=== PATIENT | male | born 1955 | race Caucasian/White ===

== ENCOUNTER 2017-12-07 13:38 | Emergency (ER) | payer BC ==
[~2017-12-07] VITALS: Ht 188 cm; Wt 88.5 kg
[~2017-12-07 13:38] MED LIST: ENAL10TA PO; ENLP10T; EPO; FRSM40T PO; FURO20TA4; HYDR1TAB86 PO; OMEP20CA6; OMEP20CA6 PO; PRAV40TA PO; PRD10T PO; PRD20T; PRD20T PO; SODIUM BICARBONATE PO
--- OUTSIDE RECORDS SUMMARY | 2017-12-07 13:42 | XMS REPORT | Clinical Summary ---
Author Author [facility] Organization [facility] Address Unknown Phone Unavailable Care Team Providers Care Replenishment Merchandising Associate Name Role Phone Devon Cheema MD PCP Suze Buchanan RN Unavailable Unavailable Charissa Lin RN Unavailable Unavailable Valery Newton MA Unavailable Unavailable Chas Peña APRN Unavailable Jeri Brower MA Unavailable Unavailable Dee Lyn RN Unavailable Unavailable Rogerio Lynne MD Unavailable Yesi Martinez MD 21 Dee Ma RN Unavailable Unavailable Toma Ojeda Unavailable Unavailable Radha David RN Unavailable Unavailable Shonda Ovalles MA Unavailable Unavailable Marley Jain Unavailable Unavailable Sonal Herrera MD Unavailable Wolf Aguillon MD Unavailable Source Comments Some departments are not documenting in the electronic medical record. If you do not see the information that you expected, contact Release of Information in the Health Information Management department at [phone] for further assistance in locating additional records.[facility] Allergies No Known Allergies Current Medications Prescription Sig. Disp. Refills Start End Date Status Date enalapril (VASOTEC) 10 mg Take 15 mg by mouth Active tablet daily. furosemide (LASIX) 40 mg Take 40 mg by mouth Active tablet daily. omeprazole DR(+) Take 20 mg by mouth Active (PRILOSEC) 20 mg capsule daily. sodium bicarbonate 325 mg Take 325 mg by mouth Active tablet daily. Will need to clarify actual dose pravastatin (PRAVACHOL) Take 10 mg by mouth Active 10 mg tablet daily. Will need to clarify dose predniSONE (DELTASONE) 5 Take 15 mg by mouth every Active mg tablet 48 hours. 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 Hypertension 07/08/2015 Overview: Stable on current regimen. GERD (gastroesophageal reflux disease) 07/08/2015 Metabolic acidosis 07/08/2015 End stage renal disease (HCC) 07/07/2015 Overview: Stable GFR 18-22% over the past few years, remains off dialysis. Encounters Date Type Specialty Care Team Description 11/28/2017 Documentation Transplant Surgery Dee Ma RN 11/28/2017 Ancillary Radiology Outpatient, Radiologist Orders 11/26/2017 Telephone Transplant Surgery Dee Ma RN Transplant Referral (PACS request for CT's) 11/26/2017 Telephone Transplant Surgery Amelia Santos Financial/ Insurance Questions (benefit collection) 11/22/2017 Telephone Transplant Surgery Dee Ma RN Transplant Referral (kidney) 11/22/2017 Telephone Transplant Surgery Beena Vergara Transplant Referral (intake interview) from Last 3 Months Family History Medical History Relation Name Comments Aneurysm Father Hypertension Father Cancer Mother Relation Name Status Comments Daughter Alive Father Mother Social History Tobacco Use Types Packs/Day Years Used Date Never Smoker Smokeless Tobacco: Never Used Alcohol Use Drinks/Week oz/Week Comments Yes occasional Sex Assigned at Date Recorded Not on file Last Filed Vital Signs Vital Sign Reading Time Taken Blood Pressure 119/81 07/08/2015 8:06 AM CDT Pulse 76 07/08/2015 8:06 AM CDT Temperature 36.6 C (97.9 F) 07/08/2015 7:57 AM CDT Respiratory Rate - - Oxygen Saturation 100% 07/08/2015 7:57 AM CDT Inhaled Oxygen - - Concentration Weight 87.7 kg (193 lb 4.8 oz) 07/08/2015 7:57 AM CDT Height 190.5 cm (6' 3") 07/08/2015 7:57 AM CDT Body Mass Index 24.16 07/08/2015 7:57 AM CDT Plan of Treatment Health Maintenance Due Date Last Done Comments PHYSICAL (COMPREHENSIVE) 1961 EXAM PERTUSSIS VACCINE 1965 TETANUS VACCINE 1971 COLORECTAL CANCER 2004 SCREENING SHINGLES VACCINE 2014 INFLUENZA VACCINE 05/07/2018 HEPATITIS C SCREENING Completed 07/08/2015, 10/11/2009 Results Not on filefrom Last 3 Months
--- OUTSIDE RECORDS SUMMARY | 2017-12-07 13:42 | XMS REPORT | Encounter Summary ---
Author Author [facility] Organization [facility] Address Unknown Phone Unavailable Care Team Providers Care Hydraulic Repairer Name Role Phone Devon Cheema MD PCP [...] Herrera MD Unavailable Wolf Aguillon MD Unavailable Reason for Visit * Reason Comments Financial/Insurance benefit collection Questions Encounter Details Date Type Department Care Team Description 11/26/2017 Telephone Center for Amelia Santos Financial/Insurance Transplantation-Kidney/Pa Questions (benefit ncreas Nep collection) [address] [facility] [address] Social History Tobacco Use Types Packs/Day Years Used Date Never Smoker Smokeless Tobacco: Never Used Alcohol Use Drinks/Week oz/Week Comments Yes occasional Sex Assigned at Date Recorded Not on file as of this encounter Functional Status Functional Status Response Date of Assessment Does the patient have a hearing impairment: Yes 07/08/2015 Does the patient have a visual impairment: No 07/08/2015 Does the patient have impaired ambulation: No 07/08/2015 Does the patient have an activity of daily living No 07/08/2015 (ADL) impairment: Does the patient have an instrumental activity of No 07/08/2015 daily living (IADL) impairment: Cognitive Status Response Date of Assessment Does the patient have a cognitive impairment: No 07/08/2015 as of this encounter Miscellaneous Notes * Telephone Encounter - Amelia Santos - 11/26/2017 10:36 AM ACID TESTER Benefits verified with Medicare A & B only. Patient is appropriate to schedule. * Telephone Encounter - Amelia Santos - 11/26/2017 10:14 AM ACID TESTER BENEFIT COLLECTION: Verified by: Amelia Santos Date: November 26, 2017 ID #: [id number] Subscriber: self Ins Plan:MEDICARE A&B EFF: 11/07/17 Phone#:[phone] Plan Type: A & B 2018 BENEFIT SUMMARY: PART A: DAYS REFRESH AFTER 60 CONSECUTIVE OUTPT DAYS DAYS 1-60 $1340 DEDUCTIBLE DAYS 61-90 $335/DAY COPAY DAYS 91-150 (USING ANY LIFETIME RESERVE DAYS) $670/DAY COPAY DAYS > 150 PT PORTION 100%; after a 3-day minimum medically necessary inpatient hospital stay for a related illness or injury. PART A/ SNF BENEFITS: IN 2016: DAYS 1-20 PT PORTION $0; DAYS 21-100 $167.50/DAY COPAY; DAYS > 100 PT PORTION 100% PART B IN 2018: - 2018 [place] $109 DEDUCTIBLE $183, WITH 80% REIMBURSEMENT OF ALLOWABLE, NO OUT OF POCKET MAXIMUM MEDICARE WILL PAY FOR DRUGS INFUSED THROUGH AN ITEM OF DME, LIKE AN INFUSION PUMP, OR DRUGS GIVEN BY A NEBULIZER WHEN GIVEN BY A LICENSED MEDICAL PROVIDER. PART B WILL COVER IMMUNOSUPPRESSIVE DRUGS IF COVERED THE TRANSPLANT, EVEN SECONDARY PAYER No Case Management, No transplant Network, No prior authorizations, No benefit limits PATIENT MUST HAVE RX COVERAGE AND SECONDARY OR SUPPLEMENT BEFORE LISTING Patient will be responsible for 20% that medicare does not cover for all testing and labs in this encounter Plan of Treatment Not on fileas of this encounter Visit Diagnoses Not on filein this encounter
--- OUTSIDE RECORDS SUMMARY | 2017-12-07 13:42 | XMS REPORT | Encounter Summary ---
Author Author [facility] Organization [facility] Address Unknown Phone Unavailable Care Team Providers Care Crusher Plant Operator Name Role Phone Devon Cheema MD PCP [...] Herrera MD Unavailable Wolf Aguillon MD Unavailable Encounter Details Date Type Department Care Team Description 11/28/2017 Documentation Center for Dee Ma RN Transplantation-Kidney/Pa [facility] [address] [facility] [place], [place] [id number] Social History Tobacco Use Types Packs/Day Years [...] impairment: No 07/08/2015 as of this encounter Progress Notes * Dee Ma RN - 11/28/2017 4:37 PM RESILIENT TILE INSTALLER CT done [address] Pham & ok to proceed with kidney transplant evaluation - would not exclude evaluation from the CT. * Dee Ma RN - 11/28/2017 4:37 PM RESILIENT TILE INSTALLER Received notice CT chest & abd/pelvis from are loaded in PACS; notified surgeon for review. in this encounter Plan of Treatment Not on fileas of this encounter Visit Diagnoses Not on filein this encounter
--- OUTSIDE RECORDS SUMMARY | 2017-12-07 13:42 | XMS REPORT | Encounter Summary ---
Author Author [facility] Organization [facility] Address Unknown Phone Unavailable Care Team Providers Care Airport Traffic Controller Name Role Phone Devon Cheema MD PCP [...] Unavailable Unavailable Marley Jain Unavailable Unavailable Sonal Herrrea MD Unavailable Wolf Aguillon MD Unavailable Encounter Details Date Type Department Care Team Description 11/28/2017 Ancillary Rad Outpatient, Radiologist Orders [address] [place] [address] Social History Tobacco Use Types Packs/Day Years [...] impairment: No 07/08/2015 as of this encounter Plan of Treatment Not on fileas of this encounter Results * CT CHEST EXTERNAL IMAGING (08/04/2017) Narrative This order has been auto finalized and does not contain a result. * CT ABD/PEL EXTERNAL IMAGING (07/30/2017) Narrative This order has been auto finalized and does not contain a result. in this encounter Visit Diagnoses Not on filein this encounter
--- OUTSIDE RECORDS SUMMARY | 2017-12-07 13:42 | XMS REPORT | Encounter Summary ---
Author Author [facility] Organization [facility] Address Unknown Phone Unavailable Care Team Providers Care Office Electrician Name Role Phone Devon Cheema MD PCP [...] Unavailable Reason for Visit * Reason Comments Transplant Referral kidney Encounter Details Date Type Department Care Team Description 11/22/2017 Telephone Center for Dee Ma RN Transplant Referral Transplantation-Kidney/Pa (kidney) ncreas [facility] [address] [facility] [place], [place] [id number] Social History Tobacco Use Types Packs/Day Years [...]
--- OUTSIDE RECORDS SUMMARY | 2017-12-07 13:42 | XMS REPORT | Encounter Summary ---
Author Author [facility] Organization [facility] Address Unknown Phone Unavailable Care Team Providers Care Shoe Parts Caser Name Role Phone Devon Cheema MD PCP [...] for Visit * Reason Comments Transplant Referral PACS request for CT's Encounter Details Date Type Department Care Team Description 11/26/2017 Telephone Center for Dee Ma RN Transplant Referral (PACS Transplantation-Kidney/Pa request for CT's) [facility] [address] [facility] [place] [address] Social History Tobacco Use Types Packs/Day Years [...] encounter Miscellaneous Notes * Telephone Encounter - Dee Ma RN - 11/26/2017 1:33 PM REPLANTING MACHINE OPERATOR Requested CT abd/pelvis and CT chest from @ [facility] to be uploaded to PACS: Phoebe, Can you please request these CTs to be uploaded into PACS for us in kidney transplant. Thank you. Name: Tolu Barrios : 53 Location: [facility] Study: CT Abdomen Pelvis done 07/30/[address] chest done 08/03 Thank you, Dee Ma, MSN, RN, CCTC [facility] Center for Transplantation Renal and Pancreas Bundle Person [email or web address] in this encounter Plan of Treatment Not on fileas of this encounter Visit Diagnoses Not on filein this encounter
--- OUTSIDE RECORDS SUMMARY | 2017-12-07 13:43 | XMS REPORT | Continuity of Care Document ---
Author Author [facility] Organization [facility] Address Unknown Phone Unavailable Allergies Active Description Code Type Severity Reaction Onset Reported/Identified Relationship to Patient Clinical Status Yes No Known Drug Allergies [id number] Drug Allergy Mild N/A 10/08/2009 Medications There is no data. Problems Date Dx Coded Attending Type Code Diagnosis Diagnosed By 07/27/2015 OLI CRAVEN MD Ot E78.5 07/27/2015 OLI CRAVEN MD Ot I10 07/27/2015 OLI CRAVEN MD Ot K21.9 07/27/2015 OLI CRAVEN MD Ot K57.90 07/27/2015 OLI CRAVEN MD Ot K62.1 07/27/2015 OLI CRAVEN MD Ot K63.5 07/27/2015 OLI CRAVEN MD Ot K64.4 07/27/2015 OLI CRAVEN MD Ot K64.8 07/27/2015 OLI CRAVEN MD Ot Z12.11 07/07/2017 Ot 285.21 ANEMIA IN CHRONIC KIDNEY DISEASE 07/07/2017 Ot 585.4 CHRONIC KIDNEY DISEASE, STAGE IV (SEVERE 07/07/2017 Ot V58.69 OTH MED,LT, CURRENT USE Procedures There is no data. Results There is no data. Encounters ACCT No. Visit Date/Time Discharge Status Pt. Type Provider Facility Loc./Unit Complaint [id number] 07/27/2015 07:12:00 07/27/2015 11:15:00 DIS Outpatient OLI CRAVEN MD [facility] [id number] 07/22/2015 05:38:00 07/22/2015 23:59:59 CLS Outpatient OLI CRAVEN MD [facility] PREOP [id number] 02/23/2014 07:44:00 04/27/2014 00:01:00 DIS Outpatient [id number] 01/27/2014 07:48:00 04/27/2014 00:01:00 DIS Outpatient [id number] 03/23/2014 06:54:00 03/23/2014 23:59:59 CLS Outpatient [id number] 12/28/2013 12:43:00 01/10/2014 00:01:00 DIS Outpatient [id number] 12/15/2013 12:31:00 01/10/2014 00:01:00 DIS Outpatient [id number] 08/31/2013 17:18:00 10/11/2013 00:01:00 DIS Outpatient [id number] 08/17/2013 14:10:00 10/11/2013 00:01:00 DIS Outpatient [id number] 06/09/2013 13:15:00 06/21/2013 00:01:00 DIS Outpatient [id number] 05/25/2013 07:45:00 06/21/2013 00:01:00 DIS Outpatient [id number] 06/17/2013 07:12:00 06/17/2013 23:59:59 CLS Outpatient [id number] 03/24/2013 12:57:00 03/24/2013 23:59:59 CLS Outpatient [id number] 12/07/2017 13:39:00 ACT Po SAMUEL MD, LEVON Velasquez [facility] ER WEAKNESS/FEVER [id number] 12/25/2012 14:18:00 Document Registration
--- OUTSIDE RECORDS SUMMARY | 2017-12-07 13:43 | XMS REPORT | Encounter Summary ---
Author Author [facility] Organization [facility] Address Unknown Phone Unavailable Care Team Providers Care Ladle Operator Name Role Phone Devon Cheema MD [...] for Visit * Reason Comments Transplant Referral intake interview Encounter Details Date Type Department Care Team Description 11/22/2017 Telephone Center for JaiBeena Transplant Referral Transplantation-Kidney/Pa (intake interview) [facility] [address] [facility] [place] [address] Social History Tobacco Use Types [...] encounter Miscellaneous Notes * Telephone Encounter - Beena Vergara - 11/22/2017 10:10 AM SUPPORT MANAGER New Referral Intake TO PATIENT: Thank you for contacting us, how did you hear about our transplant program? Pt was previous listed here at Is [place]orese your primary language? Yes Who is your kidney doctor? Hunter Varghese in [place] Who is your primary doctor? Devon Cheema Have you had a hospitalization in the past 6 months? UTI x2 turned in to Kidney infection, catheter for dialysis and blocked bowel turned perforated bowel had colostomy, case of Afib while hospitalized. Reversed colostomy. [facility] July 2017-present Past Medical History: (if answer is yes, please specify) How tall are you? 6'3" How much do you weigh? 185lbs Calculated BMI: 23.1 What is the cause of your kidney disease? Wegeners Are you currently on dialysis? yes Type/Start date/ Schedule: T,T,S, a.m. 7-10:30am, hemo What center: [facility] Are you diabetic? No Have you been denied or listed by another transplant center? Previously listed with Have you had a previous organ transplant? No History of: Heart disease? No, has a leaky heart valve has f/u annual appt in December Do you have a heart doctor? Dr. Aguillon heart and vascular History of heart stents? No Are you on medication to keep stents open (ex. Coumadin, Plavix, Brilinta)? No Are you on medication to help raise your blood pressure (Midodrine)? No Lung disease? No Are you on oxygen? No Do you wear CPAP (breathing machine at night to sleep)? No Are you currently smoking (marijuana or cigerettes)? No TO PATIENT: If you currently smoke, you need to quit to be considered a transplant candidate. Liver disease? No Cancer? 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 This took pt off txp list for 5 yrs 2008. Any active infections? No open wounds or sores? stitches incisions from colostomy reversal healing fine Psychiatric illness? No Do you see a psychiatrist or counselor? No Do you use a cane/walker/ other assistive devices to get around? Cane occasionally, only as needed Past Surgical History: Have you had any abdominal surgeries? Previously mentioned colostomy Have you had any surgeries on blood vessels? No Have you had any amputations? Previously mentioned earlobe removal Would you accept a lifesaving blood transfusion? Yes Demographic and Social History: What gender were you at ? male Primary Insurance Company: Medicare Policy #: [id number] Group ID: *Obtain copy of card and have scanned Secondary Insurance Company: states he will have supplemental January 05 and prescription Policy #: Group ID: *Obtain copy of card and have scanned Do you have a support person who will be with you after a transplant? yes Name and Relationship of Support Person: daughter, Bisi Booker TO PATIENT: You will need to bring your support person with you to the transplant evaluation. This is required to be considered a candidate for transplant. If you have interested living donors, they are welcome to come with you, as well. Note to staff - Obtain the following records: nephrology note hospital discharge summary within 6 month (or most recent) pathology report Notify Dr. Jacob if delay in scheduling due to lack of records in this encounter Plan of Treatment Not on fileas of this encounter Visit Diagnoses Not on filein this encounter
--- NOTE | 2017-12-07 13:55 | ED General ---
General Chief Complaint: General Problems/Pain Stated Complaint: WEAKNESS/FEVER Source of Information: Patient, EMS, Family History of Present Illness Date Seen by Provider: Dec 07, 2017 Time Seen by Provider: 13:49 Initial Comments This 5-year-old white male presents with a history of a fever which developed during his dialysis today. Patient's fever was 101. Patient denies productive cough, nausea, vomiting, dysuria, rash, stiff neck or photophobia. Patient does complain of a mild headache. Patient had a similar presentation in the past due to VRE cystitis treated with ampicillin at [facility] for 5 days. The patient had a colostomy reversal performed 3 weeks ago. He's had no associated abdominal pain, swelling, inflammation of his surgical scars, or symptoms suggestive of obstruction. Allergies and Home Medications Allergies Coded Allergies: No Known Drug Allergies (Unverified , 10/08/09) Patient Home Medication List Home Medication List Reviewed: Yes Constitutional: No chills, fever EENTM: No hearing loss Respiratory: No cough, No short of breath Cardiovascular: No chest pain Gastrointestinal: No diarrhea, No nausea, No vomiting Genitourinary: No dysuria, No frequency, No hematuria Musculoskeletal: No back pain, No neck pain Skin: No rash Psychiatric/Neurological: No Symptoms Reported Hematologic/Lymphatic: Easy Bleeding Immunological/Allergic: no symptoms reported Past Aymsntj-Qbdkym-Kvowos Hx Patient Social History Alcohol Use: Denies Use Recreational Drug Use: No 2nd Hand Smoke Exposure: No Surgeries History of Surgeries: Yes Surgeries: Abdominal Respiratory History of Respiratory Disorde: No Cardiovascular History of Cardiac Disorders: No Reproductive System Hx Reproductive Disorders: No Sexually Transmitted Disease: No Gastrointestinal History of Gastrointestinal Di: No Musculoskeletal History of Musculoskeletal Dis: Yes (gout in the past) Endocrine History of Endocrine Disorders: No Blood Transfusions History of Blood Disorders: No Reviewed Nursing Assessment Reviewed/Agree w Nursing PMH: Yes Physical Exam-Suspected Sepsis Physical Exam Vital Signs Vital Signs - First Documented 12/07/17 13:40 Temp 98.7 Pulse 84 Resp 18 B/P (MAP) 117/74 (88) Pulse Ox 100 Capillary Refill : General Appearance: No Apparent Distress, Cachetic Eyes: Bilateral Eye Normal Inspection HEENT: Normal ENT Inspection Neck: Normal Inspection Respiratory: Lungs Clear, Normal Breath Sounds Cardiovascular: Regular Rate, Rhythm, No Edema, No Gallop Gastrointestinal: Normal Bowel Sounds, Non Tender Back: Normal Inspection, No CVA Tenderness Extremity: Normal Capillary Refill, Normal Inspection, Normal Range of Motion Neurologic/Psychiatric: Oriented x3, No Motor/Sensory Deficits, Normal Mood/ Affect Skin: normal color, warm/dry, No rash Focused Exam Evaluation Lactate Level Laboratory Tests 12/07/17 14:22: Lactic Acid Level 1.75 Lactic Acid Level Laboratory Tests Test 12/07/17 14:22 Lactic Acid Level 1.75 MMOL/L (0.50-2.00) Progress/Results/Core Measures Suspected Sepsis SIRS Temperature: Pulse: Respiratory Rate: Laboratory Tests 12/07/17 13:40: White Blood Count 1.3*L Blood Pressure / Mean: Laboratory Tests 12/07/17 14:22: Lactic Acid Level 1.75 Laboratory Tests 12/07/17 13:40: Creatinine 2.99H, Platelet Count 111L, Total Bilirubin 0.5 Results/Orders Lab Results Laboratory Tests Test 12/07/17 13:40 12/07/17 13:55 12/07/17 14:22 Range/Units White Blood Count 1.3 *L 4.3-11.0 10^3/uL Red Blood Count 2.85 L 4.35-5.85 10^6/uL Hemoglobin 9.4 L 13.3-17.7 G/DL Hematocrit 29 L 40-54 % Mean Corpuscular Volume 100 H 80-99 FL Mean Corpuscular Hemoglobin 33 25-34 PG Mean Corpuscular Hemoglobin Concent 33 32-36 G/DL Red Cell Distribution Width 15.8 H 10.0-14.5 % Platelet Count 111 L 130-400 10^3/uL Mean Platelet Volume 10.0 7.4-10.4 FL Neutrophils (%) (Auto) 42-75 % Lymphocytes (%) (Auto) 12-44 % Monocytes (%) (Auto) 0-12 % Eosinophils (%) (Auto) 0-10 % Basophils (%) (Auto) 0-10 % Neutrophils # (Auto) 1.8-7.8 X 10^3 Lymphocytes # (Auto) 1.0-4.0 X 10^3 Monocytes # (Auto) 0.0-1.0 X 10^3 Eosinophils # (Auto) 0.0-0.3 10^3/uL Basophils # (Auto) 0.0-0.1 10^3/uL Neutrophils % (Manual) 2 % Lymphocytes % (Manual) 72 % Monocytes % (Manual) 24 % Eosinophils % (Manual) 2 % Basophils % (Manual) 0 % Band Neutrophils 0 % Blood Morphology Comment NORMAL Erythrocyte Sedimentation Rate 69 H 0-30 MM/HR Sodium Level 136 135-145 MMOL/L Potassium Level 3.5 L 3.6-5.0 MMOL/L Chloride Level 100 98-107 MMOL/L Carbon Dioxide Level 24 21-32 MMOL/L Anion Gap 12 5-14 MMOL/L Blood Urea Nitrogen 17 7-18 MG/DL Creatinine 2.99 H 0.60-1.30 MG/DL Estimat Glomerular Filtration Rate 21 BUN/Creatinine Ratio 6 Glucose Level 92 70-105 MG/DL Calcium Level 8.9 8.5-10.1 MG/DL Total Bilirubin 0.5 0.1-1.0 MG/DL Aspartate Amino Transf (AST/SGOT) 23 5-34 U/L Alanine Aminotransferase (ALT/SGPT) 27 0-55 U/L Alkaline Phosphatase 74 40-136 U/L C-Reactive Protein High Sensitivity 8.31 H 0.00-0.50 MG/DL Total Protein 5.3 L 6.4-8.2 GM/DL Albumin 3.1 L 3.2-4.5 GM/DL Urine Color YELLOW Urine Clarity VERY CLOUDY H Urine pH 8 5-9 Urine Specific [place] 1.010 L 1.016-1.022 Urine Protein 4+ NEGATIVE Urine Glucose (UA) NEGATIVE NEGATIVE Urine Ketones NEGATIVE NEGATIVE Urine Nitrite NEGATIVE NEGATIVE Urine Bilirubin NEGATIVE NEGATIVE Urine Urobilinogen NORMAL NORMAL MG/DL Urine Leukocyte Esterase 3+ H NEGATIVE Urine RBC (Auto) 4+ H NEGATIVE Urine RBC 10-25 H /HPF Urine WBC TNTC H /HPF Urine Squamous Epithelial Cells NONE /HPF Urine Crystals NONE /LPF Urine Bacteria FEW H /HPF Urine Casts NONE /LPF Urine Mucus NEGATIVE /LPF Urine Culture Indicated YES Lactic Acid Level 1.75 0.50-2.00 MMOL/L My Orders Orders - LEVON SAMUEL MD Blood Culture (12/07/17 13:47) Cbc With Automated Diff (12/07/17 13:47) Comprehensive Metabolic Panel (12/07/17 13:47) Ua Culture If Indicated (12/07/17 13:47) Chest Pa/Lat (2 View) (12/07/17 13:47) Lactic Acid Analyzer (12/07/17 13:47) Hs C Reactive Protein (12/07/17 14:02) Erythrocyte Sedimentation Rate (12/07/17 14:02) C Difficile Ag + Toxin A/B. (12/07/17 14:04) Stool Culture (12/07/17 14:04) Manual Differential (12/07/17 13:40) Urine Culture (12/07/17 13:55) Ceftriaxone Injection (Rocephin Injectio (12/07/17 14:45) Vital Signs/I&O Vital Sign - Last 12Hours 12/07/17 13:40 Temp 98.7 Pulse 84 Resp 18 B/P (MAP) 117/74 (88) Pulse Ox 100 Capillary Refill : Progress Note : Time: 14:09 Progress Note Cultures were obtained. Labs were drawn. Chest x-ray was performed. The patient's laboratory evaluation demonstrated a leukopenia with white count 1.3. In addition patient urinalysis was suggestive of urinary tract infection. The patient received 2 g Rocephin IV. Departure Impression Impression: Primary Impression: UTI (urinary tract infection) Qualified Codes: N30.00 - Acute cystitis without hematuria Additional Impression: Fever Qualified Codes: R50.9 - Fever, unspecified Disposition: [facility]F [facility] Condition: Improved Transfer Time Spoke to Accepting Phy: 14:[address] Ponce accepted to [facility]. Report #[id number] Transfer Time: 15:05 Transfer Facility: [facility] to [facility] Method of Transfer: Private Vehicle Departure-Patient Inst. Referrals: ALYCE JAIN MD (PCP) Primary Care Physician LEVON SAMUEL MD Dec 07, 2017 13:55
[2017-12-07 13:56] LABS: HEMATOCRIT 29 % (40-54); HEMOGLOBIN 9.4 G/DL (13.3-17.7); MEAN CORPUSCULAR HEMOGLOBIN 33 PG (25-34); MEAN CORPUSCULAR HGB CONC 33 G/DL (32-36); MEAN CORPUSCULAR VOLUME 100 FL (80-99); PLATELET COUNT 111 10^3/uL (130-400); RED BLOOD COUNT 2.85 10^6/uL (4.35-5.85); RED CELL DISTRIBUTION WIDTH 15.8 % (10.0-14.5)
[2017-12-07 14:04] LABS: BILIRUBIN,URINE NEGATIVE (NEGATIVE); CLARITY,URINE VERY CLOUDY; COLOR,URINE YELLOW; GLUCOSE, URINE (UA) NEGATIVE (NEGATIVE); KETONES,URINE NEGATIVE (NEGATIVE); LEUKOCYTE ESTERASE ,URINE 3+ (NEGATIVE); NITRITE,URINE NEGATIVE (NEGATIVE); PH,URINE 8 (5-9); PROTEIN,URINE 4+ (NEGATIVE); UROBILINOGEN,URINE NORMAL (NORMAL)
[2017-12-07 14:09] LABS: WHITE BLOOD COUNT 1.3 10^3/uL (4.3-11.0)
--- NOTE | 2017-12-07 14:13 | Diagnostic Imaging Report ---
PA and lateral chest. INDICATION: Weakness. No comparison available. FINDINGS: Right internal jugular dual-lumen central line is present. Surgical clips in the right neck. Lungs appear clear without focal infiltrate or evidence of effusion. There is no pneumothorax. The heart size and mediastinal contours appear appropriate without evidence of failure. IMPRESSION: No radiographic evidence of an acute cardiopulmonary process. Dictated by: Dictated on workstation # [id number]
[2017-12-07 14:18] LABS: ALBUMIN 3.1 GM/DL (3.2-4.5); BILIRUBIN,TOTAL 0.5 MG/DL (0.1-1.0); CALCIUM 8.9 MG/DL (8.5-10.1); CREATININE SERUM 2.99 MG/DL (0.60-1.30); POTASSIUM 3.5 MMOL/L (3.6-5.0); TOTAL PROTEIN 5.3 GM/DL (6.4-8.2)
[2017-12-07 14:26] LABS: BAND NEUTROPHILS 0 %; BASOPHILS % (MANUAL) 0 %; EOSINOPHILS % (MANUAL) 2 %; LYMPHOCYTES % (MANUAL) 72 %; MONOCYTES % (MANUAL) 24 %; NEUTROPHILS % (MANUAL) 2 %; RBC MORPH NORMAL
[2017-12-07 14:30] LABS: BACTERIA,URINE FEW /HPF; WBC,URINE TNTC /HPF
[2017-12-07] MEDS ORDERED: cefTRIAXone INJECTION 2,000 MG in NS (IVPB) 100 ML IV ONE (14:45)
[2017-12-07] MEDS ORDERED: PRAV40TA2 (14:51)
[2017-12-07] MEDS ORDERED: AMIO200T2 (14:51)
[2017-12-07] MEDS ORDERED: CALC0.5C11 (14:51)
[2017-12-07] MEDS ORDERED: AMLO10TA2 (14:51)
[2017-12-07] MEDS ORDERED: PANT40TA3 (14:51)
[2017-12-07 15:42] VITALS: BP 115/72
== END 2017-12-07 15:42 | disposition short-term general hospital (02) ==
LOC: EDUNIT# 13:38 → ER 13:39
DX: N39.0 Urinary tract infection, site not specified (principal); M10.9 Gout, unspecified; Z98.890 Other specified postprocedural states; Z99.2 Dependence on renal dialysis
CPT/HCPCS: 36415; 71046; 80053; 81000; 83605; 85007; 85027; 85652; 86141; 87040; 87077; 87088; 87186

== ENCOUNTER 2017-12-27 13:25 | Outpatient (RCR) | payer BC ==
[2017-12-11 15:25] VITALS: BP 115/79
[2017-12-11] MEDS: AMPICILLIN IV SCH ×2 (16:36)
[2017-12-11] MEDS: NS IV SCH ×2 (16:36)
[2017-12-11 17:05] VITALS: BP 115/79
[2017-12-11] MEDS: CATHETER FLUSH 10 ML SYR IV PRN (17:05)
[2017-12-12 15:35] VITALS: BP 98/65
[2017-12-12] MEDS: NS IV SCH ×2 (15:49)
[2017-12-12] MEDS: AMPICILLIN IV SCH ×2 (15:49)
[2017-12-13 15:02] VITALS: BP 120/76
[2017-12-13] MEDS: NS IV SCH ×2 (15:12)
[2017-12-13] MEDS: AMPICILLIN IV SCH ×2 (15:12)
[2017-12-13 15:49] VITALS: BP 120/76
[2017-12-14 11:05] VITALS: BP 107/77
[2017-12-14] MEDS: CATHETER FLUSH 10 ML SYR IV PRN (11:10)
[2017-12-14] MEDS: AMPICILLIN IV SCH ×2 (11:15)
[2017-12-14] MEDS: NS IV SCH ×2 (11:15)
[2017-12-15 09:10] VITALS: BP 129/84
[2017-12-15] MEDS: CATHETER FLUSH 10 ML SYR IV PRN (09:15)
[2017-12-15] MEDS: NS IV SCH ×2 (09:16)
[2017-12-15] MEDS: AMPICILLIN IV SCH ×2 (09:16)
[2017-12-16] MEDS: CATHETER FLUSH 10 ML SYR IV PRN ×2 (15:09→15:40)
[2017-12-16] MEDS: AMPICILLIN IV SCH ×2 (15:10)
[2017-12-16] MEDS: NS IV SCH ×2 (15:10)
[2017-12-16 15:46] VITALS: BP 120/79
[2017-12-17] MEDS: AMPICILLIN IV SCH ×2 (15:18)
[2017-12-17] MEDS: NS IV SCH ×2 (15:18)
[2017-12-17 15:21] VITALS: BP 120/74
[2017-12-17 15:47] VITALS: BP 120/74
[2017-12-18] MEDS: NS IV SCH ×2 (15:48)
[2017-12-18] MEDS: AMPICILLIN IV SCH ×2 (15:48)
[2017-12-18 15:58] VITALS: BP 145/88
[2017-12-18 16:19] VITALS: BP 145/88
[2017-12-19] MEDS: AMPICILLIN IV SCH ×2 (15:20)
[2017-12-19] MEDS: NS IV SCH ×2 (15:20)
[2017-12-19 15:27] VITALS: BP 136/88
[2017-12-19 15:50] VITALS: BP 136/88
[2017-12-20] MEDS: NS IV SCH ×2 (15:15)
[2017-12-20] MEDS: AMPICILLIN IV SCH ×2 (15:15)
[2017-12-20 15:50] VITALS: BP 130/80
[2017-12-21] MEDS: CATHETER FLUSH 10 ML SYR IV PRN (11:08)
[2017-12-21] MEDS: NS IV SCH ×2 (11:08)
[2017-12-21] MEDS: AMPICILLIN IV SCH ×2 (11:08)
[2017-12-21 11:42] VITALS: BP 40/82
[~2017-12-27] VITALS: Ht 188 cm; Wt 88.5 kg
[~2017-12-27 13:25] MED LIST changes: +AMIO200T2; +AMLO10TA2; +CALC0.5C11; +PANT40TA3; +PRAV40TA2
[2017-12-27 13:46] VITALS: BP 123/82
[2018-01-28] MEDS ORDERED: PRED5TAB (22:00)
[2018-01-28] MEDS ORDERED: FINA5TAB6 (22:00)
== END 2018-03-11 | disposition home or self-care (01) ==
LOC: SDC 13:25
PROVIDERS: ATTEND Internal Medicine
DX: N30.00 Acute cystitis without hematuria (principal); D70.9 Neutropenia, unspecified; N18.6 End stage renal disease; M31.30 Wegener's granulomatosis without renal involvement; Z99.2 Dependence on renal dialysis
CPT/HCPCS: 96365; 99211

== ENCOUNTER 2018-02-04 05:45 | Emergency (ER) | payer MEDICARE ==
[~2018-02-04] VITALS: Ht 185.4 cm; Wt 86.2 kg
[~2018-02-04 05:45] MED LIST changes: +FINA5TAB6; +PRED5TAB
--- OUTSIDE RECORDS SUMMARY | 2018-02-04 05:52 | XMS REPORT | Clinical Summary ---
Author Author [facility] Organization [facility] Address Unknown Phone Unavailable Care Team Providers Care Starting Gate Driver Name Role Phone Devon Cheema MD PCP [...] in the Health Information Management department at [phone] for further assistance in locating additional records.[facility] Allergies No Known Allergies Current Medications Prescription [...] Encounters Date Type Specialty Care Team Description 12/13/2017 Telephone Transplant Surgery Dee Ma RN Kidney Recipient Referral 12/13/2017 Telephone Transplant Surgery Beena Vergara Transplant Evaluation (scheduled pt for 02/17/18) 12/13/2017 Telephone Transplant Surgery Beena Vergara Transplant Evaluation (pt scheduled 02/17) 11/28/2017 Documentation Transplant Surgery Dee Ma RN [...] 07/08/2015 7:57 AM CDT Plan of Treatment Date Type Specialty Care Team Description 12/13/2017 Procedure Pass Transplant Surgery Health Maintenance Due Date Last Done Comments PHYSICAL (COMPREHENSIVE) 1961 EXAM PERTUSSIS VACCINE 1965 TETANUS VACCINE 1971 COLORECTAL CANCER 2004 SCREENING SHINGLES VACCINE 2014 INFLUENZA VACCINE 07/07/2018 HEPATITIS C SCREENING Completed 07/08/2015, 10/11/2009 HIV SCREENING Completed 07/08/2015, 10/11/2009 Results Not on filefrom Last 3 Months
--- OUTSIDE RECORDS SUMMARY | 2018-02-04 05:52 | XMS REPORT | Encounter Summary ---
Author Author [facility] Organization [facility] Address Unknown Phone Unavailable Care Team Providers Care Inspector Cold Working Name Role Phone Devon Cheema MD PCP Suze Buchanan RN Unavailable Unavailable Charissa Lin RN Unavailable Unavailable Valery Newton MA Unavailable Unavailable Chas Peña APRN Unavailable Jrei Brower MA Unavailable Unavailable Dee Lyn RN Unavailable Unavailable Rogerio Lynne MD Unavailable Yesi Martinez MD 21 Dee Ma RN Unavailable Unavailable Toma Ojeda Unavailable Unavailable Radha David RN Unavailable Unavailable Shonda Ovalles MA Unavailable Unavailable Marley Jain Unavailable Unavailable Sonal Herrera MD Unavailable Wolf Aguillon MD Unavailable Encounter Details Date Type Department Care Team Description 12/13/2017 Procedure Pass [facility] Transplantation-Kidney/Pa ncreas Nep [address] [facility] [place] [address] Social History Tobacco Use Types Packs/Day Years [...] as of this encounter Plan of Treatment Date Type Specialty Care Team Description 12/13/2017 Procedure Pass Transplant Surgery as of this encounter Visit Diagnoses Not on filein this encounter
--- OUTSIDE RECORDS SUMMARY | 2018-02-04 05:52 | XMS REPORT | Encounter Summary ---
Author Author [facility] Organization [facility] Address Unknown Phone Unavailable Care Team Providers Care Policy And Planning Manager Name Role Phone Devon Cheema MD PCP [...] for JaiBeena Transplant Referral Transplantation-Kidney/Pa (intake interview) [facility] [address] [facility] [place] [address] Social History Tobacco Use Types [...] - Beena Vergara - 11/22/2017 10:10 AM SENIOR HRIS ANALYST New Referral Intake TO PATIENT: Thank you for contacting us, how did you hear about our transplant program? Pt was previous listed here at Is Palauan your primary language? Yes Who is your kidney doctor? Hunter Varghese in [place] Who is your primary doctor? Devon Cheema Have you had a hospitalization in the past 6 months? UTI x2 turned in to Kidney infection, catheter for dialysis and blocked bowel turned perforated bowel had colostomy, case of Afib while hospitalized. [place] [facility] [place] Past Medical History: (if answer is yes, please specify) How tall are you? 6'3" How much do you weigh? 185lbs Calculated BMI: 23.1 What is the cause of your kidney disease? Wegeners Are you currently on dialysis? yes Type/Start date/ Schedule: T,T,S, a.m. 7-10:30am, hemo What center: [facility] Are you diabetic? No Have you been [...] male Primary Insurance Company: Medicare Policy #: [id number] Group ID: *Obtain copy of card and [...] records in this encounter Plan of Treatment Date Type Specialty Care Team Description 12/13/2017 Procedure Pass Transplant Surgery as of this encounter Visit Diagnoses Not on filein this encounter
--- OUTSIDE RECORDS SUMMARY | 2018-02-04 05:52 | XMS REPORT | Encounter Summary ---
Author Author [facility] Organization [facility] Address Unknown Phone Unavailable Care Team Providers Care District Superintendent Name Role Phone Devon Cheema MD PCP [...] Transplant Referral (PACS Transplantation-Kidney/Pa request for CT's) [facility] [address] [facility] [place] [address] Social History Tobacco Use Types Packs/Day Years [...] Dee Ma RN - 11/26/2017 1:33 PM MANAGER COMMERCIAL REAL ESTATE Requested CT abd/pelvis and CT chest from @ [place] to be uploaded to PACS: Phoebe, Can you please request these CTs to be uploaded into PACS for us in kidney transplant. Thank you. Name: Tolu Barrios : 53 Location: [facility] Study: CT Abdomen Pelvis done 07/30/[address] chest done 08/03 Thank you, Dee Ma, MSN, RN, CCTC [facility] for Transplantation Renal and Pancreas Transfer Car Operator [email or web address] in this encounter Plan of Treatment Date Type Specialty Care Team Description 12/13/2017 Procedure Pass Transplant Surgery as of this encounter Visit Diagnoses Not on filein this encounter
--- OUTSIDE RECORDS SUMMARY | 2018-02-04 05:52 | XMS REPORT | Encounter Summary ---
Author Author [facility] Organization [facility] Address Unknown Phone Unavailable Care Team Providers Care Truss Builder Name Role Phone Devon Cheema MD PCP [...] Financial/Insurance Transplantation-Kidney/Pa Questions (benefit ncreas Nep collection) [address] [facility] [place] [address] Social History Tobacco Use Types [...] - Amelia Santos - 11/26/2017 10:36 AM REWORKER Benefits verified with Medicare A & B only. Patient is appropriate to schedule. * Telephone Encounter - Amelia Santos - 11/26/2017 10:14 AM REWORKER BENEFIT COLLECTION: Verified by: Amelia Santos Date: November 26, 2017 ID #: [id number] Subscriber: self Ins Plan:MEDICARE A&B EFF: 11/07/17 Phone#:[phone] Plan Type: A & B 2018 BENEFIT [...] labs in this encounter Plan of Treatment Date Type Specialty Care Team Description 12/13/2017 Procedure Pass Transplant Surgery as of this encounter Visit Diagnoses Not on filein this encounter
--- OUTSIDE RECORDS SUMMARY | 2018-02-04 05:52 | XMS REPORT | Encounter Summary ---
Author Author [facility] Organization [facility] Address Unknown Phone Unavailable Care Team Providers Care Caustic Loader Name Role Phone Devon Cheema MD PCP [...] 11/28/2017 Ancillary Rad Outpatient, Radiologist Orders [address] [place] [address] Social History Tobacco Use Types Packs/Day Years [...] Pass Transplant Surgery as of this encounter Results * CT CHEST EXTERNAL IMAGING (08/04/2017) Narrative This order has been auto finalized and does not contain a result. * CT ABD/PEL EXTERNAL IMAGING (07/30/2017) Narrative This order has been auto finalized and does not contain a result. in this encounter Visit Diagnoses Not on filein this encounter
--- OUTSIDE RECORDS SUMMARY | 2018-02-04 05:52 | XMS REPORT | Encounter Summary ---
Author Author [facility] Organization [facility] Address Unknown Phone Unavailable Care Team Providers Care Asset Manager Name Role Phone Devon Cheema MD [...] Reason for Visit * Reason Comments Transplant Evaluation pt scheduled 02/17 Encounter Details Date Type Department Care Team Description 12/13/2017 Telephone Center for Beena Vergara Transplant Evaluation (pt [facility]idney[facility] [address] [facility] [place] [address] Social History Tobacco Use Types [...]
--- OUTSIDE RECORDS SUMMARY | 2018-02-04 05:52 | XMS REPORT | Encounter Summary ---
Author Author [facility] Organization [facility] Address Unknown Phone Unavailable Care Team Providers Care Cranberry Sorter Name Role Phone Devon Cheema MD PCP [...] Ma RN Transplant Referral Transplantation-Kidney/Pa (kidney) ncreas [facility] [address] [facility] [place], [place] [id number] Social History Tobacco Use Types Packs/Day Years [...]
--- OUTSIDE RECORDS SUMMARY | 2018-02-04 05:52 | XMS REPORT | Encounter Summary ---
Author Author [facility] Organization [facility] Address Unknown Phone Unavailable Care Team Providers Care Network Architect Manager Name Role Phone Devon Cheema MD [...] Unavailable Wolf Aguillon MD Unavailable Reason for Referral * Radiology Services Status Reason Specialty Diagnoses / Referred By Referred To Procedures Contact Contact New Request Radiology Diagnoses Lily ESRD (end stage MD Oanh renal disease) [address] ([facility]) [facility] Pre-transplant [place] [address] evaluation for [place], [place] end stage renal [address] disease Phone: P [phone] rocedures Fax: CT ABD/PELV WO [phone] CONTRAST Reason for Visit * Reason Comments Kidney Recipient Referral Encounter Details Date Type Department Care Team Description 12/13/2017 Telephone Center for Dee Ma, YVES Kidney Recipient Referral Transplantation-Kidney/Pa ncreas Nep [address] [facility] [place] [address] Social History Tobacco Use Types Packs/Day Years [...] Team Description 12/13/2017 Procedure Pass Transplant Surgery Name Priority Associated Diagnoses Order Schedule CT ABD/PELV WO CONTRAST Routine ESRD (end stage renal Expected: 2017 disease) ([facility]) (Approximate), Expires: Pre-transplant evaluation 12/13/2018 for end stage renal disease CHEST 2 VIEWS Routine ESRD (end stage renal Expected: 12/13/2017 disease) ([facility]) (Approximate), Expires: Pre-transplant evaluation 12/13/2018 for end stage renal disease as of this encounter Visit Diagnoses Diagnosis Pre-transplant evaluation for end stage renal disease - Primary Other specified pre-operative examination ESRD (end stage renal disease) ([facility]) End stage renal disease
--- OUTSIDE RECORDS SUMMARY | 2018-02-04 05:52 | XMS REPORT | Encounter Summary ---
Author Author [facility] Organization [facility] Address Unknown Phone Unavailable Care Team Providers Care Sheet Rocker Name Role Phone Devon Cheema MD PCP [...] for Visit * Reason Comments Transplant Evaluation scheduled pt for 02/17/18 Encounter Details Date Type Department Care Team Description 12/13/2017 Telephone Center for Beena Vergara Transplant Evaluation Transplantation-Kidney/Pa (scheduled pt for ncreas Nep 02/17/18) [address] [facility] [place] [address] Social History Tobacco Use Types Packs/Day Years [...]
--- OUTSIDE RECORDS SUMMARY | 2018-02-04 05:52 | XMS REPORT | Encounter Summary ---
Author Author [facility] Organization [facility] Address Unknown Phone Unavailable Care Team Providers Care Sanitary Landfill Operator Name Role Phone Devon Cheema MD PCP Suze Buchanan RN Unavailable Unavailable Charissa Lin RN Unavailable Unavailable Valery Newton MA Unavailable Unavailable Chas Peña APRN Unavailable Jeri Brower MA Unavailable Unavailable Dee Lyn RN Unavailable Unavailable Rogerio Lynne MD Unavailable Yesi Martinez MD 21 Dee Ma RN Unavailable Unavailable Toma Ojead Unavailable Unavailable Radha David RN Unavailable Unavailable Shonda Ovalles MA Unavailable Unavailable Marley Jain Unavailable Unavailable Sonal Herrera MD Unavailable Wolf Aguillon MD Unavailable Encounter Details Date Type Department Care Team Description 11/28/2017 Documentation Center for Dee Ma RN Transplantation-Kidney/Pa [facility] [address] [facility] [place], [place] [id number] Social History Tobacco Use Types Packs/Day Years [...] Dee Ma RN - 11/28/2017 4:37 PM TELECOMMUNICATOR SUPERVISOR CT done [address] Pham & ok to proceed with kidney transplant evaluation - would not exclude evaluation from the CT. * Dee Ma RN - 11/28/2017 4:37 PM TELECOMMUNICATOR SUPERVISOR Received notice CT chest & abd/pelvis from are loaded in PACS; notified surgeon for review. in this encounter Plan of Treatment Date Type Specialty Care Team Description 12/13/2017 Procedure Pass Transplant Surgery as of this encounter Visit Diagnoses Not on filein this encounter
--- OUTSIDE RECORDS SUMMARY | 2018-02-04 05:53 | XMS REPORT | Continuity of Care Document ---
Author Author [facility] Organization [facility] Address Unknown Phone Unavailable Allergies Active Description Code Type Severity Reaction Onset Reported/Identified Relationship to Patient Clinical Status Yes No Known Drug Allergies [id number] Drug Allergy Mild N/A 10/08/2009 Medications There is no data. 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 10/19/2012 Ot 447.8 ARTERIAL DISEASE NEC 10/19/2012 Ot 585.4 CHRONIC KIDNEY DISEASE, STAGE IV (SEVERE 10/19/2012 Ot 791.0 PROTEINURIA 10/19/2012 Ot 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 10/19/2012 Ot V12.51 HX-VENOUS THROMBOSIS EMBOLISM 10/19/2012 Ot V58.65 LONG-TERM( CURRENT)USE OF STEROIDS 10/19/2012 Ot V58.69 OTH MED,LT, CURRENT USE 10/19/2012 Ot V67.09 SURGERY FOLLOW-UP, OTHER SURGERY 10/19/2012 Ot 285.21 ANEMIA IN CHRONIC KIDNEY DISEASE 10/19/2012 Ot 585.4 CHRONIC KIDNEY DISEASE, STAGE IV (SEVERE 10/19/2012 Ot V58.69 OTH MED,LT, CURRENT USE 01/19/2013 Ot 272.4 HYPERLIPIDEMIA NEC/NOS 01/19/2013 Ot 276.8 HYPOPOTASSEMIA 01/19/2013 Ot 280.9 IRON DEFIC ANEMIA NOS 01/19/2013 Ot 285.21 ANEMIA IN CHRONIC KIDNEY DISEASE 01/19/2013 Ot 403.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 KID DIS, UNSPEC, W CHR KD ST 01/19/2013 Ot 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 01/19/2013 Ot 447.8 ARTERIAL DISEASE NEC 01/19/2013 Ot 585.4 CHRONIC KIDNEY DISEASE, STAGE IV (SEVERE 01/19/2013 Ot 791.0 PROTEINURIA 01/19/2013 Ot 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 01/19/2013 Ot V12.51 HX-VENOUS THROMBOSIS EMBOLISM 01/19/2013 Ot V58.65 LONG-TERM( CURRENT)USE OF STEROIDS 01/19/2013 Ot V58.69 OTH MED,LT, CURRENT USE 01/19/2013 Ot V67.09 SURGERY FOLLOW-UP, OTHER SURGERY 01/19/2013 Ot 285.21 ANEMIA IN CHRONIC KIDNEY DISEASE 01/19/2013 Ot 585.4 CHRONIC KIDNEY DISEASE, STAGE IV (SEVERE 01/19/2013 Ot V58.69 OTH MED,LT, CURRENT USE 06/21/2013 SEEMA SLOAN, CHANTAL Velasquez Ot 272.4 HYPERLIPIDEMIA NEC/NOS 06/21/2013 SEEMA SLOAN, CHANTAL S Ot 276.8 HYPOPOTASSEMIA 06/21/2013 SEEMA SLOAN, CHANTAL S Ot 280.9 IRON DEFIC ANEMIA NOS 06/21/2013 SEEMA SLOAN, CHANTAL S Ot 285.21 ANEMIA IN CHRONIC KIDNEY DISEASE 06/21/2013 SEEMA SLOAN, CHANTAL S Ot 403.90 HYPTNSV [facility] KID DIS, UNSPEC, W CHR KD ST 06/21/2013 CHANTAL STEPHENSON MD Ot 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 06/21/2013 SEEMA SLOAN, CHANTAL S Ot 447.8 ARTERIAL DISEASE NEC 06/21/2013 SEEMA SLOAN, CHANTAL S Ot 585.4 CHRONIC KIDNEY DISEASE, STAGE IV (SEVERE 06/21/2013 CHANTAL STEPHENSON MD S Ot 791.0 PROTEINURIA 06/21/2013 SEEMA SLOAN, CHANTAL S Ot 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 06/21/2013 SEEMA SLOAN, CHANTAL S Ot V12.51 HX-VENOUS THROMBOSIS EMBOLISM 06/21/2013 SEEMA SLOAN, CHANTAL S Ot V58.65 LONG-TERM(CURRENT)USE OF STEROIDS 06/21/2013 CHANTAL STEPHENSON MD Ot V58.69 OTH MED,LT,CURRENT USE 06/21/2013 CHANTAL STEPHENSON MD Ot V67.09 SURGERY FOLLOW-UP, OTHER SURGERY 06/21/2013 CHANTAL STEPHENSON MD Ot 285.21 ANEMIA IN CHRONIC KIDNEY DISEASE 06/21/2013 CHANTAL STEPHENSON MD Ot 585.4 CHRONIC KIDNEY DISEASE, STAGE IV (SEVERE 06/21/2013 CHANTAL STEPHENSON MD, Ot V58.69 OTH MED,LT,CURRENT USE 10/11/2013 CHANTAL STEPHENSON MD Ot 272.4 HYPERLIPIDEMIA NEC/NOS 10/11/2013 CHANTAL STEPHENSON MD Ot 276.8 HYPOPOTASSEMIA 10/11/2013 CHANTAL STEPHENSON MD Ot 280.9 IRON DEFIC ANEMIA NOS 10/11/2013 CHANTAL STEPHENSON MD Ot 285.21 ANEMIA IN CHRONIC KIDNEY DISEASE 10/11/2013 CHANTAL STEPHENSON MD Ot 403.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 KID DIS, UNSPEC, W CHR KD ST 10/11/2013 CHANTAL STEPHENSON MD Ot 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 10/11/2013 CHANTAL STEPHENSON MD Ot 447.8 ARTERIAL DISEASE NEC 10/11/2013 CHANTAL STEPHENSON MD Ot 585.4 CHRONIC KIDNEY DISEASE, STAGE IV (SEVERE 10/11/2013 CHANTAL STEPHENSON MD Ot 791.0 PROTEINURIA 10/11/2013 CHANTAL STEPHENSON MD Ot 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 10/11/2013 CHANTAL STEPHENSON MD Ot V12.51 HX-VENOUS THROMBOSIS EMBOLISM 10/11/2013 CHANTAL STEPHENSON MD Ot V58.65 LONG-TERM(CURRENT)USE OF STEROIDS 10/11/2013 CHANTAL STEPHENSON MD Ot V58.69 OTH MED,LT,CURRENT USE 10/11/2013 CHANTAL STEPHENSON MD Ot V67.09 SURGERY FOLLOW-UP, OTHER SURGERY 10/11/2013 CHANTAL STEPHENSON MD Ot 285.21 ANEMIA IN CHRONIC KIDNEY DISEASE 10/11/2013 CHANTAL STEPHENSON MD Ot 585.4 CHRONIC KIDNEY DISEASE, STAGE IV (SEVERE 10/11/2013 CHANTAL STEPHENSON MD, Ot V58.69 OTH MED,LT,CURRENT USE 01/10/2014 CHANTAL STEPHENSON MD Ot 272.4 HYPERLIPIDEMIA NEC/NOS 01/10/2014 CHANTAL STEPHENSON MD Ot 276.8 HYPOPOTASSEMIA 01/10/2014 CHANTAL STEPHENSON MD Ot 280.9 IRON DEFIC ANEMIA NOS 01/10/2014 CHANTAL STEPHENSON MD, Ot 285.21 ANEMIA IN CHRONIC KIDNEY DISEASE 01/10/2014 CHANTAL STEPHENSON MD Ot 403.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, UNSPEC, W CHR KD ST 01/10/2014 CHANTAL STEPHENSON MD Ot 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 01/10/2014 CHANTAL STEPHENSON MD Ot 447.8 ARTERIAL DISEASE NEC 01/10/2014 CHANTAL STEPHENSON MD Ot 585.4 CHRONIC KIDNEY DISEASE, STAGE IV (SEVERE 01/10/2014 CHANTAL STEPHENSON MD Ot 791.0 PROTEINURIA 01/10/2014 CHANTAL STEPHENSON MD Ot 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 01/10/2014 CHANTAL STEPHENSON MD Ot V12.51 HX-VENOUS THROMBOSIS EMBOLISM 01/10/2014 CHANTAL STEPHENSON MD Ot V58.65 LONG-TERM(CURRENT)USE OF STEROIDS 01/10/2014 CHANTAL STEPHENSON MD Ot V58.69 OTH MED,LT,CURRENT USE 01/10/2014 CHANTAL STEPHENSON MD Ot V67.09 SURGERY FOLLOW-UP, OTHER SURGERY 01/10/2014 CHANTAL STEPHENSON MD Ot 285.21 ANEMIA IN CHRONIC KIDNEY DISEASE 01/10/2014 CHANTAL STEPHENSON MD Ot 585.4 CHRONIC KIDNEY DISEASE, STAGE IV (SEVERE 01/10/2014 CHANTAL STEPHENSON MD, Ot V58.69 OTH MED,LT,CURRENT USE 04/27/2014 CHANTAL STEPHENSON MD Ot 272.4 HYPERLIPIDEMIA NEC/NOS 04/27/2014 CHANTAL STEPHENSON MD Ot 276.8 HYPOPOTASSEMIA 04/27/2014 CHANTAL STEPHENSON MD Ot 280.9 IRON DEFIC ANEMIA NOS 04/27/2014 CHANTAL STEPHENSON MD Ot 285.21 ANEMIA IN CHRONIC KIDNEY DISEASE 04/27/2014 CHANTAL STEPHENSON MD Ot 403.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, UNSPEC, W CHR KD ST 04/27/2014 CHANTAL STEPHENSON MD, Ot 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 04/27/2014 CHANTAL STEPHENSON MD Ot 447.8 ARTERIAL DISEASE NEC 04/27/2014 CHANTAL STEPHENSON MD Ot 585.4 CHRONIC KIDNEY DISEASE, STAGE IV (SEVERE 04/27/2014 CHANTAL STEPHENSON MD Ot 791.0 PROTEINURIA 04/27/2014 CHANTAL STEPHENSON MD Ot 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 04/27/2014 CHANTAL STEPHENSON MD Ot V12.51 HX-VENOUS THROMBOSIS EMBOLISM 04/27/2014 CHANTAL STEPHENSON MD Ot V58.65 LONG-TERM(CURRENT)USE OF STEROIDS 04/27/2014 CHANTAL STEPHENSON MD Ot V58.69 OTH MED,LT,CURRENT USE 04/27/2014 CHANTAL STEPHENSON MD Ot V67.09 SURGERY FOLLOW-UP, OTHER SURGERY 04/27/2014 CHANTAL STEPHENSON MD Ot 285.21 ANEMIA IN CHRONIC KIDNEY DISEASE 04/27/2014 CHANTAL STEPHENSON MD Ot 585.4 CHRONIC KIDNEY DISEASE, STAGE IV (SEVERE 04/27/2014 CHANTAL STEPHENSON MD Ot V58.69 OTH MED,LT,CURRENT USE 07/27/2015 OLI CRAVEN MD Ot E78.5 HYPERLIPIDEMIA, UNSPECIFIED 07/27/2015 OLI CRAVEN MD Ot I10 ESSENTIAL (PRIMARY) HYPERTENSION 07/27/2015 OLI CRAVEN MD Ot K21.9 GASTRO-ESOPHAGEAL REFLUX DISEASE WITHOUT 07/27/2015 OLI CRAVEN MD Ot K57.90 DVRTCLOS OF INTEST, PART UNSP, W/O PERF 07/27/2015 OLI CRAVEN MD Ot K62.1 RECTAL POLYP 07/27/2015 OLI CRAVEN MD, Ot K63.5 POLYP OF COLON 07/27/2015 OLI CRAVEN MD Ot K64.4 RESIDUAL HEMORRHOIDAL SKIN TAGS 07/27/2015 OLI CRAVEN MD, Ot K64.8 OTHER HEMORRHOIDS 07/27/2015 OLI CRAVEN MD, Ot Z12.11 ENCOUNTER FOR SCREENING FOR MALIGNANT NE 07/07/2017 Ot 285.21 ANEMIA IN CHRONIC KIDNEY DISEASE 07/07/2017 Ot 585.4 CHRONIC KIDNEY DISEASE, STAGE IV (SEVERE 07/07/2017 Ot V58.69 OTH MED,LT, CURRENT USE 12/07/2017 LEVON SAMUEL MD Ot M10.9 GOUT, UNSPECIFIED 12/07/2017 LEVON SAMUEL MD Ot N39.0 URINARY TRACT INFECTION, SITE NOT SPECIF 12/07/2017 LEVON SAMUEL MD Ot R50.9 FEVER, UNSPECIFIED 12/07/2017 LEVON SAMUEL MD Ot Z98.890 OTHER SPECIFIED POSTPROCEDURAL STATES 12/07/2017 LEVON SAMUEL MD Ot Z99.2 DEPENDENCE ON RENAL DIALYSIS 12/09/2017 LEVON SAMUEL MD Ot M10.9 GOUT, UNSPECIFIED 12/09/2017 LEVON SAMUEL MD Ot N39.0 URINARY TRACT INFECTION, SITE NOT SPECIF 12/09/2017 LEVON SAMUEL MD Ot R50.9 FEVER, UNSPECIFIED 12/09/2017 LEVON SAMUEL MD Ot Z98.890 OTHER SPECIFIED POSTPROCEDURAL STATES 12/09/2017 LEVON SAMUEL MD Ot Z99.2 DEPENDENCE ON RENAL DIALYSIS 12/18/2017 JORDAN SON MD Ot D70.9 NEUTROPENIA, UNSPECIFIED 12/18/2017 JORDAN SON MD Ot 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 12/18/2017 ADELAIDA MD, JORDAN Ot N18.6 END STAGE RENAL DISEASE 12/18/2017 ADELAIDA SLOAN JORDAN Ot N30.00 ACUTE CYSTITIS WITHOUT HEMATURIA 12/18/2017 CONY SON MDA Ot Z99.2 DEPENDENCE ON RENAL DIALYSIS 12/18/2017 BORIS SON MDASHA Ot D70.9 NEUTROPENIA, UNSPECIFIED 12/18/2017 ADELAIDA SLOAN JORDAN Ot 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 12/18/2017 JORDAN SON MD Ot N18.6 END STAGE RENAL DISEASE 12/18/2017 BORIS SON MDASHA Ot N30.00 ACUTE CYSTITIS WITHOUT HEMATURIA 12/18/2017 CONY SON MDA Ot Z99.2 DEPENDENCE ON RENAL DIALYSIS 12/19/2017 CONY SON MDA Ot D70.9 NEUTROPENIA, UNSPECIFIED 12/19/2017 BORIS SON MDASHA Ot 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 12/19/2017 JORDAN SON MD Ot N18.6 END STAGE RENAL DISEASE 12/19/2017 BORIS SON MDASHA Ot N30.00 ACUTE CYSTITIS WITHOUT HEMATURIA 12/19/2017 CONY SON MDA Ot Z99.2 DEPENDENCE ON RENAL DIALYSIS 12/19/2017 CONY SON MDA Ot D70.9 NEUTROPENIA, UNSPECIFIED 12/19/2017 BORIS SON MDASHA Ot 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 12/19/2017 CONY SON MDA Ot N18.6 END STAGE RENAL DISEASE 12/19/2017 BORIS SON MDASHA Ot N30.00 ACUTE CYSTITIS WITHOUT HEMATURIA 12/19/2017 BORIS SON MDASHA Ot Z99.2 DEPENDENCE ON RENAL DIALYSIS 12/20/2017 BORIS SON MDASHA Ot D70.9 NEUTROPENIA, UNSPECIFIED 12/20/2017 BORIS SON MDASHA Ot 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 12/20/2017 BORIS SON MDASHA Ot N18.6 END STAGE RENAL DISEASE 12/20/2017 BORIS SON MDASHA Ot N30.00 ACUTE CYSTITIS WITHOUT HEMATURIA 12/20/2017 BORIS SON MDASHA Ot Z99.2 DEPENDENCE ON RENAL DIALYSIS 12/21/2017 JORDAN SON MD Ot D70.9 NEUTROPENIA, UNSPECIFIED 12/21/2017 JORDAN SON MD Ot 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 12/21/2017 JORDAN SON MD Ot N18.6 END STAGE RENAL DISEASE 12/21/2017 CONY SON MDA Ot N30.00 ACUTE CYSTITIS WITHOUT HEMATURIA 12/21/2017 JORDAN SON MD Ot Z99.2 DEPENDENCE ON RENAL DIALYSIS 12/27/2017 JORDAN SON MD Ot D70.9 NEUTROPENIA, UNSPECIFIED 12/27/2017 CONY SON MDA Ot 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 12/27/2017 JORDAN SON MD Ot N18.6 END STAGE RENAL DISEASE 12/27/2017 JORDAN SON MD Ot N30.00 ACUTE CYSTITIS WITHOUT HEMATURIA 12/27/2017 JORDAN SON MD Ot Z99.2 DEPENDENCE ON RENAL DIALYSIS 01/13/2018 JORDAN SON MD Ot D70.9 NEUTROPENIA, UNSPECIFIED 01/13/2018 JORDAN SON MD Ot 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 01/13/2018 JORDAN SON MD Ot N18.6 END STAGE RENAL DISEASE 01/13/2018 CONY SON MDA Ot N30.00 ACUTE CYSTITIS WITHOUT HEMATURIA 01/13/2018 JORDAN SON MD Ot Z99.2 DEPENDENCE ON RENAL DIALYSIS 01/23/2018 JORDAN SON MD Ot D70.9 NEUTROPENIA, UNSPECIFIED 01/23/2018 CONY SON MDA Ot 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 01/23/2018 JORDAN SON MD Ot N18.6 END STAGE RENAL DISEASE 01/23/2018 JORDAN SON MD Ot N30.00 ACUTE CYSTITIS WITHOUT HEMATURIA 01/23/2018 JORDAN SON MD Ot Z99.2 DEPENDENCE ON RENAL DIALYSIS 01/28/2018 Ot 276.7 HYPERPOTASSEMIA 01/28/2018 Ot 285.21 ANEMIA IN CHRONIC KIDNEY DISEASE 01/28/2018 Ot 403.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, UNSPEC, W CHR KD ST 01/28/2018 Ot 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 01/28/2018 Ot 585.9 CHRONIC KIDNEY DISEASE, UNSPECIFIED 01/28/2018 Ot 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 01/28/2018 Ot V12.51 HX-VENOUS THROMBOSIS EMBOLISM 01/28/2018 Ot V58.65 LONG-TERM( CURRENT)USE OF STEROIDS 01/28/2018 Ot V58.69 OTH MED,LT, CURRENT USE 01/28/2018 Ot V67.09 SURGERY FOLLOW-UP, OTHER SURGERY 01/28/2018 Ot 585.4 CHRONIC KIDNEY DISEASE, STAGE IV (SEVERE 01/28/2018 Ot 791.0 PROTEINURIA 01/28/2018 WELLINGTON NEWBERRY MD Ot 285.21 ANEMIA IN CHRONIC KIDNEY DISEASE 01/28/2018 CONI SLOAN, WELLINGTON Rapp Ot 403.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, UNSPEC, W CHR KD ST 01/28/2018 WELLINGTON NEWBERRY MD Ot 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 01/28/2018 WELLINGTON NEWBERRY MD Ot 585.9 CHRONIC KIDNEY DISEASE, UNSPECIFIED 01/28/2018 WELLINGTON NEWBERRY MD Ot 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 01/28/2018 WELLINGTON NEWBERRY MD Ot V12.51 HX-VENOUS THROMBOSIS EMBOLISM 01/28/2018 WELLINGTON NEWBERRY MD Ot V58.65 LONG-TERM(CURRENT)USE OF STEROIDS 01/28/2018 WELLINGTON NEWBERRY MD Ot V58.69 OTH MED,LT,CURRENT USE 01/28/2018 WELLINGTON NEWBERRY MD Ot V67.09 SURGERY FOLLOW-UP, OTHER SURGERY 01/28/2018 SEEMA SLOAN, CHANTAL S Ot 280.9 IRON DEFIC ANEMIA NOS 01/28/2018 SEEMA SLOAN, CHANTAL Velasquez Ot 585.4 CHRONIC KIDNEY DISEASE, STAGE IV (SEVERE 01/28/2018 SEEMA SLOAN, CHANTAL S Ot 272.4 HYPERLIPIDEMIA NEC/NOS 01/28/2018 SEEMA SLOAN, CHANTAL S Ot 276.2 ACIDOSIS 01/28/2018 SEEMA SLOAN, CHANTAL S Ot 280.9 IRON DEFIC ANEMIA NOS 01/28/2018 SEEMA SLOAN, CHANTAL S Ot 285.21 ANEMIA IN CHRONIC KIDNEY DISEASE 01/28/2018 SEEMA SLOAN, CHANTAL Velasquez Ot 447.8 ARTERIAL DISEASE NEC 01/28/2018 SEEMA SLOAN, CHANTAL Velasquez Ot 585.4 CHRONIC KIDNEY DISEASE, STAGE IV (SEVERE 01/28/2018 SEEMA SLOAN, CHANTAL Velasquez Ot 791.0 PROTEINURIA 01/28/2018 Ot 272.4 HYPERLIPIDEMIA NEC/NOS 01/28/2018 Ot 276.8 HYPOPOTASSEMIA 01/28/2018 Ot 280.9 IRON DEFIC ANEMIA NOS 01/28/2018 Ot 285.21 ANEMIA IN CHRONIC KIDNEY DISEASE 01/28/2018 Ot 403.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, UNSPEC, W CHR KD ST 01/28/2018 Ot 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 01/28/2018 Ot 447.8 ARTERIAL DISEASE NEC 01/28/2018 Ot 585.4 CHRONIC KIDNEY DISEASE, STAGE IV (SEVERE 01/28/2018 Ot 791.0 PROTEINURIA 01/28/2018 Ot 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 01/28/2018 Ot V12.51 HX-VENOUS THROMBOSIS EMBOLISM 01/28/2018 Ot V58.65 LONG-TERM( CURRENT)USE OF STEROIDS 01/28/2018 Ot V58.69 OTH MED,LT, CURRENT USE 01/28/2018 Ot V67.09 SURGERY FOLLOW-UP, OTHER SURGERY 01/28/2018 Ot 285.21 ANEMIA IN CHRONIC KIDNEY DISEASE 01/28/2018 Ot 585.4 CHRONIC KIDNEY DISEASE, STAGE IV (SEVERE 01/28/2018 Ot V58.69 OTH MED,LT, CURRENT USE 01/28/2018 HERBER SLOAN, OLI Ot Z01.818 ENCOUNTER FOR OTHER PREPROCEDURAL EXAMIN 01/28/2018 JORDAN SON MD Ot D70.9 NEUTROPENIA, UNSPECIFIED 01/28/2018 JORDAN SON MD Ot 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 01/28/2018 JORDAN SON MD Ot N18.6 END STAGE RENAL DISEASE 01/28/2018 JORDAN SON MD Ot N30.00 ACUTE CYSTITIS WITHOUT HEMATURIA 01/28/2018 JORDAN SON MD Ot Z99.2 DEPENDENCE ON RENAL DIALYSIS 01/28/2018 Ot 276.7 HYPERPOTASSEMIA 01/28/2018 Ot 285.21 ANEMIA IN CHRONIC KIDNEY DISEASE 01/28/2018 Ot 403.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 KID DIS, UNSPEC, W CHR KD ST 01/28/2018 Ot 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 01/28/2018 Ot 585.9 CHRONIC KIDNEY DISEASE, UNSPECIFIED 01/28/2018 Ot 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 01/28/2018 Ot V12.51 HX-VENOUS THROMBOSIS EMBOLISM 01/28/2018 Ot V58.65 LONG-TERM( CURRENT)USE OF STEROIDS 01/28/2018 Ot V58.69 OTH MED,LT, CURRENT USE 01/28/2018 Ot V67.09 SURGERY FOLLOW-UP, OTHER SURGERY 01/28/2018 Ot 585.4 CHRONIC KIDNEY DISEASE, STAGE IV (SEVERE 01/28/2018 Ot 791.0 PROTEINURIA 01/28/2018 CONI SLOAN, WELLINGTON Rapp Ot 285.21 ANEMIA IN CHRONIC KIDNEY DISEASE 01/28/2018 CONI SLOAN, WELLINGTON Rapp Ot 403.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, UNSPEC, W CHR KD ST 01/28/2018 WELLINGTON NEWBERRY MD Ot 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 01/28/2018 WELLINGTON NEWBERRY MD Ot 585.9 CHRONIC KIDNEY DISEASE, UNSPECIFIED 01/28/2018 WELLINGTON NEWBERRY MD Ot 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 01/28/2018 WELLINGTON NEWBERRY MD Ot V12.51 HX-VENOUS THROMBOSIS EMBOLISM 01/28/2018 WELLINGTON NEWBERRY MD Ot V58.65 LONG-TERM(CURRENT)USE OF STEROIDS 01/28/2018 WELLINGTON NEWBERRY MD Ot V58.69 OTH MED,LT,CURRENT USE 01/28/2018 WELLINGTON NEWBERRY MD Ot V67.09 SURGERY FOLLOW-UP, OTHER SURGERY 01/28/2018 SEEMA SLOAN, CHANTAL S Ot 280.9 IRON DEFIC ANEMIA NOS 01/28/2018 SEEMA SLOAN, CHANTAL S Ot 585.4 CHRONIC KIDNEY DISEASE, STAGE IV (SEVERE 01/28/2018 SEEMA SLOAN, CHANTAL S Ot 272.4 HYPERLIPIDEMIA NEC/NOS 01/28/2018 SEEMA SLOAN, CHANTAL S Ot 276.2 ACIDOSIS 01/28/2018 SEEMA SLOAN, CHANTAL S Ot 280.9 IRON DEFIC ANEMIA NOS 01/28/2018 SEEMA SLOAN, CHANTAL Velasquez Ot 285.21 ANEMIA IN CHRONIC KIDNEY DISEASE 01/28/2018 SEEMA SLOAN, CHANTAL Velasquez Ot 447.8 ARTERIAL DISEASE NEC 01/28/2018 SEEMA SLOAN, CHANTAL Velasquez Ot 585.4 CHRONIC KIDNEY DISEASE, STAGE IV (SEVERE 01/28/2018 SEEMA SLOAN, CHANTAL Velasquez Ot 791.0 PROTEINURIA 01/28/2018 Ot 272.4 HYPERLIPIDEMIA NEC/NOS 01/28/2018 Ot 276.8 HYPOPOTASSEMIA 01/28/2018 Ot 280.9 IRON DEFIC ANEMIA NOS 01/28/2018 Ot 285.21 ANEMIA IN CHRONIC KIDNEY DISEASE 01/28/2018 Ot 403.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 KID DIS, UNSPEC, W CHR KD ST 01/28/2018 Ot 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 01/28/2018 Ot 447.8 ARTERIAL DISEASE NEC 01/28/2018 Ot 585.4 CHRONIC KIDNEY DISEASE, STAGE IV (SEVERE 01/28/2018 Ot 791.0 PROTEINURIA 01/28/2018 Ot 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 01/28/2018 Ot V12.51 HX-VENOUS THROMBOSIS EMBOLISM 01/28/2018 Ot V58.65 LONG-TERM( CURRENT)USE OF STEROIDS 01/28/2018 Ot V58.69 OTH MED,LT, CURRENT USE 01/28/2018 Ot V67.09 SURGERY FOLLOW-UP, OTHER SURGERY 01/28/2018 Ot 285.21 ANEMIA IN CHRONIC KIDNEY DISEASE 01/28/2018 Ot 585.4 CHRONIC KIDNEY DISEASE, STAGE IV (SEVERE 01/28/2018 Ot V58.69 OTH MED,LT, CURRENT USE 01/28/2018 OLI CRAVEN MD Ot Z01.818 ENCOUNTER FOR OTHER PREPROCEDURAL EXAMIN 01/28/2018 JORDAN SON MD Ot D70.9 NEUTROPENIA, UNSPECIFIED 01/28/2018 JORDAN SON MD Ot 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 01/28/2018 JORDAN SON MD Ot N18.6 END STAGE RENAL DISEASE 01/28/2018 JORDAN SON MD Ot N30.00 ACUTE CYSTITIS WITHOUT HEMATURIA 01/28/2018 JORDAN SON MD Ot Z99.2 DEPENDENCE ON RENAL DIALYSIS 01/29/2018 Ot 276.7 HYPERPOTASSEMIA 01/29/2018 Ot 285.21 ANEMIA IN CHRONIC KIDNEY DISEASE 01/29/2018 Ot 403.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 KID DIS, UNSPEC, W CHR KD ST 01/29/2018 Ot 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 01/29/2018 Ot 585.9 CHRONIC KIDNEY DISEASE, UNSPECIFIED 01/29/2018 Ot 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 01/29/2018 Ot V12.51 HX-VENOUS THROMBOSIS EMBOLISM 01/29/2018 Ot V58.65 LONG-TERM( CURRENT)USE OF STEROIDS 01/29/2018 Ot V58.69 OTH MED,LT, CURRENT USE 01/29/2018 Ot V67.09 SURGERY FOLLOW-UP, OTHER SURGERY 01/29/2018 Ot 585.4 CHRONIC KIDNEY DISEASE, STAGE IV (SEVERE 01/29/2018 Ot 791.0 PROTEINURIA 01/29/2018 CONI SLOAN, WELLINGTON Rapp Ot 285.21 ANEMIA IN CHRONIC KIDNEY DISEASE 01/29/2018 CONI SLOAN, WELLINGTON Rapp Ot 403.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 KID DIS, UNSPEC, W CHR KD ST 01/29/2018 WELLINGTON NEWBERRY MD Ot 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 01/29/2018 WELLINGTON NEWBERRY MD Ot 585.9 CHRONIC KIDNEY DISEASE, UNSPECIFIED 01/29/2018 WELLINGTON NEWBERRY MD Ot 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 01/29/2018 WELLINGTON NEWBERRY MD Ot V12.51 HX-VENOUS THROMBOSIS EMBOLISM 01/29/2018 WELLINGTON NEWBERRY MD Ot V58.65 LONG-TERM(CURRENT)USE OF STEROIDS 01/29/2018 WELLINGTON NEWBERRY MD Ot V58.69 OTH MED,LT,CURRENT USE 01/29/2018 WELLINGTON NEWBERRY MD Ot V67.09 SURGERY FOLLOW-UP, OTHER SURGERY 01/29/2018 SEEMA SLOAN, CHANTAL S Ot 280.9 IRON DEFIC ANEMIA NOS 01/29/2018 SEEMA SLOAN, CHANTAL Velasquez Ot 585.4 CHRONIC KIDNEY DISEASE, STAGE IV (SEVERE 01/29/2018 CHANTAL STEPHENSON MD Ot 272.4 HYPERLIPIDEMIA NEC/NOS 01/29/2018 CHANTAL STEPHENSON MD Ot 276.2 ACIDOSIS 01/29/2018 CHANTAL STEPHENSON MD Ot 280.9 IRON DEFIC ANEMIA NOS 01/29/2018 SEEMA SLOAN, CHANTAL S Ot 285.21 ANEMIA IN CHRONIC KIDNEY DISEASE 01/29/2018 SEEMA SLOAN, CHANTAL Velasquez Ot 447.8 ARTERIAL DISEASE NEC 01/29/2018 SEEMA SLOAN, CHANTAL S Ot 585.4 CHRONIC KIDNEY DISEASE, STAGE IV (SEVERE 01/29/2018 SEEMA SLOAN, CHANTAL Velasquez Ot 791.0 PROTEINURIA 01/29/2018 Ot 272.4 HYPERLIPIDEMIA NEC/NOS 01/29/2018 Ot 276.8 HYPOPOTASSEMIA 01/29/2018 Ot 280.9 IRON DEFIC ANEMIA NOS 01/29/2018 Ot 285.21 ANEMIA IN CHRONIC KIDNEY DISEASE 01/29/2018 Ot 403.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 KID DIS, UNSPEC, W CHR KD ST 01/29/2018 Ot 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 01/29/2018 Ot 447.8 ARTERIAL DISEASE NEC 01/29/2018 Ot 585.4 CHRONIC KIDNEY DISEASE, STAGE IV (SEVERE 01/29/2018 Ot 791.0 PROTEINURIA 01/29/2018 Ot 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 01/29/2018 Ot V12.51 HX-VENOUS THROMBOSIS EMBOLISM 01/29/2018 Ot V58.65 LONG-TERM( CURRENT)USE OF STEROIDS 01/29/2018 Ot V58.69 OTH MED,LT, CURRENT USE 01/29/2018 Ot V67.09 SURGERY FOLLOW-UP, OTHER SURGERY 01/29/2018 Ot 285.21 ANEMIA IN CHRONIC KIDNEY DISEASE 01/29/2018 Ot 585.4 CHRONIC KIDNEY DISEASE, STAGE IV (SEVERE 01/29/2018 Ot V58.69 OTH MED,LT, CURRENT USE 01/29/2018 OLI CRAVEN MD Ot Z01.818 ENCOUNTER FOR OTHER PREPROCEDURAL EXAMIN 01/29/2018 JORDAN SON MD Ot D70.9 NEUTROPENIA, UNSPECIFIED 01/29/2018 JORDAN SON MD Ot 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 Results Test Result Range Comprehensive metabolic panel - 12/07/17 13:40 Serum or plasma sodium measurement (moles/volume) 136 mmol/L 135-145 Serum or plasma potassium measurement (moles/volume) 3.5 mmol/L 3.6-5.0 Serum or plasma chloride measurement (moles/volume) 100 mmol/L 98-107 Carbon dioxide 24 mmol/L 21-32 Serum or plasma anion gap determination (moles/volume) 12 mmol/L 5-14 Serum or plasma urea nitrogen measurement (mass/volume) 17 mg/dL 7-18 Serum or plasma creatinine measurement (mass/volume) 2.99 mg/dL 0.60-1.30 Serum or plasma urea nitrogen/creatinine mass ratio 6 NRG Serum or plasma creatinine measurement with calculation of estimated glomerular filtration rate 21 NRG Serum or plasma glucose measurement (mass/volume) 92 mg/dL 70-105 Serum or plasma calcium measurement (mass/volume) 8.9 mg/dL 8.5-10.1 Serum or plasma total bilirubin measurement (mass/volume) 0.5 mg/dL 0.1-1.0 Serum or plasma alkaline phosphatase measurement (enzymatic activity/volume) 74 U/L 40-136 Serum or plasma aspartate aminotransferase measurement (enzymatic activity/ volume) 23 U/L 5-34 Serum or plasma alanine aminotransferase measurement (enzymatic activity/volume ) 27 U/L 0-55 Serum or plasma protein measurement (mass/volume) 5.3 g/dL 6.4-8.2 Serum or plasma albumin measurement (mass/volume) 3.1 g/dL 3.2-4.5 Serum or plasma C reactive protein measurement (mass/volume) - 12/07/17 13:40 Serum or plasma C reactive protein measurement (mass/volume) 8.31 mg /dL 0.00-0.50 Complete blood count (CBC) with automated white blood cell (WBC) differential - 12/07/17 13:40 Blood leukocytes automated count (number/volume) 1.3 10*3/uL 4.3-11.0 Blood erythrocytes automated count (number/volume) 2.85 10*6/uL 4.35-5.85 Venous blood hemoglobin measurement (mass/volume) 9.4 g/dL 13.3-17.7 Blood hematocrit (volume fraction) 29 % 40-54 Automated erythrocyte mean corpuscular volume 100 [foz_us] 80-99 Automated erythrocyte mean corpuscular hemoglobin (mass per erythrocyte) 33 pg 25-34 Automated erythrocyte mean corpuscular hemoglobin concentration measurement ( mass/volume) 33 g/dL 32-36 Automated erythrocyte distribution width ratio 15.8 % 10.0-14.5 Automated blood platelet count (count/volume) 111 10*3/uL 130-400 Automated blood platelet mean volume measurement 10.0 [foz_us] 7.4-10.4 Automated blood neutrophils/100 leukocytes TNP 42-75 Automated blood lymphocytes/100 leukocytes TNP 12-44 Blood monocytes/100 leukocytes TNP 0-12 Automated blood eosinophils/100 leukocytes TNP 0-10 Automated blood basophils/100 leukocytes TNP 0-10 Blood neutrophils automated count (number/volume) TNP 1.8-7.8 Blood lymphocytes automated count (number/volume) TNP 1.0-4.0 Blood monocytes automated count (number/volume) TNP 0.0- 1.0 Automated eosinophil count TNP 0.0-0.3 Automated blood basophil count (count/volume) TNP 0.0- 0.1 Blood manual differential performed detection - 12/07/17 13:40 Blood monocytes/100 leukocytes 24 % NRG Manual blood segmented neutrophils/100 leukocytes 2 % NRG Blood band neutrophils/100 leukocytes 0 % NRG Manual blood lymphocytes/100 leukocytes 72 % NRG Manual eosinophils/100 leukocytes in nose 2 % NRG Manual blood basophils/100 leukocytes 0 % NRG Blood erythrocyte morphology finding identification NORMAL NRG Erythrocyte sedimentation rate by westergren method - 12/07/17 13:40 Erythrocyte sedimentation rate by westergren method 69 mm 0-30 Bacterial blood culture - 12/07/17 13:50 Bacterial blood culture NG NRG Complete urinalysis with reflex to culture - 12/07/17 13:55 Urine color determination YELLOW NRG Urine clarity determination VERY CLOUDY NRG Urine pH measurement by test strip 8 5-9 Specific gravity of urine by test strip 1.010 1.016- 1.022 Urine protein assay by test strip, semi-quantitative 4+ NEGATIVE Urine glucose detection by automated test strip NEGATIVE NEGATIVE Erythrocytes detection in urine sediment by light microscopy 4+ NEGATIVE Urine ketones detection by automated test strip NEGATIVE NEGATIVE Urine nitrite detection by test strip NEGATIVE NEGATIVE Urine total bilirubin detection by test strip NEGATIVE NEGATIVE Urine urobilinogen measurement by automated test strip (mass/volume) NORMAL NORMAL Urine leukocyte esterase detection by dipstick 3+ NEGATIVE Automated urine sediment erythrocyte count by microscopy (number/high power field) [HPF] NRG Automated urine sediment leukocyte count by microscopy (number/high power field ) TNTC NRG Bacteria detection in urine sediment by light microscopy FEW NRG Squamous epithelial cells detection in urine sediment by light microscopy NONE NRG Crystals detection in urine sediment by light microscopy NONE NRG Casts detection in urine sediment by light microscopy NONE NRG Mucus detection in urine sediment by light microscopy NEGATIVE NRG Complete urinalysis with reflex to culture YES NRG Bacterial urine culture - 12/07/17 13:55 Bacterial urine culture [id number] NRG COLONY COUNT >100,000/ML NRG FTX;REPORTABLE SENSITIVITY REPORTED 12/08/17 17:00 NR Bacterial susceptibility panel - 12/07/17 13:55 Gentamicin susceptibility test by minimum inhibitory concentration SYN-R NRG Vancomycin susceptibility test by minimum inhibitory concentration > = NRG Levofloxacin susceptibility test by minimum inhibitory concentration >= NRG Tetracycline susceptibility test by minimum inhibitory concentration >= NRG Ampicillin susceptibility test by minimum inhibitory concentration < = NRG Ciprofloxacin susceptibility test by minimum inhibitory concentration R NRG Nitrofurantoin susceptibility test by minimum inhibitory concentration <= NRG Linezolid susceptibility test by minimum inhibitory concentration 1 NRG Blood lactic acid measurement (moles/volume) - 12/07/17 14:22 Blood lactic acid measurement (moles/volume) 1.75 mmol/L 0.50-2.00 Bacterial blood culture - 12/07/17 14:22 Bacterial blood culture NG NRG Complete blood count (CBC) with automated white blood cell (WBC) differential - 01/28/18 22:00 Blood leukocytes automated count (number/volume) 1.3 10*3/uL 4.3-11.0 Blood erythrocytes automated count (number/volume) 3.45 10*6/uL 4.35-5.85 Venous blood hemoglobin measurement (mass/volume) 10.5 g/dL 13.3-17.7 Blood hematocrit (volume fraction) 33 % 40-54 Automated erythrocyte mean corpuscular volume 94 [foz_us] 80-99 Automated erythrocyte mean corpuscular hemoglobin (mass per erythrocyte) 30 pg 25-34 Automated erythrocyte mean corpuscular hemoglobin concentration measurement ( mass/volume) 32 g/dL 32-36 Automated erythrocyte distribution width ratio 21.4 % 10.0-14.5 Automated blood platelet count (count/volume) 99 10*3/uL 130-400 Automated blood platelet mean volume measurement 9.7 [foz_us] 7.4-10.4 Automated blood neutrophils/100 leukocytes 39 % 42-75 Automated blood lymphocytes/100 leukocytes 24 % 12-44 Blood monocytes/100 leukocytes 36 % 0-12 Automated blood eosinophils/100 leukocytes 1 % 0-10 Automated blood basophils/100 leukocytes 0 % 0-10 Blood neutrophils automated count (number/volume) 0.5 10*3 1.8-7.8 Blood lymphocytes automated count (number/volume) 0.3 10*3 1.0-4.0 Blood monocytes automated count (number/volume) 0.5 10*3 0.0-1.0 Automated eosinophil count 0.0 10*3/uL 0.0-0.3 Automated blood basophil count (count/volume) 0.0 10*3/uL 0.0-0.1 Blood lactic acid measurement (moles/volume) - 01/28/18 22:00 Blood lactic acid measurement (moles/volume) 1.43 mmol/L 0.50-2.00 PT panel in platelet poor plasma by coagulation assay - 01/28/18 22:00 Prothrombin time (PT) in platelet poor plasma by coagulation assay 14.0 s 12.2-14.7 INR in platelet poor plasma or blood by coagulation assay 1.1 0.8-1.4 Activated partial thromboplastin time (aPTT) in platelet poor plasma bycoagulation assay - 01/28/18 22:00 Activated partial thromboplastin time (aPTT) in platelet poor plasma bycoagulation assay 40 s 24-35 Comprehensive metabolic panel - 01/28/18 22:00 Serum or plasma sodium measurement (moles/volume) 138 mmol/L 135-145 Serum or plasma potassium measurement (moles/volume) 3.8 mmol/L 3.6-5.0 Serum or plasma chloride measurement (moles/volume) 100 mmol/L 98-107 Carbon dioxide 26 mmol/L 21-32 Serum or plasma anion gap determination (moles/volume) 12 mmol/L 5-14 Serum or plasma urea nitrogen measurement (mass/volume) 29 mg/dL 7-18 Serum or plasma creatinine measurement (mass/volume) 4.06 mg/dL 0.60-1.30 Serum or plasma urea nitrogen/creatinine mass ratio 7 NRG Serum or plasma creatinine measurement with calculation of estimated glomerular filtration rate 15 NRG Serum or plasma glucose measurement (mass/volume) 93 mg/dL 70-105 Serum or plasma calcium measurement (mass/volume) 9.5 mg/dL 8.5-10.1 Serum or plasma total bilirubin measurement (mass/volume) 0.6 mg/dL 0.1-1.0 Serum or plasma alkaline phosphatase measurement (enzymatic activity/volume) 76 U/L 40-136 Serum or plasma aspartate aminotransferase measurement (enzymatic activity/ volume) 17 U/L 5-34 Serum or plasma alanine aminotransferase measurement (enzymatic activity/volume ) 22 U/L 0-55 Serum or plasma protein measurement (mass/volume) 6.3 g/dL 6.4-8.2 Serum or plasma albumin measurement (mass/volume) 3.5 g/dL 3.2-4.5 Lipase - 01/28/18 22:00 Lipase 24 U/L 8-78 Bacterial blood culture - 01/28/18 22:00 Bacterial blood culture NG NRG Bacterial blood culture - 01/28/18 22:25 Bacterial blood culture NG NRG Complete urinalysis with reflex to culture - 01/28/18 22:32 Urine color determination LORI NRG Urine clarity determination CLEAR NRG Urine pH measurement by test strip 8 5-9 Specific gravity of urine by test strip 1.010 1.016- 1.022 Urine protein assay by test strip, semi-quantitative 3+ NEGATIVE Urine glucose detection by automated test strip NEGATIVE NEGATIVE Erythrocytes detection in urine sediment by light microscopy 5+ NEGATIVE Urine ketones detection by automated test strip NEGATIVE NEGATIVE Urine nitrite detection by test strip NEGATIVE NEGATIVE Urine total bilirubin detection by test strip NEGATIVE NEGATIVE Urine urobilinogen measurement by automated test strip (mass/volume) NORMAL NORMAL Urine leukocyte esterase detection by dipstick 1+ NEGATIVE Automated urine sediment erythrocyte count by microscopy (number/high power field) [HPF] NRG Automated urine sediment leukocyte count by microscopy (number/high power field ) [HPF] NRG Bacteria detection in urine sediment by light microscopy TRACE NRG Crystals detection in urine sediment by light microscopy NONE NRG Casts detection in urine sediment by light microscopy NONE NRG Mucus detection in urine sediment by light microscopy NEGATIVE NRG Complete urinalysis with reflex to culture YES NRG Bacterial urine culture - 01/28/18 22:32 Bacterial urine culture [id number] NRG COLONY COUNT <10,000 NRG FTX;REPORTABLE SENSITIVITY REPORTED 02/01/18 8:50 NRG Bacterial susceptibility panel - 01/28/18 22:32 Gentamicin susceptibility test by minimum inhibitory concentration R NRG Vancomycin susceptibility test by minimum inhibitory concentration > = NRG Levofloxacin susceptibility test by minimum inhibitory concentration >= NRG Tetracycline susceptibility test by minimum inhibitory concentration >= NRG Ampicillin susceptibility test by minimum inhibitory concentration < = NRG Ciprofloxacin susceptibility test by minimum inhibitory concentration R NRG Nitrofurantoin susceptibility test by minimum inhibitory concentration <= NRG Linezolid susceptibility test by minimum inhibitory concentration 1 NRG Encounters ACCT No. Visit Date/Time Discharge Status Pt. Type Provider Facility Loc./Unit Complaint [id number] 01/28/2018 21:31:00 01/29/2018 00:39:00 DIS Emergency JESUS BEDOLLA MD [facility] ER FEVER AFTER DIALYSIS [id number] 12/27/2017 13:25:00 12/27/2017 23:59:59 CLS Outpatient JORDAN SON MD [facility] UTI [id number] 12/07/2017 13:39:00 12/07/2017 15:42:00 DIS Emergency LEVON SAMUEL MD [facility] ER WEAKNESS/FEVER [id number] 07/27/2015 07:12:00 07/27/2015 11:15:00 DIS Outpatient OLI CRAVEN MD [facility] SCREENING,HX POLYPS [id number] 07/22/2015 05:38:00 07/22/2015 23:59:59 CLS Outpatient OLI CRAVEN MD [facility] PREOP HX POLYPS [id number] 02/23/2014 07:44:00 04/27/2014 00:01:00 DIS Outpatient CHANTAL STEPHENSON MD [facility] LAB CHRONIC ANEMIA, KIDNEY DISEASE [id number] 01/27/2014 07:48:00 04/27/2014 00:01:00 DIS Outpatient CHANTAL STEPHENSON MD [facility] SURG RCR CKD,ANEMIA [id number] 03/23/2014 06:54:00 03/23/2014 23:59:59 CLS Outpatient CHANTAL STEPHENSON MD [facility] LAB HYPERLIPIDEMIA, ACIDOSIS,ANEMIA ,CRONIC KIDNEY DI [id number] 12/28/2013 12:43:00 01/10/2014 00:01:00 DIS Outpatient CHANTAL STEPHENSON MD [facility] SURG RCR CKD,ANEMIA [id number] 12/15/2013 12:31:00 01/10/2014 00:01:00 DIS Outpatient CHANTAL STEPHENSON MD [facility] LAB CHRONIC ANEMIA, KIDNEY DISEASE [id number] 08/31/2013 17:18:00 10/11/2013 00:01:00 DIS Outpatient CHANTAL STEPHENSON MD [facility] SURG RCR CKD,ANEMIA [id number] 08/17/2013 14:10:00 10/11/2013 00:01:00 DIS Outpatient CHANTAL STEPHENSON MD [facility] LAB CHRONIC ANEMIA, KIDNEY DISEASE [id number] 06/09/2013 13:15:00 06/21/2013 00:01:00 DIS Outpatient CHANTAL STEPHENSON MD [facility] SURG RCR CKD,ANEMIA [id number] 05/25/2013 07:45:00 06/21/2013 00:01:00 DIS Outpatient CHANTAL STEPHENSON MD [facility] LAB CHRONIC ANEMIA, KIDNEY DISEASE [id number] 06/17/2013 07:12:00 06/17/2013 23:59:59 CLS Outpatient CHANTAL STEPHENSON MD [facility] LAB CHRONIC KIDNEY DISEASE,IRON DEFFIENCY [id number] 03/24/2013 12:57:00 03/24/2013 23:59:59 CLS Outpatient WELLINGTON NEWBERRY MD [facility] ONC [id number] 01/28/2018 21:33:00 Document Registration [id number] 04/28/2014 00:00:00 Document Registration [id number] 04/28/2014 00:00:00 Document Registration [id number] 12/30/2012 07:39:00 Document Registration [id number] 12/25/2012 14:18:00 Document Registration [id number] 12/09/2012 07:51:00 Document Registration [id number] 09/23/2012 13:00:00 Document Registration [id number] 09/02/2012 14:36:00 Document Registration [id number] 08/18/2012 07:38:00 Document Registration [id number] 01/27/2010 05:46:00 Document Registration
--- NOTE | 2018-02-04 06:04 | ED General ---
General Stated Complaint: SOB,UTI,NOT SLEEPING Source of Information: Patient Exam Limitations: No Limitations (ELSA MENDEZ MD) History of Present Illness Date Seen by Provider: February 04, 2018 Time Seen by Provider: 05:48 Initial Comments Here with report of shortness of breath and cough. Noted the cough started a few days ago and has worsened until today. He is in the hospital recently at [facility] for treatment of urinary tract infection and he is on dialysis. Patient reports that he is coughing up brown sputum and some may be bloody. Denies fevers or chills. Does report that he still urinates and that has been better recently. He was due to have dialysis today but because of the symptoms he came here instead after talking to his dialysis nurse. Timing/Duration: 3-4 Days, Getting Worse Severity: Moderate Associated Systoms: No Chest Pain; Cough; No Fever/Chills; Loss of Appetite, Nausea/Vomiting, Shortness of Air; No Weakness (ELSA MENDEZ MD) Allergies and Home Medications Allergies Coded Allergies: No Known Drug Allergies (Unverified , 10/08/09) Patient Home Medication List Home Medication List Reviewed: Yes (ELSA MENDEZ MD) Review of Systems Constitutional: see HPI; No chills, No fever; malaise EENTM: see HPI Respiratory: cough, hemoptysis, short of breath Cardiovascular: no symptoms reported Gastrointestinal: no symptoms reported Genitourinary: see HPI Musculoskeletal: no symptoms reported Skin: no symptoms reported (ELSA MENDEZ MD) All Other Systems Reviewed Negative Unless Noted: Yes (ELSA MENDEZ MD) Past Lbnqjdj-Dsnrqf-Enjcsv Hx Past Med/Social Hx: Reviewed Nursing Past Med/Soc Hx (ELSA MENDEZ MD) Patient Social History Alcohol Use: Rarely Uses Recreational Drug Use: No Smoking Status: Never a Smoker 2nd Hand Smoke Exposure: No Recent Foreign Travel: No Contact w/Someone Who Travel: No Recent Hopitalizations: No (ELSA MENDEZ MD) Immunizations Up To Date PED Vaccines UTD: Yes (ELSA MENDEZ MD) Seasonal Allergies Seasonal Allergies: No (ELSA MENDEZ MD) Past Medical History Surgeries: Yes Abdominal, Orthopedic Respiratory: No Cardiac: No Neurological: Yes (NERVE DAMAGE LEGS) Reproductive Disorders: No Sexually Transmitted Disease: No 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) Renal Failure, UTI-Chronic Gastrointestinal: No Musculoskeletal: Yes (gout in the past) Gout Endocrine: No Psychosocial: No Integumentary: No Blood Disorders: No (ELSA MENDEZ MD) Cardiac: Yes Deep Vein Thrombosis (Leg) (MALIHA STONER MD) Family Medical History Reviewed Nursing Family Hx (ELSA MENDEZ MD) No Pertinent Family Hx (ELSA MENDEZ MD) Physical Exam-Suspected Sepsis Physical Exam Vital Signs Vital Signs - First Documented 02/04/18 02/04/18 05:48 07:20 Temp 98.0 Pulse 110 Resp 24 B/P (MAP) 170/96 (120) Pulse Ox 96 O2 Delivery Room Air O2 Flow Rate 2.00 (MALIHA STONER MD) Vital Signs Capillary Refill : (ELSA MENDEZ MD) General Appearance: WD/WN, Anxious, Mild Distress HEENT: PERRL/EOMI, Pharynx Normal Neck: Non Tender, Supple Respiratory: Lungs Clear, No Accessory Muscle Use Cardiovascular: No Murmur, Tachycardia (() Gastrointestinal: Non Tender, Soft Back: Normal Inspection, No CVA Tenderness, No Vertebral Tenderness Extremity: Normal Range of Motion, Non Tender Neurologic/Psychiatric: Oriented x3, No Motor/Sensory Deficits Skin: normal color, warm/dry (ELSA MENDEZ MD) Focused Exam Lactate Level 02/04/18 05:50: Lactic Acid Level 1.64 (MALIHA STONER MD) Lactic Acid Level Laboratory Tests Test 02/04/18 05:50 Lactic Acid Level 1.64 MMOL/L (0.50-2.00) (MALIHA STONER MD) Progress/Results/Core Measures Suspected Sepsis SIRS Temperature: Pulse: Respiratory Rate: Blood Pressure / Mean: (ELSA MENDEZ MD) Results/Orders Lab Results Laboratory Tests Test 02/04/18 05:50 02/04/18 07:04 02/04/18 07:12 Range/Units White Blood Count 4.4 4.3-11.0 10^3/uL Red Blood Count 3.51 L 4.35-5.85 10^6/uL Hemoglobin 10.5 L 13.3-17.7 G/DL Hematocrit 33 L 40-54 % Mean Corpuscular Volume 95 80-99 FL Mean Corpuscular Hemoglobin 30 25-34 PG Mean Corpuscular Hemoglobin Concent 31 L 32-36 G/DL Red Cell Distribution Width 20.8 H 10.0-14.5 % Platelet Count 173 130-400 10^3/uL Mean Platelet Volume 10.5 H 7.4-10.4 FL Neutrophils (%) (Auto) 45 42-75 % Lymphocytes (%) (Auto) 30 12-44 % Monocytes (%) (Auto) 22 H 0-12 % Eosinophils (%) (Auto) 2 0-10 % Basophils (%) (Auto) 1 0-10 % Neutrophils # (Auto) 2.0 1.8-7.8 X 10^3 Lymphocytes # (Auto) 1.3 1.0-4.0 X 10^3 Monocytes # (Auto) 0.9 0.0-1.0 X 10^3 Eosinophils # (Auto) 0.1 0.0-0.3 10^3/uL Basophils # (Auto) 0.1 0.0-0.1 10^3/uL Prothrombin Time 13.5 12.2-14.7 SEC INR Comment 1.0 0.8-1.4 Activated Partial Thromboplast Time 36 H 24-35 SEC Sodium Level 138 135-145 MMOL/L Potassium Level 4.1 3.6-5.0 MMOL/L Chloride Level 104 98-107 MMOL/L Carbon Dioxide Level 18 L 21-32 MMOL/L Anion Gap 16 H 5-14 MMOL/L Blood Urea Nitrogen 42 H 7-18 MG/DL Creatinine 5.87 #H 0.60-1.30 MG/DL Estimat Glomerular Filtration Rate 10 BUN/Creatinine Ratio 7 Glucose Level 100 70-105 MG/DL Lactic Acid Level 1.64 0.50-2.00 MMOL/L Calcium Level 10.1 8.5-10.1 MG/DL Total Bilirubin 0.5 0.1-1.0 MG/DL Aspartate Amino Transf (AST/SGOT) 19 5-34 U/L Alanine Aminotransferase (ALT/SGPT) 26 0-55 U/L Alkaline Phosphatase 82 40-136 U/L C-Reactive Protein High Sensitivity 3.64 H 0.00-0.50 MG/DL B-Type Natriuretic Peptide 3720.1 H <100.0 PG/ML Total Protein 6.2 L 6.4-8.2 GM/DL Albumin 3.6 3.2-4.5 GM/DL Erythrocyte Sedimentation Rate 41 H 0-30 MM/HR Urine Color YELLOW Urine Clarity CLEAR Urine pH 8 5-9 Urine Specific [place] 1.015 L 1.016-1.022 Urine Protein 3+ H NEGATIVE Urine Glucose (UA) NEGATIVE NEGATIVE Urine Ketones NEGATIVE NEGATIVE Urine Nitrite NEGATIVE NEGATIVE Urine Bilirubin NEGATIVE NEGATIVE Urine Urobilinogen NORMAL NORMAL MG/DL Urine Leukocyte Esterase 1+ H NEGATIVE Urine RBC (Auto) 3+ H NEGATIVE Urine RBC 2-5 H /HPF Urine WBC RARE /HPF Urine Crystals NONE /LPF Urine Bacteria NEGATIVE /HPF Urine Casts NONE /LPF Urine Mucus NEGATIVE /LPF Urine Culture Indicated NO (MALIHA STONER MD) Micro Results Microbiology 02/04/18 Influenza Types A,B Antigen (CLAIRE) - Final, Complete (MALIHA STONER MD) My Orders Orders - MALIHA STONER MD Hs C Reactive Protein (02/04/18 06:07) Influenza A And B Antigens (02/04/18 06:07) Albuterol/Ipra Inhalation Soln (Duoneb I (02/04/18 06:30) Svn Small Volume Nebulizer (02/04/18 06:20) Erythrocyte Sedimentation Rate (02/04/18 06:26) Albuterol/Ipra Inhalation Soln (Duoneb I (02/04/18 07:15) Svn Small Volume Nebulizer (02/04/18 07:03) Piperacillin Sodium/Tazobactam (Zosyn Vi (02/04/18 08:00) Acetaminophen Tablet (Tylenol Tablet) (02/04/18 08:30) (MALIHA STONER MD) Medications Given in ED Current Medications Medications Dose Ordered Sig/Cody Route Start Time Stop Time Status Last Admin Dose Admin Acetaminophen 1,000 mg ONCE ONCE PO 02/04/18 08:30 02/04/18 08:31 DC 02/04/18 08:31 1,000 MG Albuterol/ Ipratropium 3 ml ONCE ONCE INH 02/04/18 06:30 02/04/18 06:31 DC 02/04/18 06:44 3 ML Albuterol/ Ipratropium 3 ml ONCE ONCE INH 02/04/18 07:15 02/04/18 07:16 DC 02/04/18 07:19 3 ML Piperacillin Sod/ Tazobactam Sod 4.5 gm/Sodium Chloride 100 ml @ 200 mls/hr ONCE ONCE IV 02/04/18 08:00 02/04/18 08:29 DC 02/04/18 07:58 200 MLS/HR (MALIHA STONER MD) Vital Signs/I&O 02/04/18 02/04/18 02/04/18 05:48 06:43 07:20 Temp 98.0 Pulse 110 Resp 24 B/P (MAP) 170/96 (120) Pulse Ox 96 94 96 O2 Delivery Room Air Room Air Nasal Cannula O2 Flow Rate 2.00 (MALIHA STONER MD) Vital Signs/I&O Capillary Refill : (ELSA MENDEZ MD) Progress Note : Progress Note Seen and evaluated. IV, labs, UA, blood cultures, lactic acid, sputum cultures and two-view chest x-ray ordered. Monitor patient. 0600: Care transferred to Dr. Long pending all labs and x-ray. (ELSA MENDEZ MD) Progress Note #1: Time: 06:30 Progress Note Care of this patient was assumed from Dr. Mendez. Patient coughed some grossly bloody sputum. On february examination he is wheezing and deep inspiration induced cough. Flu screen was added to workup and DuoNeb was ordered. Patient denies any anticoagulation therapy. He has prior history of lower extremity DVT but has no lower extremity symptoms now. He has no calf tenderness and a negative Homans. Interpretation of chest x-rays pending. Patient has never experienced respiratory symptoms of Allyssa's in the past. Patient states symptoms started Saturday with a runny nose and he has developed progressive dyspnea and cough since then. Influenza screen is pending. Oxygen saturation was noted to be 91 percent on room air and heart rate was in the 90s. Progress Note #2: Time: 07:49 Progress Note Influenza screen was negative. Chest x-ray was discussed with radiologist. There are new perihilar infiltrates, right greater than left, suggestive of hemorrhage versus pneumonia. Patient's oxygen saturation was ranging from 87- 91 percent on room air. A second DuoNeb treatment was ordered and nasal cannula at 2 L/m was applied. Patient's vital signs are stable. Case has been reviewed with Dr. Fisher, hospitalist at [facility], who accepted transfer of the patient. Transfer is felt necessary for patient to receive rheumatology and nephrology services. Patient will be transferred by EMS. Administration of antibiotics was discussed with Dr. Fisher and we are in agreement that he should receive a dose of Zosyn prior to transfer. (MALIHA STONER MD) Diagnostic Imaging Diagonstic Imaging: Xray Plain Films/CT/US/NM/MRI: chest Comments Chest x-ray viewed by me. Report not yet available. Discussed with the radiologist. There appears to be new perihilar infiltrates, right greater than left, when compared with prior. These are suggestive of pneumonia versus hemorrhage. (MALIHA STONER MD) Departure Impression Primary Impression: Hemoptysis Additional Impressions: Hypoxia Wegeners granulomatosis End stage renal disease Disposition: 02 XFER SHT-TRM HOSP Condition: Stable Transfer Time Spoke to Accepting Phy: 07:45 Transfer Progress Notes Transfer accepted by Dr. Fisher, hospitalist at [facility]. Transfer Time: 08:45 Transfer Facility: [facility] Method of Transfer: EMS (MALIHA STONER MD) Departure-Patient Inst. Referrals: ALYCE JAIN MD (PCP/Family) Primary Care Physician ELSA MENDEZ MD February 04, 2018 06:04 MALIHA STONER MD February 04, 2018 06:33
[2018-02-04 06:14] LABS: BASOPHILS # (AUTO) 0.1 10^3/uL (0.0-0.1); BASOPHILS % (AUTO) 1 % (0-10); EOSINOPHILS # (AUTO) 0.1 10^3/uL (0.0-0.3); EOSINOPHILS % (AUTO) 2 % (0-10); HEMATOCRIT 33 % (40-54); HEMOGLOBIN 10.5 G/DL (13.3-17.7); LYMPHOCYTES # (AUTO) 1.3 X 10^3 (1.0-4.0); LYMPHOCYTES % (AUTO) 30 % (12-44); MEAN CORPUSCULAR HEMOGLOBIN 30 PG (25-34); MEAN CORPUSCULAR HGB CONC 31 G/DL (32-36); MEAN CORPUSCULAR VOLUME 95 FL (80-99); MEAN PLATELET VOLUME 10.5 FL (7.4-10.4); MONOCYTES # (AUTO) 0.9 X 10^3 (0.0-1.0); MONOCYTES % (AUTO) 22 % (0-12); NEUTROPHILS % (AUTO) 45 % (42-75); PLATELET COUNT 173 10^3/uL (130-400); RED BLOOD COUNT 3.51 10^6/uL (4.35-5.85); RED CELL DISTRIBUTION WIDTH 20.8 % (10.0-14.5); WHITE BLOOD COUNT 4.4 10^3/uL (4.3-11.0)
[2018-02-04 06:20] LABS: PROTHROMBIN TIME PATIENT 13.5 SEC (12.2-14.7)
[2018-02-04 06:29] LABS: ALBUMIN 3.6 GM/DL (3.2-4.5); BILIRUBIN,TOTAL 0.5 MG/DL (0.1-1.0); CALCIUM 10.1 MG/DL (8.5-10.1); CREATININE SERUM 5.87 MG/DL (0.60-1.30); POTASSIUM 4.1 MMOL/L (3.6-5.0); TOTAL PROTEIN 6.2 GM/DL (6.4-8.2)
[2018-02-04] MEDS ORDERED: RT-ALBUTEROL/IPRATROPIUM 3 ML (DUONEB) VIAL INH ONE ×2 (06:30→07:15)
[2018-02-04 07:35] LABS: BILIRUBIN,URINE NEGATIVE (NEGATIVE); CLARITY,URINE CLEAR; COLOR,URINE YELLOW; GLUCOSE, URINE (UA) NEGATIVE (NEGATIVE); KETONES,URINE NEGATIVE (NEGATIVE); LEUKOCYTE ESTERASE ,URINE 1+ (NEGATIVE); NITRITE,URINE NEGATIVE (NEGATIVE); PH,URINE 8 (5-9); PROTEIN,URINE 3+ (NEGATIVE); UROBILINOGEN,URINE NORMAL (NORMAL)
[2018-02-04 07:42] LABS: BACTERIA,URINE NEGATIVE /HPF; WBC,URINE RARE /HPF
[2018-02-04] MEDS ORDERED: PIPERACILLIN SODIUM/TAZOBACTAM 4.5 GM in NS (IVPB) 100 ML IV ONE (08:00)
[2018-02-04] MEDS ORDERED: ACETAMINOPHEN 500 MG TAB (TYLENOL) PO ONE (08:30)
[2018-02-04 08:49] VITALS: BP 150/96
--- NOTE | 2018-02-04 08:51 | Diagnostic Imaging Report ---
INDICATION: Cough and congestion. Comparison made with prior examination 01/28/2018. FINDINGS: The heart size is normal. There is some venous congestion. There are increasing bilateral perihilar and trace. This may reflect worsening failure or possibly superimposed pneumonia. No pleural effusion or pneumothorax. Mediastinum is unremarkable. Right internal jugular central venous catheter is in satisfactory position. IMPRESSION: Increasing bilateral perihilar interstitial infiltrates. Again this may reflect worsening failure or possibly superimposed pneumonia. Recommend clinical correlation. Dictated by: Dictated on workstation # [id number]
== END 2018-02-04 08:47 | disposition short-term general hospital (02) ==
LOC: EDUNIT# 05:45 → ER 05:47
DX: R09.02 Hypoxemia (principal); R04.2 Hemoptysis; M31.30 Wegener's granulomatosis without renal involvement; N18.6 End stage renal disease; Z99.2 Dependence on renal dialysis; Z86.718 Personal history of other venous thrombosis and embolism
CPT/HCPCS: 36415; 71046; 80053; 81000; 83605; 83880; 85025; 85610; 85652; 85730; 86141; 87040; 87070; 87077; 87186; 87205; 87804; 94640; 96365

== ENCOUNTER 2018-06-13 07:59 | Outpatient (RCR) | payer MEDICARE ==
[~2018-06-13 07:59] MED LIST changes: -AMIO200T2; +AMIO200T4; -AMLO10TA2; +AMLO10TA6
== END 2018-08-03 | disposition home or self-care (01) ==
LOC: CR 07:59
PROVIDERS: ATTEND Thoracic Surgery (Cardiothoracic Vascular Surgery)
DX: Z48.812 Encounter for surgical aftercare following surgery on the circulatory system (principal); Z95.2 Presence of prosthetic heart valve
CPT/HCPCS: 93798

== ENCOUNTER 2018-07-03 11:23 | Emergency (ER) | payer MEDICARE ==
[~2018-07-03] VITALS: Ht 182.9 cm; Wt 90.7 kg
[2018-07-03 11:49] LABS: BASOPHILS % (AUTO) 0 % (0-10); EOSINOPHILS % (AUTO) 0 % (0-10); HEMATOCRIT 38 % (40-54); HEMOGLOBIN 12.3 G/DL (13.3-17.7); LYMPHOCYTES # (AUTO) 2.5 X 10^3 (1.0-4.0); LYMPHOCYTES % (AUTO) 16 % (12-44); MEAN CORPUSCULAR HEMOGLOBIN 35 PG (25-34); MEAN CORPUSCULAR HGB CONC 32 G/DL (32-36); MEAN CORPUSCULAR VOLUME 108 FL (80-99); MEAN PLATELET VOLUME 9.2 FL (7.4-10.4); MONOCYTES # (AUTO) 1.2 X 10^3 (0.0-1.0); MONOCYTES % (AUTO) 8 % (0-12); NEUTROPHILS # (AUTO) 11.5 X 10^3 (1.8-7.8); NEUTROPHILS % (AUTO) 75 % (42-75); PLATELET COUNT 187 10^3/uL (130-400); RED BLOOD COUNT 3.56 10^6/uL (4.35-5.85); WHITE BLOOD COUNT 15.2 10^3/uL (4.3-11.0)
--- NOTE | 2018-07-03 11:50 | ED Lower Extremity ---
General Chief Complaint: Lower Extremity Stated Complaint: SOA History of Present Illness Date Seen by Provider: Jul 03, 2018 Time Seen by Provider: 11:15 Initial Comments 62-year-old male presents for right leg pain, swelling, and discoloration. He denies injury to his right lower extremity. He has a history of Roth's disease and cytomegalovirus. He has dialysis 3 times a week, yesterday was his last treatment. History of DVT in the right lower extremity approximately 22 years ago. He is on aspirin no other blood thinners. Patient had TAVR procedure April 15, 2018. He is scheduled to have studies done early next week at [facility] to be placed on the kidney transplant list. Onset: yesterday Pain/Injury Location: right leg, right knee, right thigh, right foot, right ankle, right heel Method of Injury: unknown Modifying Factors: Improves With Rest Allergies and Home Medications Allergies Coded Allergies: No Known Drug Allergies (Unverified , 10/08/09) Patient Home Medication List Home Medication List Reviewed: Yes Review of Systems Constitutional: no symptoms reported, see HPI Musculoskeletal: see HPI, muscle pain (Right lower extremity) Skin: no symptoms reported, see HPI, change in color (Purple discoloration with swelling to the right lower extremity) All Other Systems Reviewed Negative Unless Noted: Yes Past Pgsbxll-Nkbsyh-Uacthy Hx Past Med/Social Hx: Reviewed Nursing Past Med/Soc Hx Patient Social History Alcohol Use: Occasionally Uses Recreational Drug Use: No Smoking Status: Never a Smoker 2nd Hand Smoke Exposure: No Recent Hopitalizations: No Immunizations Up To Date PED Vaccines UTD: Yes Seasonal Allergies Seasonal Allergies: No Past Medical History Surgeries: Yes Abdominal, Orthopedic Respiratory: No Cardiac: Yes Deep Vein Thrombosis Neurological: Yes (NERVE DAMAGE LEGS) Reproductive Disorders: No Sexually Transmitted Disease: No 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) Renal Failure, UTI-Chronic Gastrointestinal: No Musculoskeletal: Yes (gout in the past) Gout Endocrine: No Psychosocial: No Integumentary: No Blood Disorders: No Family Medical History No Pertinent Family Hx Physical Exam Vital Signs Vital Signs - First Documented 07/03/18 07/03/18 07/03/18 11:23 12:58 14:01 Temp 99.0 Pulse 100 Resp 18 B/P (MAP) 142/77 (98) Pulse Ox 98 O2 Delivery Room Air Capillary Refill : Height, Weight, BMI Height: 6'1.00" Weight: 190lbs. 0.0oz. 86.254927nw; 25.0 BMI Method:Estimated General Appearance: WD/WN, no apparent distress Neck: non-tender, full range of motion, supple, normal inspection Cardiovascular: normal peripheral pulses, regular rate, rhythm; No no edema Respiratory: chest non-tender, lungs clear, normal breath sounds Gastrointestinal: normal bowel sounds, non tender, soft Back: normal inspection, no CVA tenderness, no vertebral tenderness Hips: bilateral hip non-tender, bilateral hip normal inspection Legs: left leg non-tender, left leg normal inspection, left leg normal range of motion, left leg no evidence of injury; right leg pain, right leg swelling, right leg other (Purplish discoloration to right lower extremity, worse below the knee. 1+ pedal pulses, thready. Skin dry, cool to touch. Neg Betzy's. Normal sensation Right lower Ext. Abrasion ant lower tibia, good granulation noted.) Neurologic/Tendon: normal sensation, normal motor functions, normal tendon functions Neurologic/Psychiatric: no motor/sensory deficits, alert, normal mood/affect, oriented x 3 Skin: normal color (Upper Ext and Left LE) Lymphatic: no adenopathy Progress/Results/Core Measures Results/Orders Lab Results Laboratory Tests Test 07/03/18 11:41 Range/Units White Blood Count 15.2 H 4.3-11.0 10^3/uL Red Blood Count 3.56 L 4.35-5.85 10^6/uL Hemoglobin 12.3 L 13.3-17.7 G/DL Hematocrit 38 L 40-54 % Mean Corpuscular Volume 108 H 80-99 FL Mean Corpuscular Hemoglobin 35 H 25-34 PG Mean Corpuscular Hemoglobin Concent 32 32-36 G/DL Red Cell Distribution Width 24.0 H 10.0-14.5 % Platelet Count 187 130-400 10^3/uL Mean Platelet Volume 9.2 7.4-10.4 FL Neutrophils (%) (Auto) 75 42-75 % Lymphocytes (%) (Auto) 16 12-44 % Monocytes (%) (Auto) 8 0-12 % Eosinophils (%) (Auto) 0 0-10 % Basophils (%) (Auto) 0 0-10 % Neutrophils # (Auto) 11.5 H 1.8-7.8 X 10^3 Lymphocytes # (Auto) 2.5 1.0-4.0 X 10^3 Monocytes # (Auto) 1.2 H 0.0-1.0 X 10^3 Eosinophils # (Auto) 0.0 0.0-0.3 10^3/uL Basophils # (Auto) 0.0 0.0-0.1 10^3/uL Neutrophils % (Manual) 46 % Lymphocytes % (Manual) 12 % Monocytes % (Manual) 8 % Eosinophils % (Manual) 0 % Basophils % (Manual) 0 % Metamyelocytes % 4 % Band Neutrophils 27 % Nucleated Red Blood Cells 1 Reactive Lymphocytes 3 % Toxic Granulation 1+ Polychromasia SLIGHT Poikilocytosis MODERATE Basophilic Stippling SLIGHT Anisocytosis MARKED Stomatocytes MODERATE Elliptocytes MODERATE Erythrocyte Sedimentation Rate 18 0-30 MM/HR Prothrombin Time 12.9 12.2-14.7 SEC INR Comment 1.0 0.8-1.4 Activated Partial Thromboplast Time 26 24-35 SEC D-Dimer 6.32 H 0.00-0.49 UG/ML Sodium Level 139 135-145 MMOL/L Potassium Level 3.9 3.6-5.0 MMOL/L Chloride Level 93 L 98-107 MMOL/L Carbon Dioxide Level 25 21-32 MMOL/L Anion Gap 21 H 5-14 MMOL/L Blood Urea Nitrogen 38 H 7-18 MG/DL Creatinine 6.16 H 0.60-1.30 MG/DL Estimat Glomerular Filtration Rate 9 BUN/Creatinine Ratio 6 Glucose Level 140 H 70-105 MG/DL Calcium Level 10.9 H 8.5-10.1 MG/DL Corrected Calcium 10.5 H 8.5-10.1 MG/DL Total Bilirubin 0.7 0.1-1.0 MG/DL Aspartate Amino Transf (AST/SGOT) 20 5-34 U/L Alanine Aminotransferase (ALT/SGPT) 25 0-55 U/L Alkaline Phosphatase 89 40-136 U/L C-Reactive Protein High Sensitivity 1.52 H 0.00-0.50 MG/DL Total Protein 6.7 6.4-8.2 GM/DL Albumin 4.5 3.2-4.5 GM/DL My Orders Orders - ANYI COELHO Cbc With Automated Diff (07/03/18 11:33) Comprehensive Metabolic Panel (07/03/18 11:33) Hs C Reactive Protein (07/03/18 11:33) Erythrocyte Sedimentation Rate (07/03/18 11:33) Fibrin Degradation Products (07/03/18 11:33) Protime With Inr (07/03/18 11:33) Partial Thromboplastin Time (07/03/18 11:33) Us Right Low Ext [id number] (07/03/18 11:33) Us Venous Lower Ext Rt (07/03/18 11:33) Ua Culture If Indicated (07/03/18 11:48) Manual Differential (07/03/18 11:41) Vital Signs/I&O 07/03/18 07/03/18 07/03/18 11:23 12:58 14:01 Temp 99.0 Pulse 100 88 85 Resp 18 18 18 B/P (MAP) 142/77 (98) 118/80 (93) 138/65 Pulse Ox 98 100 O2 Delivery Room Air Progress Progress Note : Time: 11:15 Progress Note Patient seen and evaluated, labs and venous/arterial ultrasound to be completed of the right lower extremity. [address] Aguillon, recommended transfer by private care to [place], [place]. Pt to present to admission desk for bed placement, he will have orders in place. Plan Direct Thrombolysis procedure tomorrow. No medications or additional treatment/studies recommended at this time. This plan of care was discussed with the patient, he prefers transfer to [facility] per his 's recommendation. He will obtain the name of his director of solutions architecture at [facility] and I will attempt contact. 1320 patient reports upon further speaking to his and the director of solutions architecture at [facility], that he will continue with the plans to transfer to [place]. 1345 discharge instructions and return precautions reviewed with the patient he understands he is to report directly to [place] admission desk for bed placement. Diagnostic Imaging Diagonstic Imaging: Ultrasound Plain Films/CT/US/NM/MRI: leg Comments NAME: HARPREET BARRIOS [facility] REC#: [id number] PT STATUS: REG ER : 1955 PHYSICIAN: ANYI COELHO ADMIT DATE: 07/03/18/ER Draft Date of Exam:07/03/18 US RIGHT LOW EXT [id number] REASON FOR EXAM: Right lower extremity pain and swelling. COMPARISON: None TECHNIQUE: Doppler, martinez-scale and color-flow imaging of the right lower extremity arterial system was performed. Findings: RIGHT: REAL ESTATE LEGAL SECRETARY : 102 cm/sec Profunda : 64 cm/sec SFA prox: 91 cm/sec SFA mid: 56 cm/sec SFA distal: 48 cm/sec Popliteal mid: 35 cm/sec SILK SCREEN CUTTER : 35 cm/sec Dorsalis Pedis : 50 cm/sec Normal triphasic or biphasic waveforms are seen throughout the right lower extremity. There is mild atherosclerosis present. No tardus parvus is seen. IMPRESSION: 1. Mild atherosclerosis in the right lower extremity with no sonographic evidence of significant stenosis. Dictated on workstation # [id number] Dict: 07/03/18 1302 Trans: 07/03/18 1305 CVB [id number] Interpreted by: KEMAL CHAVARRIA MD Electronically signed by: Reviewed: Reviewed by Me, Discussed w/Radiologist Diagonstic Imaging: Ultrasound Plain Films/CT/US/NM/MRI: leg Comments NAME: HARPREET BARRIOS [employer] REC#: [id number] PT STATUS: REG ER : 1955 PHYSICIAN: ANYI COELHO ADMIT DATE: 07/03/18/ER Draft Date of Exam:07/03/18 US VENOUS LOWER EXT RT PROCEDURE: US right lower extremity venous. TECHNIQUE: Multiple real-time grayscale images were obtained over the right lower extremity in various projections. Additional duplex Doppler and color Doppler images were also obtained. INDICATION: Right leg edema and pain. COMPARISON: None. FINDINGS: There is occlusive thrombus of the right common femoral vein, deep femoral vein, superficial femoral vein, and popliteal vein. There is also occlusive thrombus extending into the peroneal trunk, and the greater saphenous vein above the knee. The distal peroneal, posterior tibial, and greater saphenous veins appear patent. IMPRESSION: 1. Occlusive deep venous thrombosis from at least the right common femoral vein through the popliteal vein to the proximal calf. Findings discussed with ANYI COELHO by Dr. Chavarria, on 07/03/2018 12:56 PM. Dictated on workstation # [id number] Dict: 07/03/18 1252 Trans: 07/03/18 1259 [facility] [id number] Interpreted by: KEMAL CHAVARRIA MD Electronically signed by: Reviewed: Reviewed by Me, Discussed w/Radiologist Departure Impression Primary Impression: DVT (deep venous thrombosis) Qualified Codes: I82.411 - Acute embolism and thrombosis of right femoral vein Additional Impressions: Roth's disease Chronic kidney disease Qualified Codes: N18.6 - End stage renal disease; Z99.2 - Dependence on renal dialysis Disposition: XF SHT-TRM HOSP Condition: Stable Departure-Patient Inst. Decision time for Depature: 13:30 Referrals: ALYCE JAIN MD (PCP/Family) Primary Care Physician Patient Instructions: Deep Vein Thrombosis (Blood Clots in the Legs) (DC) Add. Discharge Instructions: Take all papers and disc with ultrasound to [facility]. Present to the admission desk for bed placement. Dr. Aguillon has called orders ahead for you to be admitted. All discharge instructions reviewed with patient and/or family. Voiced understanding. Copy Copies To 1: ALYCE JAIN MD, AMY ARNP Jul 03, 2018 11:50
[2018-07-03 12:09] LABS: ALBUMIN 4.5 GM/DL (3.2-4.5); BILIRUBIN,TOTAL 0.7 MG/DL (0.1-1.0); CALCIUM 10.9 MG/DL (8.5-10.1); CREATININE SERUM 6.16 MG/DL (0.60-1.30); POTASSIUM 3.9 MMOL/L (3.6-5.0); TOTAL PROTEIN 6.7 GM/DL (6.4-8.2)
[2018-07-03 12:14] LABS: BAND NEUTROPHILS 27 %; LYMPHOCYTES % (MANUAL) 12 %; MONOCYTES % (MANUAL) 8 %; NEUTROPHILS % (MANUAL) 46 %
[2018-07-03 12:15] LABS: BASOPHILS % (MANUAL) 0 %; EOSINOPHILS % (MANUAL) 0 %; METAMYELOCYTES % 4 %; REACTIVE LYMPHOCYTES 3 %
[2018-07-03 12:16] LABS: ANISOCYTOSIS MARKED; FIBRIN DEGRADATION PRODUCTS 6.32 UG/ML (0.00-0.49); NUCLEATED RED BLOOD CELLS 1; POIKILOCYTOSIS MODERATE; POLYCHROMASIA SLIGHT; PROTHROMBIN TIME PATIENT 12.9 SEC (12.2-14.7)
[2018-07-03 12:17] LABS: ELLIPT/OVALOCYTES MODERATE; ERYTHROCYTE SEDIMENTATION RATE 18 MM/HR (0-30); STOMATOCYTES MODERATE; TOXIC GRANULATION/VACUOLAZATIO 1+
[2018-07-03 12:58] VITALS: BP 118/80
--- NOTE | 2018-07-03 13:00 | Diagnostic Imaging Report ---
PROCEDURE: US right lower extremity venous. TECHNIQUE: Multiple real-time grayscale images were obtained over the right lower extremity in various projections. Additional duplex Doppler and color Doppler images were also obtained. INDICATION: Right leg edema and pain. COMPARISON: None. FINDINGS: There is occlusive thrombus of the right common femoral vein, deep femoral vein, superficial femoral vein, and popliteal vein. There is also occlusive thrombus extending into the peroneal trunk, and the greater saphenous vein above the knee. The distal peroneal, posterior tibial, and greater saphenous veins appear patent. IMPRESSION: 1. Occlusive deep venous thrombosis from at least the right common femoral vein through the popliteal vein to the proximal calf. Findings discussed with ANYI COELHO by Dr. Austin, on 07/03/2018 12:56 PM. Dictated by: Dictated on workstation # [id number]
--- NOTE | 2018-07-03 13:06 | Diagnostic Imaging Report ---
REASON FOR EXAM: Right lower extremity pain and swelling. COMPARISON: None TECHNIQUE: Doppler, martinez-scale and color-flow imaging of the right lower extremity arterial system was performed. Findings: RIGHT: HOSPITAL LIAISON : 102 cm/sec Profunda : 64 cm/sec SFA prox: 91 cm/sec SFA mid: 56 cm/sec SFA distal: 48 cm/sec Popliteal mid: 35 cm/sec METAL CASTER : 35 cm/sec Dorsalis Pedis : 50 cm/sec Normal triphasic or biphasic waveforms are seen throughout the right lower extremity. There is mild atherosclerosis present. No tardus parvus is seen. IMPRESSION: 1. Mild atherosclerosis in the right lower extremity with no sonographic evidence of significant stenosis. Dictated by: Dictated on workstation # [id number]
[2018-07-03 14:01] VITALS: BP 138/65
--- OUTSIDE RECORDS SUMMARY | 2018-07-03 14:55 | XMS REPORT | Encounter Summary ---
Author Author [facility] Organization [facility] Address Unknown Phone Unavailable Care Team Providers Care Credit Review Analyst Name Role Phone Devon Cheema MD PCP Suze Buchanan RN Unavailable Unavailable Charissa Lin RN Unavailable Unavailable Valery Newton MA Unavailable Unavailable Chas Peña APRN Unavailable Jeri Brower MA Unavailable Unavailable Dee Lyn RN Unavailable Unavailable Rogerio Lynne MD Unavailable Yesi Martinez MD Unavailable Dee Ma RN Unavailable Unavailable Toma Ojeda Unavailable Unavailable Radha David RN Unavailable Unavailable Shonda Ovalles MA Unavailable Unavailable Marley Jain Unavailable Unavailable Sonal Herrera MD Unavailable Wolf Aguillon MD Unavailable Raudel Vazquez MD Unavailable Olvin Reyes DO Unavailable Reason for Visit * Reason Comments Transplant Referral Appointment Reminder Call Encounter Details Date Type Department Care Team Description 07/01/2018 Telephone [facility] for [facility] Transplant Referral Transplantation-Kidney/Pa (Appointment Reminder ncreas Nep Call) [address] [place] [address] Social History Tobacco Use Types Packs/Day Years Used Date Never Smoker Smokeless Tobacco: Never Used Alcohol Use Drinks/Week oz/Week Comments Yes occasional Sex Assigned at Date Recorded Not on file as of this encounter Functional Status Functional Status Response Date of Assessment Does the patient have a hearing impairment: Yes 04/18/2018 Does the patient have a visual impairment: [...] Treatment Date Type Specialty Care Team Description 05/06/2018 Procedure Pass Transplant Surgery as of this encounter Visit Diagnoses Not on filein this encounter
--- OUTSIDE RECORDS SUMMARY | 2018-07-03 14:55 | XMS REPORT | Clinical Summary ---
Author Author [facility] Organization [facility] Address Unknown Phone Unavailable Care Team Providers Care Chenille Machine Operator Name Role Phone Devon Cheema MD PCP Suze Buchanan RN Unavailable Unavailable Charissa Lin RN Unavailable Unavailable Valery Newton MA Unavailable Unavailable Chas Peña APRN Unavailable Jeri Brower MA Unavailable Unavailable Dee Lyn RN Unavailable Unavailable Rogeroi Lynne MD Unavailable Yesi Martinez MD Unavailable Dee Ma RN Unavailable Unavailable Toma Ojeda Unavailable Unavailable Radha David RN Unavailable Unavailable Shonda Ovalles MA Unavailable Unavailable Marley Jain Unavailable Unavailable Sonal Herrera MD Unavailable Wolf Aguillon MD Unavailable Raudel Vazquez MD Unavailable Olvin Reyes DO Unavailable Source Comments Some departments are not documenting in the electronic medical record. If you do not see the information that you expected, contact Release of Information in the Health Information Management department at [phone] for further assistance in locating additional records.[facility] Allergies No Known Allergies Current Medications Prescription Sig. Disp. Refills Start End Date Status Date pravastatin (PRAVACHOL) Take 10 mg by mouth Active 10 mg tablet daily. calcitriol (ROCALTROL) Take 1 capsule at Active 0.5 mcg capsule dialysis appt (Saturday, Saturday, Saturday) pantoprazole DR Take 40 mg by mouth Active (PROTONIX) 40 mg tablet daily. calcium carbonate/vitamin Take 1 tablet by mouth Active D-3 (OSCAL-500+D) 1250 daily. Calcium Carb mg/200 unit tablet 1250mg delivers 500mg elemental Ca trimethoprim/sulfamethoxa Take 1 tablet by mouth 12 tablet 1 03/11/20 Active zole (BACTRIM SS) 80/400 three times weekly. 18 mg tablet Continue until dose of prednisone is less than 20mg per day codeine/guaiFENesin Take 10 mL by mouth every 120 mL 1 03/11/20 Active (ROBITUSSIN-AC) 10/100 6 hours as needed for 18 mg/5 mL oral solution Cough. valGANciclovir 50 mg/mL Take 2 mL by mouth three 30 mL 03/11/20 Active oral solution times weekly. After 18 dialysis on dialysis days. Length of therapy to be determined by ID folic acid (FOLVITE) 1 mg Take 1 tablet by mouth 30 tablet 1 03/11/20 Active tablet daily. 18 vitamins, multi B, C, Zn Take 1 tablet by mouth 30 tablet 1 03/11/20 Active & folate (Renal) daily. 18 (NEPHPLEX RX) 1-60-300-12.5 ne-lr-fap-mg tab ipratropium bromide Inhale 2.5 mL by mouth 120 vial 1 03/11/20 Active (ATROVENT) 0.02 % into the lungs three 18 nebulizer solution times daily and at bedtime. albuterol 0.5% Inhale 0.5 mL solution by 120 vial 1 03/11/20 Active (PROVENTIL; VENTOLIN) 2.5 nebulizer as directed 18 mg/0.5 mL nebulizer three times daily and at solution bedtime. nebulizer compressor Use as directed. 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 Take with food. 18 aortic stenosis oxyCODONE/acetaminophen Take 1-2 tablets by mouth 20 tablet 0 Active (ENDOCET) 5/325 mg tablet every 6 hours as needed 18 for Pain senna/docusate Take 1 tablet by mouth Active (SENOKOT-S) 8.6/50 mg daily. tablet acetaminophen (TYLENOL) Take 500 mg by mouth as Active 500 mg tablet Needed for Pain. Max of 4,000 mg of acetaminophen in 24 hours. prednisone (DELTASONE) 20 Take 20 mg by mouth daily Active mg tablet with breakfast. Active Problems Problem Noted Date Hypogammaglobulinemia (HCC) 05/13/2018 Overview: He had IgG 138, IgM <20, and IgA at 54 done during plasmapharesis. He had his levels repeated a few days later which showed IgG at 583, IgM at 37, and IgA at 136. He had T&B cell panel which showed undetectable B cells (expected with Rituxin therapy), low NK cell count and low CD4 and CD8 count. He received Rituximab 09/2017-10/2017 (09/20/17, 09/27/17, 10/04/17, 10/11/17) and he has been on prednisone for many years for his GPA. His learning strategist plans to potentially give him additional Rituximab (follow up appointment is 05/21/2018). He is currently on prednisone 20mg daily. His learning strategist may start imuran as well for treatment of GPA. He has had 1 CMV pneumonia and one pneumonia treated with antibiotics (with negative sputum culture). He has not had any illnesses in the last 2 months. - We recommend repeating immunoglobulin levels (6 months out from Rituximab). - We recommend obtaining repeat T&B cell panel. - Follow up will be determined after obtaining test results. S/P TAVR (transcatheter aortic valve replacement) 05/13/2018 Pancytopenia ([facility]) 04/17/2018 Acute on chronic combined systolic and diastolic CHF, NYHA class 2 ([facility]) 08/2018 Aortic valve stenosis 04/10/2018 Overview: Added automatically from request for surgery [id number] (HFpEF) heart failure with preserved ejection fraction ([facility]) 03/11/2018 Overview: Chronic, NYHA class 3 Ascending aortic aneurysm ([facility]) 03/11/2018 Moderate malnutrition ([facility]) 03/07/2018 Debility 02/23/2018 Hemoptysis 02/21/2018 CMV pneumonia ([facility]) 02/21/2018 Pleural effusion associated with pulmonary infection 02/21/2018 Immunosuppressed status ([facility]) 02/21/2018 Acute blood loss anemia 02/21/2018 Thrombocytopenia ([facility]) 02/21/2018 Paroxysmal atrial fibrillation ([facility]) 02/21/2018 Severe aortic stenosis 02/21/2018 Diffuse pulmonary alveolar hemorrhage 02/21/2018 Acute respiratory failure with hypoxia (HCC) 02/11/2018 Allyssa's granulomatosis (HCC) 02/10/2018 Allyssa-like granulomatosis (HCC) 07/08/2015 Hyperlipidemia 07/08/2015 Overview: Stable on current regimen. Hypertension 07/08/2015 Overview: Stable on current regimen. GERD (gastroesophageal reflux disease) 07/08/2015 Metabolic acidosis 07/08/2015 End stage renal disease (HCC) 07/07/2015 Overview: Stable GFR 18-22% over the past few years, remains off dialysis. Encounters Date Type Specialty Care Team Description 07/01/2018 Telephone Transplant Surgery Teresa Adair Transplant Referral (Appointment Reminder Call) 05/16/2018 Telephone Allergy,Immunology and Annita Rosales MD Results Rheumatology 05/13/2018 [facility] Cardiology Monique Laird MD Encounter 05/13/2018 Office Visit Cardiothoracic Surgery Wolf Liu MD S/ P TAVR (transcatheter Monique Laird MD aortic valve replacement) 05/13/2018 [facility] Cardiology Wolf Liu MD Encounter 05/13/2018 Orders Only Cardiothoracic Surgery Daniel Coon RN Severe aortic stenosis (Primary Dx) 05/12/2018 Hospital Lab Wolf Liu MD Nonfamilial Encounter hypogammaglobulinemia (HCC) 05/12/2018 Office Visit Allergy,Immunology and Wolf Liu MD Hypogammaglobulinemia Rheumatology ([facility]) (Primary Dx); Lymphopenia 05/06/2018 Orders Only Transplant Surgery Genesis Irizarry RN Pre- transplant evaluation for end stage renal disease (Primary Dx) 04/30/2018 Telephone Transplant Surgery Winter Rubio Transplant Referral (Schedule New K Eval) 04/30/2018 Telephone Transplant Surgery Amelia Santos Financial/ Insurance Questions (updated benefit collection for new eval) 04/29/2018 Telephone Transplant Surgery Genesis Irizarry RN Transplant Referral (Approved for Eval) 04/22/2018 Telephone Transplant Surgery Genesis Irizarry RN Transplant Referral (Deferred) 04/21/2018 Telephone Cardiothoracic Surgery Chelise Rogers RN Post- hospital Follow Up 04/17/2018 Pharmacy Visit 04/17/2018 Orders Only Cardiothoracic Surgery Neeru Anderson PA-C Thoracic aortic aneurysm without rupture (HCC) (Primary Dx) 04/16/2018 Hospital Monique Laird MD Aortic valve stenosis - Encounter Michael Palomo MD, [facility] 04/18/2018 04/16/2018 Orders Only Cardiology Valery uZrita RN Severe aortic stenosis (Primary Dx); S/p TAVR (transcatheter aortic valve replacement), bioprosthetic; Essential hypertension 04/16/2018 Procedure Pass Cardiology 04/16/2018 Surgery Cardiology Monique Laird MD REPLACEMENT TRANSCATHETER AORTIC VALVE- Carmen 29s3, left common femoral artery approach 04/15/2018 PAC Office Anesthesiology Monique Laird MD Aortic valve stenosis, Visit etiology of cardiac valve disease unspecified (Primary Dx) 04/15/2018 Hospital Radiology Monique Laird MD Encounter 04/15/2018 [facility] Cardiology Monique Laird MD Encounter 04/15/2018 Anesthesia Cardiology Wolf Ansari, Event 04/11/2018 Telephone Rehabilitation Medicine Toma Ely MD Medication Question 04/10/2018 Prep for Case Cardiology Henrietta Young APRN-C Aortic valve stenosis, etiology of cardiac valve disease unspecified (Primary Dx) 04/08/2018 Telephone Transplant Surgery Genesis Irizarry RN Other ( surgical determination) 04/04/2018 Pre-Admit Anesthesiology Monique Laird MD Aortic valve stenosis, Orders Only etiology of cardiac valve disease unspecified (Primary Dx) from Last 3 Months Family History Medical [...] Vital Sign Reading Time Taken Blood Pressure 110/63 05/13/2018 2:42 PM CDT Pulse 70 05/13/2018 2:28 PM CDT Temperature 36.2 C (97.2 F) 05/12/2018 3:07 PM CDT Respiratory Rate 16 05/12/2018 3:07 PM CDT Oxygen Saturation 96% 05/13/2018 2:28 PM CDT Inhaled Oxygen - - Concentration Weight 82.6 kg (182 lb) 05/13/2018 2:42 PM CDT Height 190.5 cm (6' 3") 05/13/2018 2:42 PM CDT Body Mass Index 22.75 05/13/2018 2:42 PM CDT Plan of Treatment Date Type Specialty Care Team Description 05/06/2018 Procedure Pass Transplant Surgery Health Maintenance Due Date Last Done Comments PHYSICAL (COMPREHENSIVE) 1961 EXAM PERTUSSIS VACCINE 1965 TETANUS VACCINE 1971 COLORECTAL CANCER 2004 SCREENING SHINGLES RECOMBINANT 2004 VACCINE (1 of 2) INFLUENZA VACCINE 07/07/2018 HEPATITIS C SCREENING Completed 02/12/2018, 07/08/2015, 10/11/2009 HIV SCREENING Completed 02/12/2018, 07/08/2015, 10/11/2009 Implants Implanted Type Area Caustic Mixer Device Expiration Model / Identifier Date Serial / Lot Kit 70cm 4fr 18ga 1 Lumen Nitinol Left: CR BARD:ACCESS [id number] / Guidewire Radstic - Sn/A Chest Wall SYS [id number] N/A / Implanted: Qty: 1 on 02/20/2018 by [id number] Chris Dalton MD [id number] - [id number] Aorta MONTEIRO LIFESCI 02/05/2020 [id number] Implanted: Qty: 1 on 04/16/2018 by SAMANTHA / Monique Laird MD [id number] / NA Procedures Procedure Name Priority Date/Time Associated Diagnosis Comments ECG-SCAN 06/18/2018 Results for this 6:25 PM CDT procedure are in the results section. ECG-SCAN 06/16/2018 Results for this 1:15 PM CDT procedure are in the results section. COMPREHENSIVE METABOLIC Routine 05/13/2018 Severe aortic stenosis Results for this PANEL 3:00 PM CDT procedure are in the results section. CBC AND DIFF Routine 05/13/2018 Severe aortic stenosis Results for this 3:00 PM CDT procedure are in the results section. 2-D + DOPPLER Routine 05/13/2018 Severe aortic stenosis Results for this ECHOCARDIOGRAM 2:42 PM CDT procedure are in the results section. BNP (B-TYPE NATRIURETIC Routine 05/12/2018 Severe aortic stenosis Results for this PEPTI) 4:32 PM CDT S/p TAVR (transcatheter procedure are in the aortic valve results section. replacement), bioprosthetic Essential hypertension BASIC METABOLIC PANEL Routine 05/12/2018 Severe aortic stenosis Results for this 4:32 PM CDT S/p TAVR (transcatheter procedure are in the aortic valve results section. replacement), bioprosthetic Essential hypertension CBC Routine 05/12/2018 Severe aortic stenosis Results for this 4:32 PM CDT S/p TAVR (transcatheter procedure are in the aortic valve results section. replacement), bioprosthetic Essential hypertension T&B CELL PANEL,BLOOD Routine 05/12/2018 Hypogammaglobulinemia Results for this 4:32 PM CDT (HCC) procedure are in the Lymphopenia results section. IMMUNOGLOBULINS-IGA,IGG,I Routine 05/12/2018 Hypogammaglobulinemia Results for this GM 4:32 PM CDT (HCC) procedure are in the Lymphopenia results section. TELEMETRY STRIPS-SCAN 04/28/2018 Results for this 12:30 PM CDT procedure are in the results section. ECG-SCAN 04/27/2018 Results for this 8:40 AM CDT procedure are in the results section. PROCEDURE RECORD-SCAN 04/22/2018 Results for this 2:31 PM CDT procedure are in the results section. HEMODIALYSIS INPATIENT Routine 04/18/2018 Results for this 6:27 AM CDT procedure are in the results section. HEMODIALYSIS DATE Routine 04/18/2018 Results for this 6:27 AM CDT procedure are in the results section. 2-D + DOPPLER Routine 04/17/2018 Results for this ECHOCARDIOGRAM 11:08 AM CDT procedure are in the results section. CHEST SINGLE VIEW Routine 04/17/2018 Results for this 5:01 AM CDT procedure are in the results section. BASIC METABOLIC PANEL STAT 04/17/2018 Results for this 2:00 AM CDT procedure are in the results section. CBC STAT 04/17/2018 Results for this 2:00 AM CDT procedure are in the results section. HEMODIALYSIS INPATIENT Routine 04/16/2018 Results for this 8:29 PM CDT procedure are in the results section. HEMODIALYSIS DATE Routine 04/16/2018 Results for this 8:29 PM CDT procedure are in the results section. ECG 12-LEAD Routine 04/16/2018 8:00 PM CDT ANESTHESIA CENTRAL LINE Routine 04/16/2018 Results for this INSERTION 3:07 PM CDT procedure are in the results section. ANESTHESIA ARTERIAL LINE Routine 04/16/2018 Results for this INSERTION 2:05 PM CDT procedure are in the results section. PTT (APTT) STAT 04/16/2018 Results for this 12:39 PM CDT procedure are in the results section. PROTIME INR (PT) STAT 04/16/2018 Results for this 12:39 PM CDT procedure are in the results section. BASIC METABOLIC PANEL STAT 04/16/2018 Results for this 12:39 PM CDT procedure are in the results section. CBC STAT 04/16/2018 Results for this 12:39 PM CDT procedure are in the results section. LINE PLCMT 1V CXR STAT 04/16/2018 Results for this 12:20 PM CDT procedure are in the results section. ANESTHESIA Routine 04/16/2018 TRANSEESOPHAGEAL 12:16 PM CDT ECHOCARDIOGRAM Procedure Note - Michael Farr MD - 04/16/2018 12:16 PM CDT Anesthesi a Procedure: Transesoph ageal Echocardio gram NORA Date/Time: 04/16/2018 9:37 AM Associate d procedure: Other (TAVR) Preprocedu re checklist performed: 2 patient identifier s, risks & benefits discussed, patient evaluated, timeout performed, consent obtained and patient being monitored Staff Anesthesio logist: MICHAEL FARR Surgeon: MONIQUE LAIRD Performed personally Indicatio n for NORA: assessment of ascending aorta, assessment of surgical repair, ventricula r function, volume assessment , confirmati on of pre-proced ure diagnosis and valvular assessment Physician requesting echo: MONIQUE LAIRD CPT codes: 55502 - NORA 2D imaging (w or w/o M-mode) including probe placement, image acquisitio n, interpreta tion & report, 09270 - PWD and/or CWD f/u or limited study and 02817 - Color flow velocity mapping Patient location: OR Intubated: yes Bite block: yes Heart visualized : yes Insertion: easy Probe type: multiplane Modalities : 2D, color flow mapping, continuous wave Doppler, pulse wave Doppler and 3D Echocardio graphic and Doppler Measuremen ts Ventricul ar Findings Right Ventricle RV cavity size: normal RV hypertroph y: no RV thrombus: no RV global function: normal Left Ventricle LV cavity size: normal LV hypertroph y: yes LV wall thickness: 1.5 cm LV thrombus: no LV global function: normal LV ejection fraction: 55% Ventricula r Wall Motion Four Chamber View Basal anterolate ral: normal Basal inferosept al: normal Mid anterolate ral: normal Mid inferosept al: normal Apical lateral: normal Apical septal: normal Two Chamber View Basal anterior: normal Basal inferior: normal Mid anterior: normal Mid inferior: normal Apical anterior: normal Apical inferior: normal Long [place] View Basal anterosept al: normal Basal inferolate ral: normal Mid anterosept al: normal Mid inferolate ral: normal Apical lateral: normal Apical septal: normal [place]: normal Mid Short [place] View Mid anterosept al: normal Mid anterior: normal Mid anterolate ral: normal Mid inferolate ral: normal Mid inferior: normal Mid inferosept al: normal Valves Aortic Valve Annulus: calcified Stenosis: moderate Area: 1.06 cm2 Annulus measuremen t: 2.2 cm Peak gradient: 67 mmHg Mean gradient: 41 mmHg Regurgitat ion severity: mild Leaflet morphology : calcified and thickened Leaflet motion: restricted Mitral Valve Annulus: normal Stenosis: none Regurgitat ion severity: mild Leaflet morphology : normal Leaflet motion: normal Tricuspid Valve Annulus: normal Stenosis: none Regurgitat ion severity: trace Leaflet morphology : normal Leaflet motion: normal Pulmonic Valve Annulus: normal Stenosis: none Regurgitat ion severity: none Leaflet morphology : normal Aorta Ascending Aorta Size: dilated Diameter: 5.3 cm Dissection : no Plaque thickness: 0-3 mm Plaque mobile: no Sinotubul ar Junction Size: normal Diameter: 3.6 cm Sinus of Valsalva Size: normal Diameter: 3.9 cm Atria Right Atrium Size: normal Left Atrium Size: normal Left atrial appendage size: thrombus Septa Intra-atri al septal morphology : normal Intra-brady tricular septal morphology : normal Diastolic Function Diastolic dysfunctio n grade: not formally evaluated. Other Findings Pericardiu m: normal Pleural effusion: none Pulmonary arteries: normal Pulmonary venous flow: blunted (decreased ) systolic flow Post Procedure Aortic valve replacemen t Perivalvul ar leak: yes Mean gradient (mmHg): 4 Systolic anterior motion of the mitral valve: no Return to CBT for echo-relat ed diagnosis: no Aorta intact after decannulat ion: yes Post-proce dure LVEF measured: yes; 60% Post-proce dure RV dysfunctio n: none Performed by: MICHAEL FARR Authorized by: MICHAEL FARR ECG 12-LEAD STAT 04/16/2018 12:00 PM CDT POC ACTIVATED CLOTTING 04/16/2018 Results for this TIME 10:48 AM CDT procedure are in the results section. POC IONIZED CALCIUM 04/16/2018 Results for this 10:44 AM CDT procedure are in the results section. POC SODIUM 04/16/2018 Results for this 10:44 AM CDT procedure are in the results section. POC POTASSIUM 04/16/2018 Results for this 10:44 AM CDT procedure are in the results section. POC HEMATOCRIT 04/16/2018 Results for this 10:44 AM CDT procedure are in the results section. POC BLOOD GAS ARTERIAL 04/16/2018 Results for this 10:44 AM CDT procedure are in the results section. POC ACTIVATED CLOTTING 04/16/2018 Results for this TIME 10:41 AM CDT procedure are in the results section. POC GLUCOSE 04/16/2018 Results for this 10:41 AM CDT procedure are in the results section. BASIC METABOLIC PANEL STAT 04/16/2018 Results for this 8:06 AM CDT procedure are in the results section. URINALYSIS MICROSCOPIC STAT 04/15/2018 Aortic valve stenosis, Results for this REFLEX TO CULTURE 1:43 PM CDT etiology of cardiac valve procedure are in the disease unspecified results section. URINALYSIS DIPSTICK STAT 04/15/2018 Aortic valve stenosis, Results for this REFLEX TO CULTURE 1:43 PM CDT etiology of cardiac valve procedure are in the disease unspecified results section. UA REFLEX CULTURE LABEL STAT 04/15/2018 Aortic valve stenosis, Results for this 1:43 PM CDT etiology of cardiac valve procedure are in the disease unspecified results section. CHEST 2 VIEWS STAT 04/15/2018 Aortic valve stenosis, Results for this 11:51 AM CDT etiology of cardiac valve procedure are in the disease unspecified results section. TYPE & CROSSMATCH STAT 04/15/2018 Aortic valve stenosis, Results for this 11:10 AM CDT etiology of cardiac valve procedure are in the disease unspecified results section. PTT (APTT) STAT 04/15/2018 Aortic valve stenosis, Results for this 11:10 AM CDT etiology of cardiac valve procedure are in the disease unspecified results section. PROTIME INR (PT) STAT 04/15/2018 Aortic valve stenosis, Results for this 11:10 AM CDT etiology of cardiac valve procedure are in the disease unspecified results section. HEMOGLOBIN A1C STAT 04/15/2018 Aortic valve stenosis, Results for this 11:10 AM CDT etiology of cardiac valve procedure are in the disease unspecified results section. COMPREHENSIVE METABOLIC STAT 04/15/2018 Aortic valve stenosis, Results for this PANEL 11:10 AM CDT etiology of cardiac valve procedure are in the disease unspecified results section. CBC STAT 04/15/2018 Aortic valve stenosis, Results for this 11:10 AM CDT etiology of cardiac valve procedure are in the disease unspecified results section. BNP (B-TYPE NATRIURETIC STAT 04/15/2018 Aortic valve stenosis, Results for this PEPTI) 11:10 AM CDT etiology of cardiac valve procedure are in the disease unspecified results section. from Last 3 Months Results * ECG-SCAN (06/18/2018 6:25 PM) Narrative Performed At Ordered by an unspecified provider. * ECG-SCAN (06/16/2018 1:15 PM) Narrative Performed At Ordered by an unspecified provider. * CBC AND DIFF (05/13/2018 3:00 PM) White Blood Cells 3.5 (L) 4.5 - 11.0 K/UL [facility] RBC 4.14 (L) 4.4 - 5.5 M/UL [facility] Hemoglobin 13.5 13.5 - 16.5 GM/DL [facility] Hematocrit 41.4 40 - 50 % [facility] MCV 100.2 (H) 80 - 100 FL [facility] MCH 32.6 26 - 34 PG [facility] MCHC 32.5 32.0 - 36.0 G/DL [facility] RDW 19.2 (H) 11 - 15 % [facility] Platelet Count 132 (L) 150 - 400 K/UL [facility] MPV 7.9 7 - 11 FL [facility] Segmented Neutrophils 28 (L) 41 - 77 % [facility] Bands 14 (H) 0 - 10 % [facility] Lymphocytes 32 24 - 44 % [facility] Monocytes 19 (H) 4 - 12 % [facility] Eosinophil 2 0 - 5 % [facility] Metamyelocyte 4 % [facility] Myelocyte 1 % [facility] POIK PRESENT [facility] Ovalocyte PRESENT [facility] Platelet Estimate SLT DEC [facility] Absolute Neutrophil Count 1.47 (L) 1.8 - 7.0 K/UL [facility] Manual Specimen Blood Performing Organization Address City/[facility]/Zipcode Phone Number [facility] [address] [place] [address] * COMPREHENSIVE METABOLIC PANEL (05/13/2018 3:00 PM) Only the most recent of 2 results within the time period is included. Sodium 141 137 - 147 MMOL/L [facility] Potassium 4.4 3.5 - 5.1 MMOL/L [facility] Chloride 92 (L) 98 - 110 MMOL/L [facility] Glucose 117 (H) 70 - 100 MG/DL [facility] Blood Urea Nitrogen 29 (H) 7 - 25 MG/DL [facility] Creatinine 4.04 (H) 0.4 - 1.24 MG/DL [facility] Calcium 10.0 8.5 - 10.6 MG/DL [facility] Total Protein 7.1 6.0 - 8.0 G/DL [facility] Total Bilirubin 0.6 0.3 - 1.2 MG/DL [facility] Albumin 4.5 3.5 - 5.0 G/DL [facility] Alk Phosphatase 84 25 - 110 U/L [facility] AST (SGOT) 18 7 - 40 U/L [facility] CO2 38 (H) 21 - 30 MMOL/L [facility] ALT (SGPT) 11 7 - 56 U/L [facility] Anion Gap 11 3 - 12 [facility] eGFR Non 15 (L) >60 mL/min [facility] Comment: The eGFR is not validated for use in drug dosing adjustments.Continue to use estimated creatinine clearance per dosing reference text.Please contact the Clinical Pharmacist for questions. eGFR 18 (L) >60 mL/min [facility] Comment: The eGFR is not validated for use in drug dosing adjustments.Continue to use estimated creatinine clearance per dosing reference text.Please contact the Clinical Pharmacist for questions. Specimen Blood Performing Organization Address City/[facility]/Zipcode Phone Number [facility] [address] [place] [address] * 2-D + DOPPLER ECHOCARDIOGRAM (05/13/2018 2:42 PM) Only the most recent of 2 results within the time period is included. BSA 2.09 m2 [facility] IVS 1.54 0.6 - 1.0 cm [facility] LVIDD 4.17 4.2 - 5.8 cm [facility] LVIDS 2.96 2.5 - 4.0 cm OTHER [facility] LVOT diameter 2.40 cm OTHER [facility] LVOT peak VTI 16.30 cm OTHER [facility] PW 1.28 0.6 - 1.0 cm OTHER [facility] TDI e' 0.11 m/s [facility] LA volume 42.8 18 - 58 cm3 OTHER [facility] LA size 4.60 3.0 - 4.0 cm OTHER [facility] AV regurgitation pressure 611.00 ms [facility] 1/2 time , with a mean gradient of 11 mmHg OTHER [facility] Ao VTI 35.7 cm OTHER [facility] Sinus 4.2 3.1 - 3.7 cm OTHER [facility] E wave decelartion time 191.00 ms OTHER [facility] MV Peak A Kimo 0.50 m/s OTHER [facility] MV Peak E Kimo PW 0.58 m/s OTHER [facility] Right Heart Systolic 1.59 >1.7 cm OTHER [facility] LAB Mmode TAPSE Right Ventricular Mid 2.50 1.9 - 3.5 cm OTHER OUTSIDE LAB Diameter Right Ventricular Basal 3.80 2.5 - 4.1 cm OTHER OUTSIDE LAB Diameter Right Atrial Major 5.19 2.1 - 2.7 cm OTHER OUTSIDE LAB Dimension Right Atrial Area 20.60 <18 cm2 OTHER OUTSIDE LAB Ao root annulus 2.5 1.4 - 2.6 cm OTHER OUTSIDE LAB STJ 3.7 1.7 - 3.4 cm OTHER OUTSIDE LAB Proximal aorta 3.8 2.1 - 3.4 cm OTHER OUTSIDE LAB Ascending aorta 3.9 2.0 - 3.6 cm OTHER OUTSIDE LAB Aortic arch 3.9 2.0 - 3.6 cm OTHER OUTSIDE LAB LV mass 224.42 96 - 200 g OTHER OUTSIDE LAB RWT 0.61 <=0.42 OTHER OUTSIDE LAB AV peak velocity 2.2 m/s OTHER OUTSIDE LAB LVOT peak kimo 0.9 m/s OTHER OUTSIDE LAB and a peak gradient of 20 mmHg OTHER OUTSIDE LAB Cardiology Ultrasound Jaya Epiq OTHER OUTSIDE LAB Machine Left Ventricle Mass Index 107.38 50 - 102 g/m2 OTHER OUTSIDE LAB FS 29.02 28 - 44 % OTHER OUTSIDE LAB EF 49.33 % OTHER OUTSIDE LAB Left Atrium Index 20.48 16 - 34 OTHER OUTSIDE LAB AV index (nanwalek) 0.41 OTHER OUTSIDE LAB LVOT area 4.52 cm2 OTHER OUTSIDE LAB LVOT stroke volume 73.68 cm3 OTHER OUTSIDE LAB E/A ratio 1.16 OTHER OUTSIDE LAB E/E' ratio 5.27 OTHER OUTSIDE LAB Aortic valve area= 2.06 cm2 OTHER OUTSIDE LAB TV rest pulmonary artery n/a mmHg OTHER OUTSIDE LAB pressure ECHO EF 60 % OTHER OUTSIDE LAB Narrative Performed At OTHER OUTSIDE LAB Normal left ventricular systolic function with an EF of 60%. Normal right ventricular size and function Inadequate tricuspid regurgitation signal, unable to accurately estimate PA systolic pressure with this study Mild mitral annular calcification without stenosis or regurgitation 29 mm Carmen S3 bioprosthetic aortic valve is functioning normally. Trace paravalvular regurgitation.No central transvalvular regurgitation. Transaortic mean gradient of 11 mmHg. Mild dilation of the aortic root No pericardial effusion In comparison to prior study dated 04-17-2018: No significant interval change Performing Organization Address City/[facility] Phone Number OTHER OUT[facility]IDE LAB * T&B CELL PANEL,BLOOD (05/12/2018 4:32 PM) CD3% 77.4 49 - 84 % [facility] CD8% 57.1 (H) 10 - 40 % [facility] CD4-Blood 19.9 (L) 28 - 63 % [facility] CD16/56% 22.0 4 - 25 % [facility] TM09-Quwdc 0.0 (L) 6 - 27 % [facility] CD3 Count 493 (L) 600 - 2,990 UL [facility] CD8 Count 364 120 - 1,320 UL [facility] CD4 Count 127 (L) 440 - 2,160 UL [facility] CD16/56 Count 140 90 - 640 UL [facility] CD19 Count 0 (L) 100 - 700 UL [facility] Specimen Blood Performing Organization Address City/[facility]/Zipcode Phone Number [facility] [address] [place] [address] * CBC (05/12/2018 4:32 PM) Only the most recent of 4 results within the time period is included. White Blood Cells 3.4 (L) 4.5 - 11.0 K/UL [facility] RBC 3.51 (L) 4.4 - 5.5 M/UL [facility] Hemoglobin 11.6 (L) 13.5 - 16.5 GM/DL [facility] Hematocrit 35.8 (L) 40 - 50 % [facility] MCV 101.8 (H) 80 - 100 FL [facility] MCH 33.0 26 - 34 PG [facility] MCHC 32.4 32.0 - 36.0 G/DL [facility] RDW 18.6 (H) 11 - 15 % [facility] Platelet Count 139 (L) 150 - 400 K/UL [facility] MPV 8.7 7 - 11 FL [facility] Specimen Blood Performing Organization Address City/[facility]/Zipcode Phone Number [facility] [address] [place] [address] * IMMUNOGLOBULINS-IGA,IGG,IGM (05/12/2018 4:32 PM) IgG 379 (L) 762 - 1,488 MG/DL [facility] IgA 96 70 - 390 MG/DL [facility] IgM 22 (L) 38 - 328 MG/DL [facility] Specimen Blood Performing Organization Address City/[facility] Phone Number [facility] [address] [place] [address] * BNP (B-TYPE NATRIURETIC PEPTI) (05/12/2018 4:32 PM) Only the most recent of 2 results within the time period is included. B Type Natriuretic 707.0 (H) 0 - 100 PG/ML [facility] Peptide Specimen Blood Performing Organization Address [facility]ode Phone Number [facility] [address] [place] [address] * BASIC METABOLIC PANEL (05/12/2018 4:32 PM) Only the most recent of 4 results within the time period is included. Sodium 134 (L) 137 - 147 MMOL/L [facility] Potassium 5.3 (H) 3.5 - 5.1 MMOL/L [facility] Chloride 96 (L) 98 - 110 MMOL/L [facility] CO2 26 21 - 30 MMOL/L [facility] Anion Gap 12 3 - 12 [facility] Glucose 99 70 - 100 MG/DL [facility] Blood Urea Nitrogen 72 (H) 7 - 25 MG/DL [facility] Creatinine 6.81 (H) 0.4 - 1.24 MG/DL [facility] Calcium 9.9 8.5 - 10.6 MG/DL [facility] eGFR Non 8 (L) >60 mL/min [facility] Comment: The eGFR is not validated for use in drug dosing adjustments.Continue to use estimated creatinine clearance per dosing reference text.Please contact the Clinical Pharmacist for questions. eGFR 10 (L) >60 mL/min [facility] Comment: The eGFR is not validated for use in drug dosing adjustments.Continue to use estimated creatinine clearance per dosing reference text.Please contact the Clinical Pharmacist for questions. Specimen Blood Performing Organization Address City/State/Zipcode Phone Number MAIN LAB [address] [place] [address] * TELEMETRY STRIPS-SCAN (04/28/2018 12:30 PM) Narrative Performed At Ordered by an unspecified provider. * ECG-SCAN (04/27/2018 8:40 AM) Narrative Performed At Ordered by an unspecified provider. * PROCEDURE RECORD-SCAN (04/22/2018 2:31 PM) Narrative Performed At Ordered by an unspecified provider. * HEMODIALYSIS DATE (04/18/2018 6:27 AM) Narrative Performed At Shaneka Campa RN :57 AM 0545 Pt from [facility] to HD suite via w/c. Transferred from w/c to standing scale and then to HD bed independently. Placed on telemetry with bedside monitor. VSS at this time. Bedside safety check complete. 0600 Time out completed. Right UA AV fistula accessed per approved procedure and then HD tx initiated. Tx today x 3.5 hours, 3K+ dialysate, 2-[address] Van updated on patient status. 0730 Blood pressures decreasing. Lowered UFR 0800 Blood pressure decreased again. Systolic still >100mmHg. Lowered UFR to target 2 kgs at this time. 0835 Dr. Van here with patient. Agrees with change in UFR. No additional changes noted. Pt voices no complaints. No issues noted. 0955 Pt HD tx completed. Post assessment and VS done. No acute changes noted from pre-assessment. VSS at this time. Total UF 2 kgs. 0956 report to Stella MARINELLI, and YVES Sanchez unit [facility]. * HEMODIALYSIS INPATIENT (04/18/2018 6:27 AM) Narrative Performed At Shaneka Campa RN 04/18/20189:57 AM 0545 Pt from [facility] to HD suite via w/c. Transferred from w/c to standing scale and then to HD bed independently. Placed on telemetry with bedside monitor. VSS at this time. Bedside safety check complete. 0600 Time out completed. Right UA AV fistula accessed per approved procedure and then HD tx initiated. Tx today x 3.5 hours, 3K+ dialysate, 2-[address] Van updated on patient status. 0730 Blood pressures decreasing. Lowered UFR 0800 Blood pressure decreased again. Systolic still >100mmHg. Lowered UFR to target 2 kgs at this time. 0835 Dr. Van here with patient. Agrees with change in UFR. No additional changes noted. Pt voices no complaints. No issues noted. 0955 Pt HD tx completed. Post assessment and VS done. No acute changes noted from pre-assessment. VSS at this time. Total UF 2 kgs. 0956 report to Stella MARINELLI, and YVES Sanchez unit [facility]. * CHEST SINGLE VIEW (04/17/2018 5:01 AM) Impressions Performed At Right IJ vascular sheath remains in place with slightly irregular course of [facility] transcatheter pacer lead with the tip terminating at the mid aspect of the heart. Approved by Chris Dalton MD on 04/17/2018 8:34 AM By my electronic signature, I attest that I have personally reviewed the images for this examination and formulated the interpretations and opinions expressed in this report Finalized by SYEDA ACKREMAN M.D. on 04/17/2018 12:54 PM. Dictated by Chris Dalton MD on 04/17/2018 7:20 AM. Narrative Performed At CHEST SINGLE VIEW [facility] CLINICAL HISTORY: Male, 62 years old. Prior TAVR. COMPARISON: Chest radiograph from one day prior. FINDINGS: Prior TAVR. Right IJ vascular sheath and transcatheter pacer lead remains in place with the lead taking a somewhat irregular course with the tip terminating at the mid aspect of the heart. The heart is upper limits of normal in size. The pulmonary vasculature is unremarkable.No consolidation, pleural effusion, or pneumothorax. Procedure Note Interface, Radiant Results - 04/17/2018 12:57 PM CDT CHEST SINGLE VIEW CLINICAL HISTORY: Male, 62 years old. Prior TAVR. COMPARISON: Chest radiograph from one day prior. FINDINGS: Prior TAVR. Right IJ vascular sheath and transcatheter pacer lead remains in place with the lead taking a somewhat irregular course with the tip terminating at the mid aspect of the heart. The heart is upper limits of normal in size. The pulmonary vasculature is unremarkable. No consolidation, pleural effusion, or pneumothorax. IMPRESSION Right IJ vascular sheath remains in place with slightly irregular course of transcatheter pacer lead with the tip terminating at the mid aspect of the heart. Approved by Chris Dalton MD on 04/17/2018 8:34 AM By my electronic signature, I attest that I have personally reviewed the images for this examination and formulated the interpretations and opinions expressed in this report Finalized by SYEDA ACKERMAN M.D. on 04/17/2018 12:54 PM. Dictated by Chris Dalton MD on 04/17/2018 7:20 AM. Performing Organization Address City/State/Zipcode Phone Number [facility] * HEMODIALYSIS DATE (04/16/2018 8:29 PM) Narrative Performed At Leidy Borrero RN 04/17/20181:07 AM HEMODIALYSIS-04/16/18 PT ID CHECKED- YES,And consent obtained prior to start of treatment. 1829- Arrived to patient's bedside to start hemodialysis treatment. Family at bedside preparing to leave for the evening. 1929- Pre- treatment VS stable. 1954- +Thrill/+bruit to right upper arm AV fistula. 1957- Accessed right upper arm AV fistula without complications. Started hemodialysis treatment per MD orders. 1999- Venous pressure running high without achieving 400 ml/min blood flow rate, noted some vibration above venous needle, pt report no pain. Also noted smaill area of infiltration or blood leakage outside of vessel. Venous needle flipped and venous pressure improved. Blood flow rate slowly increased and venous pressure normal. 2014- Infiltration area above venous needle less firm after icing area about 10 minutes. Will continue to monitor patient throughout remainder of HD treatment. 2329- Hemodialysis completed, blood returned. Used sterile saline soaked gauze to remove take to prevent skin from tearing. 0005- Hemostasis achieved, no dressing applied due to tape ripping patient skin when removed. No bleeding from sites. +Thrill/+bruit to right AV fistula. 0030- Report given to Eboni Schilling RN prior to leaving area. During report showed RN cannulation sites and also left supplies to apply dressing if pt should start to bleed. * HEMODIALYSIS INPATIENT (04/16/2018 8:29 PM) Narrative Performed At Leidy Borrero RN 04/17/20181:07 AM HEMODIALYSIS-04/16/18 PT ID CHECKED- YES,And consent obtained prior to start of treatment. 0- Arrived to patient's bedside to start hemodialysis treatment. Family at bedside preparing to leave for the evening. 0- Pre- treatment VS stable. 1954- +Thrill/+bruit to right upper arm AV fistula. 1957- Accessed right upper arm AV fistula without complications. Started hemodialysis treatment per MD orders. 1999- Venous pressure running high without achieving 400 ml/min blood flow rate, noted some vibration above venous needle, pt report no pain. Also noted smaill area of infiltration or blood leakage outside of vessel. Venous needle flipped and venous pressure improved. Blood flow rate slowly increased and venous pressure normal. 2014- Infiltration area above venous needle less firm after icing area about 10 minutes. Will continue to monitor patient throughout remainder of HD treatment. 2329- Hemodialysis completed, blood returned. Used sterile saline soaked gauze to remove take to prevent skin from tearing. 0005- Hemostasis achieved, no dressing applied due to tape ripping patient skin when removed. No bleeding from sites. +Thrill/+bruit to right AV fistula. 0030- Report given to Eboni Schilling RN prior to leaving area. During report showed RN cannulation sites and also left supplies to apply dressing if pt should start to bleed. * ANESTHESIA CENTRAL LINE INSERTION (04/16/2018 3:07 PM) Narrative Performed At Michael Giang DO 04/16/2018 10:08 AM Anesthesia Procedure: Central Venous Catheter Line CENTRAL LINE INSERTION Date/Time: 04/16/2018 10:05 AM Patient location: OR Indications: vascular access and medications requiring CV access Preprocedure checklist performed: 2 patient identifiers, risks & benefits discussed, patient evaluated, timeout performed, consent obtained, patient being monitored and CVC bundle followed (proper hand washing, maximal sterile barrier technique with cap, sterile gown, sterile glove, sterile drape, and skin prep for antisepsis) CVC Line Insertion Procedure Skin prepped with chlorhexidine; skin prep agent completely dried prior to procedure. Patient Position: Trendelenburg Location: internal jugular vein Laterality: right Vein identification: ultrasound guided Confirmation of venous placement prior to dilation of vein by: ultrasound Ultrasound image captured Number of attempts: 1 Successful placement: yes Patient sedated: yes Sedation given: general Catheter: Catheter type: introducer placed using standard wire through needle technique Catheter size: 6 Fr. Procedure Outcome Post procedure: line sutured, dressing applied and all ports aspirated; Dressing: sterile occlusive dressing Placement verification: x-ray verification pending Events: none Observations: patient tolerated well Performed by: MICHAEL GIANG Authorized by: MICHAEL FARR * ANESTHESIA ARTERIAL LINE INSERTION (04/16/2018 2:05 PM) Narrative Performed At Brianda Omalley MD 04/16/20189:06 AM Anesthesia Procedure: Arterial Line Placement A-LINE INSERTION Date/Time: 04/16/2018 8:59 AM Patient location: Pre/Post Indications: hemodynamic monitoring Preprocedure checklist performed: 2 patient identifiers, risks & benefits discussed, patient evaluated, timeout performed, consent obtained, patient being monitored and sterile drape Sterile technique: - Proper hand washing - Cap, mask - Sterile gloves - Skin prep for antisepsis Arterial Line Procedure Patient sedated: no (0.5cc 1% Lidocaine infiltration) Artery prepped with chlorhexidine; skin prep agent completely dried prior to procedure. Location: radial artery Laterality: left Technique: ultrasound and palpation Needle gauge: 20 G Number of attempts: 2 Procedure Outcome Catheter secured with adhesive dressing applied Events: no complications noted during insertion and skin intact, warm, and dry Observation: pt tolerated well Refer to nursing documentation for vitals and monitoring data during procedure. Performed by: BRIANDA OMALLEY Authorized by: MICHAEL FARR * PTT (APTT) (04/16/2018 12:39 PM) Only the most recent of 2 results within the time period is included. APTT 26.6 21.0 - 39.0 SEC MAIN LAB Specimen Blood Performing Organization Address City/[facility] Phone Number MAIN LAB [address] [place] [address] * PROTIME INR (PT) (04/16/2018 12:39 PM) Only the most recent of 2 results within the time period is included. INR 1.0 0.8 - 1.2 MAIN LAB Specimen Blood Performing Organization Address City/[facility] Cent[facility]ode Phone Number [facility] [address] [place] [address] * [address] [facility] 1V CXR (04/16/2018 12:20 PM) Impressions Performed At 1.Placement of a right IJ line or catheter, the tip of which appears to be [facility] projected just to the left of midline overlying the heart.A couple additional wires overlying the patient overlaps this area, somewhat limited evaluation of the IJ line or catheter. 2.Prosthetic aortic valve Finalized by Garfield Blackwell M.D. on 04/16/2018 12:44 PM. Dictated by Garfield Blackwell M.D. on 04/16/2018 12:39 PM. Narrative Performed At [facility] 1 CXR [facility] Clinical Indication: Male, 62 years old. Atelectasis Comparison: X-ray April 15, 2018 Findings: Single portable supine x-ray of the chest was obtained.Heart size is normal.A prosthetic aortic valve is in place.Placement of a right IJ line or catheter, the tip of which appears to be projected over the heart just to the left of midline.A couple additional wires overlying the patient are also in this region which limits evaluation.Minimal atelectasis is present medially within the right lung base.No pneumothorax or pleural effusion is visualized. Procedure Note Interface, Radiant Results - 04/16/2018 12:[address] [facility] 1V CXR Clinical Indication: Male, 62 years old. Atelectasis Comparison: X-ray April 15, 2018 Findings: Single portable supine x-ray of the chest was obtained. Heart size is normal. A prosthetic aortic valve is in place. Placement of a right IJ line or catheter , the tip of which appears to be projected over the heart just to the left of midline. A couple additional wires overlying the patient are also in this region which limits evaluation. Minimal atelectasis is present medially within the right lung base. No pneumothorax or pleural effusion is visualized. IMPRESSION 1. Placement of a right IJ line or catheter, the tip of which appears to be projected just to the left of midline overlying the heart. A couple additional wires overlying the patient overlaps this area, somewhat limited evaluation of the IJ line or catheter. 2. Prosthetic aortic valve Finalized by Garfield Blackwell M.D. on 04/16/2018 12:44 PM. Dictated by Garfield Blackwell M.D. on 04/16/2018 12:39 PM. Performing Organization Address City/[facility]/Zipcode Phone Number RAD RESULTS * POC ACTIVATED CLOTTING TIME (04/16/2018 10:48 AM) Only the most recent of 2 results within the time period is included. Activated Clotting Time 265 s [facility] Performing Organization Address City/[facility] Phone Number MAIN LAB [address] [place] [phone] * POC BLOOD GAS ARTERIAL (04/16/2018 10:44 AM) PH-ART-POC 7.38 7.35 - 7.45 [facility] TNB5-SXY-ACV 45 35 - 45 MMHG [facility] PO2-ART-POC 257 (H) 80 - 100 MMHG [facility] Base Ex-ART-POC 1.0 MMOL/L MAIN LAB O2 Sat-ART-POC 100.0 (H) 95 - 99 % MAIN LAB Hxavgqptwck-CBT-SFE 26.5 21 - 28 MMOL/L [facility] Performing Organization Address [facility] Phone Number MAIN LAB [address] [place] [phone] * POC SODIUM (04/16/2018 10:44 AM) Sodium-POC 131 (L) 137 - 147 MMOL/L [facility] Performing Organization Address [facility] Phone Number MAIN LAB [address] [place] [address] * POC POTASSIUM (04/16/2018 10:44 AM) Potassium-POC 5.0 3.5 - 5.1 MMOL/L [facility] Performing Organization Address [facility] Phone Number MAIN LAB [address] [place] [address] * POC IONIZED CALCIUM (04/16/2018 10:44 AM) Ionized Calcium-POC 1.18 1.0 - 1.3 MMOL/L [facility] Performing Organization Address [facility] Phone Number MAIN LAB [address] [place] [address] * POC HEMATOCRIT (04/16/2018 10:44 AM) Hemoglobin POC 11.6 (L) 13.5 - 16.5 GM/DL [facility] Hematocrit POC 34.0 (L) 40 - 50 % [facility] Performing Organization Address [facility] Phone Number [facility] [address] [place] [address] * POC GLUCOSE (04/16/2018 10:41 AM) Glucose, POC 112 (H) 70 - 100 MG/DL [facility] Performing Organization Address [facility] Phone Number [facility] [address] [place] [address] * UA REFLEX CULTURE LABEL (04/15/2018 1:43 PM) UA Reflex Culture LAB LABEL [facility] Specimen Urine Performing Organization Address [facility] Phone Number [facility] [address] [place] [address] * URINALYSIS MICROSCOPIC REFLEX TO CULTURE (04/15/2018 1:43 PM) WBCs,UA 0-2 0 - 2 /HPF [facility] RBCs,UA 0-2 0 - 3 /HPF [facility] Comment,UA Urine submitted for reflex [facility] culture if criteria are met:WBC>10, positive nitrite and/or >=1+ leukocyte esterase. If quantity is not sufficient, an addendum will follow. MucousUA TRACE [facility] Specimen Urine Performing Organization Address [facility] Phone Number [facility] [address] [place] [address] * URINALYSIS DIPSTICK REFLEX TO CULTURE (04/15/2018 1:43 PM) Color,UA YELLOW [facility] Turbidity,UA CLEAR CLEAR-CLEAR [facility] Specific [place]-Urine 1.009 1.003 - 1.035 [facility] pH,UA 8.0 5.0 - 8.0 [facility] Protein,UA 2+ (A) NEG-NEG [facility] Glucose,UA NEG NEG-NEG [facility] Ketones,UA NEG NEG-NEG [facility] Bilirubin,UA NEG NEG-NEG [facility] Blood,UA NEG NEG-NEG [facility] Urobilinogen,UA NORMAL NORM-NORMAL [facility] Nitrite,UA NEG NEG-NEG [facility] Leukocytes,UA NEG NEG-NEG [facility] Urine Ascorbic Acid, UA NEG NEG-NEG [facility] Specimen Urine Performing Organization Address City/[facility] Phone Number [facility] [address] [place] [address] * CHEST 2 VIEWS (04/15/2018 11:51 AM) Impressions Performed At Resolution of previously noted mixed consolidation about the bilateral upper [facility] lobes in mixed opacities about the bilateral perihilar region and lower lobes. No acute cardiopulmonary process. No acute cardiopulmonary process. Finalized by Timoteo Anderson M.D. on 04/15/2018 12:02 PM. Dictated by Timoteo Anderson M.D. on 04/15/2018 11:58 AM. Narrative Performed At 2 view chest [facility] Clinical history: , TAVR 04/16 Comparison: 03/04/2018. Findings: Upright PA and lateral views of the chest demonstrate that the heart is normal in size. No evidence of pulmonary venous congestion is seen. The tortuous ascending thoracic aorta is identified. There is resolution of previously noted mixed consolidation about the bilateral upper lobes and mixed opacities about the bilateral perihilar region and lower lobes. No new acute pulmonary infiltrates are identified. No pneumothorax, pleural effusion or lobar consolidation. Minor degenerative changes are seen involving the thoracic spine. Surgical clips are noted about the right lower neck with removal of previously noted tunneled right IJ multiport catheter. Procedure Note Interface, Radiant Results - 04/15/2018 12:05 PM CDT 2 view chest Clinical history: , TAVR 04/16 Comparison: 03/04/2018. Findings: Upright PA and lateral views of the chest demonstrate that the heart is normal in size. No evidence of pulmonary venous congestion is seen. The tortuous ascending thoracic aorta is identified. There is resolution of previously noted mixed consolidation about the bilateral upper lobes and mixed opacities about the bilateral perihilar region and lower lobes. No new acute pulmonary infiltrates are identified. No pneumothorax, pleural effusion or lobar consolidation. Minor degenerative changes are seen involving the thoracic spine. Surgical clips are noted about the right lower neck with removal of previously noted tunneled right IJ multiport catheter. IMPRESSION Resolution of previously noted mixed consolidation about the bilateral upper lobes in mixed opacities about the bilateral perihilar region and lower lobes. No acute cardiopulmonary process. No acute cardiopulmonary process. Finalized by Timoteo Anderson M.D. on 04/15/2018 12:02 PM. Dictated by Timoteo Anderson M.D. on 04/15/2018 11:58 AM. Performing Organization Address City/State/Zipcode Phone Number RAD RESULTS * TYPE & CROSSMATCH (04/15/2018 11:10 AM) Units Ordered 2 MAIN LAB Crossmatch Expires 04/18/2018 MAIN LAB Record Check FOUND [facility] ABO/RH(D) O POS MAIN LAB Antibody Screen NEG MAIN LAB Electronic Crossmatch YES [facility] MAIN LAB Unit Number [id number] MAIN LAB Blood Component Type RBC,ADSOL,LEUKO REDUCED MAIN LAB Unit Division 0 MAIN LAB Status OF Unit REL FROM ALLOC MAIN LAB Transfusion Status OK TO TRANSFUSE MAIN LAB Crossmatch Result COMPATIBLE,ELECTRONIC MAIN LAB Unit Number [id number] MAIN LAB Blood Component Type RBC,ADSOL,LEUKO REDUCED MAIN LAB Unit Division 0 MAIN LAB Status OF Unit REL FROM ALLOC MAIN LAB Transfusion Status OK TO TRANSFUSE MAIN LAB Crossmatch Result COMPATIBLE,ELECTRONIC MAIN LAB Specimen Blood Performing Organization Address City/[facility] Phone Number MAIN LAB [address] [place] [address] * HEMOGLOBIN A1C (04/15/2018 11:10 AM) Hemoglobin A1C 4.4 4.0 - 6.0 % MAIN LAB Comment: The ADA recommends that most patients with type 1 and type 2 diabetes maintain an A1c level <7%. Specimen Blood Performing Organization Address City/State/Zipcode Phone Number MAIN LAB [address] [place] [address] from Last 3 Months
--- OUTSIDE RECORDS SUMMARY | 2018-07-03 14:55 | XMS REPORT | Encounter Summary ---
Author Author [facility] Organization [facility] Address Unknown Phone Unavailable Care Team Providers Care Seam Sewer Name Role Phone Devon Cheema MD PCP [...] Unavailable Reason for Visit * Reason Comments Results Encounter Details Date Type Department Care Team Description 05/16/2018 Telephone [facility] Annita Rosales MD Results Physicians - Internal [address] [facility] [address] [place] [address] Pavilion Level 4A [phone] [address] [facility] [place] [address] Social History Tobacco Use Types Packs/Day Years [...] encounter Miscellaneous Notes * Telephone Encounter - Rossy Montero RN - 05/19/2018 7:44 AM CDT OVN, telephone note and lab results faxed to Dr. Vazquez at [phone]. * Telephone Encounter - Annita Rosales MD - 05/16/2018 4:07 PM CDT I called Mr. Barrios 05/16 to discuss his lab results. I explained to him that his B cell counts are undetectable (as expected with the rituximab he received 09/2017 and 10/2017. His NK cell count has normalized. His CD8 count has normalized. His CD4 count is 127 which is improved from his hospitalization but under 200. This could be related to the steroids that the patient is on ( prednisone 20mg). He has had negative HIV testing 02/2018. His IgG is lower at 379 (from 583 during his hospitalization), IgM at 22 (previously at 37) and IgA remains normal. I discussed the case with Dr. Liu as well. Given that the patient is not having infections, we will continue to monitor his immunoglobulin levels. Additionally since Dr. Vazquez was planning on discontinuing bactrim after decreasing prednisone under 20mg, we will fax him these lab results for consideration of remaining on prophylactic bactrim. Rossy, can we please fax the patient's T&B cell panel and immunoglobulin levels along with this telephone note and my last office visit note to Dr. Vazquez? His fax number is . Krystle/Gricel can we set the patient up for a follow up appointment in 3 months in my continuity clinic? Annita Rosales, PGY5 Allergy and Immunology Fellow in this encounter Plan of Treatment Date Type Specialty Care Team Description 05/06/2018 Procedure Pass Transplant Surgery as of this encounter Visit Diagnoses Not on filein this encounter
--- OUTSIDE RECORDS SUMMARY | 2018-07-03 14:56 | XMS REPORT | Encounter Summary ---
Author Author [facility] Organization [facility] Address Unknown Phone Unavailable Care Team Providers Care Commodity Specialist Name Role Phone Devon Cheema MD PCP Suze Buchanan RN Unavailable Unavailable Chraissa Lin RN Unavailable Unavailable Valery Newton MA [...] Vazquez MD Unavailable Olvin Reyes DO Unavailable Encounter Details Date Type Department Care Team Description 05/13/2018 [facility] Cardiology Mahendra Slater MD Encounter [facility] [place] [address] [place] [address] [phone] Social History Tobacco Use Types Packs/Day Years [...] impairment: No 07/08/2015 as of this encounter Medications at Time of Discharge Medication Sig. Disp. Refills Start Date End Date acetaminophen (TYLENOL) Take 500 mg by mouth as 500 mg tablet Needed for Pain. Max of 4,000 mg of acetaminophen in 24 hours. albuterol 0.5% Inhale 0.5 mL solution by 120 vial 1 03/11/2018 (PROVENTIL; VENTOLIN) 2.5 nebulizer as directed mg/0.5 mL nebulizer three times daily and at solution bedtime. aspirin 81 mg chewable Chew 1 tablet by mouth 90 tablet 3 04/18/2018 tabletIndications: Severe daily. Take with food. aortic stenosis calcitriol (ROCALTROL) Take 1 capsule at 0.5 mcg capsule dialysis appt (Saturday, Saturday, Saturday) calcium carbonate/vitamin Take 1 tablet by mouth D-3 (OSCAL-500+D) 1250 daily. Calcium Carb mg/200 unit tablet 1250mg delivers 500mg elemental Ca codeine/guaiFENesin Take 10 mL by mouth every 120 mL 1 03/11/2018 (ROBITUSSIN-AC) 10/100 6 hours as needed for mg/5 mL oral solution Cough. folic acid (FOLVITE) 1 mg Take 1 tablet by mouth 30 tablet 1 2017 tablet daily. ipratropium bromide Inhale 2.5 mL by mouth 120 vial 1 03/11/2018 (ATROVENT) 0.02 % into the lungs three nebulizer solution times daily and at bedtime. nebulizer compressor Use as directed. 1 Device 0 03/11/2018 medical sales representative oxyCODONE/acetaminophen Take 1-2 tablets by mouth 20 tablet 0 2017 (ENDOCET) 5/325 mg tablet every 6 hours as needed for Pain pantoprazole DR Take 40 mg by mouth (PROTONIX) 40 mg tablet daily. pravastatin (PRAVACHOL) Take 10 mg by mouth 10 mg tablet daily. prednisone (DELTASONE) 20 Take 20 mg by mouth daily mg tablet with breakfast. senna/docusate Take 1 tablet by mouth (SENOKOT-S) 8.6/50 mg daily. tablet trimethoprim/sulfamethoxa Take 1 tablet by mouth 12 tablet 1 2017 zole (BACTRIM SS) 80/400 three times weekly. mg tablet Continue until dose of prednisone is less than 20mg per day valGANciclovir 50 mg/mL Take 2 mL by mouth three 30 mL 1 03/11/2018 oral solution times weekly. After dialysis on dialysis days. Length of therapy to be determined by ID vitamins, multi B, C, Zn Take 1 tablet by mouth 30 tablet 1 2017 & folate (Renal) daily. (NEPHPLEX RX) 1-60-300-12.5 hb-as-abt-mg tab as of this encounter Plan of Treatment Date Type Specialty Care Team Description 05/06/2018 Procedure Pass Transplant Surgery as of this encounter Procedures Procedure Name Priority Date/Time Associated Diagnosis Comments CBC AND DIFF Routine 05/13/2018 Severe aortic stenosis Results for this 3:00 PM CDT procedure are in the results section. COMPREHENSIVE METABOLIC Routine 05/13/2018 Severe aortic stenosis Results for this PANEL 3:00 PM CDT procedure are in the results section. in this encounter Results * COMPREHENSIVE METABOLIC PANEL (05/13/2018 3:00 PM) Sodium 141 137 - 147 MMOL/L [facility] [...] for questions. Specimen Blood Performing Organization Address City/[facility]/Zipcode Phone Number MAIN LAB [address] [place] [address] * CBC AND DIFF (05/13/2018 3:00 PM) White Blood Cells 3.5 (L) 4.5 - 11.0 K/UL [facility] [employer] MAIN LAB RBC 4.14 (L) 4.4 - 5.5 M/UL [facility] MAIN LAB Hemoglobin 13.5 13.5 - 16.5 GM/DL [facility] MAIN LAB Hematocrit 41.4 40 - 50 % [facility] MAIN LAB MCV 100.2 (H) 80 - 100 FL [facility] MAIN LAB MCH 32.6 26 - 34 PG MAIN LAB MCHC 32.5 32.0 - 36.0 G/DL [facility] MAIN LAB RDW 19.2 (H) 11 - 15 % [facility] MAIN LAB Platelet Count 132 (L) 150 - 400 K/UL [facility] MAIN LAB MPV 7.9 7 - 11 FL MAIN LAB Segmented Neutrophils 28 (L) 41 - 77 % [facility] MAIN LAB Bands 14 (H) 0 - 10 % [facility] MAIN LAB Lymphocytes 32 24 - 44 % [facility] MAIN LAB Monocytes 19 (H) 4 - 12 % [facility] MAIN LAB Eosinophil 2 0 - 5 % [facility] MAIN LAB Metamyelocyte 4 % [facility] MAIN LAB Myelocyte 1 % [facility] MAIN LAB POIK PRESENT MAIN LAB Ovalocyte PRESENT [facility] MAIN LAB Platelet Estimate SLT DEC [facility] MAIN LAB Absolute Neutrophil Count 1.47 (L) 1.8 - 7.0 K/[facility] [employer] MAIN LAB Manual Specimen Blood Performing Organization Address City/[facility]/Zipcode Phone Number MAIN LAB [address] [place] [address] in this encounter Visit Diagnoses Diagnosis Severe aortic stenosis Aortic valve disorders
--- OUTSIDE RECORDS SUMMARY | 2018-07-03 14:56 | XMS REPORT | Encounter Summary ---
Author Author [facility] Organization [facility] Address Unknown Phone Unavailable Care Team Providers Care Loom Operator Apprentice Name Role Phone Devon Cheema MD PCP [...] Date Type Department Care Team Description 05/13/2018 Orders Only [facility] Daniel Coon RN Severe aortic stenosis Cardiovascular Surgeons (Primary Dx) [place] [address] [address] [place] [address] Social History Tobacco Use Types [...] Team Description 05/06/2018 Procedure Pass Transplant Surgery Name Priority Associated Diagnoses Order Schedule ECG 12-LEAD Routine Severe aortic stenosis Expected: 05/13/2018 (Approximate), Expires: 05/13/2019 as of this encounter Results * COMPREHENSIVE METABOLIC PANEL [...] for questions. Specimen Blood Performing Organization Address City/State/[facility] Phone Number [facility] MAIN LAB [address] [place] [address] * CBC AND DIFF (05/13/2018 3:00 PM) [...] LAB Manual Specimen Blood Performing Organization Address City/[facility]/Zipcode Phone Number [facility] MAIN LAB [address] [place] [address] in this encounter Visit Diagnoses Diagnosis Severe aortic stenosis - Primary Aortic valve disorders
--- OUTSIDE RECORDS SUMMARY | 2018-07-03 14:56 | XMS REPORT | Encounter Summary ---
Author Author [facility] Organization [facility] Address Unknown Phone Unavailable Care Team Providers Care Fire Management Specialist Name Role Phone Devon Cheema MD [...] Unavailable Olvin Reyes DO Unavailable Reason for Referral * Radiology Services Status Reason Specialty Diagnoses / Referred By Referred To Procedures Contact Contact No Auth Needed Radiology Diagnoses [address] Pre-transplant [address] evaluation for [address] [facility] OFF[facility] [address]LDG end stage renal [address] FLOOR disease [place] [address] [facility] [place] [address] rocedures [address] Phone: CT ABD/PELV WO CONTRAST [phone] Encounter Details Date Type Department Care Team Description 05/06/2018 Orders Only [facility] RN Pre-transplant evaluation Transplantation-Kidney/Pa for end stage renal ncreas Nep disease (Primary Dx) [facility] [address] [place] [address] Social History Tobacco Use Types Packs/Day Years [...] Order Schedule CT ABD/PELV WO CONTRAST Routine Pre-transplant evaluation Expected: 05/2018 for end stage renal (Approximate), Expires: disease 05/06/2019 as of this encounter Visit Diagnoses Diagnosis Pre-transplant evaluation for end stage renal disease - Primary Other specified pre-operative examination
--- OUTSIDE RECORDS SUMMARY | 2018-07-03 14:56 | XMS REPORT | Encounter Summary ---
Author Author [facility] Organization [facility] Address Unknown Phone Unavailable Care Team Providers Care Packer Operator Automatic Name Role Phone Devon Cheema MD PCP [...] Details Date Type Department Care Team Description 05/12/2018 [facility] Wolf Liu MD Nonfamilial Encounter [facility] [address] hypogammaglobulinemia [address] ([facility] [place] [address] [place] [address] [phone] Social History Tobacco Use Types Packs/Day Years [...] Sig. Disp. Refills Start Date End Date albuterol 0.5% Inhale 0.5 mL solution by [...] Use as directed. 1 Device 0 03/11/2018 center medical specialist oxyCODONE/acetaminophen Take 1-2 tablets by mouth 20 tablet 0 2017 (ENDOCET) 5/325 mg tablet every 6 hours as needed for Pain pantoprazole DR Take 40 mg by mouth (PROTONIX) 40 mg tablet daily. pravastatin (PRAVACHOL) Take 10 mg by mouth 10 mg tablet daily. trimethoprim/sulfamethoxa Take 1 tablet by mouth 12 [...] & folate (Renal) daily. (NEPHPLEX RX) 1-60-300-12.5 or-ed-qde-mg tab acetaminophen (TYLENOL) Take 2 tablets by mouth 0 03/11/20182017 325 mg tablet every 4 hours as needed. guaiFENesin LA (MUCINEX) Take 1 tablet by mouth 60 tablet 1 201705/13/2018 600 mg tablet twice daily. prednisone (DELTASONE) 5 Take 25 mg daily until 135 tablet 1 201705/13/2018 mg tablet 6/15, then decrease to 20 mg daily and continue until f/u with Nuclear Instructor melo/suresh Take 1 tablet by mouth 30 tablet 0 02/22/20182017 (SENOKOT-S) 8.6/50 mg twice daily. tablet as of this encounter Plan of Treatment Date Type Specialty Care Team Description 05/06/2018 Procedure Pass Transplant Surgery as of this encounter Procedures Procedure Name Priority Date/Time Associated Diagnosis Comments T&B CELL PANEL,BLOOD Routine 05/12/2018 Hypogammaglobulinemia Results for this 4:32 PM CDT ([facility]) procedure are in the Lymphopenia results section. CBC Routine 05/12/2018 Severe aortic stenosis Results for this 4:32 PM CDT S/p TAVR (transcatheter procedure are in the aortic valve results section. replacement), bioprosthetic Essential hypertension IMMUNOGLOBULINS-IGA,IGG,I Routine 05/12/2018 Hypogammaglobulinemia Results for this GM 4:32 PM CDT ([facility]) procedure are in the Lymphopenia results section. BNP (B-TYPE NATRIURETIC Routine 05/12/2018 Severe aortic stenosis Results for this PEPTI) 4:32 PM CDT S/p TAVR (transcatheter procedure are in the aortic valve results section. replacement), bioprosthetic Essential hypertension BASIC METABOLIC PANEL Routine 05/12/2018 Severe aortic stenosis Results for this 4:32 PM CDT S/p TAVR (transcatheter procedure are in the aortic valve results section. replacement), bioprosthetic Essential hypertension in this encounter Results * BNP (B-TYPE NATRIURETIC PEPTI) (05/12/2018 4:32 PM) B Type Natriuretic 707.0 (H) 0 - 100 PG/ML [facility] MAIN LAB Peptide Specimen Blood Performing Organization Address [facility] Phone Number MAIN LAB [address] [place] [address] * BASIC METABOLIC PANEL (05/12/2018 4:32 PM) Sodium 134 (L) 137 - 147 MMOL/L [...] for questions. Specimen Blood Performing Organization Address City/[facility]/Zipcode Phone Number [facility] MAIN LAB [address] [place] [address] * CBC (05/12/2018 4:32 PM) White Blood Cells 3.4 (L) 4.5 - [...] MAIN LAB Specimen Blood Performing Organization Address [facility] Phone Number [facility] MAIN LAB [address] [place] [address] * T&B CELL PANEL,BLOOD (05/12/2018 4:32 PM) CD3% 77.4 49 - 84 % [facility] MAIN LAB CD8% 57.1 (H) 10 - 40 % [facility] MAIN LAB CD4-Blood 19.9 (L) 28 - 63 % [facility] MAIN LAB CD16/56% 22.0 4 - 25 % [facility] MAIN LAB [id number] 0.0 (L) 6 - 27 % KU [...] MAIN LAB Specimen Blood Performing Organization Address [facility] Phone Number [facility] MAIN LAB [address] [place] [address] * IMMUNOGLOBULINS-IGA,IGG,IGM (05/12/2018 4:32 PM) IgG 379 (L) 762 - 1,488 MG/DL [facility] MAIN LAB IgA 96 70 - 390 MG/DL [facility] MAIN LAB IgM 22 (L) 38 - 328 MG/DL [facility] MAIN LAB Specimen Blood Performing Organization Address [facility] Phone Number [facility] MAIN LAB [address] [place] [address] in this encounter Visit Diagnoses Diagnosis Hypogammaglobulinemia (HCC) Hypogammaglobulinaemia, unspecified Lymphopenia Lymphocytopenia Severe aortic stenosis Aortic valve disorders S/p TAVR (transcatheter aortic valve replacement), bioprosthetic Essential hypertension Unspecified essential hypertension Admitting Diagnoses Diagnosis Nonfamilial hypogammaglobulinemia (HCC) Nonfamilial hypogammaglobulinemia
--- OUTSIDE RECORDS SUMMARY | 2018-07-03 14:56 | XMS REPORT | Encounter Summary ---
Author Author [facility] Address Unknown Phone Unavailable Care Team Providers Care Credit Review Manager Name Role Phone Devon Cheema MD PCP Suez Buchanan RN Unavailable Unavailable Charissa Lin RN [...] Unavailable Reason for Visit * Reason Comments Immunodeficiency Encounter Details Date Type Department Care Team Description 05/12/2018 Office Visit [facility] Wolf Liu MD Hypogammaglobulinemia Physicians - Internal [address] (HCC) (Primary Dx); Medicine [address] Lymph[place] [address] Pavilion Level 4A [phone] [place] [address] Social History Tobacco Use Types Packs/Day Years Used Date Never Smoker Smokeless Tobacco: Never Used Alcohol Use Drinks/Week oz/Week Comments Yes occasional Sex Assigned at Date Recorded Not on file as of this encounter Last Filed Vital Signs Vital Sign Reading Time Taken Blood Pressure 118/71 05/12/2018 3:07 PM CDT Pulse 70 05/12/2018 3:07 PM CDT Temperature 36.2 C (97.2 F) 05/12/2018 3:07 PM CDT Respiratory Rate 16 05/12/2018 3:07 PM CDT Oxygen Saturation 96% 05/12/2018 3:07 PM CDT Inhaled Oxygen - - Concentration Weight 85.8 kg (189 lb 3.2 oz) 05/12/2018 3:07 PM CDT Height 190.5 cm (6' 3") 05/12/2018 3:07 PM CDT Body Mass Index 23.65 05/12/2018 3:07 PM CDT in this encounter Functional Status Functional Status Response [...] impairment: No 07/08/2015 as of this encounter Instructions * Patient Instructions - Annita Rosales MD - 05/12/2018 3:00 PM CDT - We recommend getting lab work to re-assess your immune system. The lab work is looking at immunoglobulin levels and lymphocyte counts. - We will call you with the results of the labwork. If your labs are normal, we may not need to see you in the clinic. If your labs are abnormal, we may have you scheduled in Dr. Rosales's Allergy/Immunology Clinic - Please contact our clinic if you start developing infections. Our nurse's number is [phone] in this encounter Progress Notes * Annita Rosales MD - 05/12/2018 3:00 PM CDT Formatting of this note may be different from the original. Date of Service: 05/12/2018 Subjective: Tolu Barrios is a 62 y.o. 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 02/03 with dyspnea and hemoptysis. He was treated with high dose steroids, plasmapharesis x 4 and broad spectrum antibiotics. His GPA has been treated with intermittent pulse steroids, Cytoxan, and rituximab (last received 10/11/17) . He underwent intubation and bronchoscopy on 02/12. The patient's hospital admission has been complicated by pancytopenia with significant lymphopenia ( ALC 100 02/10). Hematology was consulted for pancytopneia; they recommended IVIG 400 mg IV once for severe hypogammaglobulinemia. His BAL was positive for CMV PCR and RVP was positive for rhinovirus. He was diagnosed with GPA in and ws initially treated with Cytoxan. The patient says he began having epistaxis that was clots from the nose in early 2016. His GPA had been managed by his PCP with prednisone 10 mg every other day. When he started having epistaxis, his prednisone was increased to 20 mg and subsequently up to 60 mg daily by 12/2016. He was also seeing a steel post installer supervisor in [place] named Dr. Raudel Vazquez. The epistaxis improved and his prednisone dose was decreased in 04/2017. However in 07/2017 he was started on Imuran 50 mg daily. In 08/2017 he had relapse of disease with progressive renal failure requiring HD as well as epistaxis and hemotptysis. He was treated with rituxmiab from September through 10/2017 (09/20/17, 09/27/17, 10/04/17, 10/11/17). He was on prednisone 15 mg daily prior to admission in 01/2018. He had hospitalization for VRE UTI 12/2017 treated with IV antibiotics. He did not have any episodes of otitis, sinusitis, meningitis, cellulitis, abscesses, osteomyelitis, fungal infections between 10/2017-02/03/2018. He says he was treated for 1 pneumonia sometime in the last year but unsure when; upon reviewing Care Everywhere it seems he was treated for acute bronchitis with azithromycin in 02/2017. His IgG was 138, IgM was <20, and IgA was 54 at a time when he had received plasmapheresis. His levels were repeated when plasmapheresis had been completed and IgG was 583, IgM was 37, and IgA was 136. He was treated for the positive CMV. CT chest was repeated 03/05/2018 when the patient was in acute rehab and showed patch and confluent mixed GGO and consolidation in both lungs which have improved. ID felt there as new infiltrates in the lower lobes and ordered sputum cultures and treated with Zosyn. His culture showed heavy growth of harrison. After he was discharged he was seen in CTS clinic for his severe aortic stenosis. It was recommended he follow up further out from hosptialization for consideration of TAVR. He underwent TAVR 04/16/2018. History of Present Illness He says after he was treated for the pneumonia in 02/2018 he has not had further infections. He has not been treated with antibiotics. He is still following with Dr. Vazquez in [place], [place] (steel post installer supervisor) who did recent labwork. He is on prednisone 20mg daily. He has been on prednisone 20mg ever since his discharge from hospitalization. He says that Dr. Vazquez is planning on possibly starting Imuran. He is not seeing a parts room clerk. He says that he might get one more dose of the Rituximab. He has not received pneumovax or prevnar. Review of Systems Constitutional: Negative for chills and fever. HENT: Positive for rhinorrhea and tinnitus. Negative for congestion, facial swelling and sneezing. Eyes: Positive for photophobia. Negative for itching. Respiratory: Negative for cough, chest tightness, shortness of breath and wheezing. Cardiovascular: Negative for chest pain. Gastrointestinal: Negative for abdominal pain, diarrhea and vomiting. Skin: Negative for rash. Allergic/Immunologic: Negative for food allergies. Neurological: Negative for dizziness. Hematological: Bruises/bleeds easily. Psychiatric/Behavioral: Negative for agitation and behavioral problems. All other systems reviewed and are negative. Objective: acetaminophen (TYLENOL) 325 mg tablet Take 2 tablets by mouth every 4 hours as needed. (Patient taking differently: Take 650 mg by mouth as Needed.) albuterol 0.5% (PROVENTIL; VENTOLIN) 2.5 mg/0.5 mL nebulizer solution Inhale 0.5 mL solution by nebulizer as directed three times daily and at bedtime. aspirin 81 mg chewable tablet Chew 1 tablet by mouth daily. Take with food. calcitriol (ROCALTROL) 0.5 mcg capsule Take 1 capsule at dialysis appt ( Saturday, Saturday, Saturday) calcium carbonate/vitamin D-3 (OSCAL-500+D) 1250 mg/200 unit tablet Take 1 tablet by mouth daily. Calcium Carb 1250mg delivers 500mg elemental Ca codeine/guaiFENesin (ROBITUSSIN-AC) 10/100 mg/5 mL oral solution Take 10 mL by mouth every 6 hours as needed for Cough. folic acid (FOLVITE) 1 mg tablet Take 1 tablet by mouth daily. guaiFENesin LA (MUCINEX) 600 mg tablet Take 1 tablet by mouth twice daily. ipratropium bromide (ATROVENT) 0.02 % nebulizer solution Inhale 2.5 mL by mouth into the lungs three times daily and at bedtime. nebulizer compressor medical office receptionist Use as directed. oxyCODONE/acetaminophen (ENDOCET) 5/325 mg tablet Take 1-2 tablets by mouth every 6 hours as needed for Pain pantoprazole DR (PROTONIX) 40 mg tablet Take 40 mg by mouth daily. pravastatin (PRAVACHOL) 10 mg tablet Take 10 mg by mouth daily. prednisone (DELTASONE) 5 mg tablet Take 25 mg daily until 03/21, then decrease to 20 mg daily and continue until f/u with Field Servicer (Patient taking differently: Take 20 mg by mouth daily with breakfast. Take 25 mg daily until 03/21, then decrease to 20 mg daily and continue until f/u with Field Servicer) senna/docusate (SENOKOT-S) 8.6/50 mg tablet Take 1 tablet by mouth twice daily. (Patient taking differently: Take 1 tablet by mouth daily.) trimethoprim/sulfamethoxazole (BACTRIM SS) 80/400 mg tablet Take 1 tablet by mouth three times weekly. Continue until dose of prednisone is less than 20mg per day valGANciclovir 50 mg/mL oral solution Take 2 mL by mouth three times weekly. After dialysis on dialysis days. Length of therapy to be determined by ID vitamins, multi B, C, Zn & folate (Renal) (NEPHPLEX RX) 1-60-300-12.5 mg-mg- mcg-mg tab Take 1 tablet by mouth daily. Vitals: 05/12/18 1507 BP: 118/71 Pulse: 70 Resp: 16 Temp: 36.2 C (97.2 F) TempSrc: Oral SpO2: 96% Weight: 85.8 kg (189 lb 3.2 oz) Height: 190.5 cm (75") Body mass index is 23.65 kg/m. Physical Exam Constitutional: He is oriented to person, place, and time. No distress. HENT: Right Ear: External ear normal. Left Ear: External ear normal. Mouth/Throat: Oropharynx is clear and moist. No oropharyngeal exudate. No nasal polyposis Eyes: Conjunctivae are normal. No conjunctival erythema Neck: Neck supple. Cardiovascular: Normal rate and regular rhythm. Pulmonary/Chest: Effort normal. No respiratory distress. He has no wheezes. Abdominal: Soft. Neurological: He is alert and oriented to person, place, and time. Skin: Skin is warm and dry. No rash noted. +bruising on upper extremities Psychiatric: He has a normal mood and affect. His behavior is normal. Vitals reviewed. Results for TOLU BARRIOS ( ) as of 05/12/2018 15:34 Ref. Range 02/15/2018 08:24 CD3% Latest Ref Range: 49 - 84 % 86.7 (H) CD8% Latest Ref Range: 10 - 40 % 42.8 (H) CD3 Count Latest Ref Range: 600 - 2,990 UL 50 (L) CD4 Count Latest Ref Range: 440 - 2,160 UL 28 (L) CD8 Count Latest Ref Range: 120 - 1,320 UL 25 (L) CD19 Count Latest Ref Range: 100 - 700 UL 0 (L) CD16/56% Latest Ref Range: 4 - 25 % 10.0 CD16/56 Count Latest Ref Range: 90 - 640 UL 6 (L) CD4-Blood Latest Ref Range: 28 - 63 % 48.1 TC98-Ppmhc Latest Ref Range: 6 - 27 % 0.1 (L) Results for TOLU BARRIOS ( ) as of 05/12/2018 15:34 Ref. Range 02/12/2018 10:45 02/15/2018 08:24 IgG Latest Ref Range: 762 - 1,488 MG/DL 138 (L) 583 (L) IgM Latest Ref Range: 38 - 328 MG/DL <20 (L) 37 (L) IgA Latest Ref Range: 70 - 390 MG/DL 54 (L) 136 Assessment and Plan: Problem Hypogammaglobulinemia (Hcc) He had IgG 138, IgM <20, and [...] for many years for his GPA. His steel post installer supervisor plans to potentially give him additional Rituximab (follow up appointment is 05/21/2018). He is currently on prednisone 20mg daily. His steel post installer supervisor may start imuran as well for treatment [...] will be determined after obtaining test results. Follow up will be determined after lab results are obtained. The patient was seen and discussed with Dr. Noe Rosales, PGY5 Allergy and Immunology Fellow ATTESTATION I personally performed the kerr portions of the E/M visit, discussed case with resident and concur with resident documentation of history, physical exam, assessment, and treatment plan unless otherwise noted. Staff name: Wolf Liu MD Date: 06/04/2018 in this encounter Plan of Treatment Date Type Specialty Care Team Description 05/06/2018 Procedure Pass Transplant Surgery as of this encounter Results * T&B CELL PANEL,BLOOD (05/12/2018 4:32 PM) CD3% 77.4 49 - 84 % [facility] CD8% 57.1 (H) 10 - 40 % [facility] CD4-Blood 19.9 (L) 28 - 63 % [facility] CD16/56% 22.0 4 - 25 % [facility] [id number] 0.0 (L) 6 - 27 % [facility] [...] MAIN LAB Specimen Blood Performing Organization Address City/[facility]/Zipcode Phone Number [facility] [address] [place] [address] * IMMUNOGLOBULINS-IGA,IGG,IGM (05/12/2018 4:32 PM) IgG 379 (L) 762 - 1,488 MG/DL [facility] IgA 96 70 - 390 MG/DL [facility] IgM 22 (L) 38 - 328 MG/DL [facility] Specimen Blood Performing Organization Address [facility] Phone Number MA[facility] LAB [address] [place] [address] in this encounter Visit Diagnoses Diagnosis Hypogammaglobulinemia (HCC) - Primary Hypogammaglobulinaemia, unspecified Lymphopenia Lymphocytopenia
--- OUTSIDE RECORDS SUMMARY | 2018-07-03 14:56 | XMS REPORT | Encounter Summary ---
Author Author [facility] Organization [facility] Address Unknown Phone Unavailable Care Team Providers Care Counter Clerk [employer]ractor [employer] Name Role Phone Devon Cheema MD PCP Suze Buchanan RN Unavailable Unavailable Charissa Lin RN Unavailable Unavailable Valery Newton MA Unavailable Unavailable Chas Peña SODA FOUNTAIN MANAGER Unavailable Jeri Brower MA Unavailable Unavailable Dee Lyn RN Unavailable Unavailable Rogerio Lynne MD Unavailable Yesi Martinez MD Unavailable Dee Ma RN Unavailable Unavailable Toma Ojeda Unavailable Unavailable Radha David RN Unavailable Unavailable Shonda Ovalles MA Unavailable Unavailable Marley Jain Unavailable Unavailable Sonal Herrera MD Unavailable Wolf Aguillon MD Unavailable Raudel Vazquez MD Unavailable Olvin Reyes DO Unavailable Reason for Referral * Test Status Reason Specialty Diagnoses / Referred By Referred To Procedures Contact Contact No Auth Needed Cardiology Diagnoses Henrietta Young Bhg Card Echopv Severe aortic SODA FOUNTAIN MANAGER-C [facility] stenosis [id number] [facility] [place] [address] [place], [place] [address] [place] [address] ECHOCARDIOGRAM [id number] Phone: [place] ECHO TTHRC R-T 2D [phone] W/WOM-MODE COMPL Fax: SPEC&COLR D [phone] * Test Status Reason Specialty Diagnoses / Referred By Referred To Procedures Contact Contact No Auth Needed Cardiology Diagnoses Hector Renea Shresthag Card Echopv Severe aortic SODA FOUNTAIN MANAGER-C [facility] stenosis [id number] [facility] [address] [place], [place] 2-D + [place] [address] ECHOCARDIOGRAM [id number] Phone: [place] ECHO TTHRC R-T 2D [phone] W/WOM-MODE COMPL Fax: SPEC&COLR D [phone] Reason for Visit * Test Status Reason Specialty Diagnoses / Referred By Referred To Procedures Contact Contact No Auth Needed Cardiology Diagnoses Colin YoungRenea ashleyg Card Echopv Severe aortic SODA FOUNTAIN MANAGER-C [facility] stenosis [id number] [facility] [address] [place], [place] 2-D + [place] [address] ECHOCARDIOGRAM [id number] Phone: [place] ECHO TTHRC R-T 2D [phone] W/WOM-MODE COMPL Fax: SPEC&COLR D [phone] Encounter Details Date Type Department Care Team Description 05/13/2018 [facility] Cardiology Wolf Liu MD Encounter [facility] [facility] [address] [place] [address] [place] [address] [phone] Social History Tobacco Use Types Packs/Day Years Used Date Never Smoker Smokeless Tobacco: Never Used Alcohol Use Drinks/Week oz/Week Comments Yes occasional Sex Assigned at Date Recorded Not on file as of this encounter Last Filed Vital Signs Vital Sign Reading Time Taken Blood Pressure 110/63 05/13/2018 2:42 PM CDT Pulse - - Temperature - - Respiratory Rate - - Oxygen Saturation - - Inhaled Oxygen - - Concentration Weight 82.6 kg (182 lb) 05/13/2018 2:42 PM CDT Height 190.5 cm (6' 3") 05/13/2018 2:42 PM CDT Body Mass Index 22.75 05/13/2018 2:42 PM CDT in this encounter Functional Status [...] Use as directed. 1 Device 0 03/11/2018 neuropsychology medical consultant oxyCODONE/acetaminophen Take 1-2 tablets by mouth 20 [...] & folate (Renal) daily. (NEPHPLEX RX) 1-60-300-12.5 wd-tf-[id number]-mg tab as of this encounter Plan of Treatment Date Type Specialty Care Team Description 05/06/2018 Procedure Pass Transplant Surgery as of this encounter Procedures Procedure Name Priority Date/Time Associated Diagnosis Comments 2-D + DOPPLER Routine 05/13/2018 Severe aortic stenosis Results for this ECHOCARDIOGRAM 2:42 PM CDT procedure are in the results section. in this encounter Results * 2-D + DOPPLER ECHOCARDIOGRAM (05/13/2018 2:42 PM) BSA 2.09 m2 OTHER OUTSIDE LAB IVS [...] - 34 OTHER OUTSIDE LAB AV index (afognak) 0.41 OTHER OUTSIDE LAB LVOT area 4.52 [...] No significant interval change Performing Organization Address City/State/Zipcode Phone Number OTHER OUTSIDE LAB in this encounter Visit Diagnoses Diagnosis Severe aortic stenosis Aortic valve disorders
--- OUTSIDE RECORDS SUMMARY | 2018-07-03 14:56 | XMS REPORT | Encounter Summary ---
Author Author [facility] Organization [facility] Address Unknown Phone Unavailable Care Team Providers Care Nuclear Medicine Officer Name Role Phone Devon Cheema MD PCP [...] Unavailable Reason for Visit * Reason Comments Post Operative Visit 30 Day Post-Op Carmen TAVR (04/16) Encounter Details Date Type Department Care Team Description 05/13/2018 Office Visit [facility] Wolf Liu MD S/ P TAVR (transcatheter [facility] [address] aortic [facility]) [facility] [place] [address] [place] [address] [place] [address] [phone] Mahendra Maldonado MD [address] [facility] [address] [place] [address] [phone] Social History Tobacco Use Types Packs/Day Years Used Date Never Smoker Smokeless Tobacco: Never Used Alcohol Use Drinks/Week oz/Week Comments Yes occasional Sex Assigned at Date Recorded Not on file as of this encounter Last Filed Vital Signs Vital Sign Reading Time Taken Blood Pressure 110/63 05/13/2018 2:28 PM CDT Pulse 70 05/13/2018 2:28 PM CDT Temperature - - Respiratory Rate - - Oxygen Saturation 96% 05/13/2018 2:28 PM CDT Inhaled Oxygen - - Concentration Weight 82.6 kg (182 lb) 05/13/2018 2:28 PM CDT Height 190.5 cm (6' 3") 05/13/2018 2:28 PM CDT Body Mass Index 22.75 05/13/2018 2:28 PM CDT in this encounter Functional Status [...] as of this encounter Progress Notes * Mahendra Slater MD - 05/13/2018 3:00 PM CDT Formatting of this note may be different from the original. Date of Service: 05/13/2018 Subjective: Tolu Barrios is a 62 y.o. male. History of Present Illness Tolu Barrios is here for his regularly scheduled postoperative visit. As you may know, he presented to our service with severe aortic valve stenosis and underwent an TAVR with a 29 Carmen S3 valve on 04/16 under the direction of Dr. Ishmael Slater III. He tolerated this procedure well. Postoperatively he had an uneventful course. Today he states he feels well overall and denies chest pain, dyspnea, palpitations, near-syncope, syncope, fatigue, orthopnea, paroxysmal nocturnal dyspnea, chills, fever, myalgias, nonproductive cough, productive cough and sweats. His activity level has been improving and he has been walking independently 1-2 times a day for approximately 15 minutes at a time without complication. He is participating in cardiac rehab and is doing very well with this. Tolu Barrios has followed up with Dr. Aguillon, his Medical Lab Tech Instructor, at [facility]. He had an echo today that was reviewed by Dr. Slater and showed a normal EF of 60% , trace paravalvular leak, and a mean gradient of 9mmHg. Review of Systems Constitution: Negative. HENT: Positive for hearing loss and tinnitus. Eyes: Negative. Cardiovascular: Negative. Respiratory: Positive for cough and sputum production. Endocrine: Negative. Hematologic/Lymphatic: Negative. Skin: Negative. Musculoskeletal: Negative. Gastrointestinal: Negative. Genitourinary: Positive for decreased libido and nocturia. Neurological: Positive for light-headedness. Psychiatric/Behavioral: Negative. Allergic/Immunologic: Negative. Objective: acetaminophen (TYLENOL) 500 mg tablet Take 500 mg by mouth as Needed for Pain. Max of 4,000 mg of acetaminophen in 24 hours. albuterol 0.5% (PROVENTIL; VENTOLIN) 2.5 mg/0.5 mL [...] daily and at bedtime. nebulizer compressor medical practice administrator Use as directed. oxyCODONE/acetaminophen (ENDOCET) 5/325 mg tablet Take 1-2 tablets by mouth every 6 hours as needed for Pain pantoprazole DR (PROTONIX) 40 mg tablet Take 40 mg by mouth daily. pravastatin (PRAVACHOL) 10 mg tablet Take 10 mg by mouth daily. prednisone (DELTASONE) 20 mg tablet Take 20 mg by mouth daily with breakfast. senna/docusate (SENOKOT-S) 8.6/50 mg tablet Take 1 tablet by mouth daily. trimethoprim/sulfamethoxazole (BACTRIM SS) 80/400 mg tablet Take [...] Take 1 tablet by mouth daily. Vitals: 05/13/18 1428 BP: 110/63 Pulse: 70 SpO2: 96% Weight: 82.6 kg (182 lb) Height: 1.905 m (6' 3") Body mass index is 22.75 kg/m. Physical Exam Constitutional: He is oriented to person, place, and time. He appears well- developed and well-nourished. No distress. Cardiovascular: Normal rate, regular rhythm and normal heart sounds. No murmur heard. Bilateral groin incisions are well healed and well approximated without exudate , erythema, or swelling. Pulmonary/Chest: Effort normal and breath sounds normal. Abdominal: Soft. Bowel sounds are normal. He exhibits no distension. Musculoskeletal: Normal range of motion. He exhibits no edema. Neurological: He is alert and oriented to person, place, and time. Skin: Skin is warm and dry. He is not diaphoretic. Psychiatric: He has a normal mood and affect. His behavior is normal. Judgment and thought content normal. Education was given to Tolu Barrios on the importance of always taking prophylactic antibiotics prior to any dental work, certain medical procedures, and any surgeries. This is to help prevent any damage to the valve from potential infection. He is to inform his ordering physician about their history of a valve repair or replacement and to follow medication instructions accordingly. This is our recommendation for the life of the valve. We also recommend yearly echos for continued valve surveillance. Pamela Waggoner APRN [facility] Thoracic & Cardiovascular Surgery 05/13/2018 4:35 PM Assessment and Plan: I had the pleasure of seeing Mr. Barrios in the valve clinic in follow-up after his TAVR with a 29 mm AP and valve implanted on April 16. His postoperative course was uneventful and he went home on postoperative day 2. Since that time he is done extremely well at home and is walking several times a day without limitation. On exam his lung haas are clear and he does not have a murmur. His femoral access sites are well-healed without hematoma. He has no peripheral edema. His echo today shows a normal EF of 60% with trace perivalvular leak and a mean gradient of 9. Overall we are extremely pleased with his progress. We would like to see him back in the valve clinic 1 year after his implant with a repeat echo at that time. I appreciate the opportunity to participate in the care of this nice gentleman. Ishmael Slater M.D. in this encounter Plan of Treatment Date Type Specialty Care Team Description 05/06/2018 Procedure Pass Transplant Surgery as of this encounter Procedures Procedure Name Priority Date/Time Associated Diagnosis Comments ECG-SCAN 06/16/2018 Results for this 1:15 PM CDT procedure are in the results section. in this encounter Results * ECG-SCAN (06/16/2018 1:15 PM) Narrative Performed At Ordered by an unspecified provider. in this encounter Visit Diagnoses Diagnosis S/P TAVR (transcatheter aortic valve replacement) Heart valve replaced by other means
--- OUTSIDE RECORDS SUMMARY | 2018-07-03 14:57 | XMS REPORT | Encounter Summary ---
Author Author [facility] Organization [facility] Address Unknown Phone Unavailable Care Team Providers Care Raw Cheese Worker Name Role Phone Devon Cheema MD PCP [...] Reason for Visit * Reason Comments Financial/Insurance updated benefit collection for new eval Questions Encounter Details Date Type Department Care Team Description 04/30/2018 Telephone Center for Amelia Santos Financial/Insurance [facility]ney[facility] for [address] new eval) [address] [place] [address] Social History Tobacco Use Types [...] * Telephone Encounter - Amelia Santos - 04/30/2018 12:57 PM CDT BENEFIT COLLECTION: Verified by:Amelia Santos Date: April 30, 2018 ID #: [id number] Subscriber: self Ins Plan:MEDICARE A&BEFF: 11/07/17 Phone#:[phone] Plan Type: A & B 2018 BENEFIT SUMMARY: PART A: DAYS REFRESH AFTER 60 CONSECUTIVE OUTPT DAYS DAYS 1-60 $1340 DEDUCTIBLE DAYS 61-90 $335/DAY COPAY DAYS 91-150 (USING ANY LIFETIME RESERVE DAYS) $670/DAY COPAY DAYS > 150 PT PORTION 100%; after a 3-day minimum medically necessary inpatient hospital stay for a related illness or injury. PART A/ SNF BENEFITS: IN 2018: DAYS 1-20 PT PORTION $0; DAYS 21-100 [...] Network, No prior authorizations, No benefit limits Med D RX Plan: Tristen Wang RXBIN: [id number] Phone #: [phone] 30 day retail/ day mo cost: $3 - $42, 33% - 42% Valcyte: not covered Generic: $631.30(init cov)/ $841.73(cov gap)/ $95.65(catas cov) RX Ded: $0.0 RX Monthly [place]: $24.50 SECONDARY ID #: [id number] #: [id number] Subscriber: self Ins Plan: DAVID TAVARES EFF:01/05/2018 Phone#: [phone] Plan Type: Medicare Supplement F MEDICARE SUPPLEMENT PLAN F COVERS PT [facility] CO[facility] UP TO AN ADDITIONAL 365 DAYS AFTER MEDICARE BENEFITS ARE USED UP, MEDICARE PART B COINSURANCE OR COPAYMENT, FIRST 3 PINTS OF BLOOD PART A HOSPICE CARE COINSURANCE OR COPAYMENT CARE HOME FACILITY COINSURANCE PART A DEDUCTIBLE PART B DEDUCTIBLE MEDICARE PREVENTIVE CARE PART B COINSURANCE PART B EXCESS [facility], FOREIGN TRAVEL EMERGENCY UP TO PLAN LIMITS MEDICARE PREVENTIVE CARE PART B COINSURANCE Auth requirements: No eval or listing auth required in this encounter Plan of Treatment Date Type Specialty Care Team Description 05/06/2018 Procedure Pass Transplant Surgery as of this encounter Visit Diagnoses Not on filein this encounter
--- OUTSIDE RECORDS SUMMARY | 2018-07-03 14:57 | XMS REPORT | Encounter Summary ---
Author Author [facility] Organization [facility] Address Unknown Phone Unavailable Care Team Providers Care Mixer Driver Name Role Phone Devon Cheema MD PCP Suze Buchanan RN Unavailable Unavailable Charissa Lin RN Unavailable Unavailable Valery Newton MA Unavailable Unavailable Chas Peañ APRN Unavailable Jeri Brower MA Unavailable Unavailable [...] for Visit * Reason Comments Transplant Referral Schedule New K Eval Encounter Details Date Type Department Care Team Description 04/30/2018 Telephone Center for Winter Rubio Transplant Referral Transplantation-Kidney/Pa (Schedule New K Ev) [facility] [address] [place] [address] Social History Tobacco Use Types [...]
--- OUTSIDE RECORDS SUMMARY | 2018-07-03 14:57 | XMS REPORT | Encounter Summary ---
Author Author [facility] Organization [facility] Address Unknown Phone Unavailable Care Team Providers Care Petroleum Transport Driver Name Role Phone Devon Cheema MD [...] Unavailable Reason for Visit * Reason Comments Post-hospital Follow Up Encounter Details Date Type Department Care Team Description 04/21/2018 Telephone [facility] Chelsie Rogers RN Post- hospital Follow Up Cardi[facility] [place] [address] [address] [place] [address] Social History Tobacco Use Types [...] encounter Miscellaneous Notes * Telephone Encounter - Chelsie Rogers RN - 04/21/2018 1:26 PM CDT Pt doing great post TAVR. Walking without difficulty and getting ample walking in; having no SOB and feels great. Incisions C/D/I. Has dialysis this AM. No H/ A or nausea since DC, only problem is ruptured blood vessel in his eye. Denies any vision changes and states it happened after another surgery and eventually resolve. Advised pt to watch it closely for any changes and notify his an Opthomologist if condition worsens. Reviewed follow up appt time and date and verified pt has our # to contact for any future concerns. in this encounter Plan of Treatment Date Type Specialty Care Team Description 05/06/2018 Procedure Pass Transplant Surgery as of this encounter Visit Diagnoses Not on filein this encounter
--- OUTSIDE RECORDS SUMMARY | 2018-07-03 14:57 | XMS REPORT | Encounter Summary ---
Author Author [facility] Organization [facility] Address Unknown Phone Unavailable Care Team Providers Care Accounting Clerks Supervisor Name Role Phone Devon Cheema MD PCP [...] for Visit * Reason Comments Transplant Referral Deferred Encounter Details Date Type Department Care Team Description 04/22/2018 Telephone Center for Genesis Irizarry RN Transplant Referral Transplantation-Kidney/Pa (Deferred) [facility] [address] [place] [address] Social History Tobacco Use Types [...] encounter Miscellaneous Notes * Telephone Encounter - Genesis Irizarry RN - 04/22/2018 10:29 AM CDT 04/21/18 Referral Review with: Dr Jacob Coordinator reviewed: patient had valve replacement surgery on 04/16/18, is now in Cardiac Rehab. Has AAA, last note said 5.2cm Determination: NEED MORE INFORMATION- finish Cardiac Rehab; PCP to order CT abd/ pelvis to visualize AAA TC to patient- left VM. 04/22/18 TC from patient. Discussed above determination. Will call PCP for CT abd/pelvis order and have images sent to [facility]. Will call Coordinator when complete. Chart review- per Dr Slater's letter the patient has a "Stable aneurysmal dilatation of the ascending thoracic aorta measuring 5.3 cm" Notified Dr Lynne that it can be visualized on the Chest CT, requested his input. in this encounter Plan of Treatment Date Type Specialty Care Team Description 05/06/2018 Procedure Pass Transplant Surgery as of this encounter Visit Diagnoses Not on filein this encounter
--- OUTSIDE RECORDS SUMMARY | 2018-07-03 14:57 | XMS REPORT | Encounter Summary ---
Author Author [facility] Organization [facility] Address Unknown Phone Unavailable Care Team Providers Care Machine Design Engineer Name Role Phone Devon Cheema MD PCP [...] for Visit * Reason Comments Transplant Referral Approved for Eval Encounter Details Date Type Department Care Team Description 04/29/2018 Telephone Center for Genesis Irizarry RN Transplant Referral Transplantation-Kidney/Pa (Approved for Eval) [facility] [address] [place] [address] Social History Tobacco Use Types [...] Telephone Encounter - Genesis Irizarry RN - 04/29/2018 3:16 PM CDT Referral Review with: Dr Jacob Coordinator reviewed all testing with PROVIDER, including: Dr Slater's letter dated 03/11/18 re: 03/05/[address], stating the "Stable aneurysmal dilatation of the ascending thoracic aorta measuring 5.3 cm" would need to "consider proceeding with TAVR". This was done . Will discuss with Dr Pham... Determination: READY FOR EVAL as long as Dr Slater feels the AAA is stable TC to patient with determination. V/u. in this encounter Plan of Treatment Date Type Specialty Care Team Description 05/06/2018 Procedure Pass Transplant Surgery as of this encounter Visit Diagnoses Not on filein this encounter
--- OUTSIDE RECORDS SUMMARY | 2018-07-03 14:58 | XMS REPORT | Encounter Summary ---
Author Author [facility] Organization [facility] Address Unknown Phone Unavailable Care Team Providers Care Compressor Station Engineer Chief Name Role Phone Devon Cheema MD PCP [...] Details Date Type Department Care Team Description 04/17/2018 Orders Only [facility] Neeru Anderson PA-C Thoracic aortic aneurysm [facility] [address] [facility] [address] [facility] [address] [place] [address] [place] [address] [phone] Social History Tobacco Use Types Packs/Day Years Used Date Never Smoker Smokeless Tobacco: Never Used Alcohol Use Drinks/Week oz/Week Comments Yes occasional Sex Assigned at Date Recorded Not on file as of this encounter Functional Status Functional Status Response Date of Assessment Does the patient have a hearing impairment: Yes 02/23/2018 Does the patient have a visual impairment: [...] Surgery as of this encounter Visit Diagnoses Diagnosis Thoracic aortic aneurysm without rupture (HCC) - Primary Thoracic aneurysm without mention of rupture
--- OUTSIDE RECORDS SUMMARY | 2018-07-03 14:58 | XMS REPORT | Encounter Summary ---
Author Author [facility] Organization [facility] Address Unknown Phone Unavailable Care Team Providers Care Preschool Teacher Aide Name Role Phone Devon Cheema MD PCP [...] Jain Unavailable Unavailable Sonal Herrera MD Unavailable Mary Jane Aguillon MD Unavailable Raudel Vazquez MD Unavailable Olvin Reyes DO Unavailable Reason for Visit * Auth/Cert Status Reason Specialty Diagnoses / Referred By Referred To Procedures Contact Contact Diagnoses Aortic valve stenosis, etiology of cardiac valve disease unspecified Aortic valve stenosis, etiology of cardiac valve disease unspecified [I35.0] P rocedures [place] REPLACE AORTIC VALVE PERQ FEMORAL ARTRY APPROACH REPLACEMENT TRANSCATHETER AORTIC VALVE-shania, left common femoral, 29s3 Encounter Details Date Type Department Care Team Description 04/16/2018 Hospital Cardiothor Prgrsv Monique Mims MD Aortic valve stenosis - Encounter [address] 04/18/2018 [place] [address] [address] [place] [address] [phone] David Isabel MD, [facility] [address] [place] [address] [phone] Social History Tobacco Use Types Packs/Day Years Used Date Never Smoker Smokeless Tobacco: Never Used Alcohol Use Drinks/Week oz/Week Comments Yes occasional Sex Assigned at Date Recorded Not on file as of this encounter Last Filed Vital Signs Vital Sign Reading Time Taken Blood Pressure 133/79 04/18/2018 10:20 AM CDT Pulse 82 04/18/2018 10:20 AM CDT Temperature 37 C (98.6 F) 04/18/2018 10:20 AM CDT Respiratory Rate - - Oxygen Saturation 100% 04/18/2018 10:20 AM CDT Inhaled Oxygen - - Concentration Weight 80 kg (176 lb 5.9 oz) 04/18/2018 5:45 AM CDT Height 190.5 cm (6' 3") 04/17/2018 11:08 AM CDT Body Mass Index 22.04 04/18/2018 5:45 AM CDT in this encounter Functional Status Functional [...] impairment: No 07/08/2015 as of this encounter Discharge Summaries * Noemi Bach PA-C - 04/18/2018 8:10 AM CDT Formatting of this note may be different from the original. Physician Discharge Summary Name: Tolu Barrios Date Of : 1955 Age: 62 years Admit date: 04/16/2018 Discharge date: 04/18/2018 Attending Physician: Bryon Service: Cardiothor Surg Physician Summary completed by: Noemi Bach PA-C Reason for hospitalization: aortic valve stenosis Significant PMH: 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 Brief Hospital Course: The patient was admitted to [facility] on 04/16/18 for elective transcatheter aortic valve replacement. The patient underwent the procedure and tolerated it well. He was monitored in the intensive care unit following surgery. His rhythm remained stable without any pacing requirements. The transvenous pacemaker was removed on POD#1 and he was transferred to the telemetry unit. He had a mild headache and nausea that improved with medication. He increased his activity and oral intake. His pre operative amiodarone was not restarted as it was initiated for two episodes of paroxysmal atrial fibrillation last year. He underwent an echo on POD#1 which showed a normal functioning 29 mm SHANIA S3 aortic valve bioprosthesis He underwent hemodialysis on 04/16 and 04/18. He was stable to be discharged home on POD#2. Condition at Discharge: Stable Discharge Diagnoses: Hospital Problems Active Problems * (Principal)Aortic valve stenosis End stage renal disease (HCC) Hyperlipidemia Hypertension Allyssa's granulomatosis (HCC) Immunosuppressed status (HCC) Thrombocytopenia (HCC) Paroxysmal atrial fibrillation (HCC) Severe aortic stenosis Ascending aortic aneurysm (HCC) Acute on chronic combined systolic and diastolic CHF, NYHA class 2 (HCC) Pancytopenia (HCC) Surgical Procedures: 1. Ultrasound-guided access to bilateral common femoral arteries. 2. Ascending aortogram. 3. Placement of temporary pacemaker. 4. Transcatheter aortic valve replacement using 29 mm Shania valve. 5. Iliofemoral arteriogram with runoff. Significant Diagnostic Studies and Procedures: Hemodialysis Echo 04/17/18: LVEF=55-60%. Normal left ventricular size and systolic function. No regional wall motion abnormalities. Right ventricular size and function are normal. Moderate left atrial enlargement. Normal functioning 29 mm SHANIA S3 aortic valve bioprosthesis. Mild paravalvular regurgitation. No central regurgitation. The mean gradient is 12 mmHg. Mitral annular calcification without regurgitation or stenosis. No pericardial effusion. Unable to estimate PA systolic pressure with this study. Consults: Nephrology Patient Disposition: Home Patient instructions/medications: Other Activity Restrictions -You should and need to walk daily. Your goal is to walk 30 minutes at at time without stopping for breaks. This is a daily exercise routine that you should start as soon as you arrive home. Your basic daily activities do not count toward your 30 minute minimum, e.g. housework, toileting, fixing meals. Do not exercise outside in extremely hot or cold temperatures. -Bathing: NO tub baths, hot tubs, or swimming for 6 weeks. You may shower at any time. -Driving: NO driving for 2 weeks or while taking narcotics -Lifting: NO lifting more than 10 pounds (gallon of milk) for 6 weeks. -Monitoring: If you have access to a home blood pressure cuff, record your blood pressure and heart rate daily. Please call if your systolic blood pressure is <90 or >160, OR if your heart rate is <50 or >120 at rest Other Activity Restrictions -You should and need to walk daily. Your goal is to walk 30 minutes at at time without stopping for breaks. This is a daily exercise routine that you should start as soon as you arrive home. Your basic daily activities do not count toward your 30 minute minimum, e.g. housework, toileting, fixing meals. Do not exercise outside in extremely hot or cold temperatures. -Bathing: NO tub baths, hot tubs, or swimming for 2 weeks. You may shower at any time. -Driving: NO driving for 1 week or while taking narcotics -Lifting: NO lifting more than 10 pounds (gallon of milk) for 2 weeks. -Monitoring: If you have access to a home blood pressure cuff, record your blood pressure and heart rate daily. Please call if your systolic blood pressure is <90 or >160, OR if your heart rate is <50 or >120 at rest Report These Signs and Symptoms Please contact your doctor for the following symptoms: *Temperature over 100 degrees F *Uncontrolled pain *Drainage with a foul odor *Shortness of breath *Racing or skipping heart beats *Swelling or tenderness in your groin *Painful/Cold/Discolored legs or toes *Suture material sticking up through your incisions *Change in coordination of ability to talk *If you gain more than 2 pounds in 24 hours, or 5 pounds in one week. Questions About Your Stay For questions or concerns regarding your hospital stay. Call [phone] Discharging attending physician: MONIQUE LAIRD [[id number]] Renal Diet Your diet will need to be low in potassium and phosphorous. Monitor your sodium intake and limit is to 2g (grams) per day. If you have any questions regarding your diet at home, you may contact a dietitian at [phone]. Cardiac Diet Limiting unhealthy fats and cholesterol is the most important step you can take in reducing your risk for cardiovascular disease. Unhealthy fats include saturated and trans fats. Monitor your sodium and cholesterol intake. Restrict your sodium to 2g (grams) or 2000mg (milligrams) daily, and your cholesterol to 200mg daily. If you have questions regarding your diet at home, you may contact a dietitian at . Return Appointment Call to schedule an appointment with your primary care doctor in 1-2 weeks for a check up and medication review. Outside Provider Dr. Cheema Return Appointment Echocardiogram at 2p, appointment at 3p Provider MONIQUE LAIRD [[id number]] Location [facility] Clinic Appointment date: 05/13/2018 Cardiac Rehab Your physician has referred you to outpatient cardiac rehab. Contact [facility] Cardiac Rehab Department at [phone] to schedule an appointment. Additional Discharge Instructions You MUST take antibiotics prior to any dental procedures (including cleaning), invasive respiratory tract procedures and invasive skin procedures. This will help to prevent infection to the heart valve. Contact your primary care provider or production superintendent for an antibiotic prescription when needed. Return Appointment Chest CT in the Medical Office Building at 11a. Nothing to eat or drink for 6 hours prior to your scan. Appointment with Dr. Laird following your scan at 1: 30p. Provider MONIQUE LAIRD [[id number]] Appointment date: 08/12/2018 Appointment time: 11:00 AM Report These Signs and Symptoms Please contact your doctor for the following symptoms: *Temperature over 100 degrees F *Uncontrolled pain *Drainage with a foul odor *Shortness of breath *Racing or skipping heart beats *Swelling or tenderness in your groin *Painful/Cold/Discolored legs or toes *Suture material sticking up through your incisions *Change in coordination of ability to talk *If you gain more than 2 pounds in 24 hours, or 5 pounds in one week. Questions About Your Stay For questions or concerns regarding your hospital stay. Call [phone] Discharging attending physician: MONIQUE LAIRD [[id number]] Cardiac Diet Limiting unhealthy fats and cholesterol is the most important step you can take in reducing your risk for cardiovascular disease. Unhealthy fats include saturated and trans fats. Monitor your sodium and cholesterol intake. Restrict your sodium to 2g (grams) or 2000mg (milligrams) daily, and your cholesterol to 200mg daily. If you have questions regarding your diet at home, you may contact a dietitian at . Return Appointment [facility] Internal medicine Provider MARY JANE LIRIANO [[id number]] Location Other (see Comments) Appointment date: 05/12/2018 Appointment time: 3:00 PM Return Appointment Please arrive at 2pm for your ECHO. Office appointment to follow with Dr Bryon EWING Provider MONIQUE LAIRD [[id number]] Location [facility] Clinic Appointment date: 05/13/2018 Appointment time: 2:00 PM Cardiac Rehab Your physician has referred you to outpatient cardiac rehab. Contact [facility] Cardiac Rehab Department at [phone] to schedule an appointment. Current Discharge Medication List START taking these medications Details aspirin 81 mg chewable tablet Chew 1 tablet by mouth daily. Take with food. Qty: 90 tablet, Refills: 3 PRESCRIPTION TYPE: OTC Associated Diagnoses: Severe aortic stenosis oxyCODONE/acetaminophen (ENDOCET) 5/325 mg tablet Take 1-2 tablets by mouth every 6 hours as needed for Pain Qty: 20 tablet, Refills: 0 PRESCRIPTION TYPE: Print CONTINUE these medications which have NOT CHANGED Details acetaminophen (TYLENOL) 325 mg tablet Take 2 tablets by mouth every 4 hours as needed. Refills: 0 PRESCRIPTION TYPE: OTC albuterol 0.5% (PROVENTIL; VENTOLIN) 2.5 mg/0.5 mL nebulizer solution Inhale 0.5 mL solution by nebulizer as directed three times daily and at bedtime. Qty: 120 vial, Refills: 1 PRESCRIPTION TYPE: Normal calcitriol (ROCALTROL) 0.5 mcg capsule Take 1 capsule at dialysis appt (Saturday, Saturday, Saturday) PRESCRIPTION TYPE: Historical Med calcium carbonate/vitamin D-3 (OSCAL-500+D) 1250 mg/200 unit tablet Take 1 tablet by mouth daily. Calcium Carb 1250mg delivers 500mg elemental Ca PRESCRIPTION TYPE: Historical Med codeine/guaiFENesin (ROBITUSSIN-AC) 10/100 mg/5 mL oral solution Take 10 mL by mouth every 6 hours as needed for Cough. Qty: 120 mL, Refills: 1 PRESCRIPTION TYPE: Print folic acid (FOLVITE) 1 mg tablet Take 1 tablet by mouth daily. Qty: 30 tablet, Refills: 1 PRESCRIPTION TYPE: Normal guaiFENesin LA (MUCINEX) 600 mg tablet Take 1 tablet by mouth twice daily. Qty: 60 tablet, Refills: 1 PRESCRIPTION TYPE: Normal ipratropium bromide (ATROVENT) 0.02 % nebulizer solution Inhale 2.5 mL by mouth into the lungs three times daily and at bedtime. Qty: 120 vial, Refills: 1 PRESCRIPTION TYPE: Normal nebulizer compressor medical transcription Use as directed. Qty: 1 Device, Refills: 0 PRESCRIPTION TYPE: Normal pantoprazole DR (PROTONIX) 40 mg tablet Take 40 mg by mouth daily. PRESCRIPTION TYPE: Historical Med pravastatin (PRAVACHOL) 10 mg tablet Take 10 mg by mouth daily. PRESCRIPTION TYPE: Historical Med prednisone (DELTASONE) 5 mg tablet Take 25 mg daily until 03/21, then decrease to 20 mg daily and continue until f/u with Director Project Management Qty: 135 tablet, Refills: 1 PRESCRIPTION TYPE: Normal senna/docusate (SENOKOT-S) 8.6/50 mg tablet Take 1 tablet by mouth twice daily. Qty: 30 tablet, Refills: 0 PRESCRIPTION TYPE: No Print trimethoprim/sulfamethoxazole (BACTRIM SS) 80/400 mg tablet Take 1 tablet by mouth three times weekly. Continue until dose of prednisone is less than 20mg per day Qty: 12 tablet, Refills: 1 PRESCRIPTION TYPE: Normal valGANciclovir 50 mg/mL oral solution Take 2 mL by mouth three times weekly. After dialysis on dialysis days. Length of therapy to be determined by ID Qty: 30 mL, Refills: 1 PRESCRIPTION TYPE: Normal vitamins, multi B, C, Zn & folate (Renal) (NEPHPLEX RX) 1-60-300-12.5 mg-mg-mcg- mg tab Take 1 tablet by mouth daily. Qty: 30 tablet, Refills: 1 PRESCRIPTION TYPE: Normal The following medications were removed from your list. This list includes medications discontinued this stay and those removed from your prior med list in our system amiodarone (CORDARONE) 200 mg tablet Scheduled appointments: May 12, 2018 3:00 PM CDT Return Patient with Mary Jane Liriano MD [facility] ([facility]) 4th Floor Pod [address] [place] [address] Med Office [place] [phone] May 13, 2018 2:00 PM CDT Echo Doppler with [facility] ECHO 3 [facility] ([facility]) [address] [place], [place] [id number] May 13, 2018 3:00 PM CDT Post - Op with Monique Laird MD [facility] ([facility]) [address] [place] [address] Aug 12, 2018 11:00 AM QUARTZ CUTTER CTA ABDOMEN WO/W C+POST PROC with CT-[facility] ([facility]) [address] [place] [address] Med Office [facility] 2nd Floor [place] [id number] Aug 12, 2018 1:30 PM QUARTZ CUTTER Re-evaluation with Monique Laird MD [facility] ([facility]) [address] [place] [address] Pending items needing follow up: none Signed: Noemi Bach PA-C 04/18/2018 cc: Primary Care Physician: Devon Cheema Verified Referring physicians: Devon Cheema MD Additional provider(s): * Yamile Love APRN - 04/16/2018 8:54 AM CDT Formatting of this note may be different from the original. Physician Discharge Summary Name: Tolu Barrios Date Of : 1955 Age: 62 years Admit date: 04/16/2018 Discharge date: 04/17/2018 Attending Physician: Dr. 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 Admission Physical Exam notable for: Aortic Stenosis Brief Hospital Course: The patient was admitted to [facility] for elective transcatheter aortic valve replacement. The patient underwent the procedure and tolerated it well. He was monitored in the intensive care unit following surgery. The patient was transferred to the cardiothoracic progressive care unit on POD#1. The patient's overall hospital course was uneventful. He increased his activity and oral intake. Discontinued amiodarone at discharge, as it was started for single episode of atrial fibrillation in the past. He will go home on aspirin 81 mg daily. He was stable to be discharged home on POD# 1. Condition at Discharge: Stable Discharge Diagnoses: Hospital Problems Active Problems * (Principal)Aortic valve stenosis End stage renal disease (HCC) Hyperlipidemia Hypertension Allyssa's granulomatosis (HCC) Thrombocytopenia (HCC) Severe aortic stenosis Ascending aortic aneurysm (HCC) Acute on chronic combined systolic and diastolic CHF, NYHA class 2 ([facility]) Surgical Procedures: 04/16/18 Dr. Laird/De[place] - Consults: Nephrology Patient Disposition: Home Patient instructions/medications: Other Activity Restrictions -You should and need to walk daily. Your goal is to walk 30 minutes at at time without stopping for breaks. This is a daily exercise routine that you should start as soon as you arrive home. Your basic daily activities do not count toward your 30 minute minimum, e.g. housework, toileting, fixing meals. Do not exercise outside in extremely hot or cold temperatures. -Bathing: NO tub baths, hot tubs, or swimming for 6 weeks. You may shower at any time. -Driving: NO driving for 2 weeks or while taking narcotics -Lifting: NO lifting more than 10 pounds (gallon of milk) for 6 weeks. -Monitoring: If you have access to a home blood pressure cuff, record your blood pressure and heart rate daily. Please call if your systolic blood pressure is <90 or >160, OR if your heart rate is <50 or >120 at rest Report These Signs and Symptoms Please contact your doctor for the following symptoms: *Temperature over 100 degrees F *Uncontrolled pain *Drainage with a foul odor *Shortness of breath *Racing or skipping heart beats *Swelling or tenderness in your groin *Painful/Cold/Discolored legs or toes *Suture material sticking up through your incisions *Change in coordination of ability to talk *If you gain more than 2 pounds in 24 hours, or 5 pounds in one week. Questions About Your Stay For questions or concerns regarding your hospital stay. Call [phone] Discharging attending physician: MONIQUE LAIRD [[id number]] Renal Diet Your diet will need to be low in potassium and phosphorous. Monitor your sodium intake and limit is to 2g (grams) per day. If you have any questions regarding your diet at home, you may contact a dietitian at [phone]. Cardiac Diet Limiting unhealthy fats and cholesterol is the most important step you can take in reducing your risk for cardiovascular disease. Unhealthy fats include saturated and trans fats. Monitor your sodium and cholesterol intake. Restrict your sodium to 2g (grams) or 2000mg (milligrams) daily, and your cholesterol to 200mg daily. If you have questions regarding your diet at home, you may contact a dietitian at . Return Appointment Call to schedule an appointment with your primary care doctor in 1-2 weeks for a check up and medication review. Outside Provider Dr. Cheema Return Appointment Echocardiogram at 2p, appointment at 3p Provider MONIQUE LAIRD [[id number]] Location [facility] Appointment date: 05/13/2018 Cardiac Rehab Your physician has referred you to outpatient cardiac rehab. Contact [facility] Cardiac Rehab Department at [phone] to schedule an appointment. Additional Discharge Instructions You MUST take antibiotics prior to any dental procedures (including cleaning), invasive respiratory tract procedures and invasive skin procedures. This will help to prevent infection to the heart valve. Contact your primary care provider or production superintendent for an antibiotic prescription when needed. Return Appointment Chest CT in the Medical Office Building at 11a. Nothing to eat or drink for 6 hours prior to your scan. Appointment with Dr. aLird following your scan at 1: 30p. Provider MONIQUE LAIRD [[id number]] Appointment date: 08/12/2018 Appointment time: 11:00 AM Current Discharge Medication List START taking these medications Details aspirin 81 mg chewable tablet Chew 1 tablet by mouth daily. Take with food. Qty: 90 tablet, Refills: 3 PRESCRIPTION TYPE: OTC Associated Diagnoses: Severe aortic stenosis CONTINUE these medications which have NOT CHANGED Details acetaminophen (TYLENOL) 325 mg tablet Take 2 tablets by mouth every 4 hours as needed. Refills: 0 PRESCRIPTION TYPE: OTC albuterol 0.5% (PROVENTIL; VENTOLIN) 2.5 mg/0.5 mL nebulizer solution Inhale 0.5 mL solution by nebulizer as directed three times daily and at bedtime. Qty: 120 vial, Refills: 1 PRESCRIPTION TYPE: Normal calcitriol (ROCALTROL) 0.5 mcg capsule Take 1 capsule at dialysis appt (Saturday, Saturday, Saturday) PRESCRIPTION TYPE: Historical Med calcium carbonate/vitamin D-3 (OSCAL-500+D) 1250 mg/200 unit tablet Take 1 tablet by mouth daily. Calcium Carb 1250mg delivers 500mg elemental Ca PRESCRIPTION TYPE: Historical Med codeine/guaiFENesin (ROBITUSSIN-AC) 10/100 mg/5 mL oral solution Take 10 mL by mouth every 6 hours as needed for Cough. Qty: 120 mL, Refills: 1 PRESCRIPTION TYPE: Print folic acid (FOLVITE) 1 mg tablet Take 1 tablet by mouth daily. Qty: 30 tablet, Refills: 1 PRESCRIPTION TYPE: Normal guaiFENesin LA (MUCINEX) 600 mg tablet Take 1 tablet by mouth twice daily. Qty: 60 tablet, Refills: 1 PRESCRIPTION TYPE: Normal ipratropium bromide (ATROVENT) 0.02 % nebulizer solution Inhale 2.5 mL by mouth into the lungs three times daily and at bedtime. Qty: 120 vial, Refills: 1 PRESCRIPTION TYPE: Normal nebulizer compressor medical transcription Use as directed. Qty: 1 Device, Refills: 0 PRESCRIPTION TYPE: Normal pantoprazole DR (PROTONIX) 40 mg tablet Take 40 mg by mouth daily. PRESCRIPTION TYPE: Historical Med pravastatin (PRAVACHOL) 10 mg tablet Take 10 mg by mouth daily. PRESCRIPTION TYPE: Historical Med prednisone (DELTASONE) 5 mg tablet Take 25 mg daily until 03/21, then decrease to 20 mg daily and continue until f/u with Director Project Management Qty: 135 tablet, Refills: 1 PRESCRIPTION TYPE: Normal senna/docusate (SENOKOT-S) 8.6/50 mg tablet Take 1 tablet by mouth twice daily. Qty: 30 tablet, Refills: 0 PRESCRIPTION TYPE: No Print trimethoprim/sulfamethoxazole (BACTRIM SS) 80/400 mg tablet Take 1 tablet by mouth three times weekly. Continue until dose of prednisone is less than 20mg per day Qty: 12 tablet, Refills: 1 PRESCRIPTION TYPE: Normal valGANciclovir 50 mg/mL oral solution Take 2 mL by mouth three times weekly. After dialysis on dialysis days. Length of therapy to be determined by ID Qty: 30 mL, Refills: 1 PRESCRIPTION TYPE: Normal vitamins, multi B, C, Zn & folate (Renal) (NEPHPLEX RX) 1-60-300-12.5 mg-mg-mcg- mg tab Take 1 tablet by mouth daily. Qty: 30 tablet, Refills: 1 PRESCRIPTION TYPE: Normal The following medications were removed from your list. This list includes medications discontinued this stay and those removed from your prior med list in our system amiodarone (CORDARONE) 200 mg tablet Scheduled appointments: May 12, 2018 3:00 PM CDT Return Patient with Mary Jane Liriano MD [facility] ([facility]) 4th Floor Pod [address] [facility] Med Office [facility] [id number] Signed: Neeru Anderson PA-C 04/16/2018 cc: Primary Care Physician: Devon Cheema Verified Referring physicians: Additional provider(s): in this encounter Medications at Time of Discharge [...] as directed. 1 Device 0 03/11/2018 medical transcription oxyCODONE/acetaminophen Take 1-2 tablets by mouth 20 [...] & folate (Renal) daily. (NEPHPLEX RX) 1-60-300-12.5 ew-bz-[id number]-mg tab acetaminophen (TYLENOL) Take 2 tablets by mouth 0 03/11/20182017 325 mg tablet every 4 hours as needed. guaiFENesin LA (MUCINEX) Take 1 tablet by mouth 60 tablet 1 201705/13/2018 600 mg tablet twice daily. prednisone (DELTASONE) 5 Take 25 mg daily until 135 tablet 1 201705/13/2018 mg tablet 6/15, then decrease to 20 mg daily and continue until f/u with Director Project Management melo/docusate Take 1 tablet by mouth 30 tablet 0 02/22/20182017 (SENOKOT-S) 8.6/50 mg twice daily. tablet as of this encounter Progress Notes * Thelma Mayer RN - 04/18/2018 12:10 PM CDT Cardiac Rehab Call Back Note: Are you tolerating activity?Yes Is pain controlled?Yes Is appetite normal?Yes Are you having symptoms of heart discomfort?No Are you having signs of infection at your incision sites or groin site?No Do you want outpt cardiac rehab?Yes * Leonor Pedersen RN - 04/18/2018 11:23 AM CDT 1115 - Reviewed discharge instructions, prescriptions/medications, follow-up appt with pt. Pt states verbal understanding - no questions. IV and Tele dc'd. Pt will take prescription to his home pharmacy for filling. When ready, pt taken to the front door by hospital staff. * Juan Daniel Van MD - 04/18/2018 9:10 AM CDT Pt seen an examined while on HD in HD unit. Tolerated HD well. Access Rt UE AVF working well UF started at 3 but decresaed to 2 Lr for low BP (> 100 at all times) Chest: CTA B/l No ll edema * Zena Barron RN - 04/18/2018 6:58 AM CDT Assumed patient care at 1900 VS stable, SR on tele. Pt denies any headaches/nausea Tolerating RA Bilateral groins C/D/I HD M,W,F No other concerns at this time, will continue to monitor * Sandra Jones PA-C - 04/18/2018 6:56 AM CDT Formatting of this note may be different from the original. CARDIOTHORACIC SURGERY DAILY PROGRESS NOTE PROCEDURE: Transcatheter aortic valve replacement using 29 mm Shania valve. POD #: 2 SUBJECTIVE: Overnight events: No issues over night. No headache. Ready to go home. Up ad michael ASSESSMENT: Principal Problem: Aortic valve stenosis Active Problems: End stage renal disease (HCC) Hyperlipidemia Hypertension Allyssa's granulomatosis (HCC) Immunosuppressed status (HCC) Thrombocytopenia (HCC) Paroxysmal atrial fibrillation (HCC) Severe aortic stenosis Ascending aortic aneurysm (HCC) Acute on chronic combined systolic and diastolic CHF, NYHA class 2 (HCC) Pancytopenia (HCC) PLAN: 1. CV - Rhythm sinus HR 65-80. BP stable 105-115's. Cont ASA and Statin ECHO 04/17- EF 55-60% AV gradient 12mmHg 2. Resp - On RA Cont IS, wean O2, aggressive pulm toilet. 3. Renal - HD. -650UO 4. GI - no BM since surgery, cont bowel regimen 5. ID - WBC stable. Afebrile. 6. Endo - FSBS stable on current regimen. On HD. Down -1.4L since admit. Dialysis this morning. MWF schedule 7. Activity - Cardiac rehab TID. Walking ad michael 8. Disposition - d/c home. OBJECTIVE: Vitals: 04/18/18 0511 04/18/18 0545 04/18/18 0600 04/18/18 0630 BP: 134/79 144/78 121/70 113/72 Pulse: 78 77 75 75 Temp: 36.6 C (97.9 F) 36.7 C (98.1 F) SpO2: 100% 96% 95% 96% Weight: 80 kg (176 lb 5.9 oz) Height: Physical Exam: General: A&O x 3 Cardiovascular: RRR no rub or murmur Respiratory: LS CTA fidel GI: soft, NT, +BS Extremities: No Edema Incisions: Minimal pain over bilateral groin sites. No hematoma present LABS: Lab Results Component Value Date/Time WBC 3.2 (L) 04/17/2018 02:00 AM HGB 10.3 (L) 04/17/2018 02:00 AM HCT 31.6 (L) 04/17/2018 02:00 AM PLTCT 75 (L) 04/17/2018 02:00 AM Lab Results Component Value Date/Time NA 137 04/17/2018 02:00 AM K 3.7 04/17/2018 02:00 AM CL 101 04/17/2018 02:00 AM CO2 27 04/17/2018 02:00 AM BUN 22 04/17/2018 02:00 AM CR 3.47 (H) 04/17/2018 02:00 AM GLU 91 04/17/2018 02:00 AM Lab Results Component Value Date MG 2.0 02/20/2018 Lab Results Component Value Date PO4 3.2 02/20/2018 Lab Results Component Value Date GLUPOC 112 (H) 04/16/2018 GLUPOC 112 (H) 02/24/2018 GLUPOC 114 (H) 02/24/2018 GLUPOC 123 (H) 02/18/2018 GLUPOC 95 02/18/2018 GLUPOC 110 (H) 02/17/2018 GLUPOC 138 (H) 02/17/2018 GLUPOC 137 (H) 02/17/2018 Sandra Jones PA-C [id number] * Dee Steiner, RT - 04/17/2018 9:16 PM CDT Formatting of this note may be different from the original. RESPIRATORY THERAPY ADULT PROTOCOL EVALUATION RESPIRATORY PROTOCOL PLAN Medications Albuterol/Ipratropium: Neb PRN (per home regimen) Note: If indicated by protocol, medication orders will be placed by therapist. Procedures PEP Therapy: Place a nursing order for "IS Q1h While Awake" for any of Lung Expansion indicators Oxygen/Humidity: Discontinued Monitoring: Discontinued PATIENT EVALUATION RESULTS Chart Review * Pulmonary Hx: Smoking cessation < 8 weeks OR still smoking OR > 20 pack/yr hx (PEFR) OR occasional use of bronchodilator (AM) (Neb PRN) * Surgical Hx: General surgery (cough & sigh not affected) * Chest X-Ray: Chronic, stable radiographic changes OR abnormal * PFT/Oxygenation: FEV1, PEFR > 80% predicted OR physically unable to perform OR Pa02 >80 RA OR Sp02 >95% RA (98% on RA) Patient Assessment * Respiratory Pattern: Regular pattern and rate OR good chest excursion with deep breathing * Breath Sounds: Clear and able to auscultate bases posteriorly * Cough / Sputum: Strong, effective cough OR nonproductive * Mental Status: Alert, oriented, cooperative * Activity Level: Ambulatory Priority Index Total Points: 4 Points * Priority Index: 1+ PRIORITY INDEX GUIDELINES* Priority Points 1 0-9 points 2 9-18 points 3 > 18 points + Pulm Dx or Home Rx *Higher points indicate higher acuity. Therapist: Dee Steiner, RT Date: 04/17/2018 Werner AC=Airway clearance AM=Aerosolized medication BA=[place] aerosol DB&C=Deep breathe & cough FEV1=Forced expiratory volume in first second) IC=Inspiratory capacity LE=Lung expansion MDI=Metered dose inhaler Neb=Nebulizer O2=Oxygen Oxim=Oximetry PEFR=Peak expiratory flow rate EXPERIMENTAL FLIGHT TEST MECHANIC=Rapid Response Team * Stella Wilcox RN - 04/17/2018 4:07 PM CDT I agree with the charting of Daniel Bridges RN unless otherwise noted. * Daniel Bridges RN - 04/17/2018 2:01 PM CDT Patient arrived to room # (414) via wheelchair accompanied by RN. Patient transferred to the bed with assistance. Bedside safety checks completed. Initial patient assessment completed, refer to flowsheet for details. Admission skin assessment completed by: Pressure Injury Present on Hospital Admission (within 24 hours): No 1. Occiput: No 2. Ear: No 3. Scapula: No 4. Spinous Process: No 5. Shoulder: No 6. Elbow: No 7. Iliac Crest: No 8. Sacrum/Coccyx: No 9. Ischial Tuberosity: No 10. Trochanter: No 11. Knee: No 12. Malleolus: No 13. Heel: No 14. Toes: No 15. Assessed for device associated injury No 16. Nursing Nutrition Assessment Completed No See Doc Flowsheet for additional wound details. INTERVENTIONS: * Daniel Bridges, YVES - 04/17/2018 1:52 PM CDT Assumed care 1315 Stand by assistance from wheelchair to bed. High fall risk. SR per tele. VSS. O2 above 92% on RA. AO4 Complains of dull headache present bilaterally in both temples. Relief from AVITIA with rest in quiet dimly lit room. Left groin puncture site dressing changed 1330. Blood saturated gauze present, no current bleeding or oozing from saturated site. New gauze and transparent dressing applied. Skin: Generalized bruising and discoloration present. * Noemi Tavera RN - 04/17/2018 12:35 PM CDT Pt continues to complain of headache, neck pain and acute nausea despite interventions. Dr. Roldan and Marcia Love updated. Orders to give 1 time dose 10mg reglan. Hemodynamics stable per trends. No other acute abnormalities. * Noemi Tavera RN - 04/17/2018 11:31 AM CDT Pt c/o persistent headache and neck pain post-operatively temporarily relieved w / tylenol and oxycodone. Neurological assessment intact and unchanged. No nausea at this time. Marcia Love at bedside. Heat applied to neck as well as additional 5mg oxycodone. * Juan Daniel Van MD - 04/17/2018 10:39 AM CDT Formatting of this note may be different from the original. Renal Progress Note Name: Tolu Barrios Today's Date: 04/17/2018 Admission Date: 04/16/2018 LOS: 1 day Assessment and Plan Principal Problem: Aortic valve stenosis Active Problems: End stage renal disease (HCC) Hyperlipidemia Hypertension Allyssa's granulomatosis (HCC) Immunosuppressed status (HCC) Thrombocytopenia (HCC) Paroxysmal atrial fibrillation (HCC) Severe aortic stenosis Ascending aortic aneurysm (HCC) Acute on chronic combined systolic and diastolic CHF, NYHA class 2 (HCC) Pancytopenia (HCC) Tolu Barrios is a 62 y.o. male status post TAVR for severe aortic stenosis. End-stage renal disease Started on dialysis August 2017 Dialyzes in [facility] right AV fistula [employer] Nay Cardona Allyssa's granulomatosis Received immunosuppression secondary tox but kidney function did take deteriorated to ESRD Severe aortic stenosis status post TAVR Metabolic acidosis Anemia of chronic disease Recommendations Tolerated HD well yesterday. No indication for Hd today. Continue Bactrim and valacyclovir and prednisone 20 mg for an GPA. No indication for ROVERTO. check phosphate with am labs Will continue to follow JUAN DANIEL VAN MD Pager [phone] Subjective Tolu Barrios is a 62 y.o. male Tolerated Hd well yesterday No complaints today Medications Medications MEDS aspirin 81 mg Oral QDAY [START ON 04/18/2018] calcitriol 0.5 mcg Oral Once per day on Sat fluticasone 2 spray Each Nostril QDAY folic acid 1 mg Oral QDAY pantoprazole DR 40 mg Oral QDAY(21) pravastatin 10 mg Oral QDAY prednisone 20 mg Oral QDAY w/breakfast senna/docusate 2 tablet Oral BID [START ON 04/18/2018] trimethoprim/sulfamethoxazole 1 tablet Oral Once per day on Sat valGANciclovir 100 mg Oral Once per day on Sat IV MEDS sodium chloride 0.9 % infusion Stopped (04/17/18 0830) Prn acetaminophen Q6H PRN 650 mg at 04/17/18 0808, [START ON 04/18/2018] bisacodyl QDAY PRN, fentaNYL citrate PF Q1H PRN 50 mcg at 04/16/18 1621, hydrALAZINE Q6H PRN, milk of magnesia (CONC) QDAY PRN, ondansetron (ZOFRAN) IV Q6H PRN 4 mg at 04/17/18 0808, oxyCODONE Q4H PRN 5 mg at 04/17/18 1121, oxymetazoline BID PRN, prochlorperazine Q6H PRN Physical Exam Vital Signs: Last Filed In 24 Hours Vital Signs: 24 Hour Range BP: 122/68 (04/17 1200) Temp: 36.7 C (98.1 F) (04/17 0800) Pulse: 75 (04/17 1200) Respirations: 11 PER MINUTE (04/17 1200) SpO2: 98 % (04/17 1100) O2 Delivery: None (Room Air) (04/17 1100) SpO2 Pulse: 72 (04/17 1000) Height: 190.5 cm (75") (04/17 1108) BP: (119-131)/(68-80) ABP: (91-167)/(44-107) Temp: [36.5 C (97.7 F)-36.9 C (98.4 F)] Pulse: [62-88] Respirations: [6 PER MINUTE-28 PER MINUTE] SpO2: [94 %-100 %] O2 Delivery: None (Room Air) Intensity Pain Scale 0-10 (Pain 1): 6 (04/17/18 1115) Intake/Output Summary (Last 24 hours) at 04/17/18 1239 Last data filed at 04/17/18 1100 Gross per 24 hour Intake 1844.5 ml Output 3750 ml Net -1905.5 ml Vitals: 04/16/18 0744 04/17/18 0700 04/17/18 1108 Weight: 81.8 kg (180 lb 5.4 oz) 81.8 kg (180 lb 5.4 oz) 81.6 kg (180 lb) Gen: Alert and Oriented X3, s/p TAVR HEENT: Sclera normal, MMM, EOMI Neck: supple, No LN CV: no JVD, S1 and S2 normal, no rubs, murmurs or gallops Pulm: Nl respiratory effort, CTA B/L GI: BS+ x4, non-tender to palpation Neuro: Grossly normal, moving all extremities, speech intact Ext: no edema Skin: no visible or palbable rash Rt AVF + thrill and bruit Labs: Recent Labs 04/15/18 1110 04/16/18 0806 04/16/18 1239 04/17/18 0200 NA 135* 133* 133* 137 K 5.5* 4.5 5.1 3.7 CL 96* 97* 100 101 CO2 26 25 19* 27 GAP 13* 11 14* 9 BUN 46* 54* 52* 22 CR 5.12* 6.03* 5.77* 3.47* GLU 101* 90 112* 91 CA 10.0 10.0 8.8 8.9 ALBUMIN 3.9 -- -- -- HGBA1C 4.4 -- -- -- Recent Labs 04/15/18 1110 04/16/18 1239 04/17/18 0200 WBC 3.5* 3.8* 3.2* HGB 11.5* 10.1* 10.3* HCT 35.6* 30.6* 31.6* PLTCT 96* 77* 75* INR 1.0 1.0 -- PTT 27.1 26.6 -- AST 17 -- -- ALT 21 -- -- ALKPHOS 137* -- -- Estimated Creatinine Clearance: 25.1 mL/min (A) (based on SCr of 3.47 mg/dL (H)) . Vitals: 04/16/18 0744 04/17/18 0700 04/17/18 1108 Weight: 81.8 kg (180 lb 5.4 oz) 81.8 kg (180 lb 5.4 oz) 81.6 kg (180 lb) No results for input(s): PHART, PO2ART in the last 72 hours. Invalid input(s): PC02A * Noemi Tavera, RN - 04/17/2018 8:00 AM CDT Assumed care. Assessment performed. Pt neurologically intact. Sitting up in chair at this time. PT c/o headache w/ nausea. Tylenol, oxycodone and zofran given. Improved significantly. Afebrile. PERRL. Denies sensation abnormalities. HR SR ~60-70s, SBP ~110-130s, BP cuff and arterial line correlating. pulses palpable, no edema observed. TV PM in place, no pacing indications at this time. Lungs clear/diminished, RA. Abdomen soft, non-tender. Present BS. Pt states able to void w/ ESRD, not observed at this time. Thrill and bruit present per RUE. Bilateral groin incisions c/d/i, soft, tender on palpation. Confirmed plan of care w/ Dr. Laird and CTS team. TV PM d/c'd. Will plan for potential d/c post echocardiogram this AM. * Yamile Love, ROOSEVELT - 04/17/2018 7:27 AM CDT Formatting of this note may be different from the original. Cardiothoracic Surgery Critical Care Progress Note Tolu Barrios Today's Date: 04/17/2018 Admission Date: 04/16/2018 LOS: 1 day POD: 1 Procedure: REPLACEMENT TRANSCATHETER AORTIC VALVE- Shania 29s3, left common femoral artery approach: 95320 (CPT) Principal Problem: Aortic valve stenosis Active Problems: End stage renal disease (HCC) Hyperlipidemia Hypertension Allyssa's granulomatosis (HCC) Immunosuppressed status (HCC) Thrombocytopenia (HCC) Paroxysmal atrial fibrillation (HCC) Severe aortic stenosis Ascending aortic aneurysm (HCC) Acute on chronic combined systolic and diastolic CHF, NYHA class 2 (HCC) Pancytopenia (HCC) Assessment/Plan: Neuro No pain, neuro intact. CV SR 70, EKG unchanged, no pacing requirements, d/c TVP. BP 106/55. Cont ASA 81 mg - history of thrombocytopenia, no change in baseline plt count. Continue pravastatin, Amio 200 mg PLASTICS PLATER resumed. Intra op NORA LVEF 60%. Resp Daily CXR bedside interpretation: lungs expanded without effusion. Currently on RA. Initiate IS, aggressive pulm toilet. Renal ESRD, HD //Sat. HD yesterday. 3L UF yesterday. Monitor BMP. Nephrology consulted - appreciate recs. GI - ADAT, Protonix resumed, start post op bowel regimen. ID Continue standard post op antibiotic for prophylaxis, per CTS protocol. Bactrim, Valacyclovir resumed. Prednisone 20 mg daily resumed. (Allyssa's Granulomatosis). Heme bASA, stable plt count. FEN If creatinine < 2.0, replace Mg and K per CTS post op protocol. Hgb A1c 4.4 %. Activity Ambulating without difficulty. Early cardiac PT/OT. Prophylaxis Review: Lines: No Antibiotic Usage: No VTE: Mechanical prophylaxis; Sequential compression device Urinary Catheter: No Disposition: The patient is post-cardiac surgery at at risk for life threatening deterioration. Patient is s/p TAVR (Shania) with Dr. Laird. He has progressed well, tolerated HD yesterday, hemodynamically stable, will transition to CTP or possibly home today will discuss with staff. I have seen, personally fully evaluated, and discussed patient with the critical care attending and cardiothoracic surgeon. The patient is s/p TAVR. I spent 30 minutes (excluding time spent performing procedures) providing and personally directing critical care services including direct OR recovery, hemodynamic monitoring and management, lab and radiology review, medication review and management, fluid and electrolyte management and coordination of care. Yamile Love APRN CTS Intensive Care Pager [phone] 04/17/2018 Subjective: HPI: Tolu Barrios is a 62 y.o. male with Allyssa's granulomatosis with renal involvement, end-stage renal disease on hemodialysis, hypertension, proximal atrial fibrillation while hospitalized in Jul 2017, hemoptysis, chronic immunosuppression, deconditioning, frailty, thrombocytopenia, hypertension, colostomy with subsequent reversal, recurrent UTI, CMV pneumonia with respiratory failure and dialysis fistula creation. Underwent successful TAVR with Dr. Laird, progressing well, will transition care to step down. REVIEW OF SYSTEMS: Constitutional: negative for fevers and chills Respiratory: negative for increased work of breathing Cardiovascular: negative for chest pain, chest pressure/discomfort Gastrointestinal: negative for nausea and vomiting Objective: Medications Scheduled Meds: aspirin chewable tablet 81 mg 81 mg Oral QDAY [START ON 04/18/2018] calcitriol (ROCALTROL) capsule 0.5 mcg 0.5 mcg Oral Once per day on Sat ceFAZolin (ANCEF) IVP 1 g 1 g Intravenous ONCE fluticasone (FLONASE) nasal spray 2 spray 2 spray Each Nostril QDAY folic acid (FOLVITE) tablet 1 mg 1 mg Oral QDAY pantoprazole DR (PROTONIX) tablet 40 mg 40 mg Oral QDAY(21) pravastatin (PRAVACHOL) tablet 10 mg 10 mg Oral QDAY prednisone (DELTASONE) tablet 20 mg 20 mg Oral QDAY w/breakfast senna/docusate (SENOKOT-S) tablet 2 tablet 2 tablet Oral BID [START ON 04/18/2018] trimethoprim/sulfamethoxazole (BACTRIM SS) 80/400 mg tablet 1 tablet 1 tablet Oral Once per day on Sat [START ON 04/18/2018] valGANciclovir solution 100 mg 100 mg Oral Once per day on Sat Continuous Infusions: sodium chloride 0.9 % infusion 30 mL/hr at 04/16/18 1201 PRN and Respiratory Meds:acetaminophen Q6H PRN, [START ON 04/18/2018] bisacodyl QDAY PRN, fentaNYL citrate PF Q1H PRN, hydrALAZINE Q6H PRN, milk of magnesia ( CONC) QDAY PRN, ondansetron (ZOFRAN) IV Q6H PRN, oxyCODONE Q4H PRN, oxymetazoline BID PRN, prochlorperazine Q6H PRN Vital Signs: Last Filed Vital Signs: 24 Hour Range BP: 115/79 (04/16 830) Temp: 36.6 C (97.8 F) (04/17 0400) Pulse: 69 (04/17 700) Respirations: 12 PER MINUTE (04/17 700) SpO2: 99 % (04/17 700) O2 Delivery: None (Room Air) (04/17 700) SpO2 Pulse: 69 (04/17 700) Height: 190.5 cm (75") (04/17 700) BP: (115)/(79) ABP: (91-167)/(46-107) Temp: [36.4 C (97.5 F)-36.9 C (98.4 F)] Pulse: [62-76] Respirations: [6 PER MINUTE-35 PER MINUTE] SpO2: [94 %-100 %] O2 Delivery: None (Room Air) Intensity Pain Scale 0-10 (Pain 1): 7 (04/17/18 0030) Vitals: 04/16/18 0744 04/17/18 07 Weight: 81.8 kg (180 lb 5.4 oz) 81.8 kg (180 lb 5.4 oz) Intake/Output Summary: (Last 24 hours) Intake/Output Summary (Last 24 hours) at 04/17/18726 Last data filed at 04/17/18 07 Gross per 24 hour Intake 1550.56 ml Output 3500 ml Net -1949.44 ml Physical Exam: Neuro: Awake and alert, EATON Cardiovascular: RRR no rub or murmur Respiratory: LS CTA fidel - diminished in the bases GI: soft, NT, hypoactive BS Extremities: No Edema, scattered ecchymosis Incisions: Groins soft, without bleeding Laboratory: LABS: Recent Labs 04/15/18 1110 04/16/18 0806 04/16/18 1239 04/17/18 0200 NA 135* 133* 133* 137 K 5.5* 4.5 5.1 3.7 CL 96* 97* 100 101 CO2 26 25 19* 27 GAP 13* 11 14* 9 BUN 46* 54* 52* 22 CR 5.12* 6.03* 5.77* 3.47* GLU 101* 90 112* 91 CA 10.0 10.0 8.8 8.9 ALBUMIN 3.9 -- -- -- HGBA1C 4.4 -- -- -- Recent Labs 04/15/18 1110 04/16/18 1239 04/17/18 0200 WBC 3.5* 3.8* 3.2* HGB 11.5* 10.1* 10.3* HCT 35.6* 30.6* 31.6* PLTCT 96* 77* 75* INR 1.0 1.0 -- PTT 27.1 26.6 -- AST 17 -- -- ALT 21 -- -- ALKPHOS 137* -- -- Estimated Creatinine Clearance: 25.2 mL/min (A) (based on SCr of 3.47 mg/dL (H)) . Vitals: 04/16/18 0744 04/17/18 0700 Weight: 81.8 kg (180 lb 5.4 oz) 81.8 kg (180 lb 5.4 oz) No results for input(s): PHART, PO2ART in the last 72 hours. Invalid input(s): PC02A Radiology and Other Diagnostic Procedures Review: Reviewed * Thelma Mayer, RN - 04/17/2018 7:03 AM CDT Formatting of this note may be different from the original. CARDIOPULMONARY REHABILITATION INPATIENT ASSESSMENT Cardiac Rehabilitation Staff: Thelma Mayer Discharge Date: Demographics Pre-admit Dx: Aortic Stenosis Date of Admission: 04/16/2018 Room: [place] [id number] : 1955 Insurance: Primary: medicare Secondary: [facility] Address: [address] [place] [id number] Patient (home) [phone] (work ) Marital Status: Occupation: Unknown ED Contact: Zakiya Barrios ED Phone #: [phone] CTS: [facility] [employer]iling Professional: Dewey Cardiac Procedures and Events Valve: 04/16/18 (TAVR) Risk Factors Risk Factors: Hyperlipidemia, Hypertension BP: 115/79 (left arm) Height: 190.5 cm (75") Weight: 81.8 kg (180 lb 5.4 oz) BMI (Calculated): 22.54 Medical History has a past medical history of Anemia; Aortic stenosis; Arthralgia (started in 1996); DVT (deep venous thrombosis) ([facility]) (nov 1996); Enlarged prostate; GERD ( gastroesophageal reflux disease); Gout of big toe; Herpes zoster; History of blood transfusion (2008 x1); Hyperlipidemia; Leukopenia; Melanoma (HCC) (1995 ); Necrosis of head of left femur (HCC) (left and right); Neuropathy; Renal failure; Thrombocytopenia (HCC); Allyssa's granulomatosis (HCC); and Allyssa's granulomatosis with renal involvement (HCC). Labs Cholesterol Date Value Ref Range Status 02/11/2018 61 <200 MG/DL Final Triglycerides Date Value Ref Range Status 02/11/2018 169 (H) <150 MG/DL Final HDL Date Value Ref Range Status 02/11/2018 17 (L) >40 MG/DL Final LDL Date Value Ref Range Status 02/11/2018 20 <100 MG/DL Final Hemoglobin A1C Date Value Ref Range Status 04/15/2018 4.4 4.0 - 6.0 % Final Comment: The ADA recommends that most patients with type 1 and type 2 diabetes maintain an A1c level <7%. Troponin-I Date Value Ref Range Status 02/15/2018 0.36 (H) 0.0 - 0.05 NG/ML Final Heart Resource Manual Given: Teaching Completed: Outpatient Cardiopulmonary Rehabilitation OPCR: Referral Faxed to: Date Faxed: Location: [facility], Sent to Staff: Thelma Mayer RN 04/17/2018 * Stephanie Williamson MD - 04/17/2018 6:38 AM CDT KIMBERLY ON. Remains off pressors. CXR clear. HD yesterday with removal of 3L. Daily ASA--mild thrombocytopenia at baseline. Progressing well; anticipate d/ c home today. Stephanie Williamson MD * Donavan Schilling, RN - 04/17/2018 6:15 AM CDT Pt ambulated x1 laps with minimal assistance. VS WNL. * Donavan Schilling RN - 04/17/2018 4:00 AM CDT No acute changes. MAP >65, room air. Will continue to monitor. * Donavan Schilling RN - 04/17/2018 12:34 AM CDT Pt reassessment complete. Neurologically intact, pain managed by PRN medications. Afebrile, SR 60-70s, ABP 110-120s/50s, MAP 70s. NC 1 lpm, clear/ diminished lung sounds. Wounds C/D/I. Will continue to monitor. * Donavan Schilling, RN - 04/16/2018 9:02 PM CDT Pt assessment complete. Neurologically intact, afebrile, pain managed by PRN medications. Afebrile, SR 60s, ABP 110s-140s/50s, MAP 80s. NC 2 lpm, clear/ diminished lung sounds. Wounds C/D/I. Will continue to monitor and follow plan of care. * Virginia Mejia, RT - 04/16/2018 6:48 PM CDT Formatting of this note may be different from the original. RESPIRATORY THERAPY ADULT PROTOCOL EVALUATION RESPIRATORY PROTOCOL PLAN Medications Albuterol/Ipratropium: Neb PRN Note: If indicated by protocol, medication orders will be placed by therapist. Procedures PEP Therapy: Q4h PEP While Awake Vibrating PEP Therapy: Discontinued IPPB: Place a nursing order for "IS Q1h While Awake" for any of Lung Expansion indicators Oxygen/Humidity: O2 to keep SpO2 > 92% Monitoring: Pulse oximetry BID & PRN PATIENT EVALUATION RESULTS Chart Review * Pulmonary Hx: Smoking cessation < 8 weeks OR still smoking OR > 20 pack/yr hx (PEFR) OR occasional use of bronchodilator (AM) (Neb PRN) * Surgical Hx: General surgery (cough & sigh not affected) * Chest X-Ray: Clear OR not available * PFT/Oxygenation: FEV1, PEFR < 70% OR Pa02 < 70 RA OR Sp02 <92% RA OR Fi02 > 0.21 to keep Sp02 > 92% OR < 24 hours post-op (02 & oxim) OR chronic C02 retention (C02) Patient Assessment * Respiratory Pattern: Regular pattern and rate OR good chest excursion with deep breathing * Breath Sounds: Clear apically, but diminished in bases (LE) OR CHF related crackles (02) (oximetry) * Cough / Sputum: Good effective cough OR occasional or minimal sputum OR thin sputum * Mental Status: Alert, oriented, cooperative * Activity Level: Ambulatory with assistance Priority Index Total Points: 8 Points * Priority Index: 1+ PRIORITY INDEX GUIDELINES* Priority Points 1 0-9 points 2 9-18 points 3 > 18 points + Pulm Dx or Home Rx *Higher points indicate higher acuity. Therapist: Virginia Mejia, RT Date: 04/16/2018 [place] AC=Airway clearance AM=Aerosolized medication BA=[place] aerosol DB&C=Deep breathe & cough FEV1=Forced expiratory volume in first second) IC=Inspiratory capacity LE=Lung expansion MDI=Metered dose inhaler Neb=Nebulizer O2=Oxygen Oxim=Oximetry PEFR=Peak expiratory flow rate EXPERIMENTAL FLIGHT TEST MECHANIC=Rapid Response Team * Kenn Escobar, RN - 04/16/2018 4:00 PM CDT Patient reassessment. VSS. NAD. Remains oriented to RN and surroundings. Strength intact and equal fidel 5+/5+. Continuing 0.9% Sodium Chloride gtt per orders. Fidel groin drsgs remain intact. Old drainage noted on left DSTAT and scant serosanguineous drng noted under right transparent drsg. No hematomas noted. Will continue to monitor. * Yamile Love, [employer] - 04/16/2018 1:18 PM CDT Formatting of this note may be different from the original. Cardiothoracic Surgery Critical Care Progress Note Tolu Barrios Today's Date: 04/16/2018 Admission Date: 04/16/2018 LOS: 0 days POD: 0 Procedure: REPLACEMENT TRANSCATHETER AORTIC VALVE- Shania 29s3, left common femoral artery approach: 05433 (CPT) Principal Problem: Aortic valve stenosis Active Problems: End stage renal disease (HCC) Hyperlipidemia Hypertension Allyssa's granulomatosis (HCC) Immunosuppressed status (HCC) Thrombocytopenia (HCC) Paroxysmal atrial fibrillation (HCC) Severe aortic stenosis Ascending aortic aneurysm (HCC) Acute on chronic combined systolic and diastolic CHF, NYHA class 2 (HCC) Assessment/Plan: Neuro Acetaminophen IV given for neck and shoulder pain. Will continue PRN Fentanyl and oxycodone. CV SR 70, BP 108/59. Cont ASA 81 mg (hold for plts <80k) and pravastatin. Amio 200 mg PLASTICS PLATER resumed. Intra op NORA LVEF 60%. Resp Daily CXR bedside interpretation: lungs expanded without effusion. Will await radiology report. Currently on RA. Initiate IS, aggressive pulm toilet. Renal ESRD, HD //Sat. Monitor BMP. Nephrology consulted - appreciate recs. GI - ADAT, Protonix resumed, start post op bowel regimen. ID Continue standard post op antibiotic for prophylaxis, per CTS protocol. Bactrim, Valacyclovir resumed. Prednisone 20 mg daily resumed. (Allyssa's Granulomatosis). Heme Hold DVT prophylaxis until cleared by CTS, continue mechanical prophylaxis. FEN If creatinine < 2.0, replace Mg and K per CTS post op protocol. Hgb A1c 4.4 %. Activity TAVR protocol. Early cardiac PT/OT. Prophylaxis Review: Lines: Yes; Arterial Line; Indication: Frequent blood draws and Continuous BP monitoring; Location: Radial Antibiotic Usage: No VTE: Mechanical prophylaxis; Sequential compression device Urinary Catheter: No Disposition: The patient is post-cardiac surgery at at risk for life threatening deterioration. Patient is critically ill s/p TAVR (Shania) with Dr. Laird. Will monitor. I have seen, personally fully evaluated, and discussed patient with the critical care attending and cardiothoracic surgeon. The patient is critically ill s/p TAVR. I spent 60 minutes (excluding time spent performing procedures) providing and personally directing critical care services including direct OR recovery, hemodynamic monitoring and management, lab and radiology review, medication review and management, fluid and electrolyte management and coordination of care. Yamile Love APRN CTS Intensive Care Pager [phone] 04/16/2018 Subjective: HPI: Tolu Barrios is a 62 y.o. male with Allyssa's granulomatosis with renal involvement, end-stage renal disease on hemodialysis, hypertension, proximal atrial fibrillation while hospitalized in Jul 2017, hemoptysis, chronic immunosuppression, deconditioning, frailty, thrombocytopenia, hypertension, colostomy with subsequent reversal, recurrent UTI, CMV pneumonia with respiratory failure and dialysis fistula creation. Underwent successful TAVR with Dr. Laird, will continue to monitor in the ICU. REVIEW OF SYSTEMS: Constitutional: negative for fevers and chills Respiratory: negative for increased work of breathing Cardiovascular: negative for chest pain, chest pressure/discomfort Gastrointestinal: negative for nausea and vomiting Objective: Medications: Scheduled Meds: [START ON 04/17/2018] aspirin chewable tablet 81 mg 81 mg Oral QDAY [START ON 04/17/2018] ceFAZolin (ANCEF) IVP 1 g 1 g Intravenous ONCE [START ON 04/17/2018] folic acid (FOLVITE) tablet 1 mg 1 mg Oral QDAY [START ON 04/17/2018] pravastatin (PRAVACHOL) tablet 10 mg 10 mg Oral QDAY [START ON 04/17/2018] prednisone (DELTASONE) tablet 20 mg 20 mg Oral QDAY w/ breakfast senna/docusate (SENOKOT-S) tablet 2 tablet 2 tablet Oral BID [START ON 04/18/2018] trimethoprim/sulfamethoxazole (BACTRIM SS) 80/400 mg tablet 1 tablet 1 tablet Oral Once per day on Sat [START ON 04/18/2018] valGANciclovir solution 100 mg 100 mg Oral Once per day on Sat Continuous Infusions: nitroGLYCERIN 50 mg/D5W 250 mL infusion Stopped (04/16/18 1200) norepinephrine (LEVOPHED) 4 mg in dextrose 5% (D5W) 250 mL IV drip (std conc ) Stopped (04/16/18 1200) sodium chloride 0.9 % infusion 30 mL/hr at 04/16/18 1201 PRN and Respiratory Meds:acetaminophen Q6H PRN, [START ON 04/18/2018] bisacodyl QDAY PRN, fentaNYL citrate PF Q1H PRN, hydrALAZINE Q6H PRN, milk of magnesia ( CONC) QDAY PRN, ondansetron (ZOFRAN) IV Q6H PRN, oxyCODONE Q4H PRN, prochlorperazine Q6H PRN, sodium chloride 0.9% (NS) IP Dialysis PRN, sodium chloride 0.9% (NS) IP Dialysis PRN, sodium chloride 0.9% (NS) IP Dialysis PRN Vital Signs: Last Filed Vital Signs: 24 Hour Range BP: 115/79 (04/16 0830) Temp: 36.8 C (98.2 F) (04/16 1200) Pulse: 70 (04/16 1300) Respirations: 18 PER MINUTE (04/16 1300) SpO2: 100 % (04/16 1300) O2 Delivery: None (Room Air) (04/16 744) SpO2 Pulse: 70 (04/16 1300) Height: 190.5 cm (75") (04/16 744) BP: (115)/(79) ABP: (108-128)/(47-69) Temp: [36.4 C (97.5 F)-36.8 C (98.2 F)] Pulse: [68-75] Respirations: [14 PER MINUTE-35 PER MINUTE] SpO2: [99 %-100 %] O2 Delivery: None (Room Air) Vitals: 04/16/18 0744 Weight: 81.8 kg (180 lb 5.4 oz) Intake/Output Summary: (Last 24 hours) Intake/Output Summary (Last 24 hours) at 04/16/18 1320 Last data filed at 04/16/18 1151 Gross per 24 hour Intake 650 ml Output 0 ml Net 650 ml Physical Exam: Neuro: Awake and alert, EATON Cardiovascular: RRR no rub or murmur Respiratory: LS CTA fidel - diminished in the bases GI: soft, NT, hypoactive BS Extremities: No Edema Incisions: Groins soft, small amount of bloody drainage, no hematoma. Laboratory: LABS: Recent Labs 04/15/18 1110 04/16/18 0806 NA 135* 133* K 5.5* 4.5 CL 96* 97* CO2 26 25 GAP 13* 11 BUN 46* 54* CR 5.12* 6.03* GLU 101* 90 CA 10.0 10.0 ALBUMIN 3.9 -- HGBA1C 4.4 -- Recent Labs 04/15/18 1110 04/16/18 1239 WBC 3.5* 3.8* HGB 11.5* 10.1* HCT 35.6* 30.6* PLTCT 96* 77* INR 1.0 1.0 PTT 27.1 26.6 AST 17 -- ALT 21 -- ALKPHOS 137* -- Estimated Creatinine Clearance: 14.5 mL/min (A) (based on SCr of 6.03 mg/dL (H)) . Vitals: 04/16/18 07 Weight: 81.8 kg (180 lb 5.4 oz) No results for input(s): PHART, PO2ART in the last 72 hours. Invalid input(s): PC02A Radiology and Other Diagnostic Procedures Review: Reviewed * Kenn Escobar RN - 04/16/2018 12:00 PM CDT Patient received from [facility]. VSS on arrival. Patient is lethargic but answers questions appropriately and follows commands. Strength intact and equal fidel 4+/ 4+. Continuing 0.9% Sodium Chloride gtt per orders. Fidel groin sites with drsgs intact, no hematomas present. Drainage noted on left groin DSTAT. Will continue to monitor. in this encounter H&P Notes * Neeru Anderson PA-C - 04/16/2018 8:28 AM CDT Formatting of this note may be different from the original. Admission History and Physical Examination Name: Tolu Barrios Admission Date: 04/16/2018 Assessment/Plan: Principal Problem: Aortic valve stenosis Active Problems: End stage renal disease (HCC) Hyperlipidemia Hypertension Allyssa's granulomatosis (HCC) Thrombocytopenia (HCC) Severe aortic stenosis Ascending aortic aneurysm (HCC) Acute on chronic combined systolic and diastolic CHF, NYHA class 2 (HCC) Admit for TAVR today. Will give ASA 81mg. __ Primary Care Physician: Devon Cheema Verified Chief Complaint: Aortic Stenosis History of Present Illness: Tolu Barrios (CE) is a 62 y.o. male who is known to [facility]. He has an extensive past medical history including: ascending aortic aneurysm, aortic stenosis, Allyssa's granulomatosis with renal involvement, end-stage renal disease on hemodialysis, hypertension, proximal atrial fibrillation while hospitalized in Jul 2017, hemoptysis, chronic immunosuppression, deconditioning, frailty, thrombocytopenia, hypertension, colostomy with subsequent reversal, recurrent UTI, CMV pneumonia with respiratory failure and dialysis fistula creation. He has undergone evaluation for TAVR by two surgeons who agree that this is the best course of action for Mr. Barrios. He reports that his strength is much improved since his release from rehab. He says over the last few days he has been walking quite a bit. He reports occasional lightheadedness. He denies chest pain, PND, shortness of breath, palpitations or syncope. 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 head of left femur (HCC) left and right aseptic necrosis along with osteopenia 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 Renal failure ESRD Dialysis MWF Thrombocytopenia (HCC) Allyssa's granulomatosis (HCC) Allyssa's granulomatosis with renal involvement (HCC) Past Surgical History: Procedure Laterality Date HX LYMPH NODE BIOPSY 01/27/2010 sentinel node bx HX HEART CATHETERIZATION 11/2017 BRONCHOSCOPY CATARACT REMOVAL COLOSTOMY KNEE SURGERY Family history reviewed; non-contributory Social History Social History Marital status: Spouse name: N/A Number of children: N/A Years of education: N/A Social History Main Topics Smoking status: Never Smoker Smokeless tobacco: Never Used Alcohol use Yes Comment: occasional Drug use: Yes Types: Marijuana Comment: "6-7 hits" per week Sexual activity: Not on file Other Topics Concern Not on file Social History Narrative No narrative on file Immunizations (includes history and patient reported): There is no immunization history on file for this patient. Allergies: Patient has no known allergies. Medications: Prescriptions Prior to Admission Medication Sig acetaminophen (TYLENOL) 325 mg tablet Take 2 tablets by mouth every 4 hours as needed. albuterol 0.5% (PROVENTIL; VENTOLIN) 2.5 mg/0.5 mL nebulizer solution Inhale 0.5 mL solution by nebulizer as directed three times daily and at bedtime. amiodarone (CORDARONE) 200 mg tablet Take 1 tablet by mouth daily. Take with [...] daily and at bedtime. nebulizer compressor medical transcription Use as directed. pantoprazole DR (PROTONIX) 40 mg tablet Take 40 mg by mouth daily. pravastatin (PRAVACHOL) 10 mg tablet Take 10 mg by mouth daily. prednisone (DELTASONE) 5 mg tablet Take 25 mg daily until 03/21, then decrease to 20 mg daily and continue until f/u with Director Project Management (Patient taking differently: Take 20 mg by mouth daily with breakfast. Take 25 mg daily until 03/21, then decrease to 20 mg daily and continue until f/u with Director Project Management) senna/docusate (SENOKOT-S) 8.6/50 mg tablet Take 1 [...] tab Take 1 tablet by mouth daily. Review of Systems: Constitutional: positive for fatigue and debility Respiratory: negative Cardiovascular: negative Gastrointestinal: negative Integument/breast: positive for frail skin Musculoskeletal:negative Neurological: positive for occasional lightheadedness Physical Exam: Vital Signs: Last Filed In 24 Hours Vital Signs: 24 Hour Range BP: 115/79 (04/16 830) Temp: 36.4 C (97.5 F) (04/16 744) Pulse: 74 (04/16 830) Respirations: 22 PER MINUTE (04/16 830) SpO2: 99 % (04/16 830) O2 Delivery: None (Room Air) (04/16 744) SpO2 Pulse: 73 (04/16 830) Height: 190.5 cm (75") (04/16 744) BP: (106-115)/(70-79) Temp: [36.4 C (97.5 F)-36.5 C (97.7 F)] Pulse: [74-82] Respirations: [16 PER MINUTE-22 PER MINUTE] SpO2: [99 %-100 %] O2 Delivery: None (Room Air) General: Alert, cooperative, no distress, appears stated age Head: Normocephalic, without obvious abnormality, atraumatic Lungs: Clear to auscultation bilaterally Chest wall: No tenderness or deformity. Heart: RRR with 3/6 systolic murmur Abdomen: Soft, NT, +BS, healed laparotomy scar Extremities: no edema Skin: frail skin with multiple skin tears, bruising and discoloration Neurologic: no gross deficits Lab/Radiology/Other Diagnostic Tests: 24-hour labs: No results found for this visit on 04/16/18 (from the past 24 hour(s)). No pertinent radiology. Neeru Anderson PA-C Pager [phone] in this encounter Procedure Notes * Shaneka Campa, YVES - 04/18/2018 6:27 AM CDT Associated Order(s): HEMODIALYSIS INPATIENT; HEMODIALYSIS DATE 544 Pt from HC414 to HD suite via [...] UF 2 kgs. 0956 report to Stella RN, and YVES Sanchez unit HC4. * Leidy Borrero RN - 04/16/2018 8:29 PM CDT Associated Order(s): HEMODIALYSIS INPATIENT; HEMODIALYSIS DATE HEMODIALYSIS-04/16/18 PT ID CHECKED- YES, And consent obtained prior to start of treatment. [...] high without achieving 400 ml/min blood flow rate , noted some vibration above venous needle, pt [...] dressing if pt should start to bleed. in this encounter Consult Notes * Lupillo Roldan MD - 04/16/2018 11:53 PM CDT Associated Order(s): CONSULT ANESTHESIOLOGY CRITICAL CARE PHYSICIAN Formatting of this note may be different from the original. Critical Care Progress Note Today's Date: 04/16/2018 Name: Tolu Barrios Admission Date: 04/16/2018 LOS: 0 days Assessment/Plan: Principal Problem: Aortic valve stenosis Active Problems: End stage renal disease (HCC) Hyperlipidemia Hypertension Allyssa's granulomatosis (HCC) Immunosuppressed status (HCC) Thrombocytopenia (HCC) Paroxysmal atrial fibrillation (HCC) Severe aortic stenosis Ascending aortic aneurysm (HCC) Acute on chronic combined systolic and diastolic CHF, NYHA class 2 (HCC) ATTESTATION This note is associated with the CTS ICU team note dated today. Date of Service: 04/16/2018 I have seen, personally fully evaluated, and discussed patient with the [facility] ICU team. The patient is critically ill s/p TAVR. I spent 35 minutes (excluding time spent performing or supervising any procedures) providing and personally directing critical care services including respiratory care, pain mgt, hemodynamic monitoring and management, lab and radiology review, medication review and management, fluid and electrolyte management and coordination of care. Neurologically intact. Denies pain. Monitor. TAVR today. No complications. HR and BP good. No pacing requirements. Oxygenation good. Breathing comfortably. CXR as expected. Cont pulm hygiene. ESRD. HD yesterday. No indication today. Watch lytes closely. Volume status good. Monitor. H/H stable. No signs of bleeding. ASA only for valve. Monitor. Insulin per SSI. Cont home steroids. H/o of Cheikh's granulomatosis. No current issues. Monitor. Nauseous. Not much appetite. Will treat as able and encourage intake. Deloris-op abx. No other current infectious issues. Monitor. This patient is critically ill with dysfunction of multiple organ systems and is at risk for additional life threatening deterioration. Cont ICU care. Staff name: Lupillo Roldan MD Date: 04/16/2018 __ Subjective: Tolu Barrios is a 62 y.o. male. Admitted to CTICU immediately following TAVR. Stable. Objective: Medications: Scheduled Meds: [START ON 04/17/2018] aspirin chewable tablet 81 mg 81 mg Oral QDAY [START ON 04/18/2018] calcitriol (ROCALTROL) capsule 0.5 mcg 0.5 mcg Oral Once per day on Sat [START ON 04/17/2018] ceFAZolin (ANCEF) IVP 1 g 1 g Intravenous ONCE fluticasone (FLONASE) nasal spray 2 spray 2 spray Each Nostril QDAY [START ON 04/17/2018] folic acid (FOLVITE) tablet 1 mg 1 mg Oral QDAY pantoprazole DR (PROTONIX) tablet 40 mg 40 mg Oral QDAY(21) [START ON 04/17/2018] pravastatin (PRAVACHOL) tablet 10 mg 10 mg Oral QDAY [START ON 04/17/2018] prednisone (DELTASONE) tablet 20 mg 20 mg Oral QDAY w/ breakfast senna/docusate (SENOKOT-S) tablet 2 tablet 2 tablet Oral BID [START ON 04/18/2018] trimethoprim/sulfamethoxazole (BACTRIM SS) 80/400 mg tablet 1 tablet 1 tablet Oral Once per day on Sat [START ON 04/18/2018] valGANciclovir solution 100 mg 100 mg Oral Once per day on Sat Continuous Infusions: nitroGLYCERIN 50 mg/D5W 250 mL infusion Stopped (04/16/18 1200) norepinephrine (LEVOPHED) 4 mg in dextrose 5% (D5W) 250 mL IV drip (std conc ) Stopped (04/16/18 1200) sodium chloride 0.9 % infusion 30 mL/hr at 04/16/18 1201 PRN and Respiratory Meds:acetaminophen Q6H PRN, [START ON 04/18/2018] bisacodyl QDAY PRN, fentaNYL citrate PF Q1H PRN, hydrALAZINE Q6H PRN, milk of magnesia ( CONC) QDAY PRN, ondansetron (ZOFRAN) IV Q6H PRN, oxyCODONE Q4H PRN, oxymetazoline BID PRN, prochlorperazine Q6H PRN, sodium chloride 0.9% (NS) IP Dialysis PRN, sodium chloride 0.9% (NS) IP Dialysis PRN Vital Signs: Last Filed Vital Signs: 24 Hour Range BP: 115/79 (04/16 830) ABP: 110/58 (04/16 2315) Temp: 36.7 C (98.1 F) (04/16 2045) Pulse: 76 (04/16 2315) Respirations: 18 PER MINUTE (04/16 2315) SpO2: 98 % (04/16 2315) O2 Delivery: Nasal Cannula (04/16 2315) Height: 190.5 cm (75") (04/16 744) Weight: 81.8 kg (180 lb 5.4 oz) (04/16 744) BP: (115)/(79) ABP: (91-167)/(47-107) Temp: [36.4 C (97.5 F)-36.8 C (98.2 F)] Pulse: [62-76] Respirations: [6 PER MINUTE-35 PER MINUTE] SpO2: [98 %-100 %] O2 Delivery: Nasal Cannula Intensity Pain Scale 0-10 (Pain 1): (not recorded) Vitals: 04/16/18743 Weight: 81.8 kg (180 lb 5.4 oz) Critical Care Vitals: ICP Monitoring: PA Catheter: Hemodynamics/Oxycalcs: Intake/Output Summary: (Last 24 hours) Intake/Output Summary (Last 24 hours) at 04/16/18 2353 Last data filed at 04/16/18 2300 Gross per 24 hour Intake 1210.56 ml Output 0 ml Net 1210.56 ml Physical Exam: General: Alert, cooperative, no distress, appears stated age Lungs: Clear to auscultation bilaterally Heart: Regular rate and rhythm, S1, S2 normal, no murmur, click rub or gallop Extremities: Extremities normal, atraumatic, no cyanosis or edema Peripheral pulses: 2+ and symmetric, all extremities Artificial airway: None Ventilator/ Respiratory Therapy: No Vent weaning trial: Not applicable Drains: None Prophylaxis Review: Lines: Yes; Arterial Line; Indication: Frequent blood draws and Continuous BP monitoring; Location: Radial Central Line; Indication: Hemodynamic monitoring; Type: Internal jugular Urinary Catheter: Yes; Retain allan due to: Need for accurate Intake and Output Antibiotic Usage: Yes; Infection present or suspected: Deloris-op prophylaxis VTE: Mechanical prophylaxis; Sequential compression device Lab Review: Pertinent labs reviewed Point of Care Testing: (Last 24 hours): Glucose: (!) 112 (04/16/18 1239) POC Glucose (Download): (!) 112 (04/16/18 1041) Radiology and Other Diagnostic Procedures Review: Pertinent radiology reviewed. Lupillo Roldan MD Pager [phone] * Juan Daniel Van MD - 04/16/2018 2:43 PM CDT Associated Order(s): CONSULT NEPHROLOGY PHYSICIAN Formatting of this note may be different from the original. Renal Consult Tolu Barrios Admission Date: 04/16/2018 Assessment and Plan Principal Problem: Aortic valve stenosis Active Problems: End stage renal disease (HCC) Hyperlipidemia Hypertension Allyssa's granulomatosis (HCC) Immunosuppressed status (HCC) Thrombocytopenia (HCC) Paroxysmal atrial fibrillation (HCC) Severe aortic stenosis Ascending aortic aneurysm (HCC) Acute on chronic combined systolic and diastolic CHF, NYHA class 2 (HCC) Tolu Barrios is a 62 y.o. male status post TAPVR for severe aortic stenosis. End-stage renal disease Started on dialysis August 2017 Dialyzes in [facility] right AV fistula [employer] Nay Cardona Allyssa's granulomatosis Received immunosuppression secondary tox but kidney function did take deteriorated to ESRD Severe aortic stenosis status post TAVR Metabolic acidosis Anemia of chronic disease Recommendations We contacted outpatient hemodialysis unit and confirmed his schedule and orders. He has recently been switched to Saturday. His potassium is borderline so we plan to do hemodialysis today. We will run him for 3-1/2 hours with a 2K bath. His estimated dry weight is unknown as he has had significant weight change recently. We will aim for 2-3 L ultrafiltration as blood pressure tolerates. Continue her Bactrim and valacyclovir and prednisone 20 mg for an GPA. Thank you for consulting nephrology and for allowing us to participate in his care, we will continue to follow. Please do not hesitate to call us with any questions Case discussed with the CTS team JUAN DANIEL VAN MD Pager [phone] History Reason for Consult: ESRD HPI: Tolu Barrios is a 62 y.o. male with past medical history of ascending aortic aneurysm, aortic stenosis, Allyssa's granulomatosis with renal involvement, end-stage renal disease and has been on hemodialysis, hypertension , paroxysmal A. fib, who is status post TAVR on April 16. Nephrology were consulted to follow needs for dialysis. At the time when I saw the patient he was just getting out of the TAPVR. He felt okay overall. However he was a little forgetful and unable to answer all my questions. He denied chest pain at that moment. He denied shortness of breath. He stated that he recently switched his schedule from Saturday to Saturday. His last treatment was on Saturday and he had no complications with that. 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 head of left femur (HCC) left and right aseptic necrosis along with osteopenia 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 Renal failure ESRD Dialysis MWF Thrombocytopenia (HCC) Allyssa's granulomatosis (HCC) Allyssa's granulomatosis with renal involvement (HCC) Past Surgical History: Procedure Laterality Date HX LYMPH NODE BIOPSY 01/27/2010 sentinel node bx HX HEART CATHETERIZATION 11/2017 BRONCHOSCOPY CATARACT REMOVAL COLOSTOMY KNEE SURGERY Family History Family History Problem Relation Age of Onset Cancer Mother Hypertension Father Aneurysm Father Social History Social History Social History Marital status: Spouse name: N/A Number of children: N/A Years of education: N/A Social History Main Topics Smoking status: Never Smoker Smokeless tobacco: Never Used Alcohol use Yes Comment: occasional Drug use: Yes Types: Marijuana Comment: "6-7 hits" per week Sexual activity: Not on file Other Topics Concern Not on file Social History Narrative No narrative on file Medications MEDS [START ON 04/17/2018] aspirin 81 mg Oral QDAY [START ON 04/17/2018] ceFAZolin (ANCEF) IV 1 g Intravenous ONCE fluticasone 2 spray Each Nostril QDAY [START ON 04/17/2018] folic acid 1 mg Oral QDAY pantoprazole DR 40 mg Oral QDAY(21) [START ON 04/17/2018] pravastatin 10 mg Oral QDAY [START ON 04/17/2018] prednisone 20 mg Oral QDAY w/breakfast senna/docusate 2 tablet Oral BID [START ON 04/18/2018] trimethoprim/sulfamethoxazole 1 tablet Oral Once per day on Sat [START ON 04/18/2018] valGANciclovir 100 mg Oral Once per day on Sat IV MEDS nitroGLYCERIN 50 mg/D5W 250 mL infusion Stopped (04/16/18 1200) norepinephrine (LEVOPHED) 4 mg in dextrose 5% (D5W) 250 mL IV drip (std conc ) Stopped (04/16/18 1200) sodium chloride 0.9 % infusion 30 mL/hr at 04/16/18 1201 Prn acetaminophen Q6H PRN, [START ON 04/18/2018] bisacodyl QDAY PRN, fentaNYL citrate PF Q1H PRN 50 mcg at 04/16/18 1621, hydrALAZINE Q6H PRN, milk of magnesia (CONC) QDAY PRN, ondansetron (ZOFRAN) IV Q6H PRN 4 mg at 04/16/18 1218 , oxyCODONE Q4H PRN 5 mg at 04/16/18 1621, oxymetazoline BID PRN, prochlorperazine Q6H PRN, sodium chloride 0.9% (NS) IP Dialysis PRN, sodium chloride 0.9% (NS) IP Dialysis PRN, sodium chloride 0.9% (NS) IP Dialysis PRN HOME MEDS Prior to Admission Medications Prescriptions Last Dose Informant Patient Reported? Taking? acetaminophen (TYLENOL) 325 mg tablet Past Week Self No No Sig: Take 2 tablets by mouth every 4 hours as needed. albuterol 0.5% (PROVENTIL; VENTOLIN) 2.5 mg/0.5 mL nebulizer solution Past Week Self No No Sig: Inhale 0.5 mL solution by nebulizer as directed three times daily and at bedtime. amiodarone (CORDARONE) 200 mg tablet 04/16/2018 Self No No Sig: Take 1 tablet by mouth daily. Take with food. calcitriol (ROCALTROL) 0.5 mcg capsule Past Week Self Yes No Sig: Take 1 capsule at dialysis appt (Saturday, Saturday, Saturday) calcium carbonate/vitamin D-3 (OSCAL-500+D) 1250 mg/200 unit tablet 04/15/2018 Self Yes No Sig: Take 1 tablet by mouth daily. Calcium Carb 1250mg delivers 500mg elemental Ca codeine/guaiFENesin (ROBITUSSIN-AC) 10/100 mg/5 mL oral solution >1 Month Self No No Sig: Take 10 mL by mouth every 6 hours as needed for Cough. folic acid (FOLVITE) 1 mg tablet 04/16/2018 Self No No Sig: Take 1 tablet by mouth daily. guaiFENesin LA (MUCINEX) 600 mg tablet >1 Month Self No No Sig: Take 1 tablet by mouth twice daily. ipratropium bromide (ATROVENT) 0.02 % nebulizer solution Past Week Self No No Sig: Inhale 2.5 mL by mouth into the lungs three times daily and at bedtime. nebulizer compressor medical transcription Past Week Self No No Sig: Use as directed. pantoprazole DR (PROTONIX) 40 mg tablet 04/16/2018 Self Yes No Sig: Take 40 mg by mouth daily. pravastatin (PRAVACHOL) 10 mg tablet 04/16/2018 Self Yes No Sig: Take 10 mg by mouth daily. prednisone (DELTASONE) 5 mg tablet 04/16/2018 Self No No Sig: Take 25 mg daily until 03/21, then decrease to 20 mg daily and continue until f/u with Director Project Management Patient taking differently: Take 20 mg by mouth daily with breakfast. Take 25 mg daily until 03/21, then decrease to 20 mg daily and continue until f/u with Director Project Management melo/leahte (SENOKOT-S) 8.6/50 mg tablet 04/15/2018 Self No No Sig: Take 1 tablet by mouth twice daily. Patient taking differently: Take 1 tablet by mouth daily. trimethoprim/sulfamethoxazole (BACTRIM SS) 80/400 mg tablet Past Week Self No No Sig: Take 1 tablet by mouth three times weekly. Continue until dose of prednisone is less than 20mg per day valGANciclovir 50 mg/mL oral solution Past Week Self No No Sig: Take 2 mL by mouth three times weekly. After dialysis on dialysis days. Length of therapy to be determined by ID vitamins, multi B, C, Zn & folate (Renal) (NEPHPLEX RX) 1-60-300-12.5 mg-mg-mcg- mg tab 04/15/2018 Self No No Sig: Take 1 tablet by mouth daily. Facility-Administered Medications: None Review of Systems 14 points reviewed and neg other than HPI Physical Exam Vital Signs: Last Filed In 24 Hours Vital Signs: 24 Hour Range BP: 115/79 (04/16 0830) Temp: 36.5 C (97.7 F) (04/16 1600) Pulse: 63 (04/16 1600) Respirations: 14 PER MINUTE (04/16 1600) SpO2: 100 % (04/16 1600) O2 Delivery: None (Room Air) (04/16 744) SpO2 Pulse: 63 (04/16 1600) Height: 190.5 cm (75") (04/16 744) BP: (115)/(79) ABP: (108-151)/(47-69) Temp: [36.4 C (97.5 F)-36.8 C (98.2 F)] Pulse: [62-75] Respirations: [10 PER MINUTE-35 PER MINUTE] SpO2: [99 %-100 %] O2 Delivery: None (Room Air) Vitals: 04/16/18743 Weight: 81.8 kg (180 lb 5.4 oz) Intake/Output Summary (Last 24 hours) at 04/16/18 1643 Last data filed at 04/16/181599 Gross per 24 hour Intake 800.56 ml Output 0 ml Net 800.56 ml Gen: Alert and Oriented X3, s/p TAVR HEENT: Sclera normal, MMM, EOMI Neck: supple, No LN CV: no JVD, S1 and S2 normal, no rubs, murmurs or gallops Pulm: Nl respiratory effort, CTA B/L GI: BS+ x4, non-tender to palpation Neuro: Grossly normal, moving all extremities, speech intact Ext: no edema Skin: no visible or palbable rash Rt AVF + thrill and bruit Labs Recent Labs 04/15/18 1110 04/16/18 0806 04/16/18 1239 NA 135* 133* 133* K 5.5* 4.5 5.1 CL 96* 97* 100 CO2 26 25 19* GAP 13* 11 14* BUN 46* 54* 52* CR 5.12* 6.03* 5.77* GLU 101* 90 112* CA 10.0 10.0 8.8 ALBUMIN 3.9 -- -- HGBA1C 4.4 -- -- Recent Labs 04/15/18 1110 04/16/18 1239 WBC 3.5* 3.8* HGB 11.5* 10.1* HCT 35.6* 30.6* PLTCT 96* 77* INR 1.0 1.0 PTT 27.1 26.6 AST 17 -- ALT 21 -- ALKPHOS 137* -- Estimated Creatinine Clearance: 15.2 mL/min (A) (based on SCr of 5.77 mg/dL (H)) . Vitals: 04/16/18 0744 Weight: 81.8 kg (180 lb 5.4 oz) No results for input(s): PHART, PO2ART in the last 72 hours. Invalid input(s): PC02A Radiology Pertinent radiology reviewed. 2DE 02/21 Probable bicuspid aortic valve with severe stenosis, moderate regurgitation Enlarged aortic root Mild concentric LVH Mild left atrial enlargement in this encounter Miscellaneous Notes * Case Mgmt DC Plan - Neeru Trujillo - 04/17/2018 4:30 PM CDT Case Management Admission Assessment NAME:Tolu Barrios :1955 AGE: 62 y.o. ADMISSION DATE: 04/16/2018 DAYS ADMITTED: LOS: 1 day Todays Date: 04/17/2018 Source of Information: Patient; EMR Plan Plan: CM Assessment, Assist PRN with SW/NCM Services, Discharge Planning for Home Anticipated Patient is a 62 y.o. male who is known to [facility]. He has an extensive past medical history including: ascending aortic aneurysm, aortic stenosis, Allyssa' s granulomatosis with renal involvement, end-stage renal disease on hemodialysis , hypertension, proximal atrial fibrillation while hospitalized in Jul 2017, hemoptysis, chronic immunosuppression, deconditioning, frailty, thrombocytopenia , hypertension, colostomy with subsequent reversal, recurrent UTI, CMV pneumonia with respiratory failure and dialysis fistula creation. He has undergone evaluation for TAVR by two surgeons who agree that this is the best course of action for Mr. Barrios. Pt is now s/p 1 from TAVR. He was medically stable for dc today but then began having nausea, headache and neck pain. Pt to held one more evening d/t aforementioned issues. KAYCE met with pt briefly to complete an initial assessment. SW introduced herself to pt and discussed her role in dc planning. Pt identified his dgt as his transportation home. He denies need for HH at this time. Pt's will be available to him upon dc to assist with needs at home. Patient Address/Phone [address] [address] (home) [phone] (work) Emergency Contact Extended Emergency Contact Information Primary Emergency Contact: Zakiya Barrios [facility] Relation: Spouse Secondary Emergency Contact: Bisi Booker [facility] Relation: Daughter Healthcare Directive Transportation Does the patient need discharge transport arranged?: No Transportation Name, Phone and Availability #1: Dgt Leah Booker - Does the patient use Medicaid Transportation?: No Expected Discharge Date Expected Discharge Date: 04/18/18 Discharge Planning Comments: [place]ticip[place] to [place] with no needs from CM team Living Situation Prior to Admission ? Living Arrangements Type of Residence: Home, independent Living Arrangements: Spouse/significant other Bathroom Shower / Tub: Walk-in Shower How many levels in the residence?: 1 (Pt has 5 [address]) Can patient live on one level if needed?: Yes Does residence have entry and/or side stairs?: Yes ([address]) Assistance needed prior to admit or anticipated on discharge: Yes Who provides assistance or could if needed?: - Zakiya - [phone] Are they in good health?: Yes Can support system provide 24/7 care if needed?: Maybe ? Level of Function Prior level of function: Independent ? Cognitive Abilities Cognitive Abilities: Alert and Oriented, Engages in problem solving and planning , Participates in decision making, Recognizes impact of health condition on lifestyle, Understands nature of health condition Financial Resources ? Coverage Primary Insurance: Medicare (Part A and B) Secondary Insurance: Medicare Supplement (BCBS Supplement) Additional Coverage: RX (BCBS; Pt p/u all scripts at [facility] and reports they are all affordable) ? 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 Financial Assistance Needed? N/A Psychosocial Needs ? Mental Health Mental Health History: No ? Substance Use History Substance Use History Screen: Yes Comment: Patient reports he actively smokes marijuana approximately 3 days a week and takes 'a few hits' when he does smoke ? Other N/A Current/Previous Services ? PCP Devon Cheema, , ? Pharmacy [facility] [place], [facility] [address] [place] [address] ? Durable Medical Equipment Durable Medical Equipment at home: Roller Walker, Single Point Cane, Nebulizer ? Home Health Receiving home health: No ? Hemodialysis or Peritoneal Dialysis Undergoing hemodialysis or peritoneal dialysis: Yes Hemodialysis or Peritoneal Dialysis: Hemodialysis Location: [facility] - [phone] / Days attending: Saturday, Saturday, Saturday Dialysis Start Time: 0700 Does patient sit for treatment?: Yes Transportation to treatment via: (Patient transports himself) ? Tube/Enteral Feeds Receive tube/enteral feeds: No ? Infusion Receive infusions: Yes Where: [facility] ? Private Duty Private duty help used: No ? Home and Community Based Services Home and community based services: No ? [facility]: No ? Hospice Hospice: No ? Outpatient Therapy PT: Yes When did patient receive care?: Current patient Name of rehab location/group: [facility] - [phone] Would patient return for future services?: Yes OT: Yes When did patient receive care?: Current patient Name of rehab location/group: [facility] - [phone] Would patient return for future services?: Yes TOLL BRIDGE OPERATOR: No ? Fci Facility/Residential SNF: No NH: No ? Inpatient Rehab IPR: Yes When did patient receive care?: February - March 2018 Name of Facility: [facility] Would patient return for future services?: Yes ? [facility] LTACH: No ? Acute Hospital Stay Acute Hospital Stay: Yes Was patient's stay within the last 30 days?: No Neeru Trujillo LMSW Surgery - Cardiothoracic/Vascular Campaign Developer *[id number] * Care Plan - Donavan Schilling RN - 04/17/2018 5:18 AM CDT Problem: Falls, High Risk of Goal: Absence of falls-Adult Patient Outcome: Goal Ongoing Pt absent of falls during this shift Problem: Pain Goal: Management of pain Outcome: Goal Ongoing PRN medications given * Operative Report (DICTATED ONLY) - Monique Laird MD - 04/16/2018 4:43 PM CDT [address] [address] PATIENT NAME: TOLU BARRIOS MR#/PT#: [id number] OPERATIVE REPORT : 1955 DATE OF OPERATION: 04/16/2018 ROOM #: HC303 OPERATIVE REPORT SURGEON: Monique Laird III, MD (Trip) CO-SURGEON(S): David Palomo MD DICTATING PROVIDER: Monique Laird III, MD (Trip) PREOPERATIVE DIAGNOSIS: Severe symptomatic aortic stenosis. POSTOPERATIVE DIAGNOSIS: Severe symptomatic aortic stenosis. OPERATIVE PROCEDURE: 1. Ultrasound-guided access to bilateral common femoral arteries. 2. Ascending aortogram. 3. Placement of temporary pacemaker. 4. Transcatheter aortic valve replacement using 29 mm Shania valve. 5. Iliofemoral arteriogram with runoff. ANESTHESIA: General endotracheal. Complications: None. INDICATIONS FOR OPERATIVE PROCEDURE: 62-year-old gentleman with severe symptomatic aortic stenosis and multiple medical comorbidities. He has been evaluated by 2 surgeons who feel that he is at increased risk for an open aortic valve replacement and referred for TAVR therapy. He presents now for his procedure. DESCRIPTION AND FINDINGS OF OPERATIVE PROCEDURE: After informed consent, patient brought to the operating room and placed supine on the table. Arterial and venous lines were placed per Anesthesia. A single-lumen endotracheal tube was placed. General endotracheal anesthesia was induced. Patient was prepped and draped in usual sterile fashion. Access was gained in bilateral common femoral arteries using ultrasound guidance in a micropuncture technique. On the patient's right common femoral artery, 2 ProGlide sutures were placed and then an 8-Singaporean sheath was positioned. On the patient's left side, a 5-Singaporean sheath was positioned. Systemic heparinization was achieved and maintained throughout the remainder of the procedure. A temporary balloon tip pacemaker was advanced through the left common femoral vein. This was positioned to the noncoronary sinus. Over a stiff wire, the 8-Singaporean sheath and right common femoral artery was exchanged for the Castro E sheath. Through the left common femoral artery, a pigtail catheter was advanced to the noncoronary sinus. The aortic valve was then crossed using an AL1 catheter. After catheter and wire exchange, a pigtail catheter was positioned and simultaneous pressure measurements were confirmed with severe aortic stenosis. A Safari wire was then positioned in the ventricle and, over this, a 29 mm Shania 3 valve with an extra 4 mL of saline was advanced and deployed using rapid ventricular pacing. There was immediate hemodynamic recovery. Valve was evaluated with NORA and ascending aortogram, and there was mild to moderate paravalvular leak. Subsequent balloon aortic valvuloplasty was performed with an extra 2 mL of fluid and this significantly diminished it down to trace to mild paravalvular leak. The sheath was removed and ProGlide sutures were secured. Iliofemoral arteriogram runoff was performed, showing good distal runoff without evidence of arterial injury. Protamine was administered. Manual pressure was held. The patient was awakened and extubated in the room, having tolerated the procedure well. All sponge and instrument counts were correct per report. I was present for the entire procedure. Monique Laird III, MD (Trip) GLZ/Perla Laird III, MD (Trip) / Perla [id number] cc: - Monique Laird III, MD (Trip) * Procedures (Immed Post or Bedside) - Monique Laird MD - 04/16/2018 11:29 AM CDT Brief Operative Note Name: Tolu Barrios is a 62 y.o. male : 1955 DATE OF OPERATION: 04/16/2018 Date: 04/16/2018 Preoperative Dx: Aortic valve stenosis, etiology of cardiac valve disease unspecified [I35.0] Post-op Diagnosis * Aortic valve stenosis, etiology of cardiac valve disease unspecified [I35.0 ] Procedure(s) (LRB): REPLACEMENT TRANSCATHETER AORTIC VALVE- Shania 29s3, left common femoral artery approach (Bilateral) Anesthesia Type: Defer to Anesthesia Surgeon(s) and Role: * Monique Laird MD - Primary * David Palomo MD, [facility] - Co-Surgeon Findings: Trace-mild PVL, mean of 4 Estimated Blood Loss: 30cc Specimen(s) Removed/Disposition: * No specimens in log * Complications: None Implants: 29 S3 Drains: None Disposition: ICU - stable Monique Laird MD Pager * Operative Report (Direct Entry) - David Palomo MD, [facility] - 04/16/2018 9: 40 AM CDT TAVR (Transcatheter Aortic Valve Replacement) Date of procedure: 04/16/2018 Tolu Barrios, : 1955 INDICATIONS FOR PROCEDURE: Tolu Barrios is a 62 y.o. who has severe symptomatic aortic valve stenosis and Class III heart failure. In view of significant co-morbidities of ESRD on HD, significant frailty, He is felt to be at high risk to undergo standard open surgical AVR as evaluated by the combined heart team. After a discussion with the combined heart team of the risks and benefits and alternative of proceeding with surgical versus transcatheter AVR, Tolu Barrios has elected to proceed with TAVR. OPERATORS: 1. David Palomo MD, Interventional Cardiology. 2. Ishmael Laird MD, Cardiothoracic Surgery. PROCEDURES PERFORMED: 1. Transvenous pacemaker through right IJ access. 2. Ultrasound-guided access to bilateral common femoral arteries 3. Left heart cardiac catheterization with simultaneous pressure assessment of the LV and aorta both pre and post TAVR. 4. Ascending aortography. 5. Descending aortography. 6. Transcatheter valve replacement utilizing a number 29 Shania S3 (4cc additional to nominal). Serial Number [id number] 7. Post dilatation balloon aortic valvuloplasty utilizing a number 6cc additional To nominal in the Castro delivery balloon. PROCEDURE: 1. Patient was informed and consented to risks, benefits, and alternatives. Patient verbalized understanding and wished to proceed. 2. General anesthesia was performed under the care of Dr. Farr of the cardiac anesthesia service. The anesthesia team monitored the patient's hemodynamics, airway, and sedation throughout the case. 3. Access was obtained in the left common femoral artery with placement of 5- Singaporean sheath. Access also obtained in the right common femoral artery with placement of an 8-Singaporean sheath. A dual ProGlide pre-close technique was utilized. This was up sized to a 16 Fr delivery sheath 4. A 5Fr Diag bipolar balloon-tipped temporary pacemaker was advanced to the right ventricle where appropriate pacing thresholds were obtained. 5. Utilizing an AL1 catheter and Glidewire, access was obtained into the left ventricle. 6. Initial hemodynamics were performed utilizing simultaneous pigtail catheter assessments in both the aortic root and left ventricle. Hemodynamics revealed an LV pressure of 171/30 LVEDP and a mean aortic gradient of 52 mmHg. 7. Utilizing an PAKari small wire in the left ventricle, the valve was deployed under fluoroscopic guidance. The valve was well seated and had an aortic: ventricular ratio of 90%:10% 8. Postdilation was then performed under rapid ventricular pacing under 180 beats per minute with an additional 6 cc in the Castro balloon. 9. NORA revealed a well seated TAVR valve with mild paravalvular regurgitation and no evidence of central valve regurgitation. 10. Ascending aortography revealed trace aortic valve regurgitation. Excellent flow was noted within the coronary arteries as well as in the ascending aorta. There was no evidence of dissection, perforation, intramural hematoma, plaque disruption or thrombus. 11. Post hemodynamic measurements had been obtained which revealed an LV pressure 131/32 LVEDP with a mean gradient of 9 mmHg. 12. The right common femoral 16-Singaporean sheath was then removed and the dual ProGlide technique was used to close the arteriotomy. A descending aortography was performed with no evidence of dissection, perforation, intramural hematoma, and there was excellent brisk flow in the iliofemoral system. The left common femoral artery sheath was removed and the arteriotomy was closed with a Mynx device. 13. Patient was extubated in the hybrid room at the conclusion of the case and transported to [facility] in stable condition. 14. At the conclusion of the case the patient's transvenous pacemaker was sutured in place after pacing thresholds were re-checked. 15. A total of 86 mL of Visapaque 320 was utilized for the procedure. 16. Air Kerma was 643 mGy. IMPRESSION: 1. Severe symptomatic aortic valve stenosis. 2. Successful transcatheter valve replacement utilizing a number 29 Shania S3. -Post dilatation had been performed utilizing a an additional 6 cc in the Castro balloon.. -Residual transaortic mean gradient of 9 mmHg. -Mild paravalvular regurgitation. No central valve regurgitation was noted. RECOMMENDATIONS: 1. SBE prophylaxis indefinitely. 2. Aspirin 81 mg indefinitely 3. Echo Doppler in the morning. 4. Early ambulation. David Palomo MD in this encounter Plan of Treatment Date Type Specialty Care Team Description 05/06/2018 Procedure Pass Transplant Surgery as of this encounter Procedures Procedure Name Priority Date/Time Associated Diagnosis Comments ECG-SCAN 06/18/2018 Results for this 6:25 PM CDT procedure are in the results section. TELEMETRY STRIPS-SCAN 04/28/2018 Results for [...] ECG 12-LEAD Routine 04/16/2018 8:00 PM CDT PTT (APTT) STAT 04/16/2018 Results for this [...] are in the results section. ECG 12-LEAD STAT 04/16/2018 12:00 PM CDT [...] section. in this encounter Results * ECG-SCAN (06/18/2018 6:25 PM) Narrative Performed At Ordered by an unspecified provider. * TELEMETRY STRIPS-SCAN (04/28/2018 12:30 PM) Narrative Performed At Ordered by an unspecified provider. * ECG-SCAN (04/27/2018 8:40 AM) Narrative Performed At Ordered by an unspecified provider. * PROCEDURE RECORD-SCAN (04/22/2018 2:31 PM) Narrative Performed At Ordered by an unspecified provider. * HEMODIALYSIS INPATIENT (04/18/2018 6:27 AM) Narrative [...] and [facility] unit [facility]. * HEMODIALYSIS DATE (04/18/2018 6:27 AM) Narrative Performed At Shaneka Campa RN 04/18/20189:57 AM 0545 Pt from HC4 to HD suite via w/c. Transferred from [...] MARINELLI, and [facility] unit [facility]. * 2-D + DOPPLER ECHOCARDIOGRAM (04/17/2018 11:08 AM) LVOT diameter 2.4 cm OTHER OUTSIDE LAB IVS 1.56 0.6 - 1.0 cm OTHER OUTSIDE LAB LVIDD 4.46 4.2 - 5.8 cm OTHER OUTSIDE LAB LVIDS 3.29 2.5 - 4.0 cm OTHER OUTSIDE LAB PW 1.42 0.6 - 1.0 cm OTHER OUTSIDE LAB TDI e' 0.12 m/s OTHER OUTSIDE LAB LVOT peak neil 1.2 m/s OTHER OUTSIDE LAB LVOT peak VTI 24.0 meter OTHER OUTSIDE LAB Right Ventricular Mid 2.00 1.9 - 3.5 cm OTHER OUTSIDE LAB Diameter LA size 4.61 3.0 - 4.0 cm OTHER OUTSIDE LAB LA volume 90.54 18 - 58 mL OTHER OUTSIDE LAB Right Atrial Area 21.45 <18 cm2 OTHER OUTSIDE LAB Right Atrial Major 6.01 2.1 - 2.7 cm OTHER OUTSIDE LAB Dimension , with a mean gradient of 13 mmHg OTHER OUTSIDE LAB and a peak gradient of 23 mmHg OTHER OUTSIDE LAB AV peak velocity 2.4 m/s OTHER OUTSIDE LAB Ao VTI 41.0 meter OTHER OUTSIDE LAB MV Peak A Neil 0.70 m/s OTHER OUTSIDE LAB MV Peak E Neil PW 0.87 m/s OTHER OUTSIDE LAB Right Ventricular Basal 3.31 2.5 - 4.1 cm OTHER OUTSIDE LAB Diameter Right Heart Systolic 1.81 >1.7 cm OTHER OUTSIDE LAB Mmode TAPSE Sinus 3.59 3.1 - 3.7 cm OTHER OUTSIDE LAB BSA 2.08 m2 OTHER OUTSIDE LAB FS 26.23 28 - 44 % OTHER OUTSIDE LAB EF 44.59 % OTHER OUTSIDE LAB Left Atrium Index 43.53 16 - 34 OTHER OUTSIDE LAB AV index (akiak) 0.50 OTHER OUTSIDE LAB LVOT area 4.52 cm2 OTHER OUTSIDE LAB LVOT stroke volume 108.48 cm3 OTHER OUTSIDE LAB E/A ratio 1.24 OTHER OUTSIDE LAB E/E' ratio 7.25 OTHER OUTSIDE LAB LV mass 269.43 96 - 200 g OTHER OUTSIDE LAB RWT 0.64 <=0.42 OTHER OUTSIDE LAB E wave decelartion time 163.0 msec OTHER OUTSIDE LAB Cardiology Ultrasound Siemens [id number] OTHER OUTSIDE LAB Machine Left Ventricle Mass Index 129.53 50 - 102 g/m2 OTHER OUTSIDE LAB Aortic valve area= 2.65 cm2 OTHER OUTSIDE LAB TV rest pulmonary artery n/a mmHg OTHER OUTSIDE LAB pressure Right Heart Systolic TDI 0.120 m/s OTHER OUTSIDE LAB S' Narrative Performed At OTHER OUTSIDE LAB LVEF=55-60%. Normal left ventricular size and systolic function. No regional wall motion abnormalities. Right ventricular size and function are normal. Moderate left atrial enlargement. Normal functioning 29 mm SHANIA S3 aortic valve bioprosthesis. Mild paravalvular regurgitation. No central regurgitation. The mean gradient is 12 mmHg. Mitral annular calcification without regurgitation or stenosis. No pericardial effusion. Unable to estimate PA systolic pressure with this study. Performing Organization Address City/State/Zipcode Phone Number OTHER OUTSIDE LAB * CHEST SINGLE VIEW (04/17/2018 5:01 AM) [...] City/State/Zipcode Phone Number [facility] RAD RESULTS * BASIC METABOLIC PANEL (04/17/2018 2:00 AM) Sodium 137 137 - 147 MMOL/L [facility] Potassium 3.7 3.5 - 5.1 MMOL/L [facility] Chloride 101 98 - 110 MMOL/L [facility] CO2 27 21 - 30 MMOL/L [facility] Anion Gap 9 3 - 12 [facility] Glucose 91 70 - 100 MG/DL [facility] Blood Urea Nitrogen 22 7 - 25 MG/DL [facility] Creatinine 3.47 (H) 0.4 - 1.24 MG/DL [facility] Calcium 8.9 8.5 - 10.6 MG/DL [facility] eGFR Non 18 (L) >60 mL/min [facility] Comment: The eGFR is not validated for use in drug dosing adjustments.Continue to use estimated creatinine clearance per dosing reference text.Please contact the Clinical Pharmacist for questions. eGFR 22 (L) >60 mL/min [facility] Comment: The eGFR is not validated for use in drug dosing adjustments.Continue to use estimated creatinine clearance per dosing reference text.Please contact the Clinical Pharmacist for questions. Specimen Blood Performing Organization Address City/[facility]/Zipcode Phone Number MAIN LAB [address] [place] [address] * CBC (04/17/2018 2:00 AM) White Blood Cells 3.2 (L) 4.5 - 11.0 K/UL [facility] RBC 3.13 (L) 4.4 - 5.5 M/UL [facility] Hemoglobin 10.3 (L) 13.5 - 16.5 GM/DL [facility] Hematocrit 31.6 (L) 40 - 50 % [facility] MCV 101.1 (H) 80 - 100 FL [facility] MCH 33.0 26 - 34 PG [facility] MCHC 32.6 32.0 - 36.0 G/DL [facility] RDW 21.3 (H) 11 - 15 % [facility] Platelet Count 75 (L) 150 - 400 K/UL [facility] MPV 7.6 7 - 11 FL [facility] Specimen Blood Performing Organization Address City/[facility]/Zipcode Phone Number MAIN LAB [address] [place] [address] * HEMODIALYSIS INPATIENT (04/16/2018 8:29 PM) Narrative [...] complications. Started hemodialysis treatment per MD orders. 2000- Venous pressure running high without achieving 400 [...] monitor patient throughout remainder of HD treatment. 0- Hemodialysis completed, blood returned. Used sterile saline [...] pt should start to bleed. * HEMODIALYSIS DATE (04/16/2018 8:29 PM) Narrative [...] if pt should start to bleed. * PTT (APTT) (04/16/2018 12:39 PM) APTT 26.6 21.0 - 39.0 SEC MAIN LAB Specimen Blood Performing Organization Address [facility] Phone Number [facility] [address] [place] [address] * PROTIME INR (PT) (04/16/2018 12:39 PM) INR 1.0 0.8 - 1.2 [facility] Specimen Blood Performing Organization Address [facility] Phone Number MAIN LAB [address] [place] [address] * BASIC METABOLIC PANEL (04/16/2018 12:39 PM) Sodium 133 (L) 137 - 147 MMOL/L [facility] Potassium 5.1 3.5 - 5.1 MMOL/L [facility] Chloride 100 98 - 110 MMOL/L [facility] CO2 19 (L) 21 - 30 MMOL/L [facility] Anion Gap 14 (H) 3 - 12 [facility] Glucose 112 (H) 70 - 100 MG/DL [facility] Blood Urea Nitrogen 52 (H) 7 - 25 MG/DL [facility] Creatinine 5.77 (H) 0.4 - 1.24 MG/DL [facility] Calcium 8.8 8.5 - 10.6 MG/DL [facility] eGFR Non 10 (L) >60 mL/min [facility] Comment: The eGFR is not validated for use in drug dosing adjustments.Continue to use estimated creatinine clearance per dosing reference text.Please contact the Clinical Pharmacist for questions. eGFR 12 (L) >60 mL/min [facility] Comment: The eGFR is not validated for use in drug dosing adjustments.Continue to use estimated creatinine clearance per dosing reference text.Please contact the Clinical Pharmacist for questions. Specimen Blood Performing Organization Address [facility]/Zipcode Phone Number [facility] [address] [place] [address] * CBC (04/16/2018 12:39 PM) White Blood Cells 3.8 (L) 4.5 - 11.0 K/UL [facility] RBC 3.03 (L) 4.4 - 5.5 M/UL [facility] Hemoglobin 10.1 (L) 13.5 - 16.5 GM/DL [facility] Hematocrit 30.6 (L) 40 - 50 % [facility] MCV 100.9 (H) 80 - 100 FL [facility] MCH 33.4 26 - 34 PG [facility] MCHC 33.1 32.0 - 36.0 G/DL [facility] RDW 21.4 (H) 11 - 15 % [facility] Platelet Count 77 (L) 150 - 400 K/UL [facility] MPV 7.6 7 - 11 FL [facility] Specimen Blood Performing Organization Address City/State/Zipcode Phone Number [facility] [address] [place] [address] * [facility] 1V CXR (04/16/2018 12:20 PM) Impressions Performed [...] 04/16/2018 12:39 PM. Narrative Performed At [facility] 1V CXR [facility] RAD RESULTS Clinical Indication: Male, [...] Results - 04/16/2018 12:47 PM CDT [facility] 1V CXR Clinical Indication: Male, 62 years [...] on 04/16/2018 12:39 PM. Performing Organization Address City/State/[employer]code Phone Number RAD RESULTS * POC ACTIVATED CLOTTING TIME (04/16/2018 10:48 AM) Activated Clotting Time 265 s [facility]IN [facility] Performing Organization Address City/[facility] Phone Number MAIN LAB [address] [place] [address] * POC IONIZED CALCIUM (04/16/2018 10:44 AM) Ionized Calcium-POC 1.18 1.0 - 1.3 MMOL/L [facility] Performing Organization Address City/[facility] Phone Number MAIN LAB [address] [place] [address] * POC SODIUM (04/16/2018 10:44 AM) Sodium-POC 131 (L) 137 - 147 MMOL/L [facility] Performing Organization Address [facility] HospitalPE INTERNATIONALde Phone Number MAIN LAB [address] [place] [address] * POC POTASSIUM (04/16/2018 10:44 AM) Potassium-POC 5.0 3.5 - 5.1 MMOL/L [facility] Performing Organization Address [facility] Phone Number MAIN LAB [address] [place] [address] * POC HEMATOCRIT (04/16/2018 10:44 AM) Hemoglobin POC 11.6 (L) 13.5 - 16.5 GM/DL [facility] Hematocrit POC 34.0 (L) 40 - 50 % [facility] Performing Organization Address City/[facility] Phone Number MAIN LAB [address] [place] [address] * POC BLOOD GAS ARTERIAL (04/16/2018 10:44 AM) PH-ART-POC 7.38 7.35 - 7.45 [facility] [id number] 45 35 - 45 MMHG [facility] PO2-ART-POC 257 (H) 80 - 100 MMHG [facility] Base Ex-ART-POC 1.0 MMOL/L [facility] O2 Sat-ART-POC 100.0 (H) 95 - 99 % [facility] Lxcmsljdjbt-MYB-HIN 26.5 21 - 28 MMOL/L [facility] Performing Organization Address City/[facility]/Zipcode Phone Number MAIN LAB [address] [place] [address] * POC ACTIVATED CLOTTING TIME (04/16/2018 10:41 AM) Activated Clotting Time 210 s [facility]IN [facility] Performing Organization Address City/[facility] Phone Number MAIN LAB [address] [place] [address] * POC GLUCOSE (04/16/2018 10:41 AM) Glucose, POC 112 (H) 70 - 100 MG/DL [facility] Performing Organization Address City/[facility] Phone Number MAIN LAB [address] [place] [id number] * BASIC METABOLIC PANEL (04/16/2018 8:06 AM) Sodium 133 (L) 137 - 147 MMOL/L [facility] Potassium 4.5 3.5 - 5.1 MMOL/L [facility] Chloride 97 (L) 98 - 110 MMOL/L [facility] CO2 25 21 - 30 MMOL/L [facility] Anion Gap 11 3 - 12 [facility] Glucose 90 70 - 100 MG/DL [facility] Blood Urea Nitrogen 54 (H) 7 - 25 MG/DL [facility] Creatinine 6.03 (H) 0.4 - 1.24 MG/DL [facility] Calcium 10.0 8.5 - 10.6 MG/DL [facility] eGFR Non 9 (L) >60 mL/min [facility] Comment: The eGFR is not validated for use in drug dosing adjustments.Continue to use estimated creatinine clearance per dosing reference text.Please contact the Clinical Pharmacist for questions. eGFR 11 (L) >60 mL/min [facility] Comment: The eGFR is not validated for use in drug dosing adjustments.Continue to use estimated creatinine clearance per dosing reference text.Please contact the Clinical Pharmacist for questions. Specimen Blood Performing Organization Address City/State/Zipcode Phone Number [facility] [address] [place] [address] in this encounter Visit Diagnoses Diagnosis Aortic valve stenosis, etiology of cardiac valve disease unspecified Acute on chronic combined systolic and diastolic CHF, NYHA class 2 (HCC) Acute on chronic combined systolic and diastolic heart failure End stage renal disease (HCC) End stage renal disease Paroxysmal atrial fibrillation (HCC) Atrial fibrillation Immunosuppressed status (HCC) Unspecified disorder of immune mechanism Thrombocytopenia (HCC) Thrombocytopenia, unspecified Allyssa's granulomatosis (HCC) Allyssa's granulomatosis Pure hypercholesterolemia Essential hypertension Unspecified essential hypertension Ascending aortic aneurysm (HCC) Thoracic aneurysm without mention of rupture Pancytopenia (HCC) Other pancytopenia Allyssa-like granulomatosis (HCC) Gastroesophageal reflux disease without esophagitis Esophageal reflux Metabolic acidosis Acidosis Acute respiratory failure with hypoxia (HCC) Acute respiratory failure Hemoptysis Hemoptysis, unspecified CMV pneumonia (HCC) Cytomegaloviral disease Pleural effusion associated with pulmonary infection Other specified forms of effusion, except tuberculous Acute blood loss anemia Acute posthemorrhagic anemia Diffuse pulmonary alveolar hemorrhage Hemoptysis, unspecified Debility Debility, unspecified Moderate malnutrition (HCC) Malnutrition of moderate degree (HFpEF) heart failure with preserved ejection fraction (HCC) Hyperlipidemia Other and unspecified hyperlipidemia Hypertension Unspecified essential hypertension Admitting Diagnoses Diagnosis Aortic valve stenosis, etiology of cardiac valve disease unspecified - Aortic valve stenosis, etiology of cardiac valve disease unspecified [I35.0] Aortic stenosis Administered Medications Medication Order MAR Action Action Date Dose Rate Site acetaminophen (OFIRMEV) 1,000 mg Given - New 04/16/2018 1,000 mg 400 mL /hr injection 100 mL Bag 12:19 CDT 1,000 mg, Intravenous, 100 mL, Administer over 15 Minutes, ONCE, 1 dose, Sat04/16/18 at 1215 acetaminophen (TYLENOL) tablet 650 mg Given 04/16/2018 650 mg 650 mg, Oral, EVERY 6 HOURS PRN, 19:03 CDT Starting Sat04/16/18 at 1159, Until Sat04/18/18 at 1411, Pain non-opioid: may be used alone or in combination with opioid analgesia, Temp > 38.5 C, TOTAL ACETAMINOPHEN DOSE NOT TO EXCEED 4GM DAILY. Given 04/17/2018 650 mg 00:30 CDT Given 04/17/2018 650 mg 08:08 CDT albuterol 0.5% (PROVENTIL; VENTOLIN) nebulizer solution 2.5 mg 2.5 mg, Inhalation, RT EVERY 4 HOURS PRN, Starting Mary 04/17/18 at 2116, Until Sat04/18/18 at 1411, RT PROTOCOL, When administered by RT, will be per RT policy. ASPIRIN 81 MG PO CHEW (Cabinet Override) NOW, 1 dose, Sat04/16/18 at 0845, Created by cabinet override aspirin chewable tablet 81 mg Given 04/16/2018 81 mg 81 mg, Oral, DAILY, First dose on Sat 08:42 CDT 04/16/18 at 0945, Until Discontinued aspirin chewable tablet 81 mg Given 04/17/2018 81 mg 81 mg, Oral, DAILY, First dose on Mary 08:08 CDT 04/17/18 at 0900, Until Discontinued, Hold for platelet count <80K. Given 04/18/2018 81 mg 10:23 CDT calcitriol (ROCALTROL) capsule 0.5 mcg Given 04/18/2018 0.5 mcg 0.5 mcg, Oral, THREE TIMES WEEKLY (Once 10:24 CDT per day on Sat), First dose on Sat04/18/18 at 0900, Until Discontinued, On dialysis days ceFAZolin (ANCEF) IVP 1 g Given 04/17/2018 1 g 1 g, Intravenous, ONCE, 1 dose, Mary 11:03 CDT 04/17/18 at 1015, IV PUSH -- RECONSTITUTE each 1 g vial by adding 10 mL 0.9% NACL fentaNYL citrate PF (SUBLIMAZE) Given 04/16/2018 50 mcg injection 25-50 mcg 12:27 CDT 25-50 mcg, Intravenous, EVERY 1 HOUR PRN, Starting Sat04/16/18 at 1159, Until Sat04/18/18 at 1411, Pain Injectable, Give if not tolerating PO, NPO, or vomiting Given 04/16/2018 50 mcg 14:43 CDT Given 04/16/2018 50 mcg 16:21 CDT fluticasone (FLONASE) nasal spray 2 Given 04/16/2018 2 sprays spray 16:41 CDT 2 spray, Each Nostril, DAILY, First dose on Sat04/16/18 at 1600, Until Discontinued Given 04/17/2018 2 sprays 04:56 CDT Given 04/17/2018 2 sprays 08:51 CDT folic acid (FOLVITE) tablet 1 mg Given 04/17/2018 1 mg 1 mg, Oral, DAILY, First dose on Mary 08:08 CDT 04/17/18 at 0900, Until Discontinued Given 04/18/2018 1 mg 10:23 CDT ipratropium bromide (ATROVENT) 0.02 % nebulizer solution 0.5 mg 0.5 mg, Inhalation, RT EVERY 4 HOURS PRN, Starting Mary 04/17/18 at 2116, Until Sat04/18/18 at 1411, RT PROTOCOL, When administered by RT, will be per RT policy. LIDOCAINE (PF) 10 MG/ML (1 %) IJ SOLN (Cabinet Override) NOW, 1 dose, Sat04/16/18 at 0745, Created by cam honeycuttide lidocaine PF 1% (10 mg/mL) injection Given 04/16/2018 2 mL 0.1-2 mL 08:19 CDT 0.1-2 mL, Injection, NEEDED, Starting Sat04/16/18 at 0753, Until Sat04/16/18 at 1200, Other..., for IV insertion, Pre-Op metoclopramide (REGLAN) injection 10 mg Given 04/17/2018 10 mg 10 mg, Intravenous, ONCE, 1 dose, Mary 12:32 CDT 04/17/18 at 1230 metoclopramide (REGLAN) injection 10 mg 10 mg, Intravenous, EVERY 6 HOURS PRN, Starting Mary 04/17/18 at 1614, Until Sat04/18/18 at 1411, Nausea/Vomiting Injectable ondansetron (ZOFRAN) injection 4 mg Given 04/16/2018 4 mg 4 mg, Intravenous, EVERY 6 HOURS PRN, 12:18 CDT Starting Sat04/16/18 at 1159, Until Sat04/18/18 at 1411, Nausea/Vomiting Injectable Given 04/16/2018 4 mg 19:01 CDT Given 04/17/2018 4 mg 08:08 CDT oxyCODONE (ROXICODONE, OXY-IR) tablet Given 04/17/2018 10 mg 5-10 mg 00:30 CDT 5-10 mg, Oral, EVERY 4 HOURS PRN, Starting Sat04/16/18 at 1159, Until Sat04/18/18 at 1411, Pain PO Given 04/17/2018 10 mg 08:09 CDT Given 04/17/2018 5 mg 11:21 CDT oxymetazoline (AFRIN) 0.05 % nasal spray 2 spray 2 spray, Each Nostril, TWICE DAILY PRN, Starting Sat04/16/18 at 1457, Until Sat04/18/18 at 1411, Congestion, Nose Bleeds, Please note: this medication will be automatically discontinued 3 days after ordered per hospital policy. Please obtain a new order if the medication needs to be continued. pantoprazole DR (PROTONIX) tablet 40 mg Given 04/16/2018 40 mg 40 mg, Oral, DAILY, First dose on Sat 20:50 CDT 04/16/18 at 2100, Until Discontinued, Do not crush or chew tablet. Given 04/17/2018 40 mg 20:31 CDT pravastatin (PRAVACHOL) tablet 10 mg Given 04/17/2018 10 mg 10 mg, Oral, DAILY, First dose on Mary 08:08 CDT 04/17/18 at 0900, Until Discontinued Given 04/18/2018 10 mg 10:22 CDT prednisone (DELTASONE) tablet 20 mg Given 04/17/2018 20 mg 20 mg, Oral, DAILY WITH BREAKFAST, First 08:09 CDT dose on Sat04/17/18 at 0800, Until Discontinued, Give with food Given 04/18/2018 20 mg 10:22 CDT senna/docusate (SENOKOT-S) tablet 2 Given 04/17/2018 2 tablets tablet 08:09 CDT 2 tablet, Oral, TWICE DAILY, First dose on Sat04/16/18 at 1200, Until Discontinued, Hold for loose stools Given 04/17/2018 2 tablets 20:31 CDT Given 04/18/2018 2 tablets 10:22 CDT sodium chloride 0.9 % infusion Given - New 04/16/2018 20 mL/hr 1,000 mL, Intravenous, at 20 mL/hr, Bag 08:19 CDT CONTINUOUS, Starting Sat04/16/18 at 0800, Until Sat04/16/18 at 1200, Pre-Op sodium chloride 0.9 % infusion Dose/Rate 04/16/2018 30 mL/hr 1,000 mL, Intravenous, at 30 mL/hr, Verify 12:01 CDT CONTINUOUS, Starting Sat04/16/18 at 1200, Until Sat04/18/18 at 1159 Dose/Rate Verify 04/17/2018 30 mL/hr 07:15 CDT sodium chloride 0.9 % infusion Given - 04/16/2018 300 mL 500 mL, 300 mL, Intravenous, PRN IN IP Bag 19:50 CDT DIALYSIS, 1 dose, Starting Sat04/16/18 at 1305, Until Sat04/17/18 at 0505, Other..., Prime Rinse, For Prime/Rinseback Only bag hanger can release and administer. sodium chloride 0.9 % infusion Given - 04/18/2018 300 mL 1,000 mL, 300 mL, Intravenous, PRN IN IP Bag 07:13 CDT DIALYSIS, 1 dose, Starting Sat04/18/18 at 0348, Until Sat04/18/18 at 0714, Other..., Prime Rinse, For Prime/Rinseback Only bag hanger can release and administer. SODIUM CHLORIDE 0.9 % IV SOLP (Cabinet Override) NOW, 1 dose, Sat04/16/18 at 0745, Created by cabinet override trimethoprim/sulfamethoxazole (BACTRIM Given 04/18/2018 1 tablet SS) 80/400 mg tablet 1 tablet 10:23 CDT 1 tablet, Oral, THREE TIMES WEEKLY (Once per day on Sat), First dose on Sat04/18/18 at 0900, Until Discontinued valGANciclovir solution 100 mg Given 04/17/2018 100 mg 100 mg, Oral, THREE TIMES WEEKLY (Once 11:22 CDT per day on Sat), First dose on Sat04/17/18 at 1045, Until Discontinued, After dialysis NURSING: Please educate patient and document: Give with food. NOTE: If or wanting to become , avoid contact with skin due to risk of defects. Given 04/18/2018 100 mg 11:12 CDT in this encounter
--- OUTSIDE RECORDS SUMMARY | 2018-07-03 14:58 | XMS REPORT | Encounter Summary ---
Author Author [facility] Organization [facility] Address Unknown Phone Unavailable Care Team Providers Care Gas Welder Name Role Phone Devon Cheema MD PCP Suze Buchanan RN Unavailable Unavailable Charissa Lin RN Unavailable Unavailable Valery Newton MA Unavailable Unavailable Chas Peña AUTOMATIC MACHINES SUPERVISOR Unavailable Jeri Brower MA Unavailable Unavailable Dee Lyn RN Unavailable Unavailable Rogerio Lynne MD Unavailable Yesi Martinez MD Unavailable Dee aM RN Unavailable Unavailable Toma Ojeda Unavailable Unavailable [...] Henrietta Young Bhg Card Echopv Severe aortic AUTOMATIC MACHINES SUPERVISOR-C [facility] stenosis [id number] [facility] [place] [address] [place], [place] 2-D [place] [address] ECHOCARDIOGRAM [address] Phone: AL ECHO TTHRC R-T 2D [phone] W/WOM-MODE COMPL Fax: SPEC&COLR D [phone] Encounter Details Date Type Department Care Team Description 04/16/2018 Orders Only [facility] Valery Zurita RN [id number] [address] S/p TAVR ([place] [address] aortic valve [phone] replacement), bioprosthetic; Essential hypertension Social History Tobacco Use Types Packs/Day Years [...] as of this encounter Miscellaneous Notes * Addendum Note - Sherita Urbina RN - 04/16/2018 4:14 PM CDT Addended by: SHERITA URBINA on: 04/17/2018 08:51 AM Modules accepted: Orders in this encounter Plan of Treatment Date Type Specialty Care Team Description 05/06/2018 Procedure Pass Transplant Surgery as of this encounter Results * 2-D + DOPPLER [...] - 34 OTHER OUTSIDE LAB AV index ([place]) 0.41 OTHER OUTSIDE LAB LVOT area 4.52 [...] No significant interval change Performing Organization Address [facility] Phone Number OTHER OUTSIDE LAB * BNP (B-TYPE NATRIURETIC PEPTI) (05/12/2018 4:32 PM) B Type Natriuretic 707.0 (H) 0 - 100 PG/ML [facility] Peptide Specimen Blood Performing Organization Address [facility] Phone Number MAIN LAB [address] [place] [address] * BASIC METABOLIC PANEL (05/12/2018 4:32 PM) [...] for questions. Specimen Blood Performing Organization Address [facility] Corporation[facility] Phone Number MAIN LAB [address] [place] [address] * CBC (05/12/2018 4:32 PM) White Blood [...] Organization Address City/State/Zipcode Phone Number MAIN LAB [address] [place] [address] in this encounter Visit Diagnoses Diagnosis Severe aortic stenosis - Primary Aortic valve disorders S/p TAVR (transcatheter aortic valve replacement), bioprosthetic Essential hypertension Unspecified essential hypertension
--- OUTSIDE RECORDS SUMMARY | 2018-07-03 14:58 | XMS REPORT | Encounter Summary ---
Author Author [facility] Organization [facility] Address Unknown Phone Unavailable Care Team Providers Care Float Remover Name Role Phone Devon Cheema MD PCP [...] Date Type Department Care Team Description 04/17/2018 Pharmacy Visit [facility] [address] [place] [address] Social History Tobacco Use Types [...]
--- OUTSIDE RECORDS SUMMARY | 2018-07-03 14:58 | XMS REPORT | Encounter Summary ---
Author Author [facility] Organization [facility] Address Unknown Phone Unavailable Care Team Providers Care Adult And Pediatric Neurologist Name Role Phone Devon Cheema MD PCP [...] Date Type Department Care Team Description 04/16/2018 Procedure Pass Cardiac Catheterization Laboratory [address] [place] [address] Social History Tobacco Use Types [...]
--- OUTSIDE RECORDS SUMMARY | 2018-07-03 14:59 | XMS REPORT | Encounter Summary ---
Author Author [facility] Organization [facility] Address Unknown Phone Unavailable Care Team Providers Care Bench Inspector Name Role Phone Devon Cheema MD PCP [...] cardiac valve disease unspecified [I35.0] P rocedures AR REPLACE AORTIC VALVE PERQ FEMORAL ARTRY APPROACH REPLACEMENT TRANSCATHETER AORTIC VALVE-ignacio, left common femoral, 29s3 Encounter Details Date Type Department Care Team Description 04/16/2018 Anesthesia Cardiac Catheterization Michael Farr MD Event Laboratory [address] [place] [address] [place] [address] [phone] Anesthesia Record Procedure Name Responsible Anesthesia Start Time Anesthesia Stop Time Anesthesiologist REPLACEMENT TRANSCATHETER Michael Farr MD 04/16/18 0937 04/16/18 1152 AORTIC VALVE- Ignacio 29s3, left common femoral artery approach (Bilateral Groin) Date Time Event Comment 858 Art Line 2018 0936 Out of Pre Procedure 0937 Anes Start 0940 An Start Data 0940 In Room 0947 An Induction The patient was reevaluated immediately before moderate or deep sedation use and before anesthesia induction. 0955 An Intubation 1005 CVC 1010 Anesthesia Ready 1011 AN NORA 1015 Antibiotic Given 1036 Quick Note Pacing threshold at 2. Multiple attempts to get it lower but unsuccessful. 1050 Quick Note CO 7.0 1146 An Extubation 1149 an stop data 1151 Handoff to RN I completed my SBAR handoff to the receiving nurse. 1152 An Stop Meds Name Total fentaNYL PF (SUBLIMAZE) injection 150 mcg lidocaine (2%) 200 mg/10mL Injection 80 mg syringe propofol (DIPRIVAN) 200 mg/ 20 mL 150 mg injection (VIAL) rocuronium (ZEMURON) injection 60 mg ondansetron (ZOFRAN) injection 4 mg dextran 70/hypromellose (GENTEAL TEARS; 1 Dose BION TEARS) ophthalmic solution protamine injection 50 mg heparin (porcine) 1,000 units/mL 9,000 Units injection norepinephrine (LEVOPHED) 4 mg in 0.5 mg dextrose 5% (D5W) 250 mL IV drip (std conc) ceFAZolin (ANCEF) injection 2 g phenylephrine (AVRIL-SYNEPHRINE) 10 mg in 0.13 mg sodium chloride 0.9% (NS) 250 mL IV drip (std conc) glycopyrrolate (ROBINUL) 0.2mg/mL 1 mg injection neostigmine (PROSTIGMINE) 1 mg/mL 5.5 mg injection (VIAL) sodium chloride 0.9 % infusion 550 mL electrolyte-A (PLASMA-LYTE A PH 7.4) 100 mL infusion * Name O2 N2O Inspired N2O Air Sevoflurane Desflurane Inspired Desflurane Inspired Sevoflurane * No blood administrations on file. Type Details Placement Removal AV R; Upper, Arm 02/10/18 1842 by Shunt/Fist octavio Puncture 04/16/18; 1030; Right; Femoral 04/16/18 1030 by Wound Madina Spangler (Sheath) Puncture 04/16/18; 1030; Left; Femoral 04/16/18 1030 by Wound Madina Spangler (Sheath) Wounds 02/11/18; 1817; Left; Arm; Skin Tear; 02/11/18 1817 by Gracy, 0000 by Cyurs, (NOT for 04/17/18 YVES Bruce, YVES Pressure Injuries) Wounds 03/01/18; Right, Upper; Buttocks; 03/01/18 0000 by Srinath, 0000 by Cyrus, (NOT for Abrasion; 04/17/18 YVES Galvez, YVES Pressure Injuries) Wounds 03/05/18; 0514; Right, Outer; Elbow; 03/05/18 0514 by Aiken, 09/23 0000 by Cyrus, (NOT for Skin Tear; 04/17/18 Christina Sanchez RN Pressure Injuries) Transvenou 04/16/18; OR, Satellite Tv Installer; Yes; Internal 04/16/18 0000 by Shawn , 04/17/18 0850 by Ayse, s Jugular, Right; 04/17/18; 0850; YVES Jain RN Pacemaker Peripheral 04/16/18; 0800; RN; L; Hand; 18 G; No; 04/16/18 0800 by Fernando, 04/18/18 1050 by Slava, IV Lidocaine Prep; 1; 04/18/18; 1050 YVES Santo RN Arterial 04/16/18; 0859 (created via procedure 04/16/18 0859 by Lyssa, 04/17/18 0850 by Gentcarroll, Line documentation); L; Radial; 20 G; MD Noemi Barnes, YVES 04/17/18; 0850; N ETT 04/16/18; 0955; Ventilated by mask with 04/16/18 0955 by 04/16/18 1146 by oral airway (2); Direct laryngoscopy, Michael Giang, Michael Palomino , Stylet; Cuffed; 7.5mm; Mac; 3; Oral; 1-Full view of the glottis; 1 insertion attempt; Auscultation, ETCO2 Detector; 22 centimeters; Performed by Tradoria Student. No injury to teeth, lips, or gums. ; 04/16/18; 1146 Introducer 04/16/18; 1005 (created via procedure 04/16/18 1005 by 0850 by Arganteal, / Key Travel documentation); OR; Yes; (6 Fr); Michael Giang DO Kristina, RN Sterile occlusive dressing; 04/17/18; 0850; Y in this encounter Social History Tobacco Use Types Packs/Day Years [...] impairment: No 07/08/2015 as of this encounter OR Notes * Anesthesia Procedure Notes - Michael Farr MD - 04/16/2018 12:16 PM CDT Associated Order(s): ANESTHESIA TRANSEESOPHAGEAL ECHOCARDIOGRAM Anesthesia Procedure: Transesophageal Echocardiogram NORA Date/Time: 04/16/2018 9:37 AM Associated procedure: Other (TAVR) Preprocedure checklist performed: 2 patient identifiers, risks & benefits discussed, patient evaluated, timeout performed, consent obtained and patient being monitored Staff Anesthesiologist: MICHAEL FARR Surgeon: MONIQUE LAIRD Performed personally Indication for NOAR: assessment of ascending aorta, assessment of surgical repair , ventricular function, volume assessment, confirmation of pre-procedure diagnosis and valvular assessment Physician requesting echo: MONIQUE LAIRD CPT codes: 61443 - NORA 2D imaging (w or w/o M-mode) including probe placement, image acquisition, interpretation & report, 76945 - PWD and/or CWD f/u or limited study and 60615 - Color flow velocity mapping Patient location: OR Intubated: yes Bite block: yes Heart visualized: yes Insertion: easy Probe type: multiplane Modalities: 2D, color flow mapping, continuous wave Doppler, pulse wave Doppler and 3D Echocardiographic and Doppler Measurements Ventricular Findings Right Ventricle RV cavity size: normal RV hypertrophy: no RV thrombus: no RV global function: normal Left Ventricle LV cavity size: normal LV hypertrophy: yes LV wall thickness: 1.5 cm LV thrombus: no LV global function: normal LV ejection fraction: 55% Ventricular Wall Motion Four Chamber View Basal anterolateral: normal Basal inferoseptal: normal Mid anterolateral: normal Mid inferoseptal: normal Apical lateral: normal Apical septal: normal Two Chamber View Basal anterior: normal Basal inferior: normal Mid anterior: normal Mid inferior: normal Apical anterior: normal Apical inferior: normal [place] Basal anteroseptal: normal Basal inferolateral: normal Mid anteroseptal: normal Mid inferolateral: normal Apical lateral: normal Apical septal: normal [place]: normal Mid [place] View Mid anteroseptal: normal Mid anterior: normal Mid anterolateral: normal Mid inferolateral: normal Mid inferior: normal Mid inferoseptal: normal Valves Aortic Valve Annulus: calcified Stenosis: moderate Area: 1.06 cm2 Annulus measurement: 2.2 cm Peak gradient: 67 mmHg Mean gradient: 41 mmHg Regurgitation severity: mild Leaflet morphology: calcified and thickened Leaflet motion: restricted Mitral Valve Annulus: normal Stenosis: none Regurgitation severity: mild Leaflet morphology: normal Leaflet motion: normal Tricuspid Valve Annulus: normal Stenosis: none Regurgitation severity: trace Leaflet morphology: normal Leaflet motion: normal Pulmonic Valve Annulus: normal Stenosis: none Regurgitation severity: none Leaflet morphology: normal Aorta Ascending Aorta Size: dilated Diameter: 5.3 cm Dissection: no Plaque thickness: 0-3 mm Plaque mobile: no Sinotubular Junction Size: normal Diameter: 3.6 cm Sinus of Valsalva Size: normal Diameter: 3.9 cm Atria Right Atrium Size: normal Left Atrium Size: normal Left atrial appendage size: thrombus Septa Intra-atrial septal morphology: normal Intra-ventricular septal morphology: normal Diastolic Function Diastolic dysfunction grade: not formally evaluated. Other Findings Pericardium: normal Pleural effusion: none Pulmonary arteries: normal Pulmonary venous flow: blunted (decreased) systolic flow Post Procedure Aortic valve replacement Perivalvular leak: yes Mean gradient (mmHg): 4 Systolic anterior motion of the mitral valve: no Return to CBT for echo-related diagnosis: no Aorta intact after decannulation: yes Post-procedure LVEF measured: yes; 60% Post-procedure RV dysfunction: none Performed by: MICHAEL FARR Authorized by: MICHAEL FARR * Anesthesia Postprocedure Evaluation - Michael Giang DO - 04/16/2018 12:09 PM CDT Post-Anesthesia Evaluation Name: Tolu Barrios : 1955 Age: 62 y.o. Sex: male Procedure Date: 04/16/2018 Procedure: Procedure(s) with comments: REPLACEMENT TRANSCATHETER AORTIC VALVE- Ignacio 29s3, left common femoral artery approach - ICU Surgeon: Surgeon(s): Monique Laird MD Tadros, Peter N, MD, [facility] Post-Anesthesia Vitals Temp: [36.8 C (98.2 F)] Pulse: [75] Respirations: [18 PER MINUTE] SpO2: [100 %] SpO2 Pulse: [75] Post Anesthesia Evaluation Note Evaluation location: ICU Patient participation: recovered; patient participated in evaluation Level of consciousness: alert Pain management: adequate Hydration: normovolemia Temperature: 36.0C - 38.4C Airway patency: adequate Perioperative Events Perioperative events: no Post-op nausea and vomiting: no PONV Postoperative Status Cardiovascular status: hemodynamically stable Respiratory status: spontaneous ventilation and supplemental oxygen Additional comments: Ventilator settings: N/A Vasoactive Drips: N/A Blood products/Hemostatic Agents/Anticoagulants: N/A Special Considerations: N/A Patient was transported with supplemental oxygen and routine cardiovascular monitoring, including pulse oximetry. Individuals present during transport include residential recycle driver, RN, and CV optical laboratory mechanic. The patient was admitted to the ICU under care of the critical care team. This information was communicated between anesthesia and the receiving team. Perioperative Events Perioperative Event: No Emergency Case Activation: No Associated attestation - Michael Farr MD - 04/16/2018 12:13 PM CDT Formatting of this note may be different from the original. ATTESTATION Post-Anesthesia Evaluation and ICU Transfer Note Attestation: I evaluated the patient and the indicated post-anesthesia care is discharge and transfer to the ICU physician-lead team. Staff name: Michael Farr MD Date: 04/16/2018 * Anesthesia Procedure Notes - Michael Giang DO - 04/16/2018 10:07 AM CDT Associated Order(s): ANESTHESIA CENTRAL LINE INSERTION Anesthesia Procedure: Central Venous Catheter Line CENTRAL [...] sutured, dressing applied and all ports aspirated; Dressing : sterile occlusive dressing Placement verification: x-ray verification pending Events: none Observations: patient tolerated well Performed by: MICHAEL GIANG Authorized by: MICHAEL FARR Associated attestation - Michael Farr MD - 04/16/2018 11:34 AM CDT I was present for placement of the central line introducer. * Anesthesia Procedure Notes - Brianda Omalley MD - 04/16/2018 9:05 AM CDT Associated Order(s): ANESTHESIA ARTERIAL LINE INSERTION Anesthesia Procedure: Arterial Line Placement A-LINE INSERTION [...] by: BRIANDA OMALLEY Authorized by: MICHAEL FARR Associated attestation - Michael Farr MD - 04/16/2018 9:14 AM CDT I was present for placement of the arterial line. * Anesthesia Preprocedure Evaluation - Brianda Omalley MD - 04/15/2018 12:58 PM CDT Formatting of this note may be different from the original. Anesthesia Pre-Procedure Evaluation Name: Tolu Barrios : 1955 Age: 62 y.o. Sex: male Procedure Date: 04/16/2018 Procedure: Procedure(s) with comments: REPLACEMENT TRANSCATHETER AORTIC VALVE- Ignacio 29s3, left common femoral artery approach - ICU Physical Assessment Vital Signs (last filed in past 24 hours): BP: 115/79 (04/16 830) Temp: 36.4 C (97.5 F) (04/16 744) Pulse: 74 (04/16 830) Respirations: 22 PER MINUTE (04/16 830) SpO2: 99 % (04/16 830) O2 Delivery: None (Room Air) (04/16 744) Height: 190.5 cm (75") (04/16 744) Weight: 81.8 kg (180 lb 5.4 oz) (04/16 744) Dosing / Dry Weight: 81.6 kg (180 lb) (07/10 1245) Patient History No Known Allergies Current Medications Medication Directions acetaminophen (TYLENOL) 325 mg tablet Take 2 [...] times daily and at bedtime. 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 pantoprazole DR (PROTONIX) 40 mg tablet Take 40 mg by mouth daily. pravastatin (PRAVACHOL) 10 mg tablet Take 10 mg by mouth daily. prednisone (DELTASONE) 5 mg tablet Take 25 mg daily until 03/21, then decrease to 20 mg daily and continue until f/u with Scientist Patient taking differently: Take 20 mg by mouth daily with breakfast. Take 25 mg daily until 6, then decrease to 20 mg daily and continue until f/u with Scientist senna/docusate (SENOKOT-S) 8.6/50 mg tablet Take 1 [...] 1 tablet by mouth daily. Review of Systems/Medical History Patient summary reviewed Nursing notes reviewed Pertinent labs reviewed PONV Screening: Non-smoker No history of anesthetic complications No family history of anesthetic complications Airway - negative Pulmonary Not a current smoker Asthma (routine albuterol use) Pneumonia (+hx CMV pneumonia, with hospitalization 02/2018-03/2018) No shortness of breath Cardiovascular Recent diagnostic studies: ECG and echocardiogram Echo 02/11/2018: Probable bicuspid aortic valve with severe stenosis, moderate regurgitation Enlarged aortic root Mild concentric LVH Mild left atrial enlargement Exercise tolerance: <4 METS Beta Alexandro therapy: Yes Beta blockers within 24 hours: Yes Hypertension, well controlled Valvular problems/murmurs: and AI Dysrhythmias (afib in Fall 2016, currently rhythm controlled with amiodarone ); atrial fibrillation PVD DVT (20 years ago, no AC currently) CHF Hyperlipidemia Ascending Aortic Aneurysm GI/Hepatic/Renal GERD, well controlled Renal disease (started HD 08/2017 via RUE fistula): dialysis and ESRD Neuro/Psych Neuropathy Musculoskeletal - negative Endocrine/Other Anemia Autoimmune disease (allyssa's granulomatosis, with chronic immunosuppression ) Malignancy (hx melanoma, s/p tx w/o recurrence) Allyssa's Granulomatosis Physical Exam Airway Findings Mallampati: I TM distance: >3 FB Neck ROM: full Mouth opening: good Airway patency: adequate Dental Findings: Negative Cardiovascular Findings: Rhythm: regular Rate: normal Other findings: murmur (systolic) Pulmonary Findings: Breath sounds clear to auscultation. Abdominal Findings: Negative Neurological Findings: Negative Other Findings: RUE Fistula with good thrill Multiple skin bruises and skin tears throughout extremities Diagnostic Tests Echo 02/11/2018: Probable bicuspid aortic valve with severe stenosis, moderate regurgitation Enlarged aortic root Mild concentric LVH Mild left atrial enlargement Carotid Doppler 03/11/2018: 1. Mild atheromatous plaque visualized in bilateral common and internal carotid arteries 2. No hemodynamically significant (>50%) stenosis measured in the common and internal carotid arteries bilaterally 3. There is normal antegrade flow in bilateral vertebral arteries 4. No evidence of proximal subclavian stenosis bilaterally Hematology: Lab Results Component Value Date HGB 11.5 04/15/2018 HCT 35.6 04/15/2018 PLTCT 96 04/15/2018 WBC 3.5 04/15/2018 NEUT 91 02/20/2018 ANC 7.30 02/20/2018 LYMPH 10 02/13/2018 ALC 0.30 02/20/2018 BABS 5 02/20/2018 AMC 0.40 02/20/2018 EOSA 0 02/20/2018 ABC 0.00 02/20/2018 MCV 101.8 04/15/2018 MCH 32.8 04/15/2018 MCHC 32.2 04/15/2018 MPV 7.9 04/15/2018 RDW 20.7 04/15/2018 General Chemistry: Lab Results Component Value Date NA 133 04/16/2018 K 4.5 04/16/2018 CL 97 04/16/2018 CO2 25 04/16/2018 GAP 11 04/16/2018 BUN 54 04/16/2018 CR 6.03 04/16/2018 GLU 90 04/16/2018 CA 10.0 04/16/2018 ALBUMIN 3.9 04/15/2018 OBSCA 1.32 02/18/2018 MG 2.0 02/20/2018 TOTBILI 0.5 04/15/2018 PO4 3.2 02/20/2018 Coagulation: Lab Results Component Value Date PTT 27.1 04/15/2018 INR 1.0 04/15/2018 Anesthesia Plan ASA score: 4 Plan: general and invasive monitoring Special equipment/procedures: NORA Induction method: intravenous NPO status: acceptable Informed Consent Anesthetic plan and risks discussed with patient. Use of blood products discussed with patient; consented to blood products. Plan discussed with: resident and anesthesiologist. in this encounter Plan of Treatment Date Type Specialty Care Team Description 05/06/2018 Procedure Pass Transplant Surgery Name Priority Associated Diagnoses Date/Time ANESTHESIA TRANSEESOPHAGEAL Routine 04/16/2018 12:16 PM CDT ECHOCARDIOGRAM as of this encounter Results * ANESTHESIA CENTRAL LINE INSERTION (04/16/2018 3:07 [...] by: BRIANDA OMALLEY Authorized by: MICHAEL FARR in this encounter Visit Diagnoses Not on filein this encounter Administered Medications Medication Order MAR Action Action Date Dose Rate Site ceFAZolin (ANCEF) injection Given 04/16/2018 2 g INTRA-PROCEDURE MED, Starting Wed 10:15 CDT 04/16/18 at 1015, Until Sat04/16/18 at 1205, Anesthesia Intra-op dextran 70/hypromellose (GENTEAL TEARS; Given 04/16/2018 1 Dose BION TEARS) ophthalmic solution 09:55 CDT INTRA-PROCEDURE MED, Starting Sat04/16/18 at 0955, Until Sat04/16/18 at 1205, Dry Eyes, Anesthesia Intra-op electrolyte-A (PLASMA-LYTE A PH 7.4) Given - New 04/16/2018 injection Bag 10:10 CDT INTRA-PROCEDURE MED(CONT), Starting Sat04/16/18 at 1010, Until Sat04/16/18 at 1205, Anesthesia Intra-op fentaNYL citrate PF (SUBLIMAZE) Given 04/16/2018 100 mcg injection 09:46 CDT INTRA-PROCEDURE MED, Starting Sat04/16/18 at 0946, Until Sat04/16/18 at 1205, Pain Injectable, Anesthesia Intra-op Given 04/16/2018 50 mcg 11:35 CDT glycopyrrolate (ROBINUL) injection Given 04/16/2018 1 mg INTRA-PROCEDURE MED, Starting Sat 11:27 CDT 04/16/18 at 1127, Until Sat04/16/18 at 1205, Secretions, Anesthesia Intra-op heparin (porcine) injection Given 04/16/2018 6,000 Units INTRA-PROCEDURE MED, Starting Sat 10:34 CDT 04/16/18 at 1034, Until Sat04/16/18 at 1205, Anesthesia Intra-op Given 04/16/2018 2,000 Units 10:44 CDT Given 04/16/2018 1,000 Units 10:52 CDT lidocaine (PF) injection Given 04/16/2018 80 mg INTRA-PROCEDURE MED, Starting Sat 09:47 CDT 04/16/18 at 0947, Until Sat04/16/18 at 1205, Anesthesia Intra-op neostigmine (PROSTIGMINE) injection Given 04/16/2018 5.5 mg INTRA-PROCEDURE MED, Starting Sat 11:27 CDT 04/16/18 at 1127, Until Sat04/16/18 at 1205, Anesthesia Intra-op norepinephrine (LEVOPHED) 4 mg in Dose/Rate 04/16/2018 0.06 18.4 mL/hr dextrose 5% (D5W) 250 mL IV drip (std Change 11:08 CDT mcg/kg/min conc) 250 mL, INTRA-PROCEDURE MED(CONT), Starting Sat04/16/18 at 1013, Until Sat04/16/18 at 1205, Anesthesia Intra-op Bolus 04/16/2018 8 mcg 11:09 CDT Dose/Rate Change 04/16/2018 0.04 12.3 mL/hr 11:24 CDT mcg/kg/min ondansetron (ZOFRAN) injection Given 04/16/2018 4 mg Intravenous, INTRA-PROCEDURE MED, 11:25 CDT Starting Sat04/16/18 at 1125, Until Sat04/16/18 at 1205, Nausea/Vomiting Injectable, Anesthesia Intra-op phenylephrine (AVRIL-SYNEPHRINE) 10 mg in Given - New 04/16/2018 0.2 24.5 mL/hr sodium chloride 0.9% (NS) 250 mL IV drip Bag 09:49 CDT mcg/kg/min (std conc) 250 mL, INTRA-PROCEDURE MED(CONT), Starting Sat04/16/18 at 0949, Until Sat04/16/18 at 1205, Anesthesia Intra-op propofol (DIPRIVAN) injection Given 04/16/2018 70 mg INTRA-PROCEDURE MED, Starting Sat 09:49 CDT 04/16/18 at 0949, Until Sat04/16/18 at 1205, Anesthesia Intra-op Given 04/16/2018 30 mg 09:50 CDT Given 04/16/2018 50 mg 09:51 CDT protamine injection Given 04/16/2018 20 mg INTRA-PROCEDURE MED, Starting Sat 11:20 CDT 04/16/18 at 1120, Until Sat04/16/18 at 1205, Anesthesia Intra-op Given 04/16/2018 30 mg 11:23 CDT rocuronium (ZEMURON) injection Given 04/16/2018 60 mg Intravenous, INTRA-PROCEDURE MED, 09:51 CDT Starting Sat04/16/18 at 0951, Until Sat04/16/18 at 1205, Anesthesia Intra-op in this encounter
--- OUTSIDE RECORDS SUMMARY | 2018-07-03 14:59 | XMS REPORT | Encounter Summary ---
Author Author [facility] Organization [facility] Address Unknown Phone Unavailable Care Team Providers Care Extractor And Wringer Operator Name Role Phone Devon Cheema MD [...] cardiac valve disease unspecified [I35.0] P rocedures [place] REPLACE AORTIC VALVE PERQ FEMORAL ARTRY APPROACH REPLACEMENT TRANSCATHETER AORTIC VALVE-ignacio, left common femoral, 29s3 Encounter Details Date Type Department Care Team Description 04/15/2018 Hospital [facility] Mahendra Slater MD Encounter Hospital Radiology [address] [address] [place] [address] [place] [address] [phone] Social History Tobacco Use Types Packs/Day Years [...] as directed. 1 Device 0 03/11/2018 medical management specialist oxyCODONE/acetaminophen Take 1-2 tablets by mouth [...] & folate (Renal) daily. (NEPHPLEX RX) 1-60-300-12.5 [id number] tab acetaminophen (TYLENOL) Take 2 tablets by mouth 0 03/11/20182017 325 mg tablet every 4 hours as needed. amiodarone (CORDARONE) Take 1 tablet by mouth 30 tablet 1 03/11/2018 04/17/2018 200 mg tablet daily. Take with food. guaiFENesin LA (MUCINEX) Take 1 tablet by mouth 60 tablet 1 201705/13/2018 600 mg tablet twice daily. prednisone (DELTASONE) 5 Take 25 mg daily until 135 tablet 1 201705/13/2018 mg tablet 6/15, then decrease to 20 mg daily and continue until f/u with Cytology Technologist melo/suresh Take 1 tablet by mouth 30 tablet 0 02/22/20182017 (SENOKOT-S) 8.6/50 mg twice daily. tablet as of this encounter Plan of Treatment Date Type Specialty Care Team Description 05/06/2018 Procedure Pass Transplant Surgery as of this encounter Procedures Procedure Name Priority Date/Time Associated Diagnosis Comments CHEST 2 VIEWS STAT 04/15/2018 Aortic valve stenosis, Results for this 11:51 AM CDT etiology of cardiac valve procedure are in the disease unspecified results section. in this encounter Visit Diagnoses Not on filein this encounter
--- OUTSIDE RECORDS SUMMARY | 2018-07-03 14:59 | XMS REPORT | Encounter Summary ---
Author Author [facility] Organization [facility] Address Unknown Phone Unavailable Care Team Providers Care Stick Inserter Name Role Phone Devon Cheema MD PCP [...] cardiac valve disease unspecified [I35.0] P rocedures MS REPLACE AORTIC VALVE PERQ FEMORAL ARTRY APPROACH REPLACEMENT TRANSCATHETER AORTIC VALVE-shania, left common femoral, 29s3 Encounter Details Date Type Department Care Team Description 04/16/2018 Surgery Cardiac Catheterization Monique Laird MD REPLACEMENT TRANSCATHETER Laboratory [address] AORTIC VALVE- Shania [address] [place] 40[place] 29s3, [place] [address] [place] [address] artery approach [phone] Social History Tobacco Use Types Packs/Day Years [...] x1 Hyperlipidemia Leukopenia 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 Brief Hospital Course: The patient was admitted to [facility] on 04/16/18 for elective transcatheter [...] or concerns regarding your hospital stay. Call [phone] Discharging attending physician: MONIQUE LAIRD [[id number]] Renal Diet Your diet will need to be low in potassium and phosphorous. Monitor your sodium intake and limit is to 2g (grams) per day. If you have any questions regarding your diet at home, you may contact a dietitian at [phone]. Cardiac Diet Limiting unhealthy fats and cholesterol [...] 2p, appointment at 3p Provider MONIQUE LAIRD [[id number]] Location [facility] Appointment date: 05/13/2018 Cardiac Rehab Your physician has referred you to outpatient cardiac rehab. Contact [facility] Cardiac Rehab Department at [phone] to schedule an appointment. Additional Discharge Instructions You MUST take antibiotics prior to any dental procedures (including cleaning), invasive respiratory tract procedures and invasive skin procedures. This will help to prevent infection to the heart valve. Contact your primary care provider or risk management analyst for an antibiotic prescription when needed. Return Appointment Chest CT in the Medical Office Building at 11a. Nothing to eat or drink for 6 hours prior to your scan. Appointment with Dr. Laird following your scan at 1: 30p. Provider MONIQUE LAIRD [[id number]] Appointment date: 08/12/2018 Appointment time: 11:00 AM [...] or concerns regarding your hospital stay. Call [phone] Discharging attending physician: MONIQUE LAIRD [[id number]] Cardiac Diet Limiting unhealthy fats and cholesterol [...] contact a dietitian at . Return Appointment [facility] Internal medicine Provider MARY JANE LIRIANO [[id number]] Location Other (see Comments) Appointment date: 05/12/2018 Appointment time: 3:00 PM Return Appointment Please arrive at 2pm for your ECHO. Office appointment to follow with Dr Bryon EWING Provider MONIQUE LAIRD [[id number]] Location [facility] Appointment date: 05/13/2018 Appointment time: 2:00 PM Cardiac Rehab Your physician has referred you to outpatient cardiac rehab. Contact [facility] Cardiac Rehab Department at [phone] to schedule an appointment. Current Discharge Medication [...] 1 PRESCRIPTION TYPE: Normal nebulizer compressor medical recruiter Use as directed. Qty: 1 Device, Refills: [...] mg daily and continue until f/u with Bulb Sorter Qty: 135 tablet, Refills: 1 PRESCRIPTION TYPE: [...] Return Patient with Mary Jane Liriano MD [facility] Physicians - Internal Medicine (P Internal Medicine) 4th Floor Pod A [address] [place] [address] Med Office [facility] [address] May 13, 2018 2:00 PM CDT Echo Doppler with [facility] ECHO 3 [facility] Cardiology ([facility]) [address] [place], [place] [id number] May 13, 2018 3:00 PM CDT Post - Op with Monique Laird MD [facility] ([facility]) [address] [place], [place] [id number] Aug 12, 2018 11:00 AM WEATHERIZATION COORDINATOR CTA ABDOMEN WO/W C+POST PROC with CT-MOB [facility] Radiology ([facility] Rad[facility]) [address] [place] [address] 2nd Floor [facility] [address] Aug 12, 2018 1:30 PM WEATHERIZATION COORDINATOR Re-evaluation with Monique Laird MD [facility] ([facility]) [address] [place], [place] [id number] Pending items needing follow up: none Signed: Noemi Bach PA-C 04/18/2018 cc: Primary Care Physician: Devon Cheema Verified Referring physicians: Devon Cheema MD Additional provider(s): * Yamile Love, MANAGER INTERN - 04/16/2018 8:54 AM CDT Formatting of [...] x1 Hyperlipidemia Leukopenia 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 Admission Physical Exam notable for: Aortic Stenosis Brief Hospital Course: The patient was admitted to [facility] for elective transcatheter aortic valve [...] systolic and diastolic CHF, NYHA class 2 ([facility]) Surgical Procedures: 04/16/18 Dr. Laird/Dewey - Consults: [...] or concerns regarding your hospital stay. Call [phone] Discharging attending physician: MONIQUE LAIRD [[id number]] Renal Diet Your diet will need to be low in potassium and phosphorous. Monitor your sodium intake and limit is to 2g (grams) per day. If you have any questions regarding your diet at home, you may contact a dietitian at [phone]. Cardiac Diet Limiting unhealthy fats and cholesterol [...] Appointment Echocardiogram at 2p, appointment at 3p [facility] Provider MONIQUE LAIRD [[id number]] Location [facility] Appointment date: 05/13/2018 Cardiac Rehab Your physician has referred you to outpatient cardiac rehab. Contact [facility] Cardiac Rehab Department at [phone] to schedule an appointment. Additional Discharge Instructions You MUST take antibiotics prior to any dental procedures (including cleaning), invasive respiratory tract procedures and invasive skin procedures. This will help to prevent infection to the heart valve. Contact your primary care provider or risk management analyst for an antibiotic prescription when needed. Return Appointment Chest CT in the Medical Office Building at 11a. Nothing to eat or drink for 6 hours prior to your scan. Appointment with Dr. Laird following your scan at 1: 30p. Provider MONIQUE LAIRD [[id number]] Appointment date: 08/12/2018 Appointment time: 11:00 AM [...] 1 PRESCRIPTION TYPE: Normal nebulizer compressor medical recruiter Use as directed. Qty: 1 Device, Refills: [...] mg daily and continue until f/u with Bulb Sorter Qty: 135 tablet, Refills: 1 PRESCRIPTION TYPE: [...] Return Patient with Mary Jane Liriano MD [facility] - Internal Medicine ([facility]) 4th Floor Pod A [address] [facility] Med Office [facility] [phone] Signed: Neeru Anderson PA-C 04/16/2018 cc: Primary [...] as directed. 1 Device 0 03/11/2018 medical recruiter oxyCODONE/acetaminophen Take 1-2 tablets by mouth 20 [...] & folate (Renal) daily. (NEPHPLEX RX) 1-60-300-12.5 ut-kx-obh-mg tab acetaminophen (TYLENOL) Take 2 tablets by mouth 0 03/11/20182017 325 mg tablet every 4 hours as needed. guaiFENesin LA (MUCINEX) Take 1 tablet by mouth 60 tablet 1 201705/13/2018 600 mg tablet twice daily. prednisone (DELTASONE) 5 Take 25 mg daily until 135 tablet 1 201705/13/2018 mg tablet 03/21, then decrease to 20 mg daily and continue until f/u with Bulb Sorter melo/peteusate Take 1 tablet by mouth 30 tablet 0 02/22/20182017 (SENOKOT-S) 8.6/50 mg twice daily. tablet as of this encounter Progress Notes * Thelma Mayer, YVES - 04/18/2018 12:10 PM CDT Cardiac Rehab Call Back Note: Are you tolerating activity?Yes Is pain controlled?Yes Is appetite normal?Yes Are you having symptoms of heart discomfort?No Are you having signs of infection at your incision sites or groin site?No Do you want outpt cardiac rehab?Yes * Leonor Pedersen, YVES - 04/18/2018 11:23 AM CDT 1115 - [...] CTA B/l No ll edema * Zena Barron, RN - 04/18/2018 6:58 AM CDT Assumed [...] Date: 04/17/2018 Werner AC=Airway clearance AM=Aerosolized medication BA=Owen aerosol DB&C=Deep breathe & cough FEV1=Forced expiratory volume in first second) IC=Inspiratory capacity LE=Lung expansion MDI=Metered dose inhaler Neb=Nebulizer O2=Oxygen Oxim=Oximetry PEFR=Peak expiratory flow rate DOCK GRADER=Rapid Response Team * Stella Wilcox RN - [...] for additional wound details. INTERVENTIONS: * Daniel Bridges RN - 04/17/2018 1:52 PM CDT Assumed care [...] acute nausea despite interventions. Dr. Roldan and aMrcia Love updated. Orders to give 1 time [...] Started on dialysis August 2017 Dialyzes in [facility] right AV fistula Pathology Secretary Nay Cardona Allyssa's granulomatosis Received immunosuppression secondary [...] to follow JUAN DANIEL VAN MD Pager [phone] Subjective Tolu Barrios is a 62 y.o. [...] Cardiothoracic Surgery Critical Care Progress Note Tolu Sophie Today's Date: 04/17/2018 Admission Date: 04/16/2018 LOS: 1 day POD: 1 Procedure: REPLACEMENT TRANSCATHETER AORTIC VALVE- Shania 29s3, left common femoral artery approach: 06590 (CPT) Principal Problem: Aortic valve stenosis Active [...] plt count. Continue pravastatin, Amio 200 mg ACUPUNCTURE PHYSICIAN resumed. Intra op NORA LVEF 60%. Resp [...] Yamile Love APRN CTS Intensive Care Pager [phone] 04/17/2018 Subjective: HPI: Tolu Barrios is a [...] Hour Range BP: 115/79 (04/16 0830) Temp: 36.6 C (97.8 F) (04/17 0400) Pulse: 69 (07/12 0700) Respirations: 12 PER MINUTE (04/17 700) SpO2: [...] (Pain 1): 7 (04/17/18 0030) Vitals: 04/16/18 0704/17/18699 Weight: 81.8 kg (180 lb 5.4 oz) 81.8 kg (180 lb 5.4 oz) Intake/Output Summary: (Last 24 hours) Intake/Output Summary (Last 24 hours) at 04/17/18726 Last data filed at 04/17/18699 Gross per 24 hour Intake 1550.56 ml [...] Other Diagnostic Procedures Review: Reviewed * Thelma Mayer RN - 04/17/2018 7:03 AM CDT Formatting of this note may be different from the original. CARDIOPULMONARY REHABILITATION INPATIENT ASSESSMENT Cardiac Rehabilitation Staff: Thelma Mayer Discharge Date: Demographics Pre-admit Dx: Aortic Stenosis Date of Admission: 04/16/2018 Room: [place] [id number] : 1955 Insurance: Primary: medicare Secondary: [facility] Address: [address] [place] [address] Patient (home) [phone] (work ) Marital Status: Occupation: Unknown ED Contact: Zakiya Barrios ED Phone #: [phone] CTS: Bryon Rough Rice Tender: Dewey Cardiac Procedures and Events Valve: 04/16/18 (TAVR) Risk Factors Risk Factors: Hyperlipidemia, Hypertension BP: 115/79 (left arm) Height: 190.5 cm (75") Weight: 81.8 kg (180 lb 5.4 oz) BMI (Calculated): 22.54 Medical History has a past medical history of Anemia; Aortic stenosis; Arthralgia (started in 1996); DVT (deep venous thrombosis) (HCC) (nov 1996); Enlarged prostate; GERD ( gastroesophageal reflux disease); Gout of big toe; Herpes zoster; History of blood transfusion (2008 x1); Hyperlipidemia; Leukopenia; Melanoma (HCC) (dx 1996 ); Necrosis of head of left femur [...] OPCR: Referral Faxed to: Date Faxed: Location: [facility], Sent to Staff: Thelma Mayer RN 04/17/2018 * Stephanie Williamson MD - 04/17/2018 6:38 AM CDT KIMBERLY ON. Remains off pressors. CXR clear. HD yesterday with removal of 3L. Daily ASA--mild thrombocytopenia at baseline. Progressing well; anticipate d/ c home today. Stephanie Williamson MD * Donavan Schilling RN - 04/17/2018 6:15 AM CDT Pt [...] C/D/I. Will continue to monitor. * Donavan Schilling RN - 04/16/2018 9:02 PM CDT Pt [...] Date: 04/16/2018 Werner AC=Airway clearance AM=Aerosolized medication BA=Owen aerosol DB&C=Deep breathe & cough FEV1=Forced expiratory volume in first second) IC=Inspiratory capacity LE=Lung expansion MDI=Metered dose inhaler Neb=Nebulizer O2=Oxygen Oxim=Oximetry PEFR=Peak expiratory flow rate DOCK GRADER=Rapid Response Team * Kenn Escobar, RN - [...] Will continue to monitor. * Yamile Love, MANAGER INTERN - 04/16/2018 1:18 PM CDT Formatting of this note may be different from the original. Cardiothoracic Surgery Critical Care Progress Note Tolu Barrios Today's Date: 04/16/2018 Admission Date: 04/16/2018 LOS: 0 days POD: 0 Procedure: REPLACEMENT TRANSCATHETER AORTIC VALVE- Shania 29s3, left common femoral artery approach: 36036 (CPT) Principal Problem: Aortic valve stenosis Active [...] plts <80k) and pravastatin. Amio 200 mg ACUPUNCTURE PHYSICIAN resumed. Intra op NORA LVEF 60%. Resp [...] Yamile Love APRN CTS Intensive Care Pager [phone] 04/16/2018 Subjective: HPI: Tolu Barrios is a [...] of 6.03 mg/dL (H)) . Vitals: 04/16/18 0744 Weight: 81.8 kg (180 lb 5.4 oz) No results for input(s): PHART, PO2ART in the last 72 hours. Invalid input(s): PC02A Radiology and Other Diagnostic Procedures Review: Reviewed * Kenn Escobar, YVES - 04/16/2018 12:00 PM CDT Patient received from [facility]. VSS on arrival. Patient is lethargic but [...] 62 y.o. male who is known to [facility]. He has an extensive past medical [...] hands, wrists, ankles DVT (deep venous thrombosis) ([facility]) nov 1996 thrombophlebitis/DVT Enlarged prostate GERD (gastroesophageal reflux disease) Gout of big toe Herpes zoster involving the right lower extremity and buttocks while taking cytoxan History of blood transfusion 2008 x1 Hyperlipidemia Leukopenia Melanoma (HCC) dx 1996 [place] node biopsy (right ear lobe) 01-27-2010 which [...] daily and at bedtime. nebulizer compressor medical recruiter Use as directed. pantoprazole DR (PROTONIX) 40 mg tablet Take 40 mg by mouth daily. pravastatin (PRAVACHOL) 10 mg tablet Take 10 mg by mouth daily. prednisone (DELTASONE) 5 mg tablet Take 25 mg daily until 03/21, then decrease to 20 mg daily and continue until f/u with Bulb Sorter (Patient taking differently: Take 20 mg by mouth daily with breakfast. Take 25 mg daily until 03/21, then decrease to 20 mg daily and continue until f/u with Bulb Sorter) senna/docusate (SENOKOT-S) 8.6/50 mg tablet Take 1 [...] No pertinent radiology. Neeru Anderson PA-C Pager [phone] in this encounter Procedure Notes * Shaneka Campa RN - 04/18/2018 6:27 AM CDT Associated Order(s): [...] Total UF 2 kgs. 0956 report to Setlla MARINELLI, and YVES Sanchez unit HC4. * Leidy [...] ATTESTATION This note is associated with the [facility] ICU team note dated today. Date of Service: 04/16/2018 I have seen, personally fully evaluated, and discussed patient with the [facility] ICU team. The patient is critically [...] Scale 0-10 (Pain 1): (not recorded) Vitals: 04/16/18 0744 Weight: 81.8 kg (180 [...] Pertinent radiology reviewed. Lupillo Roldan MD Pager [phone] * Juan Daniel Van MD - 04/16/2018 [...] Started on dialysis August 2017 Dialyzes in [facility] right AV fistula Pathology Secretary Nay Cardona Allyssa's granulomatosis Received immunosuppression secondary [...] CTS team JUAN DANIEL VAN MD Pager [phone] History Reason for Consult: ESRD HPI: Tolu [...] hands, wrists, ankles DVT (deep venous thrombosis) ([facility]) nov 1996 thrombophlebitis/DVT Enlarged prostate GERD (gastroesophageal reflux disease) Gout of big toe Herpes zoster involving the right lower extremity and buttocks while taking cytoxan History of blood transfusion 2008 x1 Hyperlipidemia Leukopenia Melanoma (HCC) dx 1995 [place] node biopsy (right ear lobe) 01-27-2010 which [...] daily and at bedtime. nebulizer compressor medical recruiter Past Week Self No No Sig: Use [...] mg daily and continue until f/u with Bulb Sorter Patient taking differently: Take 20 mg by mouth daily with breakfast. Take 25 mg daily until 03/21, then decrease to 20 mg daily and continue until f/u with Bulb Sorter senna/docusate (SENOKOT-S) 8.6/50 mg tablet 04/15/2018 Self No [...] at 04/16/18 1643 Last data filed at 04/16/18 1600 Gross per 24 hour Intake 800.56 ml [...] SCr of 5.77 mg/dL (H)) . Vitals: 04/16/18743 Weight: 81.8 kg (180 lb 5.4 oz) No results for input(s): PHART, PO2ART in the last 72 hours. Invalid input(s): PC02A Radiology Pertinent radiology reviewed. 2DE 02/21 Probable bicuspid aortic valve with severe stenosis, moderate regurgitation Enlarged aortic root Mild concentric LVH Mild left atrial enlargement in this encounter Miscellaneous Notes * Case Mgmt DC Plan - ConroeNeeru foreman - 04/17/2018 4:30 PM CDT Case Management Admission Assessment NAME:Tolu Barrios :1955 AGE: 62 y.o. ADMISSION DATE: 04/16/2018 DAYS ADMITTED: LOS: 1 day Todays Date: 04/17/2018 Source of Information: Patient; EMR Plan Plan: CM Assessment, Assist PRN with SW/NCM Services, Discharge Planning for Home Anticipated Patient is a 62 y.o. male who is known to [facility]. He has an extensive past medical [...] assist with needs at home. Patient Address/Phone [address] [facility] [address] [facility] [address] (home) [phone] (work) Emergency Contact Extended Emergency Contact Information Primary Emergency Contact: Zakiya Barrios [facility] Relation: Spouse Secondary Emergency Contact: Bisi Booker [facility] Relation: Daughter Healthcare Directive Transportation Does the patient need discharge transport arranged?: No Transportation Name, Phone and Availability #1: Harvinder Booker - [phone] Does the patient use Medicaid Transportation?: No Expected Discharge Date Expected Discharge Date: 04/18/18 Discharge Planning Comments: Anticipate pt to ar home with no needs from CM team [...] Who provides assistance or could if needed?: Chi Sigala - [phone] Are they in good health?: Yes Can [...] RX (BCBS; Pt p/u all scripts at [facility] and reports they are all affordable) ? 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 Financial Assistance Needed? N/A Psychosocial Needs ? Mental Health Mental Health History: No ? Substance Use History Substance Use History Screen: Yes Comment: Patient reports he actively smokes marijuana approximately 3 days a week and takes 'a few hits' when he does smoke ? Other N/A Current/Previous Services ? PCP Devon Cheema, , ? Pharmacy [facility] [place] - [address] [place] [id number] ? Durable Medical Equipment Durable Medical Equipment at home: Roller Walker, Single Point Cane, Nebulizer ? Home Health Receiving home health: No ? Hemodialysis or Peritoneal Dialysis Undergoing hemodialysis or peritoneal dialysis: Yes Hemodialysis or Peritoneal Dialysis: Hemodialysis Location: [facility] - [phone] / Days attending: Saturday, Saturday, Saturday Dialysis Start Time: 0700 Does patient sit for treatment?: Yes Transportation to treatment via: (Patient transports himself) ? Tube/Enteral Feeds Receive tube/enteral feeds: No ? Infusion Receive infusions: Yes Where: [facility] ? Private Duty Private duty help used: No ? Home and Community Based Services Home and community based services: No ? Garfield White Garfield White: No ? Hospice Hospice: No ? Outpatient Therapy PT: Yes When did patient receive care?: Current patient Name of rehab location/group: [facility] - [phone] Would patient return for future services?: Yes OT: Yes When did patient receive care?: Current patient Name of rehab location/group: [facility] - [phone] Would patient return for future services?: Yes DIRECTOR MULTIMEDIA: No ? Fdc Facility/Fdc SNF: No NH: No ? Inpatient Rehab IPR: Yes When did patient receive care?: February - March 2018 Name of Facility: [facility] Would patient return for future services?: Yes ? [facility] LTACH: No ? Acute Hospital Stay Acute Hospital Stay: Yes Was patient's stay within the last 30 days?: No Neeru Trujillo LMSW Surgery - Cardiothoracic/Vascular Rand Maker *8220 * Care Plan - Donavan Schilling RN - 04/17/2018 5:18 AM CDT Problem: Falls, High Risk of Goal: Absence of falls-Adult Patient Outcome: Goal Ongoing Pt absent of falls during this shift Problem: Pain Goal: Management of pain Outcome: Goal Ongoing PRN medications given * Operative Report (DICTATED ONLY) - Monique Laird MD - 04/16/2018 4:43 PM CDT THE [address] [address] PATIENT NAME: TOLU BARRIOS MR#/PT#: [id number] OPERATIVE REPORT : 1955 DATE OF OPERATION: [...] ProGlide sutures were placed and then an 8-East Timorese sheath was positioned. On the patient's left side, a 5-[place]orese sheath was positioned. Systemic heparinization was achieved and maintained throughout the remainder of the procedure. A temporary balloon tip pacemaker was advanced through the left common femoral vein. This was positioned to the noncoronary sinus. Over a stiff wire, the 8-East Timorese sheath and right common femoral artery was [...] I was present for the entire procedure. MD CHESTER Ovalle III (Trip)/Perla Laird III, MD (Trip) / Perla [id number] cc: - Monique Laird III, MD (Trip) [...] MD - Primary * David Palomo MD, [facility] - Co-Surgeon Findings: Trace-mild PVL, mean of 4 Estimated Blood Loss: 30cc Specimen(s) Removed/Disposition: * No specimens in log * Complications: None Implants: 29 S3 Drains: None Disposition: ICU - stable Monique Laird MD Pager * Operative Report (Direct Entry) - David Palomo MD, [facility] - 04/16/2018 9: 40 AM CDT TAVR [...] S3 (4cc additional to nominal). Serial Number [id number] 7. Post dilatation balloon aortic valvuloplasty utilizing [...] common femoral artery with placement of 5- East Timorese sheath. Access also obtained in the right common femoral artery with placement of an 8-[place]orese sheath. A dual ProGlide pre-close technique was [...] gradient of 52 mmHg. 7. Utilizing an Safari small wire in the left ventricle, the [...] 9 mmHg. 12. The right common femoral 16-East [place]orese sheath was then removed and the dual [...] conclusion of the case and transported to [facility] in stable condition. 14. At the [...] - 34 OTHER OUTSIDE LAB AV index (venetie ira) 0.50 OTHER OUTSIDE LAB LVOT area 4.52 cm2 OTHER OUTSIDE LAB LVOT stroke volume 108.48 cm3 OTHER OUTSIDE LAB E/A ratio 1.24 OTHER OUTSIDE LAB E/E' ratio 7.25 OTHER OUTSIDE LAB LV mass 269.43 96 - 200 g OTHER OUTSIDE LAB RWT 0.64 <=0.42 OTHER OUTSIDE LAB E wave decelartion time 163.0 msec OTHER OUTSIDE LAB Cardiology Ultrasound Siemens [id number] OTHER OUTSIDE LAB Machine Left Ventricle Mass [...] questions. Specimen Blood Performing Organization Address [facility] Phone Number MAIN LAB [address] [phone] * CBC (04/17/2018 2:00 AM) White Blood [...] LAB Specimen Blood Performing Organization Address [facility] Phone Number MAIN LAB [address] [phone] * HEMODIALYSIS INPATIENT (04/16/2018 8:29 PM) Narrative [...] PM) APTT 26.6 21.0 - 39.0 SEC [facility] MAIN LAB Specimen Blood Performing Organization Address [place] [facility] Phone Number [facility] MA[facility] [address] [place] [address] * PROTIME INR (PT) (04/16/2018 12:39 PM) INR 1.0 0.8 - 1.2 [facility] MAIN [facility] Specimen Blood Performing Organization Address [facility] Phone Number [facility] [address] [place] [address] * BASIC METABOLIC PANEL (04/16/2018 12:39 PM) [...] for questions. Specimen Blood Performing Organization Address [facility] Phone Number [facility] [address] [place] [address] * CBC (04/16/2018 12:39 PM) White Blood [...] Organization Address City/State/Zipcode Phone Number MAIN LAB [address] [place] [address] * [facility] 1V CXR (04/16/2018 12:20 PM) Impressions Performed [...] 04/16/2018 12:39 PM. Narrative Performed At [facility] 1 CXR [facility] RAD RESULTS Clinical Indication: [...] Results - 04/16/2018 12:47 PM CDT [facility] 1V CXR Clinical Indication: Male, 62 years [...] 04/16/2018 12:39 PM. Performing Organization Address City/[facility] Phone Number RAD RESULTS * POC ACTIVATED CLOTTING TIME (04/16/2018 10:48 AM) Activated Clotting Time 265 s MAIN LAB Performing Organization Address [facility] Phone Number MAIN LAB [address] [place] [address] * POC IONIZED CALCIUM (04/16/2018 10:44 AM) Ionized Calcium-POC 1.18 1.0 - 1.3 MMOL/L MAIN LAB Performing Organization Address [facility] Phone Number MAIN LAB [address] [place] [address] * POC SODIUM (04/16/2018 10:44 AM) Sodium-POC 131 (L) 137 - 147 MMOL/L MAIN LAB Performing Organization Address [facility] Phone Number MAIN LAB [address] [place] [address] * POC POTASSIUM (04/16/2018 10:44 AM) Potassium-POC 5.0 3.5 - 5.1 MMOL/L [facility] MAIN [facility] Performing Organization Address [facility] Phone Number MAIN LAB [address] [place] [address] * POC HEMATOCRIT (04/16/2018 10:44 AM) Hemoglobin POC 11.6 (L) 13.5 - 16.5 GM/DL MAIN LAB Hematocrit POC 34.0 (L) 40 - 50 % MAIN LAB Performing Organization Address [facility] Phone Number MAIN LAB [address] [place] [address] * POC BLOOD GAS ARTERIAL (04/16/2018 10:44 AM) PH-ART-POC 7.38 7.35 - 7.45 [facility] MAIN [facility] [id number] 45 35 - 45 MMHG [facility] MAIN [facility] PO2-ART-POC 257 (H) 80 - 100 MMHG [facility] MAIN [facility] Base Ex-ART-POC 1.0 MMOL/L [facility] MAIN [facility] O2 Sat-ART-POC 100.0 (H) 95 - 99 % [facility] MAIN [facility] Rqxaurlqwou-UMQ-IIV 26.5 21 - 28 MMOL/L [facility] MAIN [facility] Performing Organization Address City/[facility] Phone Number [facility] [address] [place] [address] * POC ACTIVATED CLOTTING TIME (04/16/2018 10:41 AM) Activated Clotting Time 210 s [facility] MAIN LAB Performing Organization Address City/[facility] Phone Number MAIN LAB [address] [place] [address] * POC GLUCOSE (04/16/2018 10:41 AM) Glucose, POC 112 (H) 70 - 100 MG/DL [facility] MAIN [facility] Performing Organization Address [facility] Phone Number MAIN LAB [address] [place] [address] * BASIC METABOLIC PANEL (04/16/2018 8:06 AM) [...] Creatinine 6.03 (H) 0.4 - 1.24 MG/DL MAIN LAB Calcium 10.0 8.5 - 10.6 [...] questions. Specimen Blood Performing Organization Address City/[facility] Phone Number [facility] [address] [place] [address] in this encounter Visit Diagnoses Diagnosis Aortic valve stenosis, etiology of cardiac valve disease unspecified Admitting Diagnoses Diagnosis Aortic valve stenosis, etiology of cardiac valve disease unspecified - Aortic valve stenosis, etiology of cardiac valve disease unspecified [I35.0] Aortic stenosis Administered Medications Medication Order MAR Action Action Date Dose Rate Site acetaminophen (TYLENOL) tablet 650 mg Given 04/16/2018 [...] Inhalation, RT EVERY 4 HOURS PRN, Starting Sat04/17/18 at 2116, Until Sat04/18/18 at 1411, RT PROTOCOL, When administered by RT, will be per RT policy. aspirin chewable tablet 81 mg Given 04/17/2018 [...] at 0900, Until Discontinued, On dialysis days fentaNYL citrate PF (SUBLIMAZE) Given 04/16/2018 50 [...] 1 mg, Oral, DAILY, First dose on Sat 08:08 CDT 04/17/18 at 0900, Until Discontinued Given 04/18/2018 1 mg 10:23 CDT ipratropium bromide (ATROVENT) 0.02 % nebulizer solution 0.5 mg 0.5 mg, Inhalation, RT EVERY 4 HOURS PRN, Starting Sat04/17/18 at 2116, Until Sat04/18/18 at 1411, RT PROTOCOL, When administered by RT, will be per RT policy. metoclopramide (REGLAN) injection 10 mg 10 mg, Intravenous, EVERY 6 HOURS PRN, Starting Sat04/17/18 at 1614, Until Sat04/18/18 at 1411, Nausea/Vomiting [...] 10 mg, Oral, DAILY, First dose on Sat 08:08 CDT 04/17/18 at 0900, Until Discontinued [...] CDT Given 04/18/2018 2 tablets 10:22 CDT trimethoprim/sulfamethoxazole (BACTRIM Given 04/18/2018 1 tablet SS) [...]
--- OUTSIDE RECORDS SUMMARY | 2018-07-03 15:00 | XMS REPORT | Encounter Summary ---
Author Author [facility] Organization [facility] Address Unknown Phone Unavailable Care Team Providers Care Urban Planning Teacher Name Role Phone Devon Cheema MD PCP [...] cardiac valve disease unspecified [I35.0] P rocedures [place] REPLACE AORTIC VALVE PERQ FEMORAL ARTRY APPROACH REPLACEMENT TRANSCATHETER AORTIC VALVE-ignacio, left common femoral, 29s3 Encounter Details Date Type Department Care Team Description 04/15/2018 [facility] Cardiology Mahendra Slater MD Encounter [facility] [place] [address] [place] [address] [phone] Social History Tobacco Use Types Packs/Day Years [...] as directed. 1 Device 0 03/11/2018 medical psychotherapist oxyCODONE/acetaminophen Take 1-2 tablets by mouth 20 [...] & folate (Renal) daily. (NEPHPLEX RX) 1-60-300-12.5 pp-rr-fsl-mg tab acetaminophen (TYLENOL) Take 2 tablets by [...] mg daily and continue until f/u with Shoe Stainer melo/suresh Take 1 tablet by mouth 30 tablet 0 02/22/20182017 (SENOKOT-S) 8.6/50 mg twice daily. tablet as of this encounter Plan of Treatment Date Type Specialty Care Team Description 05/06/2018 Procedure Pass Transplant Surgery as of this encounter Procedures Procedure Name Priority Date/Time Associated Diagnosis Comments PTT (APTT) STAT 04/15/2018 Aortic valve stenosis, [...] disease unspecified results section. in this encounter Results * TYPE & CROSSMATCH (04/15/2018 11:10 AM) Units Ordered 2 MAIN LAB Crossmatch Expires 04/18/2018 MAIN LAB Record Check FOUND MAIN LAB ABO/RH(D) O POS MAIN LAB Antibody Screen NEG MAIN LAB Electronic Crossmatch YES MAIN LAB Unit Number [id number] MAIN LAB Blood Component Type RBC,ADSOL,LEUKO REDUCED MAIN LAB Unit Division 0 MAIN LAB Status OF Unit REL FROM ALLOC MAIN LAB Transfusion Status OK TO TRANSFUSE MAIN LAB Crossmatch Result COMPATIBLE,ELECTRONIC MAIN LAB Unit Number [id number] MAIN LAB Blood Component Type RBC,ADSOL,LEUKO REDUCED MAIN LAB Unit Division 0 MAIN LAB Status OF Unit REL FROM ALLOC MAIN LAB Transfusion Status OK TO TRANSFUSE MAIN LAB Crossmatch Result COMPATIBLE,ELECTRONIC [facility] LAB Specimen Blood Performing Organization Address [facility]/Zipcode Phone Number [facility] [address] [place] [address] * PTT (APTT) (04/15/2018 11:10 AM) APTT 27.1 21.0 - 39.0 SEC MAIN LAB Specimen Blood Performing Organization Address City/[facility]/Zipcode Phone Number [facility] [address] [place] [address] * PROTIME INR (PT) (04/15/2018 11:10 AM) INR 1.0 0.8 - 1.2 [facility] MAIN [facility] Specimen Blood Performing Organization Address City/[facility]/Zipcode Phone Number [facility] MAIN [facility] [address] [place] [address] * HEMOGLOBIN A1C (04/15/2018 11:10 AM) Hemoglobin A1C 4.4 4.0 - 6.0 % [facility] MAIN [facility] Comment: The ADA recommends that most patients with type 1 and type 2 diabetes maintain an A1c level <7%. Specimen Blood Performing Organization Address City/[facility]/Zipcode Phone Number [facility]IN [facility] [address] [place] [address] * COMPREHENSIVE METABOLIC PANEL (04/15/2018 11:10 AM) Sodium 135 (L) 137 - 147 MMOL/L [facility]IN [facility] Potassium 5.5 (H) 3.5 - 5.1 MMOL/L [facility] Chloride 96 (L) 98 - 110 MMOL/L [facility] Glucose 101 (H) 70 - 100 MG/DL [facility] Blood Urea Nitrogen 46 (H) 7 - 25 MG/DL [facility] Creatinine 5.12 (H) 0.4 - 1.24 MG/DL [facility] Calcium 10.0 8.5 - 10.6 MG/DL [facility] Total Protein 6.5 6.0 - 8.0 G/DL [facility] Total Bilirubin 0.5 0.3 - 1.2 MG/DL [facility] Albumin 3.9 3.5 - 5.0 G/DL [facility] MAIN [facility] Alk Phosphatase 137 (H) 25 - 110 U/L [facility] MAIN [facility] AST (SGOT) 17 7 - 40 U/L [facility] MAIN [facility] CO2 26 21 - 30 MMOL/L [facility] ALT (SGPT) 21 7 - 56 U/L [facility] Anion Gap 13 (H) 3 - 12 [facility] MAIN [facility] eGFR Non 11 (L) >60 mL/min [facility] Comment: The eGFR is not validated for use in drug dosing adjustments.Continue to use estimated creatinine clearance per dosing reference text.Please contact the Clinical Pharmacist for questions. eGFR 14 (L) >60 mL/min [facility] MAIN [facility] Comment: The eGFR is not validated for use in drug dosing adjustments.Continue to use estimated creatinine clearance per dosing reference text.Please contact the Clinical Pharmacist for questions. Specimen Blood Performing Organization Address City/[facility]/Zipcode Phone Number MAIN LAB [address] [place] [address] * CBC (04/15/2018 11:10 AM) White Blood Cells 3.5 (L) 4.5 - 11.0 K/UL [facility] MAIN [facility] RBC 3.50 (L) 4.4 - 5.5 M/UL [facility] MAIN [facility] Hemoglobin 11.5 (L) 13.5 - 16.5 GM/DL [facility] MAIN [facility] Hematocrit 35.6 (L) 40 - 50 % [facility] MAIN [facility] MCV 101.8 (H) 80 - 100 FL [facility] MAIN [facility] MCH 32.8 26 - 34 PG [facility] MAIN [facility] MCHC 32.2 32.0 - 36.0 G/DL [facility] MAIN [facility] RDW 20.7 (H) 11 - 15 % [facility] MAIN [facility] Platelet Count 96 (L) 150 - 400 K/UL [facility]IN [facility] MPV 7.9 7 - 11 FL [facility]IN [facility] Specimen Blood Performing Organization Address [facility] Phone Number MAIN LAB [address] [place] [address] * BNP (B-TYPE NATRIURETIC PEPTI) (04/15/2018 11:10 AM) B Type Natriuretic 1,902.0 (H) 0 - 100 PG/ML MAIN LAB Peptide Specimen Blood Performing Organization Address [facility] Phone Number MAIN LAB [address] [place] [address] in this encounter Visit Diagnoses Diagnosis Aortic valve stenosis, etiology of cardiac valve disease unspecified
--- OUTSIDE RECORDS SUMMARY | 2018-07-03 15:00 | XMS REPORT | Encounter Summary ---
Author Author [facility] Organization [facility] Address Unknown Phone Unavailable Care Team Providers Care Check Services Clerk Name Role Phone Devon Cheema MD PCP [...] Details Date Type Department Care Team Description 04/10/2018 Prep for Case [facility] Cardiology Henrietta Young APRN-C Aortic valve stenosis, [facility] etiology of cardiac valve [address] [facility] [address] [place] [address] [place] [address] (Primary Dx) [phone] Social History Tobacco Use Types Packs/Day Years [...] as of this encounter Visit Diagnoses Diagnosis Aortic valve stenosis, etiology of cardiac valve disease unspecified - Primary
--- OUTSIDE RECORDS SUMMARY | 2018-07-03 15:00 | XMS REPORT | Encounter Summary ---
Author Author [facility] Organization [facility] Address Unknown Phone Unavailable Care Team Providers Care Handkerchief Cutter Name Role Phone Devon Cheema MD PCP [...] cardiac valve disease unspecified [I35.0] P rocedures [place] REPLACE AORTIC VALVE PERQ FEMORAL ARTRY APPROACH REPLACEMENT TRANSCATHETER AORTIC VALVE-ignacio, left common femoral, 29s3 Encounter Details Date Type Department Care Team Description 04/15/2018 PAC Office Preoperative Assessment Mahendra Slater MD Aortic valve stenosis, Visit Clinic [address] [facility] etiology of cardiac valve [facility] 1st fl [address] [place] [address] disease unspecified [address] [place] [address] (Primary Dx) [place] [address] [phone] Anesthesia Record Procedure Name Responsible Anesthesia Start Time Anesthesia Stop Time Anesthesiologist REPLACEMENT TRANSCATHETER David Farr MD 04/16/18 0937 04/16/18 1152 AORTIC VALVE- Ignacio 29s3, left common femoral artery approach (Bilateral Groin) Date Time Event Comment 858 Art Line 2017 0936 Out of Pre Procedure 0937 Anes [...] the receiving nurse. 1152 An Stop Meds * No agents on file. * No blood administrations on file. Type Details Placement Removal AV R; Upper, Arm 02/10/18 1842 by Shunt/Fist octavio Puncture 04/16/18; 1030; Right; Femoral 04/16/18 1030 by Wound Madina Spangler (Sheath) Puncture 04/16/18; 1030; Left; Femoral 04/16/18 1030 by Wound Madina Spangler (Sheath) Wounds 02/11/18; 1817; Left; Arm; Skin Tear; 02/11/18 1817 by Gracy, 0000 by Cyrus, (NOT for 04/17/18 YVES Bruce, RN Pressure Injuries) Wounds 03/01/18; Right, Upper; Buttocks; 03/01/18 0000 by Srinath, 0000 by Cyrus, (NOT for Abrasion; 04/17/18 YVES Galvez, RN Pressure Injuries) Wounds 03/05/18; 0514; Right, Outer; Elbow; 03/05/18 0514 by Aiken, 09/23 0000 by Cyrus, (NOT for Skin Tear; 04/17/18 Christina Sanchez RN Pressure Injuries) Transvenou 04/16/18; OR, [facility]; Yes; Internal 04/16/18 0000 by Shawn , 04/17/18 0850 by ofelia Tavera Jugular, Right; 04/17/18; 0850; Y YVES Hawk RN Pacemaker Peripheral 04/16/18; 0800; RN; L; Hand; 18 G; No; 04/16/18 0800 by Fernando, 04/18/18 1050 by Slava, IV Lidocaine Prep; 1; 04/18/18; 1050 YVES Santo RN Arterial 04/16/18; 0859 (created via procedure 04/16/18 0859 by Lyssa, 04/17/18 0850 by Ayse, Line documentation); L; Radial; 20 G; MD Noemi Banres RN 04/17/18; 0850; N ETT 04/16/18; 0955; Ventilated by mask with 04/16/18 0955 by 04/16/18 1146 by oral airway (2); Direct laryngoscopy, David Good DO Sullivan, Peter, DO Stylet; Cuffed; 7.5mm; Mac; 3; Oral; 1-Full view of the glottis; 1 insertion attempt; Auscultation, ETCO2 Detector; 22 centimeters; Performed by [employer] 3. No injury to teeth, lips, or gums. ; 04/16/18; 1146 Introducer 04/16/18; 1005 (created via procedure 04/16/18 1005 by 0850 by Ayse, / Cordis documentation); OR; Yes; (6 Fr); David Good DO Kristina, RN Sterile occlusive dressing; 04/17/18; 0850; Y in this encounter Social History Tobacco Use Types Packs/Day Years Used Date Never Smoker Smokeless Tobacco: Never Used Alcohol Use Drinks/Week oz/Week Comments Yes occasional Sex Assigned at Date Recorded Not on file as of this encounter Last Filed Vital Signs Vital Sign Reading Time Taken Blood Pressure 106/70 04/15/2018 12:45 PM CDT Pulse 82 04/15/2018 12:45 PM CDT Temperature 36.5 C (97.7 F) 04/15/2018 12:45 PM CDT Respiratory Rate - - Oxygen Saturation 100% 04/15/2018 12:45 PM CDT Inhaled Oxygen - - Concentration Weight - - Height 190.5 cm (6' 3") 04/15/2018 12:45 PM CDT Body Mass Index - - in this encounter Functional Status Functional Status [...] 07/08/2015 as of this encounter Instructions * Pre-Anesthesia Medication Instructions - CrespoMatthieu - 04/15/2018 12: 04 PM CDT Formatting of this note may be different from the original. YOUR MEDICATIONS: acetaminophen (TYLENOL) 325 mg tablet Take 2 [...] daily and at bedtime. 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 pantoprazole DR (PROTONIX) 40 mg tablet Take 40 mg by mouth daily. pravastatin (PRAVACHOL) 10 mg tablet Take 10 mg by mouth daily. prednisone (DELTASONE) 5 mg tablet Take 25 mg daily until 03/21, then decrease to 20 mg daily and continue until f/u with Supervisor [employer] Sign[employer] (Patient taking differently: Take 20 mg by mouth daily with breakfast. Take 25 mg daily until 03/21, then decrease to 20 mg daily and continue until f/u with Supervisor [employer]) senna/docusate (SENOKOT-S) 8.6/50 mg tablet Take 1 [...] tab Take 1 tablet by mouth daily. YOUR MEDICATION INSTRUCTIONS FOR SURGERY: Before surgery Do not start any new vitamins, herbals, or natural supplements before surgery. Stop the following medications NOW: Anti-inflammatory medications such as ibuprofen (Advil, Motrin) and naproxen (Aleve) You may use acetaminophen (Tylenol) Morning of surgery On the morning of surgery, do NOT take these medications: Remaining vitamins/supplements (Nephplex Rx, calcium/D) Ointments/creams/lotions Calcitriol Robitussin-AC Folic acid Guaifenesin Senna/docusate On the morning of surgery, take ONLY these medications with a sip (1-2 ounces) of water: Nebulizer medications as usual Amiodarone Pantoprazole Pravastatin Prednisone Bactrim if due Valganciclovir if due Other information Before surgery, please contact the clinic pharmacist with any medicine updates or questions. E-mail: [email or web address] Before going home from the hospital, please ask your doctor when you should re- start your medicines that were stopped before surgery. in this encounter Plan of Treatment Date Type Specialty Care Team Description 05/06/2018 Procedure Pass Transplant Surgery as of this encounter Procedures Procedure Name Priority Date/Time Associated Diagnosis Comments UA REFLEX CULTURE LABEL STAT 04/15/2018 Aortic valve stenosis, Results for this 1:43 PM CDT etiology of cardiac valve procedure are in the disease unspecified results section. URINALYSIS MICROSCOPIC STAT 04/15/2018 Aortic [...] results section. in this encounter Results * URINALYSIS DIPSTICK REFLEX TO CULTURE (04/15/2018 1:43 PM) Color,UA YELLOW [facility] MAIN [facility] Turbidity,UA CLEAR CLEAR-CLEAR [facility] Specific [place]-Urine 1.009 1.003 - 1.035 KU MAIN LAB [...] MAIN LAB Specimen Urine Performing Organization Address City/State/Zipcode Phone Number [facility] MAIN [facility] [address] [place] [address] * URINALYSIS MICROSCOPIC REFLEX TO CULTURE (04/15/2018 [...] MAIN LAB Specimen Urine Performing Organization Address City/[facility]/Zipcode Phone Number [facility] MAIN [facility] [address] [place] [address] * UA REFLEX CULTURE LABEL (04/15/2018 1:43 PM) UA Reflex Culture LAB LABEL [facility] MAIN LAB Specimen Urine Performing Organization Address City/[facility]/Zipcode Phone Number [facility] [address] [place] [address] * CHEST 2 VIEWS (04/15/2018 11:51 AM) [...] Address City/State/Zipcode Phone Number K[facility] RAD RESULTS in this encounter Visit Diagnoses Diagnosis Aortic valve stenosis, etiology of cardiac valve disease unspecified - Primary
--- OUTSIDE RECORDS SUMMARY | 2018-07-03 15:00 | XMS REPORT | Encounter Summary ---
Author Author [facility] Organization [facility] Address Unknown Phone Unavailable Care Team Providers Care Supervisor Stone Name Role Phone Devon Cheema MD PCP [...] Details Date Type Department Care Team Description 04/04/2018 Pre-Admit Preoperative Assessment Mahendra Slater MD Aortic valve stenosis, Orders Only Clinic [address] [facility] etiology of cardiac valve [facility] 1st fl [address] [place] [address] disease unspecified [address] [place] [address] (Primary Dx) [place] [address] [phone] Social History Tobacco Use Types Packs/Day Years [...] Surgery Name Priority Associated Diagnoses Order Schedule HOLD RBC'S FOR SURGERY/PROCEDURE STAT Aortic valve stenosis, Expected: 04/15/2018, etiology of cardiac valve Expires: 04/04/2019 disease unspecified ECG 12-LEAD Routine Aortic valve stenosis, Expected: 04/15/2018, etiology of cardiac valve Expires: 04/04/2019 disease unspecified as of this encounter Results * CHEST 2 VIEWS (04/15/2018 11:51 AM) [...] on 04/15/2018 11:58 AM. Performing Organization Address City/[facility]/Zipcode Phone Number RAD RESULTS * TYPE & CROSSMATCH (04/15/2018 11:10 AM) Units Ordered 2 MAIN LAB Crossmatch Expires 04/18/2018 MAIN LAB Record Check FOUND MAIN LAB ABO/RH(D) O POS MAIN LAB Antibody Screen NEG MAIN LAB Electronic Crossmatch YES MAIN LAB Unit Number [id number] MAIN LAB Blood Component Type RBC,ADSOL,LEUKO REDUCED MAIN LAB Unit Division 0 MAIN LAB Status OF Unit REL FROM ALLOC MAIN LAB Transfusion Status OK TO TRANSFUSE MAIN LAB Crossmatch Result COMPATIBLE,ELECTRONIC MAIN LAB Unit Number [id number] MAIN LAB Blood Component Type RBC,ADSOL,LEUKO REDUCED MAIN LAB Unit Division 0 MAIN LAB Status OF Unit REL FROM ALLOC MAIN LAB Transfusion Status OK TO TRANSFUSE MAIN LAB Crossmatch Result COMPATIBLE,ELECTRONIC [facility] LAB Specimen Blood Performing Organization Address City/[facility]/Zipcode Phone Number MAIN LAB [address] [place] [address] * BNP (B-TYPE NATRIURETIC PEPTI) (04/15/2018 11:10 AM) B Type Natriuretic 1,902.0 (H) 0 - 100 PG/ML [facility] LAB Peptide Specimen Blood Performing Organization Address [facility] Phone Number [facility] MAIN [facility] [address] [place] [address] * HEMOGLOBIN A1C (04/15/2018 11:10 AM) Hemoglobin A1C 4.4 4.0 - 6.0 % K[facility] MAIN LAB Comment: The ADA recommends that most patients with type 1 and type 2 diabetes maintain an A1c level <7%. Specimen Blood Performing Organization Address [facility] Phone Number [facility] MAIN [facility] [address] [place] [address] * PTT (APTT) (04/15/2018 11:10 AM) APTT 27.1 21.0 - 39.0 SEC [facility] MAIN LAB Specimen Blood Performing Organization Address [facility] Phone Number [facility] MAIN [facility] [address] [place] [address] * PROTIME INR (PT) (04/15/2018 11:10 AM) INR 1.0 0.8 - 1.2 [facility] MAIN LAB Specimen Blood Performing Organization Address [facility] Phone Number [facility] MAIN [facility] [address] [place] [address] * COMPREHENSIVE METABOLIC PANEL (04/15/2018 11:10 AM) [...] for questions. Specimen Blood Performing Organization Address City/[facility]/Zipcode Phone Number MAIN LAB [address] [place] [address] * CBC (04/15/2018 11:10 AM) White Blood [...] MAIN LAB Specimen Blood Performing Organization Address City/[facility]/Zipcode Phone Number MAIN LAB [address] [place] [address] in this encounter Visit Diagnoses Diagnosis Aortic valve stenosis, etiology of cardiac valve disease unspecified - Primary
--- OUTSIDE RECORDS SUMMARY | 2018-07-03 15:00 | XMS REPORT | Encounter Summary ---
Author Author [facility] Organization [facility] Address Unknown Phone Unavailable Care Team Providers Care Records Technician Name Role Phone Devon Cheema MD PCP [...] Unavailable Reason for Visit * Reason Comments Other surgical determination Encounter Details Date Type Department Care Team Description 04/08/2018 Telephone [facility] for [facility] Irizarry RN Other (surgical Transplantation-Kidney/Pa determination) [facility] 1st fl [address] [place] [address] Social History Tobacco Use Types [...] Telephone Encounter - Genesis Irizarry RN - 04/08/2018 2:24 PM CDT TC from patient. Left VM re: surgical determination. Request a call back. Contacted Dr Lynen. Without a CT abd/pelvis he cannot see the AAA. Txp related determination cannot be made. TC to patient with above explanation. Patient was under the impression a AAA repair was open heart surgery. 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 V/u. Will move forward with valve surgery. in this encounter Plan of Treatment Date Type Specialty Care Team Description 05/06/2018 Procedure Pass Transplant Surgery as of this encounter Visit Diagnoses Not on filein this encounter
--- OUTSIDE RECORDS SUMMARY | 2018-07-03 15:00 | XMS REPORT | Encounter Summary ---
Author Author [facility] Organization [facility] Address Unknown Phone Unavailable Care Team Providers Care Clinical Exercise Physiologist Name Role Phone Devon Cheema MD PCP [...] Unavailable Reason for Visit * Reason Comments Medication Question Encounter Details Date Type Department Care Team Description 04/11/2018 Telephone Sp[facility] Rehab Toma Ely MD Medication Question Medicine [address] [facility] Abe Smith MD Comp MS [address] [place] [address] [address] [facility] [phone] [place] [address] [phone] Social History Tobacco Use Types Packs/Day Years [...] encounter Miscellaneous Notes * Telephone Encounter - Qing Hollins RN - 04/11/2018 8:34 AM CDT Patient called and wanted to clarify some of his discharge meds. He was discharged on two antibiotics and wants to know how long he is supposed to take them. First one is Bactrim, second is Valganciclovir. Per instructions on prescriptions, on Valganciclovir patient is to take per ID instructions. Patient saw Dr. Nelson inpatient. Office number is [phone]. Will have patient call ID to make sure only supposed to take for 24 day supply as patient is out of med. Bactrim states to Take 1 tablet by mouth three times weekly. Continue until dose of prednisone is less than 20mg per day. Call to patient. Verified with him directions. He see's his Office Administration next week so will continue Bactrim until that appointment. Patient will also continue Valganciclovir for 24 doses. in this encounter Plan of Treatment Date Type Specialty Care Team Description 05/06/2018 Procedure Pass Transplant Surgery as of this encounter Visit Diagnoses Not on filein this encounter
--- OUTSIDE RECORDS SUMMARY | 2018-07-03 15:01 | XMS REPORT | Continuity of Care Document ---
Author Author [facility] Organization [facility] Address Unknown Phone Unavailable Care Team Providers Care Runner Worker Name Role Phone ALYCE JAIN MD PP Insurance Providers Payer Name Policy Number Subscriber Name Relationship [facility] [id number] Tolu Barrios 01 Self / Same As Patient Advance Directives Directive Response Recorded Date Advance Directives N 06/09/13 1:14pm Organ Donor N 06/09/13 1:14pm Problems No Known Problems or Medical conditions. Allergies, Adverse Reactions, Alerts Allergen Type Severity Reaction Last Updated No Known Drug Allergies 10/08/09 Medications Medication Dose Units Route Sig Qty Days [Epo] Prednisone Pravastatin Sodium (Pravachol) Furosemide (Lasix Tab) Acetaminophen/Hydrocodone Bitart (Hydrocodone-Apap 10-500 Tablet) 1 - 2 Each PO Q6HR PRN 10 Enalapril Maleate (Vasotec Po) Response Recorded Date/Time Status not known Unknown Results Test Date Result Interp. Ref. Range ANCA Pattern November 16, 2010 8:05am C- ANCA H - Alanine Aminotransferase (ALT/SGPT) March 24, 2013 1:12pm 28 U/L L 30-65 Albumin June 17, 2013 7:25am 3.6 G/ DL N 3.4-5.0 Alkaline Phosphatase March 24, 2013 1:12pm 114 U/L N 50-136 Anisocytosis June 20, 2009 7:00am MODERATE - Anti-Neutrophil Cytoplasmic Ab November 16, 2010 8:05am 1:40 - Aspartate Amino Transf (AST/SGOT) March 24, 2013 1:12pm 13 U/L L 15-37 BUN/Creatinine Ratio June 17, 2013 7:25am 17 - Band Neutrophils June 20, 2009 7:00am 8 % - Basophils # (Auto) March 24, 2013 1:12pm 0.0 10^3/uL N 0.0-0.1 Basophils % (Manual) June 20, 2009 7:00am 0 % - Basophils (%) (Auto) March 24, 2013 1:12pm 0 % N 0-10 Blood Urea Nitrogen June 17, 2013 7:25am 47 MG/DL H 7-18 C-Reactive Protein June 20, 2009 7:00am < 0.2 MG/DL L 0.2-0.9 Calcium Level June 17, 2013 7:25am 9.1 MG/DL N 8.5-10.1 Carbon Dioxide Level June 17, 2013 7:25am 25 MMOL/L N 21-32 Chloride Level June 17, 2013 7:25am 106 MMOL/L N 101-110 Cholesterol Level February 29, 2012 7:04am 121 MG/DL N -200 Creatinine June 17, 2013 7:25am 2.8 MG/DL H 0.6-1.3 Eosinophils # (Auto) March 24, 2013 1:12pm 0.0 10^3/uL N 0.0-0.3 Eosinophils % (Manual) June 20, 2009 7:00am 2 % - Eosinophils (%) (Auto) March 24, 2013 1:12pm 1 % N 0-10 Erythrocyte Sedimentation Rate June 20, 2009 7:00am 38 MM/HR H 0-30 Ferritin March 23, 2013 8:00am 264 NG/ML - Glucose Level June 17, 2013 7:25am 95 MG/DL N 74-106 HDL Cholesterol February 29, 2012 7:04am 33 MG/DL L 35-60 Hematocrit June 17, 2013 7:25am 36 % L 40-54 Hemoglobin June 17, 2013 7:25am 11.6 G/DL L 13.3-17.7 Iron Level March 23, 2013 8:00am 57 UG/ DL - LDL Cholesterol February 29, 2012 7:04am 66 MG/DL N 0-129 Lactate Dehydrogenase March 24, 2013 1:12pm 143 U/L N 115-218 Lymphocytes # (Auto) March 24, 2013 1:12pm 0.5 X 10^3 L 1.0-4.0 Lymphocytes % (Manual) June 20, 2009 7:00am 3 % - Lymphocytes (%) (Auto) March 24, 2013 1:12pm 13 % N 12-44 Macrocytosis June 20, 2009 7:00am SLIGHT - Mean Corpuscular Hemoglobin June 17, 2013 7:25am 33 PG N 25-34 Mean Corpuscular Hemoglobin Concent June 17, 2013 7: 25am 33 G/DL N 32-36 Mean Corpuscular Volume June 17, 2013 7:25am 101 FL H 80-99 Mean Platelet Volume June 17, 2013 7:25am 10.1 FL N 7.4-10.4 Monocytes # (Auto) March 24, 2013 1:12pm 0.4 X 10^3 N 0.0-1.0 Monocytes % (Manual) June 20, 2009 7:00am 12 % - Monocytes (%) (Auto) March 24, 2013 1:12pm 12 % N 0-12 Myeloperoxidase Antibody November 16, 2010 8:05am 1.1 EIA - Neutrophils # (Auto) March 24, 2013 1:12pm 2.6 X 10^3 N 1.8-7.8 Neutrophils % (Manual) June 20, 2009 7:00am 70 % - Neutrophils (%) (Auto) March 24, 2013 1:12pm 74 % N 42-75 Phosphorus Level June 17, 2013 7:25am 4.5 MG/DL N 2.5-4.9 Platelet Count June 17, 2013 7:25am 147 10^3/uL N 130-400 Potassium Level June 17, 2013 7:25am 5.0 MMOL/L N 3.6-5.0 Proteinase 3 (PR3) November 16, 2010 8:05am 105.2 H EIA - Reactive Lymphocytes June 20, 2009 7:00am 5 % - Red Blood Count June 17, 2013 7:25am 3.50 10^6/uL L 4.35-5.85 Red Cell Distribution Width June 17, 2013 7:25am 14.9 % H 10.0-14.5 Sodium Level June 17, 2013 7:25am 138 MMOL/L N 135-145 Total Bilirubin March 24, 2013 1:12pm 0.3 MG/DL N 0.0-1.0 Total Iron Binding Capacity March 23, 2013 8:00am 208 L UG/DL - Total Protein March 24, 2013 1:12pm 7.3 G /DL N 6.4-8.2 Transferrin % Saturation March 23, 2013 8:00am 27 % - Triglycerides Level February 29, 2012 7:04am 112 MG/DL N 30.0-150.0 Urine Creatinine June 17, 2013 7:28am 55.6 MG/DL N 30-125 Urine Protein June 17, 2013 7:28am 54 MG/DL H 6-12 Urine Protein/Creatinine Ratio June 17, 2013 7:28am 0.97 - VLDL Cholesterol February 29, 2012 7:04am 22 MG/DL N 5-40 White Blood Count June 17, 2013 7:25am 3.2 10^3/uL L 4.3-11.0 ALMA Reviewed By January 03, 2006 12:20pm See report - Pro-B-Type Natriuretic Peptide June 17, 2013 7:25am 329.3 PG/ML H -125 Estimat Glomerular Filtration Rate June 17, 2013 7: 25am 23 - Procedures Procedure Code Date LESION REMOVE COLONOSCOPY 51975 08/17/09 BIOPSY/REMOVAL LYMPH NODES 70911 TIS TRNFR E/N/E/L 10 SQ CM/< 04211 INJECT FOR LYMPHATIC X-RAY 61626 MRSA Screen 01/23/10 Encounters Encounter Location Date/Time Departed Emergency Room [facility] 12 :00am
--- OUTSIDE RECORDS SUMMARY | 2018-07-03 15:01 | XMS REPORT | Continuity of Care Document ---
Author Author [facility] Organization [facility] Address Unknown Phone Unavailable Care Team Providers Care Rope Laying Machine Operator Name Role Phone ALYCE JAIN MD PP Insurance Providers Payer Name Policy Number Subscriber Name Relationship [facility] [id number] Tolu Barrios 01 Self / Same As [...] Procedures Procedure Code Date LESION REMOVE COLONOSCOPY 15054 08/17/09 BIOPSY/REMOVAL LYMPH NODES 25105 TIS TRNFR E/N/E/L 10 SQ CM/< 94034 INJECT FOR LYMPHATIC X-RAY 78200 MRSA Screen 01/23/10 Encounters Encounter Location Date/Time Departed Emergency Room [facility] 12 :00am
--- OUTSIDE RECORDS SUMMARY | 2018-07-03 15:02 | XMS REPORT | Continuity of Care Document ---
Author Author [facility] Organization [facility] Address Unknown Phone Unavailable Allergies Active Description Code Type Severity Reaction Onset Reported/Identified Relationship to Patient Clinical Status Yes No Known Drug Allergies [id number] Drug Allergy Mild N/A 10/08/2009 Medications There [...] SEEMA SLOAN, CHANTAL S Ot 403.90 HYPTNSV [facility] KID DIS, UNSPEC, W CHR KD [...] STEPHENSON MD Ot 276.8 HYPOPOTASSEMIA 04/27/2014 CHANTAL STEPHNESON MD Ot 280.9 IRON DEFIC ANEMIA NOS [...] Z01.818 ENCOUNTER FOR OTHER PREPROCEDURAL EXAMIN 01/28/2018 ADELAIDA SLOAN, JORDAN Ot D70.9 NEUTROPENIA, UNSPECIFIED 01/28/2018 ADELAIDA SLOAN, JORDAN Ot 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 01/28/2018 JORDAN SON MD Ot N18.6 END STAGE RENAL DISEASE 01/28/2018 ADELAIDA SLOAN, JORDAN Ot N30.00 ACUTE CYSTITIS WITHOUT HEMATURIA 01/28/2018 JORDAN SON MD Ot Z99.2 DEPENDENCE ON RENAL DIALYSIS 01/29/2018 JESUS BEDOLLA MD Ot A41.9 SEPSIS, UNSPECIFIED ORGANISM 01/29/2018 JESUS BEDOLLA MD Ot D64.9 ANEMIA, UNSPECIFIED 01/29/2018 JESUS BEDOLLA MD Ot D72.819 DECREASED WHITE BLOOD CELL COUNT, UNSPEC 01/29/2018 JESUS BEDOLLA MD Ot N18.6 END STAGE RENAL DISEASE 01/29/2018 JESUS BEDOLLA MD Ot N39.0 URINARY TRACT INFECTION, SITE NOT SPECIF 01/29/2018 JESUS BEDOLLA MD Ot R50.9 FEVER, UNSPECIFIED 01/29/2018 JESUS BEDOLLA MD Ot Z87.440 PERSONAL HISTORY OF URINARY (TRACT) INFE 01/29/2018 JESUS BEDOLLA MD Ot Z99.2 DEPENDENCE ON RENAL DIALYSIS [...] IV (SEVERE 01/29/2018 Ot 791.0 PROTEINURIA 01/29/2018 WELLINGTON NEWBERRY MD Ot 285.21 ANEMIA IN CHRONIC KIDNEY DISEASE 01/29/2018 WELLINGTON NEWBERRY MD Ot 403.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 KID DIS, UNSPEC, W CHR KD ST 01/29/2018 WELLINGTON NEWBERRY MD Ot 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 01/29/2018 WELLINGTON NEWBERRY MD Ot 585.9 CHRONIC KIDNEY DISEASE, UNSPECIFIED 01/29/2018 WELLINGTON NEWBERRY MD Ot 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 01/29/2018 WELLINGTON NEWBERRY MD Ot V12.51 HX-VENOUS THROMBOSIS EMBOLISM 01/29/2018 CONI SLOAN, WELLINGTON Rapp Ot V58.65 LONG-TERM(CURRENT)USE OF STEROIDS 01/29/2018 CONI SLOAN, WELLINGTON Rapp Ot V58.69 OTH MED,LT,CURRENT USE 01/29/2018 WELLINGTON NEWBERRY MD Ot V67.09 SURGERY FOLLOW-UP, OTHER SURGERY 01/29/2018 SEEMA SLOAN, SANDRAMED S Ot 280.9 IRON DEFIC ANEMIA NOS 01/29/2018 SEEMA SLOAN, AHMED S Ot 585.4 CHRONIC KIDNEY DISEASE, STAGE IV (SEVERE 01/29/2018 SEEMA SLOAN, SANDRAMED S Ot 272.4 HYPERLIPIDEMIA NEC/NOS 01/29/2018 SEEMA SLOAN, AHMED S Ot 276.2 ACIDOSIS 01/29/2018 SEEMA SLOAN, AHMED S Ot 280.9 IRON DEFIC ANEMIA NOS 01/29/2018 SEEMA SLOAN, AHMED S Ot 285.21 ANEMIA IN CHRONIC KIDNEY DISEASE 01/29/2018 SEEMA SLOAN, AHMED S Ot 447.8 ARTERIAL DISEASE NEC 01/29/2018 SEEMA SLOAN, AHMED S Ot 585.4 CHRONIC KIDNEY DISEASE, STAGE IV (SEVERE 01/29/2018 SEEMA SLOAN, SANDRAMED S Ot 791.0 PROTEINURIA 01/29/2018 Ot 272.4 HYPERLIPIDEMIA [...] Ot V58.69 OTH MED,LT, CURRENT USE 01/29/2018 HERBER SLOAN, OLI Ot Z01.818 ENCOUNTER FOR OTHER PREPROCEDURAL EXAMIN 01/29/2018 JORDAN SON MD Ot D70.9 NEUTROPENIA, UNSPECIFIED 01/29/2018 JORDAN SON MD Ot 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 01/29/2018 JORDAN SON MD Ot N18.6 END STAGE RENAL DISEASE 01/29/2018 JORDAN SON MD Ot N30.00 ACUTE CYSTITIS WITHOUT HEMATURIA 01/29/2018 JORDAN SON MD Ot Z99.2 DEPENDENCE ON RENAL DIALYSIS 02/04/2018 MALIHA STONER MD Ot 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 02/04/2018 MALIHA STONER MD Ot N18.6 END STAGE RENAL DISEASE 02/04/2018 MALIHA STONER MD Ot R04.2 HEMOPTYSIS 02/04/2018 MALIHA STONER MD Ot R06.02 SHORTNESS OF BREATH 02/04/2018 MALIHA STONER MD Ot R09.02 HYPOXEMIA 02/04/2018 MALIHA STONER MD Ot Z86.718 PERSONAL HISTORY OF OTHER VENOUS THROMBO 02/04/2018 MALIHA STONER MD Ot Z99.2 DEPENDENCE ON RENAL DIALYSIS 02/06/2018 MALIHA STONER MD Ot 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 02/06/2018 MALIHA STONER MD Ot N18.6 END STAGE RENAL DISEASE 02/06/2018 MALIHA STONER MD Ot R04.2 HEMOPTYSIS 02/06/2018 MALIHA STONER MD Ot R06.02 SHORTNESS OF BREATH 02/06/2018 MALIHA STONER MD Ot R09.02 HYPOXEMIA 02/06/2018 MALIHA STONER MD, Ot Z86.718 PERSONAL HISTORY OF OTHER VENOUS THROMBO 02/06/2018 MALIHA STONER MD, Ot Z99.2 DEPENDENCE ON RENAL DIALYSIS 03/11/2018 JORDAN SON MD, Ot D70.9 NEUTROPENIA, UNSPECIFIED 03/11/2018 JORDAN SON MD, Ot 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 Results Test [...] culture - 12/07/17 13:55 Bacterial urine culture [id number] NRG COLONY COUNT >100,000/ML NRG FTX;REPORTABLE SENSITIVITY REPORTED 12/08/17 17:00 NRG Bacterial susceptibility panel - 12/07/17 13:55 Gentamicin [...] culture - 12/07/17 14:22 Bacterial blood culture [facility] Complete blood count (CBC) with automated white [...] culture - 01/28/18 22:32 Bacterial urine culture [id number] NRG COLONY COUNT <10,000 NRG FTX;REPORTABLE SENSITIVITY [...] test by minimum inhibitory concentration 1 NRG Complete blood count (CBC) with automated white blood cell (WBC) differential - 02/04/18 05:50 Blood leukocytes automated count (number/volume) 4.4 10*3/uL 4.3-11.0 Blood erythrocytes automated count (number/volume) 3.51 10*6/uL 4.35-5.85 Venous blood hemoglobin measurement (mass/volume) 10.5 g/dL 13.3-17.7 Blood hematocrit (volume fraction) 33 % 40-54 Automated erythrocyte mean corpuscular volume 95 [foz_us] 80-99 Automated erythrocyte mean corpuscular hemoglobin (mass per erythrocyte) 30 pg 25-34 Automated erythrocyte mean corpuscular hemoglobin concentration measurement ( mass/volume) 31 g/dL 32-36 Automated erythrocyte distribution width ratio 20.8 % 10.0-14.5 Automated blood platelet count (count/volume) 173 10*3/uL 130-400 Automated blood platelet mean volume measurement 10.5 [foz_us] 7.4-10.4 Automated blood neutrophils/100 leukocytes 45 % 42-75 Automated blood lymphocytes/100 leukocytes 30 % 12-44 Blood monocytes/100 leukocytes 22 % 0-12 Automated blood eosinophils/100 leukocytes 2 % 0-10 Automated blood basophils/100 leukocytes 1 % 0-10 Blood neutrophils automated count (number/volume) 2.0 10*3 1.8-7.8 Blood lymphocytes automated count (number/volume) 1.3 10*3 1.0-4.0 Blood monocytes automated count (number/volume) 0.9 10*3 0.0-1.0 Automated eosinophil count 0.1 10*3/uL 0.0-0.3 Automated blood basophil count (count/volume) 0.1 10*3/uL 0.0-0.1 Blood lactic acid measurement (moles/volume) - 02/04/18 05:50 Blood lactic acid measurement (moles/volume) 1.64 mmol/L 0.50-2.00 PT panel in platelet poor plasma by coagulation assay - 02/04/18 05:50 Prothrombin time (PT) in platelet poor plasma by coagulation assay 13.5 s 12.2-14.7 INR in platelet poor plasma or blood by coagulation assay 1.0 0.8-1.4 Activated partial thromboplastin time (aPTT) in platelet poor plasma bycoagulation assay - 02/04/18 05:50 Activated partial thromboplastin time (aPTT) in platelet poor plasma bycoagulation assay 36 s 24-35 Serum or plasma C reactive protein measurement (mass/volume) - 02/04/18 05:50 Serum or plasma C reactive protein measurement (mass/volume) 3.64 mg /dL 0.00-0.50 Comprehensive metabolic panel - 02/04/18 05:50 Serum or plasma sodium measurement (moles/volume) 138 mmol/L 135-145 Serum or plasma potassium measurement (moles/volume) 4.1 mmol/L 3.6-5.0 Serum or plasma chloride measurement (moles/volume) 104 mmol/L 98-107 Carbon dioxide 18 mmol/L 21-32 Serum or plasma anion gap determination (moles/volume) 16 mmol/L 5-14 Serum or plasma urea nitrogen measurement (mass/volume) 42 mg/dL 7-18 Serum or plasma creatinine measurement (mass/volume) 5.87 mg/dL 0.60-1.30 Serum or plasma urea nitrogen/creatinine mass ratio 7 NRG Serum or plasma creatinine measurement with calculation of estimated glomerular filtration rate 10 NRG Serum or plasma glucose measurement (mass/volume) 100 mg/dL 70-105 Serum or plasma calcium measurement (mass/volume) 10.1 mg/dL 8.5-10.1 Serum or plasma total bilirubin measurement (mass/volume) 0.5 mg/dL 0.1-1.0 Serum or plasma alkaline phosphatase measurement (enzymatic activity/volume) 82 U/L 40-136 Serum or plasma aspartate aminotransferase measurement (enzymatic activity/ volume) 19 U/L 5-34 Serum or plasma alanine aminotransferase measurement (enzymatic activity/volume ) 26 U/L 0-55 Serum or plasma protein measurement (mass/volume) 6.2 g/dL 6.4-8.2 Serum or plasma albumin measurement (mass/volume) 3.6 g/dL 3.2-4.5 Serum or plasma lithium measurement (moles/volume) - 02/04/18 05:50 BNP level 3720.1 pg/mL <100.0 Bacterial blood culture - 02/04/18 05:50 Bacterial blood culture NG [facility] Sputum Gram stain - 02/04/18 05:58 Sputum Gram stain of gram negative rods [facility] Bacterial sputum culture - 02/04/18 05:58 FREE TEXT EXTERNAL PLUS SCANT YEAST [facility] QUANTITY OF GROWTH Abundant Growth [facility] Bacterial sputum culture [id number] [facility] Bacterial susceptibility panel - 02/04/18 05:58 Gentamicin susceptibility test by minimum inhibitory concentration < = NRG Tobramycin susceptibility test by minimum inhibitory concentration < = NRG Piperacillin/tazobactam susceptibility test by minimum inhibitory concentration S [facility] Ciprofloxacin susceptibility test by minimum inhibitory concentration <= NR Meropenem susceptibility test by minimum inhibitory concentration < = NR Cefepime susceptibility test by minimum inhibitory concentration 2 [facility] Influenza virus A and B antigen detection - 02/04/18 06:10 FLU RESULT NEGATIVE FOR INFLUENZA A AND B ANTIGENS BY IA [facility] Bacterial blood culture - 02/04/18 06:20 Bacterial blood culture NG NRG Erythrocyte sedimentation rate by westergren method - 02/04/18 07:04 Erythrocyte sedimentation rate by westergren method 41 mm 0-30 Complete urinalysis with reflex to culture - 02/04/18 07:12 Urine color determination YELLOW NRG Urine clarity determination CLEAR NRG Urine pH measurement by test strip 8 5-9 Specific gravity of urine by test strip 1.015 1.016- 1.022 Urine protein assay by test strip, semi-quantitative 3+ NEGATIVE Urine glucose detection by automated test strip NEGATIVE NEGATIVE Erythrocytes detection in urine sediment by light microscopy 3+ NEGATIVE Urine ketones detection by automated test [...] count by microscopy (number/high power field ) RARE NRG Bacteria detection in urine sediment by light microscopy NEGATIVE NRG Crystals detection in urine sediment by light microscopy NONE NRG Casts detection in urine sediment by light microscopy NONE NRG Mucus detection in urine sediment by light microscopy NEGATIVE NRG Complete urinalysis with reflex to culture NO NRG Complete blood count (CBC) with automated white blood cell (WBC) differential - 07/03/18 11:41 Blood leukocytes automated count (number/volume) 15.2 10*3/uL 4.3-11.0 Blood erythrocytes automated count (number/volume) 3.56 10*6/uL 4.35-5.85 Venous blood hemoglobin measurement (mass/volume) 12.3 g/dL 13.3-17.7 Blood hematocrit (volume fraction) 38 % 40-54 Automated erythrocyte mean corpuscular volume 108 [foz_us] 80-99 Automated erythrocyte mean corpuscular hemoglobin (mass per erythrocyte) 35 pg 25-34 Automated erythrocyte mean corpuscular hemoglobin concentration measurement ( mass/volume) 32 g/dL 32-36 Automated erythrocyte distribution width ratio 24.0 % 10.0-14.5 Automated blood platelet count (count/volume) 187 10*3/uL 130-400 Automated blood platelet mean volume measurement 9.2 [foz_us] 7.4-10.4 Automated blood neutrophils/100 leukocytes 75 % 42-75 Automated blood lymphocytes/100 leukocytes 16 % 12-44 Blood monocytes/100 leukocytes 8 % 0-12 Automated blood eosinophils/100 leukocytes 0 % 0-10 Automated blood basophils/100 leukocytes 0 % 0-10 Blood neutrophils automated count (number/volume) 11.5 10*3 1.8-7.8 Blood lymphocytes automated count (number/volume) 2.5 10*3 1.0-4.0 Blood monocytes automated count (number/volume) 1.2 10*3 0.0-1.0 Automated eosinophil count 0.0 10*3/uL 0.0-0.3 Automated blood basophil count (count/volume) 0.0 10*3/uL 0.0-0.1 Comprehensive metabolic panel - 07/03/18 11:41 Serum or plasma sodium measurement (moles/volume) 139 mmol/L 135-145 Serum or plasma potassium measurement (moles/volume) 3.9 mmol/L 3.6-5.0 Serum or plasma chloride measurement (moles/volume) 93 mmol/L 98-107 Carbon dioxide 25 mmol/L 21-32 Serum or plasma anion gap determination (moles/volume) 21 mmol/L 5-14 Serum or plasma urea nitrogen measurement (mass/volume) 38 mg/dL 7-18 Serum or plasma creatinine measurement (mass/volume) 6.16 mg/dL 0.60-1.30 Serum or plasma urea nitrogen/creatinine mass ratio 6 NRG Serum or plasma creatinine measurement with calculation of estimated glomerular filtration rate 9 NRG Serum or plasma glucose measurement (mass/volume) 140 mg/dL 70-105 Serum or plasma calcium measurement (mass/volume) 10.9 mg/dL 8.5-10.1 Serum or plasma total bilirubin measurement (mass/volume) 0.7 mg/dL 0.1-1.0 Serum or plasma alkaline phosphatase measurement (enzymatic activity/volume) 89 U/L 40-136 Serum or plasma aspartate aminotransferase measurement (enzymatic activity/ volume) 20 U/L 5-34 Serum or plasma alanine aminotransferase measurement (enzymatic activity/volume ) 25 U/L 0-55 Serum or plasma protein measurement (mass/volume) 6.7 g/dL 6.4-8.2 Serum or plasma albumin measurement (mass/volume) 4.5 g/dL 3.2-4.5 CALCIUM CORRECTED 10.5 mg/dL 8.5-10.1 Serum or plasma C reactive protein measurement (mass/volume) - 07/03/18 11:41 Serum or plasma C reactive protein measurement (mass/volume) 1.52 mg /dL 0.00-0.50 Blood manual differential performed detection - 07/03/18 11:41 Blood monocytes/100 leukocytes 8 % NRG Manual blood segmented neutrophils/100 leukocytes 46 % NRG Blood band neutrophils/100 leukocytes 27 % NRG Manual blood lymphocytes/100 leukocytes 12 % NRG Manual eosinophils/100 leukocytes in nose 0 % NRG Manual blood basophils/100 leukocytes 0 % NRG Blood lymphocytes variant/100 leukocytes 3 % NRG Blood polychromasia detection by light microscopy SLIGHT NRG Blood anisocytosis detection by light microscopy MARKED NRG Blood ovalocytes detection by light microscopy MODERATE NRG Blood toxic granules detection by light microscopy 1+ NRG Manual blood metamyelocytes/100 leukocytes 4 % NRG Blood poikilocytosis detection by light microscopy MODERATE NRG Manual blood nucleated erythrocytes/100 leukocytes ratio 1 NRG Blood stomatocytes detection by light microscopy MODERATE NRG Blood basophilic stippling detection by light microscopy SLIGHT NRG Erythrocyte sedimentation rate by westergren method - 07/03/18 11:41 Erythrocyte sedimentation rate by westergren method 18 mm 0-30 PT panel in platelet poor plasma by coagulation assay - 07/03/18 11:41 Prothrombin time (PT) in platelet poor plasma by coagulation assay 12.9 s 12.2-14.7 INR in platelet poor plasma or blood by coagulation assay 1.0 0.8-1.4 Activated partial thromboplastin time (aPTT) in platelet poor plasma bycoagulation assay - 07/03/18 11:41 Activated partial thromboplastin time (aPTT) in platelet poor plasma bycoagulation assay 26 s 24-35 Fibrin D-dimer FEU measurement in platelet poor plasma (mass/volume) - 11:41 Fibrin D-dimer FEU measurement in platelet poor plasma (mass/volume) 6.32 ug/mL 0.00-0.49 Encounters ACCT No. Visit Date/Time Discharge Status Pt. Type Provider Facility Loc./Unit Complaint [id number] 06/13/2018 07:59:00 06/13/2018 23:59:59 [facility] Outpatient EITAN SLOAN, MONIQUE Cheng [facility] CR TAVR [id number] 03/12/2018 00:10:00 03/12/2018 23:59:59 CLS Preadmit ADELAIDA SLOAN, JORDAN [facility] UTI [id number] 12/27/2017 13:25:00 03/11/2018 00:01:00 DIS Outpatient ADELAIDA SLOAN, JORDAN [facility] UTI [id number] 02/04/2018 05:47:00 02/04/2018 08:47:00 DIS Emergency GEORGIANA SLOAN, MALIHA Siddiqui [facility] ER SOB,UTI,NOT SLEEPING [id number] 01/28/2018 21:31:00 01/29/2018 00:39:00 DIS Emergency CHIOMA SLOAN, JESUS Green [facility] ER FEVER AFTER DIALYSIS [id number] 12/07/2017 13:39:00 12/07/2017 15:42:00 DIS Emergency LIZZIE SLOAN, LEVON Velasquez [facility] ER WEAKNESS/FEVER [id number] 07/27/2015 07:12:00 07/27/2015 11:15:00 DIS Outpatient OLI CRAVEN MD [facility] SCREENING,HX POLYPS [id number] 07/22/2015 05:38:00 07/22/2015 23:59:59 CLS Outpatient OLI CRAVEN MD [facility] PREOP HX POLYPS [id number] 02/23/2014 07:44:00 04/27/2014 00:01:00 DIS Outpatient CHANTAL STEPHENSON MD [facility] LAB CHRONIC ANEMIA, KIDNEY DISEASE [id number] 01/27/2014 07:48:00 04/27/2014 00:01:00 DIS Outpatient CHANTAL STEPHENSON MD [facility] SURG RCR CKD,ANEMIA [id number] 03/23/2014 06:54:00 03/23/2014 23:59:59 CLS Outpatient CHANTAL STEPHENSON MD [facility] LAB HYPERLIPIDEMIA, ACIDOSIS,ANEMIA ,CRONIC KIDNEY DI [id number] 12/28/2013 12:43:00 01/10/2014 00:01:00 DIS Outpatient CHANTAL STEPHENSON MD [facility] SURG RCR CKD,ANEMIA [id number] 12/15/2013 12:31:00 01/10/2014 00:01:00 DIS Outpatient CHANTAL STEPHENSON MD [facility] LAB CHRONIC ANEMIA, KIDNEY DISEASE [id number] 08/31/2013 17:18:00 10/11/2013 00:01:00 DIS Outpatient CHANTAL STEPHENSON MD [facility] SURG RCR CKD,ANEMIA [id number] 08/17/2013 14:10:00 10/11/2013 00:01:00 DIS Outpatient CHANTAL STEPHENSON MD [facility] LAB CHRONIC ANEMIA, KIDNEY DISEASE [id number] 06/09/2013 13:15:00 06/21/2013 00:01:00 DIS Outpatient CHANTAL STEPHENSON MD [facility] SURG RCR CKD,ANEMIA [id number] 05/25/2013 07:45:00 06/21/2013 00:01:00 DIS Outpatient CHANTAL STEPHENSON MD [facility] LAB CHRONIC ANEMIA, KIDNEY DISEASE [id number] 06/17/2013 07:12:00 06/17/2013 23:59:59 CLS Outpatient CHANTAL STEPHENSON MD [facility] LAB CHRONIC KIDNEY DISEASE,IRON DEFFIENCY [id number] 03/24/2013 12:57:00 03/24/2013 23:59:59 CLS Outpatient WELLINGTON NEWBERRY MD [facility] ONC [id number] 07/03/2018 11:49:00 Document Registration [id number] 01/28/2018 21:33:00 Document Registration [id number] 04/28/2014 00:00:00 Document Registration [id number] 04/28/2014 00:00:00 Document Registration [id number] 12/30/2012 07:39:00 Document Registration [id number] 12/25/2012 14:18:00 Document Registration [id number] 12/09/2012 07:51:00 Document Registration [id number] 09/23/2012 13:00:00 Document Registration [id number] 09/02/2012 14:36:00 Document Registration [id number] 08/18/2012 07:38:00 Document Registration [id number] 01/27/2010 05:46:00 Document Registration
== END 2018-07-03 14:00 | disposition short-term general hospital (02) ==
LOC: EDUNIT# 11:23 → ER 11:24
DX: I82.411 Acute embolism and thrombosis of right femoral vein (principal); N18.6 End stage renal disease; M79.604 Pain in right leg; M31.30 Wegener's granulomatosis without renal involvement; M10.9 Gout, unspecified; Z79.82 Long term (current) use of aspirin; Z99.2 Dependence on renal dialysis; Z87.440 Personal history of urinary (tract) infections
CPT/HCPCS: 36415; 80053; 85007; 85027; 85379; 85610; 85652; 85730; 86141; 93926

== ENCOUNTER 2018-10-21 15:44 | Emergency (ER) | payer MEDICARE ==
[~2018-10-21] VITALS: Ht 190.5 cm; Wt 88.5 kg
--- OUTSIDE RECORDS SUMMARY | 2018-10-21 15:49 | XMS REPORT | Clinical Summary ---
Author Author [facility] Organization [facility] Address Unknown Phone Unavailable Care Team Providers Care Wan Support Specialist Name Role Phone Devon Cheema MD [...] in the Health Information Management department at [phone] for further assistance in locating additional records.[facility] Allergies Comments Active Allergy Reactions Severity Noted Date Fatigue Tamsulosin SEE COMMENTS Low 07/07/2018 Medications End Date Status Medication Sig Dispensed Refills Start Date Active calcitriol (ROCALTROL) Take 1 0 0.5 mcg capsule capsule at dialysis appt (Saturday, , Saturday) Active pantoprazole DR Take 40 mg by 0 (PROTONIX) 40 mg tablet mouth daily. Active calcium carbonate/vitamin Take 1 tablet 0 D-3 (OSCAL-500+D) 1250 by mouth mg/200 unit tablet daily. Calcium Carb 1250mg delivers 500mg elemental Ca Active trimethoprim/sulfamethoxa Take 1 tablet 12 tablet 1 zole (BACTRIM SS) 80/400 by mouth 8 mg tablet three times weekly. Continue until dose of prednisone is less than 20mg per day Active folic acid (FOLVITE) 1 mg Take 1 tablet 30 tablet 1 tablet by mouth 8 daily. Active vitamins, multi B, C, Zn Take 1 tablet 30 tablet 1 & folate (Renal) by mouth 8 (NEPHPLEX RX) daily. 1-60-300-12.5 ga-vq-vbq-mg tab Active ipratropium bromide Inhale 2.5 mL 120 vial 1 (ATROVENT) 0.02 % by mouth into 8 nebulizer solution the lungs three times daily and at bedtime. Active nebulizer compressor Use as 1 Device 0 front office medical assistant directed. 8 Active senna/docusate Take 1 tablet 0 (SENOKOT-S) 8.6/50 mg by mouth tablet daily. Active acetaminophen (TYLENOL) Take 500 mg 0 500 mg tablet by mouth as Needed for Pain. Max of 4,000 mg of acetaminophen in 24 hours. Active PREDNISONE PO Take 12.5 mg 0 by mouth once. Active apixaban (ELIQUIS) 5 mg Take 5 mg by 0 tablet mouth twice daily. Active pravastatin (PRAVACHOL) Take 10 mg by 0 10 mg tablet mouth at bedtime daily. Active ondansetron (ZOFRAN) 4 mg Take 4 mg by 0 tablet mouth as Needed for Nausea or Vomiting. Active albuterol 0.5% Inhale 2.5 mg 0 (PROVENTIL; VENTOLIN) 2.5 solution by mg/0.5 mL nebulizer nebulizer as solution directed as Needed for Shortness of Breath or Wheezing. Active Problems Problem Noted Date Anticoagulated 07/08/2018 Hypogammaglobulinemia 05/13/2018 Overview: He had IgG 138, IgM [...] for many years for his GPA. His patient account specialist plans to potentially give him additional Rituximab (follow up appointment is 05/21/2018). He is currently on prednisone 20mg daily. His patient account specialist may start imuran as well for treatment of GPA. He has had 1 CMV pneumonia and one pneumonia treated with antibiotics (with negative sputum culture). He has not had any infections or antibiotic prescriptions since 03/2018. His last labs were done 05/12/2018 and showed IgG at 379, IgM at 22, and IgA at 96. His T&B cell panel showed absent CD19 cells and low CD4 cells at 127. The patient has now received Rituximab again on 07/02/2018. He had repeat IgG in [place] was 483, IgM was 25, and IgA was 115. He is planning on receiving Rituximab every 6 months. We discussed again with the patient that although the immunoglobulin levels have been low he is currently not developing illness and he has renal disease and history of DVTs. - We recommend repeating immunoglobulin levels again today. S/P TAVR (transcatheter aortic valve replacement) 05/13/2018 Pancytopenia 04/17/2018 Acute on chronic combined systolic and diastolic CHF, NYHA class 2 2017 Aortic valve stenosis 04/10/2018 Overview: Added automatically from request for surgery [id number] (HFpEF) heart failure with preserved ejection fraction 03/11/2018 Overview: Chronic, NYHA class 3 Ascending aortic aneurysm 03/11/2018 Moderate malnutrition 03/07/2018 Debility 02/23/2018 Hemoptysis 02/21/2018 CMV pneumonia 02/21/2018 Pleural effusion associated with pulmonary infection 02/21/2018 Immunosuppressed status 02/21/2018 Acute blood loss anemia 02/21/2018 Thrombocytopenia 02/21/2018 Paroxysmal atrial fibrillation 02/21/2018 Severe aortic stenosis 02/21/2018 Diffuse pulmonary alveolar hemorrhage 02/21/2018 Acute respiratory failure with hypoxia 02/11/2018 Allyssa's granulomatosis 02/10/2018 Allyssa-like granulomatosis 07/08/2015 Hyperlipidemia 07/08/2015 Overview: Stable on current regimen. Hypertension 07/08/2015 Overview: Stable on current regimen. GERD (gastroesophageal reflux disease) 07/08/2015 Metabolic acidosis 07/08/2015 End stage renal disease 07/07/2015 Overview: Stable GFR 18-22% over the past few years, remains off dialysis. Encounters Care Team Description Date Type Specialty Annita Rosales MD 08/21/2018 Hospital Lab Encounter Annita Rosales MD Hypogammaglobulinemia (HCC) (Primary Dx) 08/21/2018 Office Visit Allergy,Immunology and Rheumatology from Last 3 Months Family History Medical History Relation Name Comments Aneurysm Father Hypertension Father Cancer Mother Relation Name Status Comments Daughter Alive Father Mother Social History Date Tobacco Use Types Packs/Day Years Used Never Smoker Smokeless Tobacco: Never Used Alcohol Use Drinks/Week oz/Week Comments Yes occasional Sex Assigned at Date Recorded Not on file Industry Job Start Date Occupation Not on file Not on file Not on file Travel End Travel History Travel Start No recent travel history available. Last Filed Vital Signs Time Taken Vital Sign Reading 08/21/2018 9:09 AM HIGH SCALER Blood Pressure 128/73 08/21/2018 9:09 AM HIGH SCALER Pulse 90 08/21/2018 9:09 AM HIGH SCALER Temperature 36.3 C (97.4 F) 08/21/2018 9:09 AM HIGH SCALER Respiratory Rate 17 07/07/2018 12:43 PM CDT Oxygen Saturation 99% - Inhaled Oxygen - Concentration 08/21/2018 9:09 AM HIGH SCALER Weight 91.9 kg (202 lb 9.6 oz) 08/21/2018 9:09 AM HIGH SCALER Height 190.5 cm (6' 3") 08/21/2018 9:09 AM HIGH SCALER Body Mass Index 25.32 Plan of Treatment Health Maintenance Due Date Last Done Comments PHYSICAL (COMPREHENSIVE) 1961 EXAM DTAP/TDAP VACCINES (1 - 1972 Tdap) COLORECTAL CANCER 2004 SCREENING SHINGLES RECOMBINANT 2004 VACCINE (1 of 2) INFLUENZA VACCINE 05/07/2018 HEPATITIS C SCREENING Completed 02/12/2018, 07/08/2015, 10/11/2009 HIV SCREENING Completed 02/12/2018, 07/08/2015, 10/11/2009 Implants Device Identifier Shelf Expiration Date Model / Serial / Lot Implanted Type Area Manufactur er [id number] 07/06/2019 [id number] / N/A / [id number] Kit 70cm 4fr 18ga 1 Lumen Nitinol Left: Chest CR Guidewire Radstic - Sn/A Wall BARD:ACCES Implanted: Qty: 1 on 02/20/2018 by Chris Pedraza MD 02/05/2020 [id number] / [id number] / [id number] - [id number] Aorta MONTEIRO Implanted: Qty: 1 on 04/16/2018 by LIFESMahendra Calles MD Procedures Comments Procedure Name Priority Date/Time Associated Diagnosis IMMUNOGLOBULINS-IGA,IGG,I Routine 08/21/2018 Hypogammaglobulinemia GM 11:10 AM HIGH SCALER (HCC) from Last 3 Months Results * IMMUNOGLOBULINS-IGA,IGG,IGM (08/21/2018 11:10 AM HIGH SCALER) IgG 503 (L) 762 - 1,488 MG/DL [facility] IgA 103 70 - 390 MG/DL [facility] IgM 23 (L) 38 - 328 MG/DL [facility] Specimen Blood Performing Organization Address City/State/Zipcode Phone Number [facility] [address] [place] [place] [address] from Last 3 Months Insurance Payer Benefit Subscriber ID Type Phone Address Plan / Group MEDICARE MEDICARE xxxxxxxxxx Medicare PART A AND B BCBS [place]EL[place] BCBS xxxxxxxxxxxx Medicare SUPPLEMENT Advance Directives Patient has advance care planning documents, and code status on file. For more information, please contact: [facility] [address] [place] [address] Date Inactivated Comments Code Status Date Activated 04/18/2018 2:16 PM Full Code 04/16/2018 7:53 AM Provider has discussed Code Status Yes w/Patient or Family? 03/11/2018 2:16 PM Full Code 02/23/2018 1:50 PM Provider has discussed Code Status Yes w/Patient or Family? 02/23/2018 1:39 PM Full Code 02/13/2018 3:45 PM Provider has discussed Code Status Yes w/Patient or Family? 02/13/2018 3:45 PM Full Code 02/10/2018 7:44 PM Provider has discussed Code Status No, more discussion w/Patient or Family? needed 02/10/2018 7:44 PM Full Code 02/10/2018 5:37 PM Provider has discussed Code Status No, more discussion w/Patient or Family? needed
--- OUTSIDE RECORDS SUMMARY | 2018-10-21 15:49 | XMS REPORT | Encounter Summary ---
Author Author [facility] Organization [facility] Address Unknown Phone Unavailable Care Team Providers Care Abseiling Instructor Name Role Phone Devon Cheema MD PCP Suze Buchanan RN Unavailable Unavailable Charissa Lin RN Unavailable Unavailable Valery Newton MA Unavailable Unavailable Chas Peña APRN Unavailable Jeri Brower MA Unavailable Unavailable Dee Lyn RN Unavailable Unavailable Rogerio Lynne MD Unavailable Yeis Martinez MD Unavailable eDe Ma RN Unavailable Unavailable Toma Ojeda Unavailable Unavailable Radha David RN Unavailable Unavailable Shonda Ovalles MA Unavailable Unavailable Marley Jain Unavailable Unavailable Sonal Herrera MD Unavailable Wolf Aguillon MD Unavailable Raudel Vazquez MD Unavailable Olvin Reyes DO Unavailable Encounter Details Care Team Description Date Type Department Annita Rosales MD [address] [place] [address] 08/21/2018 Hospital Clinlab Encounter [facility] [address] [place] [address] Social History Date Tobacco Use Types Packs/Day Years Used Never Smoker Smokeless Tobacco: Never Used Alcohol Use Drinks/Week oz/Week Comments Yes occasional Sex Assigned at Date Recorded Not on file Industry Job Start Date Occupation Not on file Not on file Not on file Travel End Travel History Travel Start No recent travel history available. as of this encounter Functional Status Date of Assessment Functional Status Response 07/07/2018 Does the patient have a hearing impairment: Yes 07/07/2018 Does the patient have a visual impairment: No 07/07/2018 Does the patient have impaired ambulation: No 07/07/2018 Does the patient have an activity of daily living No (ADL) impairment: 07/07/2018 Does the patient have an instrumental activity of No daily living (IADL) impairment: Date of Assessment Cognitive Status Response 07/07/2018 Does the patient have a cognitive impairment: No as of this encounter Medications at Time of Discharge Start Date End Date Medication Sig Dispensed Refills acetaminophen (TYLENOL) Take 500 mg 0 500 mg tablet by mouth as Needed for Pain. Max of 4,000 mg of acetaminophen in 24 hours. albuterol 0.5% Inhale 2.5 mg 0 (PROVENTIL; VENTOLIN) 2.5 solution by mg/0.5 mL nebulizer nebulizer as solution directed as Needed for Shortness of Breath or Wheezing. apixaban (ELIQUIS) 5 mg Take 5 mg by 0 tablet mouth twice daily. calcitriol (ROCALTROL) Take 1 0 0.5 mcg capsule capsule at dialysis appt (Saturday, , Saturday) calcium carbonate/vitamin Take 1 tablet 0 D-3 (OSCAL-500+D) 1250 by mouth mg/200 unit tablet daily. Calcium Carb 1250mg delivers 500mg elemental Ca 03/11/2018 folic acid (FOLVITE) 1 mg Take 1 tablet 30 tablet 1 tablet by mouth daily. 03/11/2018 ipratropium bromide Inhale 2.5 mL 120 vial 1 (ATROVENT) 0.02 % by mouth into nebulizer solution the lungs three times daily and at bedtime. 03/11/2018 nebulizer compressor Use as 1 Device 0 administrative medical director directed. ondansetron (ZOFRAN) 4 mg Take 4 mg by 0 tablet mouth as Needed for Nausea or Vomiting. pantoprazole DR Take 40 mg by 0 (PROTONIX) 40 mg tablet mouth daily. pravastatin (PRAVACHOL) Take 10 mg by 0 10 mg tablet mouth at bedtime daily. PREDNISONE PO Take 12.5 mg 0 by mouth once. senna/docusate Take 1 tablet 0 (SENOKOT-S) 8.6/50 mg by mouth tablet daily. 03/11/2018 trimethoprim/sulfamethoxa Take 1 tablet 12 tablet 1 zole (BACTRIM SS) 80/400 by mouth mg tablet three times weekly. Continue until dose of prednisone is less than 20mg per day 03/11/2018 vitamins, multi B, C, Zn Take 1 tablet 30 tablet 1 & folate (Renal) by mouth (NEPHPLEX RX) daily. 1-60-300-12.5 tz-mz-zfq-mg tab as of this encounter Plan of Treatment Not on fileas of this encounter Procedures Comments Procedure Name Priority Date/Time Associated Diagnosis IMMUNOGLOBULINS-IGA,IGG,I Routine 08/21/2018 Hypogammaglobulinemia GM 11:10 AM ADOPTION AGENT ([facility]) in this encounter Results * IMMUNOGLOBULINS-IGA,IGG,IGM (08/21/2018 11:10 AM ADOPTION AGENT) IgG 503 (L) 762 - 1,488 MG/DL [facility] IgA 103 70 - 390 MG/DL [facility] IgM 23 (L) 38 - 328 MG/DL [facility] Specimen Blood Performing Organization Address City/State/Zipcode Phone Number [facility] [address] [place] [address] in this encounter Visit Diagnoses Diagnosis Hypogammaglobulinemia (HCC) Hypogammaglobulinaemia, unspecified in this encounter
--- OUTSIDE RECORDS SUMMARY | 2018-10-21 15:50 | XMS REPORT | Encounter Summary ---
Author Author [facility] Organization [facility] Address Unknown Phone Unavailable Care Team Providers Care Software Implementation Project Manager Name Role Phone Devon Cheema MD [...] Unavailable Reason for Visit * Reason Comments Hypogammaglobulinemia Encounter Details Care Team Description Date Type Department Annita Rosales MD [address] [facility] [address] [place] [address] Hypogammaglobulinemia (HCC) (Primary Dx) 08/21/2018 Office Visit [facility] - Internal Medicine [facility] Level 4A [address] [place] [address] Social History Date Tobacco Use Types Packs/Day Years Used Never Smoker Smokeless Tobacco: Never Used Alcohol Use Drinks/Week oz/Week Comments Yes occasional Sex Assigned at Date Recorded Not on file Industry Job Start Date Occupation Not on file Not on file Not on file Travel End Travel History Travel Start No recent travel history available. as of this encounter Last Filed Vital Signs Time Taken Vital Sign Reading 08/21/2018 9:09 AM ACCOUNTS PAYABLE COORDINATOR Blood Pressure 128/73 08/21/2018 9:09 AM ACCOUNTS PAYABLE COORDINATOR Pulse 90 08/21/2018 9:09 AM ACCOUNTS PAYABLE COORDINATOR Temperature 36.3 C (97.4 F) 08/21/2018 9:09 AM ACCOUNTS PAYABLE COORDINATOR Respiratory Rate 17 - Oxygen Saturation - - Inhaled Oxygen - Concentration 08/21/2018 9:09 AM ACCOUNTS PAYABLE COORDINATOR Weight 91.9 kg (202 lb 9.6 oz) 08/21/2018 9:09 AM ACCOUNTS PAYABLE COORDINATOR Height 190.5 cm (6' 3") 08/21/2018 9:09 AM ACCOUNTS PAYABLE COORDINATOR Body Mass Index 25.32 in this encounter Functional Status Date of Assessment [...] cognitive impairment: No as of this encounter Patient Instructions * Patient Instructions* Annita Rosales MD - 08/21/2018 9:00 AM ACCOUNTS PAYABLE COORDINATOR - We recommend repeating your labs UNTS PAYABLE COORDINATOR in this encounter Progress Notes * Annita Rosales MD - 08/21/2018 9:00 AM ACCOUNTS PAYABLE COORDINATOR Date of Service: 08/21/2018 Subjective: Tolu Barrios is a 62 y.o. male with a history of GPA, ESRD 2/2 GPA now on HD, atrial fibrillation, HTN, HLD, DVT, severe aortic stenosis, ascending aortic aneurysm, hx of melanoma, bowel obstruction with colostomy placement 2016 and reversal 11/2017 who presents to [facility] as a follow up. The patient was last seen 05/2018. He has been followed by us since 2017 when he was seen as an inpatient consult. The patient was admitted on 02/03 with dyspnea and hemoptysis. He was treated with high dose steroids, plasmapharesis x 4 and broad spectrum antibiotics. His GPA has been treated with intermittent pulse steroids, Cytoxan, and rituximab ( last received 10/11/17). He underwent intubation and bronchoscopy on 02/12. The patient's hospital admission has been complicated by pancytopenia with significant lymphopenia (ALC 100 02/10). Hematology was consulted for pancytopneia ; they recommended IVIG 400 mg IV once [...] mg daily by 12/2016. He was also seeinga supply crib attendant in [place] named Dr. Raudel Vazquez. The epistaxis improved and his prednisone dose was decreased in 04/2017. However in 07/2017 he was started on Imuran 50 mg daily.In 08/2017 he had relapse of disease with progressive renal failure requiring HD as well as epistaxis and hemotptysis. He was treated with rituxmiab from September through 10/2017 (09/20/17, 09/27/17, 10/04/17, ). He was on prednisone 15 mg daily [...] reviewing Care Everywhere it seems he was treatedfor acute bronchitis with azithromycin in 02/2017. His [...] consideration of TAVR. He underwent TAVR 04/16/2018. His last labs were done 05/12/2018 and showed IgG at 379, IgM at 22, and IgA at 96. His T&B cell panel showed absent CD19 cells and low CD4 cells at 127. History of Present IllnessHe has not had any infections since 05/2018. He was diagnosed with a DVT that was treated with TPA in 07/05/2018 at [facility] and he was placed on anti-coagulation. He is on eliquis. He is on prednisone 12.5mg. He continues to be on bactrim. He had another Rituximab 2017 and he received [address] Vazquez. He was told that "immune cells are lower" and rituximab has taken effect. Review of Systems Constitutional: Negative for chills and fever. HENT: Positive for rhinorrhea and tinnitus. Negative for congestion, facial swelling and sneezing. Eyes: Negative for itching. Respiratory: Negative for cough, chest tightness, shortness of breath and wheezing. Cardiovascular: Negative for chest pain. Gastrointestinal: Negative for abdominal pain, diarrhea and vomiting. Genitourinary: Positive for enuresis. Skin: Negative for rash. Allergic/Immunologic: Negative for food allergies. Neurological: Positive for dizziness and light-headedness. Psychiatric/Behavioral: Negative for agitation and behavioral problems. All other systems reviewed and are negative. Objective: acetaminophen (TYLENOL) 500 mg tablet Take 500 mg by mouth as Needed for Pain. Max of 4,000 mg of acetaminophen in 24 hours. albuterol 0.5% (PROVENTIL; VENTOLIN) 2.5 mg/0.5 mL nebulizer solution Inhale 2.5 mg solution by nebulizer as directed as Needed for Shortness of Breath or Wheezing. apixaban (ELIQUIS) 5 mg tablet Take 5 mg by mouth twice daily. calcitriol (ROCALTROL) 0.5 mcg capsule Take 1 capsule at dialysis appt ( Saturday, , Saturday) calcium carbonate/vitamin D-3 (OSCAL-500+D) 1250 mg/200 unit tablet Take 1 tablet by mouth daily. Calcium Carb 1250mg delivers 500mg elemental Ca folic acid (FOLVITE) 1 mg tablet Take 1 tablet by mouth daily. ipratropium bromide (ATROVENT) 0.02 % nebulizer solution Inhale 2.5 mL by mouth into the lungs three times daily and at bedtime. (Patient taking differently: Inhale 1 vial by mouth into the lungs as Needed.) nebulizer compressor diploma medical assistant Use as directed. ondansetron (ZOFRAN) 4 mg tablet Take 4 mg by mouth as Needed for Nausea or Vomiting. pantoprazole DR (PROTONIX) 40 mg tablet Take 40 mg by mouth daily. pravastatin (PRAVACHOL) 10 mg tablet Take 10 mg by mouth at bedtime daily. PREDNISONE PO Take 12.5 mg by mouth once. senna/docusate (SENOKOT-S) 8.6/50 mg tablet Take 1 tablet by mouth daily. trimethoprim/sulfamethoxazole (BACTRIM SS) 80/400 mg tablet Take 1 tablet by mouth three times weekly. Continue until dose of prednisone is less than 20mg per day vitamins, multi B, C, Zn & folate (Renal) (NEPHPLEX RX) 1-60-300-12.5 mg-mg- mcg-mg tab Take 1 tablet by mouth daily. Vitals: 08/21/18 0909 BP: 128/73 Pulse: 90 Resp: 17 Temp: 36.3 C (97.4 F) TempSrc: Oral Weight: 91.9 kg (202 lb 9.6 oz) Height: 190.5 cm (75") Body mass index is 25.32 kg/m. Physical Exam Constitutional: He is oriented [...] is warm and dry. No rash noted. Psychiatric: He has a normal mood and affect. His behavior is normal. Vitals reviewed. 07/01/2018: IgG 483 IgA 115 IgM 25 Assessment and Plan: Problem Hypogammaglobulinemia (Hcc) He [...] for many years for his GPA. His supply crib attendant plans to potentially give him additional Rituximab (follow up appointment is 05/21/2018). He is currently on prednisone 20mg daily. His supply crib attendant may start imuran as well for treatment [...] on 07/02/2018. He had repeat IgG in [place] was 483, IgM was 25, and IgA was 115. He is planning on receiving Rituximab every 6 months. We discussed again with the patient that although the immunoglobulin levels have been low he is currently not developing illness and he has renal disease and history of DVTs. - We recommend repeating immunoglobulin levels again today. RTC 3 months The patient was seen and discussed with Dr. Lundberg. Annita Rosales, PGY5 Allergy and Immunology Fellow ATTESTATION I personally performed the kerr portions of the E/M visit, discussed case with resident and concur with resident documentation of history, physical exam, assessment, and treatment plan unless otherwise noted. Staff name: Mare Branham MD Date: 08/24/2018 UNTS PAYABLE COORDINATOR in this encounter Plan of Treatment Not on fileas of this encounter Results * IMMUNOGLOBULINS-IGA,IGG,IGM (08/21/2018 11:10 AM ACCOUNTS PAYABLE COORDINATOR) IgG 503 (L) 762 - 1,488 MG/DL [facility] IgA 103 70 - 390 MG/DL [facility] IgM 23 (L) 38 - 328 MG/DL [facility] Specimen Blood Performing Organization Address City/State/Zipcode Phone Number [facility] [address] [place] [address] in this encounter Visit Diagnoses Diagnosis Hypogammaglobulinemia (HCC) - Primary Hypogammaglobulinaemia, unspecified in this encounter
--- OUTSIDE RECORDS SUMMARY | 2018-10-21 15:53 | XMS REPORT | Continuity of Care Document ---
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 01/29/2018 JORDAN SNO MD Ot N18.6 END STAGE RENAL DISEASE [...] OF OTHER VENOUS THROMBO 02/06/2018 MALIHA STONER MD Ot Z99.2 DEPENDENCE ON RENAL DIALYSIS 03/11/2018 JORDAN SON MD, Ot D70.9 NEUTROPENIA, UNSPECIFIED 03/11/2018 JORDAN SON MD Ot 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 03/11/2018 JORDAN SON MD, Ot N18.6 END STAGE RENAL DISEASE 03/11/2018 JORDAN SON MD Ot N30.00 ACUTE CYSTITIS WITHOUT HEMATURIA 03/11/2018 JORDAN SON MD Ot Z99.2 DEPENDENCE ON RENAL DIALYSIS 06/06/2018 MONIQUE LAIRD MD, Ot Z48.812 ENCNTR FOR SURGICAL AFTCR FOLLOWING SURG 06/06/2018 MONIUQE LAIRD MD, Ot Z95.2 PRESENCE OF PROSTHETIC HEART VALVE 07/03/2018 WELLINGTON NEWBERRY MD Ot 285.21 ANEMIA IN CHRONIC KIDNEY DISEASE 07/03/2018 WELLINGTON NEWBERRY MD Ot 403.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 KID DIS, UNSPEC, W CHR KD ST 07/03/2018 WELLINGTON NEWBERRY MD Ot 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 07/03/2018 WELLINGTON NEWBERRY MD Ot 585.9 CHRONIC KIDNEY DISEASE, UNSPECIFIED 07/03/2018 WELLINGTON NEWBERRY MD Ot 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 07/03/2018 WELLINGTON NEWBERRY MD Ot V12.51 HX-VENOUS THROMBOSIS EMBOLISM 07/03/2018 WELLINGTON NEWBERRY MD Ot V58.65 LONG-TERM(CURRENT)USE OF STEROIDS 07/03/2018 WELLINGTON NEWBERRY MD Ot V58.69 OTH MED,LT,CURRENT USE 07/03/2018 WELLINGTON NEWBERRY MD Ot V67.09 SURGERY FOLLOW-UP, OTHER SURGERY 07/03/2018 CHANTAL STEPHENSON MD Ot 280.9 IRON DEFIC ANEMIA NOS 07/03/2018 CHANTAL STEPHENSON MD Ot 585.4 CHRONIC KIDNEY DISEASE, STAGE IV (SEVERE 07/03/2018 CHANTAL STEPHENSON MD Ot 272.4 HYPERLIPIDEMIA NEC/NOS 07/03/2018 ABOUL-MAGD MD, AHMED S Ot 276.2 ACIDOSIS 07/03/2018 SEEMA SLOAN, CHANTAL S Ot 280.9 IRON DEFIC ANEMIA NOS 07/03/2018 SEEMA SLOAN, CHANTAL S Ot 285.21 ANEMIA IN CHRONIC KIDNEY DISEASE 07/03/2018 SEEMA SLOAN, CHANTAL S Ot 447.8 ARTERIAL DISEASE NEC 07/03/2018 SEEMA SLOAN, CHANTAL S Ot 585.4 CHRONIC KIDNEY DISEASE, STAGE IV (SEVERE 07/03/2018 SEEMA SLOAN, CHANTAL S Ot 791.0 PROTEINURIA 07/03/2018 Ot 272.4 HYPERLIPIDEMIA NEC/NOS 07/03/2018 Ot 276.8 HYPOPOTASSEMIA 07/03/2018 Ot 280.9 IRON DEFIC ANEMIA NOS 07/03/2018 Ot 285.21 ANEMIA IN CHRONIC KIDNEY DISEASE 07/03/2018 Ot 403.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 KID DIS, UNSPEC, W CHR KD ST 07/03/2018 Ot 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 07/03/2018 Ot 447.8 ARTERIAL DISEASE NEC 07/03/2018 Ot 585.4 CHRONIC KIDNEY DISEASE, STAGE IV (SEVERE 07/03/2018 Ot 791.0 PROTEINURIA 07/03/2018 Ot 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 07/03/2018 Ot V12.51 HX-VENOUS THROMBOSIS EMBOLISM 07/03/2018 Ot V58.65 LONG-TERM( CURRENT)USE OF STEROIDS 07/03/2018 Ot V58.69 OTH MED,LT, CURRENT USE 07/03/2018 Ot V67.09 SURGERY FOLLOW-UP, OTHER SURGERY 07/03/2018 Ot 285.21 ANEMIA IN CHRONIC KIDNEY DISEASE 07/03/2018 Ot 585.4 CHRONIC KIDNEY DISEASE, STAGE IV (SEVERE 07/03/2018 Ot V58.69 OTH MED,LT, CURRENT USE 07/03/2018 OLI CRAVEN MD Ot Z01.818 ENCOUNTER FOR OTHER PREPROCEDURAL EXAMIN 07/03/2018 JORDAN SON MD Ot D70.9 NEUTROPENIA, UNSPECIFIED 07/03/2018 JORDAN SON MD Ot 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 07/03/2018 JORDAN SON MD Ot N18.6 END STAGE RENAL DISEASE 07/03/2018 ADELAIDA MD, JORDAN Ot N30.00 ACUTE CYSTITIS WITHOUT HEMATURIA 07/03/2018 ADELAIDA SLOAN, JORDAN Ot Z99.2 DEPENDENCE ON RENAL DIALYSIS 07/03/2018 MONIQUE LAIRD MD, Ot Z48.812 ENCNTR FOR SURGICAL AFTCR FOLLOWING SURG 07/03/2018 EITAN SLOAN, MONIQUE Cheng Ot Z95.2 PRESENCE OF PROSTHETIC HEART VALVE 07/03/2018 LAQUITA, ANYI ENROBING MACHINE OPERATOR Ot I82.411 ACUTE EMBOLISM AND THROMBOSIS OF RIGHT F 07/03/2018 LAQUITA, ANYI ENROBING MACHINE OPERATOR Ot M10.9 GOUT, UNSPECIFIED 07/03/2018 LAQUITA, ANYI ENROBING MACHINE OPERATOR Ot 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 07/03/2018 LAQUITA, ANYI ENROBING MACHINE OPERATOR Ot M79.604 PAIN IN RIGHT LEG 07/03/2018 LAQUITA, ANYI ENROBING MACHINE OPERATOR Ot M79.89 OTHER SPECIFIED SOFT TISSUE DISORDERS 07/03/2018 LAQUITA, ANYI ENROBING MACHINE OPERATOR Ot N18.6 END STAGE RENAL DISEASE 07/03/2018 LAQUITA, ANYI ENROBING MACHINE OPERATOR Ot Z79.82 CONTINUOUS LOFT OPERATOR (CURRENT) USE OF ASPIRIN 07/03/2018 LAQUITA, ANYI ENROBING MACHINE OPERATOR Ot Z87.440 PERSONAL HISTORY OF URINARY (TRACT) INFE 07/03/2018 LAQUITA, ANYI ENROBING MACHINE OPERATOR Ot Z99.2 DEPENDENCE ON RENAL DIALYSIS 07/05/2018 LAQUITA, ANYI ENROBING MACHINE OPERATOR Ot I82.411 ACUTE EMBOLISM AND THROMBOSIS OF RIGHT F 07/05/2018 LAQUITA, ANYI ENROBING MACHINE OPERATOR Ot M10.9 GOUT, UNSPECIFIED 07/05/2018 LAQUITA, ANYI ENROBING MACHINE OPERATOR Ot 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 07/05/2018 LAQUITA, ANYI ENROBING MACHINE OPERATOR Ot M79.604 PAIN IN RIGHT LEG 07/05/2018 LAQUITA, ANYI ENROBING MACHINE OPERATOR Ot M79.89 OTHER SPECIFIED SOFT TISSUE DISORDERS 07/05/2018 LAQUITA, ANYI ENROBING MACHINE OPERATOR Ot N18.6 END STAGE RENAL DISEASE 07/05/2018 LAQUITA, ANYI ENROBING MACHINE OPERATOR Ot Z79.82 HALF-WAY (CURRENT) USE OF ASPIRIN 07/05/2018 LAQUITA, ANYI ENROBING MACHINE OPERATOR Ot Z87.440 PERSONAL HISTORY OF URINARY (TRACT) INFE 07/05/2018 LAQUITA, ANYI ENROBING MACHINE OPERATOR Ot Z99.2 DEPENDENCE ON RENAL DIALYSIS 08/03/2018 EITAN SLOAN, MONIQUE Cheng Ot Z48.812 ENCNTR FOR SURGICAL AFTCR FOLLOWING SURG 08/03/2018 MONIQUE LAIRD MD Ot Z95.2 PRESENCE OF PROSTHETIC HEART VALVE 08/05/2018 MONIQUE LAIRD MD Ot Z48.812 ENCNTR FOR SURGICAL AFTCR FOLLOWING SURG 08/05/2018 MONIQUE LAIRD MD Ot Z95.2 PRESENCE OF PROSTHETIC HEART VALVE 08/08/2018 WELLINGTON NEWBERRY MD Ot 285.21 ANEMIA IN CHRONIC KIDNEY DISEASE 08/08/2018 WELLINGTON NEWBERRY MD Ot 403.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 KID DIS, UNSPEC, W CHR KD ST 08/08/2018 WELLINGTON NEWBERRY MD Ot 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 08/08/2018 WELLINGTON NEWBERRY MD Ot 585.9 CHRONIC KIDNEY DISEASE, UNSPECIFIED 08/08/2018 WELLINGTON NEWBERRY MD Ot 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 08/08/2018 WELLINGTON NEWBERRY MD Ot V12.51 HX-VENOUS THROMBOSIS EMBOLISM 08/08/2018 WELLINGTON NEWBERRY MD Ot V58.65 LONG-TERM(CURRENT)USE OF STEROIDS 08/08/2018 WELLINGTON NEWBERRY MD Ot V58.69 OTH MED,LT,CURRENT USE 08/08/2018 WELLINGTON NEWBERRY MD Ot V67.09 SURGERY FOLLOW-UP, OTHER SURGERY 08/08/2018 CHANTAL STEPHENSON MD Ot 280.9 IRON DEFIC ANEMIA NOS 08/08/2018 CHANTAL STEPHENSON MD Ot 585.4 CHRONIC KIDNEY DISEASE, STAGE IV (SEVERE 08/08/2018 CHANTAL STEPHENSON MD Ot 272.4 HYPERLIPIDEMIA NEC/NOS 08/08/2018 CHANTAL STEPHENSON MD S Ot 276.2 ACIDOSIS 08/08/2018 CHANTAL STEPHENSON MD Ot 280.9 IRON DEFIC ANEMIA NOS 08/08/2018 CHANTAL STEPHENSON MD Ot 285.21 ANEMIA IN CHRONIC KIDNEY DISEASE 08/08/2018 CHANTAL STEPHENSON MD Ot 447.8 ARTERIAL DISEASE NEC 08/08/2018 CHANTAL STEPHENSON MD Ot 585.4 CHRONIC KIDNEY DISEASE, STAGE IV (SEVERE 08/08/2018 CHANTAL STEPHENSON MD Ot 791.0 PROTEINURIA 08/08/2018 Ot 272.4 HYPERLIPIDEMIA NEC/NOS 08/08/2018 Ot 276.8 HYPOPOTASSEMIA 08/08/2018 Ot 280.9 IRON DEFIC ANEMIA NOS 08/08/2018 Ot 285.21 ANEMIA IN CHRONIC KIDNEY DISEASE 08/08/2018 Ot 403.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 KID DIS, UNSPEC, W CHR KD ST 08/08/2018 Ot 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 08/08/2018 Ot 447.8 ARTERIAL DISEASE NEC 08/08/2018 Ot 585.4 CHRONIC KIDNEY DISEASE, STAGE IV (SEVERE 08/08/2018 Ot 791.0 PROTEINURIA 08/08/2018 Ot 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 08/08/2018 Ot V12.51 HX-VENOUS THROMBOSIS EMBOLISM 08/08/2018 Ot V58.65 LONG-TERM( CURRENT)USE OF STEROIDS 08/08/2018 Ot V58.69 OTH MED,LT, CURRENT USE 08/08/2018 Ot V67.09 SURGERY FOLLOW-UP, OTHER SURGERY 08/08/2018 Ot 285.21 ANEMIA IN CHRONIC KIDNEY DISEASE 08/08/2018 Ot 585.4 CHRONIC KIDNEY DISEASE, STAGE IV (SEVERE 08/08/2018 Ot V58.69 OTH MED,LT, CURRENT USE 08/08/2018 HERBER SLOAN, OLI Ot Z01.818 ENCOUNTER FOR OTHER PREPROCEDURAL EXAMIN 08/08/2018 ADELAIDA SLOAN, JORDAN Ot D70.9 NEUTROPENIA, UNSPECIFIED 08/08/2018 ADELAIDA SLOAN, JORDAN Ot 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 08/08/2018 ADELAIDA SLOAN, JORDAN Ot N18.6 END STAGE RENAL DISEASE 08/08/2018 ADELAIDA SLOAN, JORDAN Ot N30.00 ACUTE CYSTITIS WITHOUT HEMATURIA 08/08/2018 ADELAIDA SLOAN, JORDAN Ot Z99.2 DEPENDENCE ON RENAL DIALYSIS 08/08/2018 EITAN SLOAN, MONIQUE Cheng Ot Z48.812 ENCNTR FOR SURGICAL AFTCR FOLLOWING SURG 08/08/2018 MONIQUE LAIRD MD Ot Z95.2 PRESENCE OF PROSTHETIC HEART VALVE 08/08/2018 WELLINGTON NEWBERRY MD Ot 285.21 ANEMIA IN CHRONIC KIDNEY DISEASE 08/08/2018 WELLINGTON NEWBERRY MD Ot 403.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 KID DIS, UNSPEC, W CHR KD ST 08/08/2018 WELLINGTON NEWBERRY MD Ot 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 08/08/2018 WELLINGTON NEWBERRY MD Ot 585.9 CHRONIC KIDNEY DISEASE, UNSPECIFIED 08/08/2018 WELLINGTON NEWBERRY MD Ot 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 08/08/2018 WELLINGTON NEWBERRY MD Ot V12.51 HX-VENOUS THROMBOSIS EMBOLISM 08/08/2018 WELLINGTON NEWBERRY MD Ot V58.65 LONG-TERM(CURRENT)USE OF STEROIDS 08/08/2018 WELLINGTON NEWBERRY MD Ot V58.69 OT MED,LT,CURRENT USE 08/08/2018 WELLINGTON NEWBERRY MD Ot V67.09 SURGERY FOLLOW-UP, OTHER SURGERY 08/08/2018 SEEMA SLOAN, CHANTAL Velasquez Ot 280.9 IRON DEFIC ANEMIA NOS 08/08/2018 SEEMA SLOAN, CHANTAL Velasquez Ot 585.4 CHRONIC KIDNEY DISEASE, STAGE IV (SEVERE 08/08/2018 SEEMA SLOAN, CHANTAL S Ot 272.4 HYPERLIPIDEMIA NEC/NOS 08/08/2018 SEEMA SLOAN, CHANTAL S Ot 276.2 ACIDOSIS 08/08/2018 SEEMA SLOAN, CHANTAL S Ot 280.9 IRON DEFIC ANEMIA NOS 08/08/2018 SEEMA SLOAN, CHANTAL S Ot 285.21 ANEMIA IN CHRONIC KIDNEY DISEASE 08/08/2018 SEEMA SLOAN, CHANTAL S Ot 447.8 ARTERIAL DISEASE NEC 08/08/2018 SEEMA SLOAN, CHANTAL S Ot 585.4 CHRONIC KIDNEY DISEASE, STAGE IV (SEVERE 08/08/2018 SEEMA SLOAN, CHANTAL S Ot 791.0 PROTEINURIA 08/08/2018 Ot 272.4 HYPERLIPIDEMIA NEC/NOS 08/08/2018 Ot 276.8 HYPOPOTASSEMIA 08/08/2018 Ot 280.9 IRON DEFIC ANEMIA NOS 08/08/2018 Ot 285.21 ANEMIA IN CHRONIC KIDNEY DISEASE 08/08/2018 Ot 403.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 KID DIS, UNSPEC, W CHR KD ST 08/08/2018 Ot 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 08/08/2018 Ot 447.8 ARTERIAL DISEASE NEC 08/08/2018 Ot 585.4 CHRONIC KIDNEY DISEASE, STAGE IV (SEVERE 08/08/2018 Ot 791.0 PROTEINURIA 08/08/2018 Ot 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 08/08/2018 Ot V12.51 HX-VENOUS THROMBOSIS EMBOLISM 08/08/2018 Ot V58.65 LONG-TERM( CURRENT)USE OF STEROIDS 08/08/2018 Ot V58.69 OTH MED,LT, CURRENT USE 08/08/2018 Ot V67.09 SURGERY FOLLOW-UP, OTHER SURGERY 08/08/2018 Ot 285.21 ANEMIA IN CHRONIC KIDNEY DISEASE 08/08/2018 Ot 585.4 CHRONIC KIDNEY DISEASE, STAGE IV (SEVERE 08/08/2018 Ot V58.69 OTH MED,LT, CURRENT USE 08/08/2018 OLI CRAVEN MD Ot Z01.818 ENCOUNTER FOR OTHER PREPROCEDURAL EXAMIN 08/08/2018 JORDAN SON MD Ot D70.9 NEUTROPENIA, UNSPECIFIED 08/08/2018 JORDAN SON MD Ot 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 08/08/2018 JORDAN SON MD Ot N18.6 END STAGE RENAL DISEASE 08/08/2018 JORDAN SON MD Ot N30.00 ACUTE CYSTITIS WITHOUT HEMATURIA 08/08/2018 JORDAN SON MD Ot Z99.2 DEPENDENCE ON RENAL DIALYSIS 08/08/2018 MONIQUE LAIRD MD, Ot Z48.812 ENCNTR FOR SURGICAL AFTCR FOLLOWING SURG 08/08/2018 MONIQUE LAIRD MD, Ot Z95.2 PRESENCE OF [...] culture - 12/07/17 13:55 Bacterial urine culture [id number] NRG COLONY COUNT >100,000/ML NRG FTX;REPORTABLE SENSITIVITY [...] - 12/07/17 14:22 Bacterial blood culture NG G Complete blood count (CBC) with automated white [...] culture - 01/28/18 22:32 Bacterial urine culture [id number] NRG COLONY COUNT <10,000 NRG FTX;REPORTABLE SENSITIVITY [...] - 02/04/18 05:50 Bacterial blood culture NG NRG Sputum Gram stain - 02/04/18 05:58 Sputum Gram stain of gram negative rods NRG Bacterial sputum culture - 02/04/18 05:58 FREE TEXT EXTERNAL PLUS SCANT YEAST NRG QUANTITY OF GROWTH Abundant Growth NRG Bacterial sputum culture [id number] [facility] Bacterial susceptibility panel - 02/04/18 05:58 Gentamicin susceptibility test by minimum inhibitory concentration < = NRG Tobramycin susceptibility test by minimum inhibitory concentration < = NRG Piperacillin/tazobactam susceptibility test by minimum inhibitory concentration S NRG Ciprofloxacin susceptibility test by minimum inhibitory concentration <= NRG Meropenem susceptibility test by minimum inhibitory concentration < = NRG Cefepime susceptibility test by minimum inhibitory concentration 2 NRG Influenza virus A and B antigen detection - 02/04/18 06:10 FLU RESULT NEGATIVE FOR INFLUENZA A AND B ANTIGENS BY IA NRG Bacterial blood culture - 02/04/18 06:20 Bacterial [...] Status Pt. Type Provider Facility Loc./Unit Complaint [id number] 08/04/2018 08:00:00 08/04/2018 23:59:59 CLS Preadmit MONIQUE LAIRD MD [facility] CR TAVR [id number] 06/13/2018 07:59:00 08/03/2018 00:01:00 DIS Outpatient MONIQUE LAIRD MD [facility] CR TAVR [id number] 07/03/2018 11:24:00 07/03/2018 14:00:00 DIS Emergency ANYI COELHO [facility] ER LEG SWELLING [id number] 03/12/2018 00:10:00 03/12/2018 23:59:59 CLS Preadmit JORDAN SON MD [facility] UTI [id number] 12/27/2017 13:25:00 03/11/2018 00:01:00 DIS Outpatient JORDAN SON MD [facility] UTI [id number] 02/04/2018 05:47:00 02/04/2018 08:47:00 DIS Emergency GEORGIANA SLOAN, MALIHA Siddiqui [facility] ER SOB,UTI,NOT SLEEPING [id number] 01/28/2018 21:31:00 01/29/2018 00:39:00 DIS Emergency CHIOMA SLOAN, JESUS Green [facility] ER FEVER AFTER DIALYSIS [id number] 12/07/2017 13:39:00 12/07/2017 15:42:00 DIS Emergency LIZZIE SLOAN, LEVON Velasquez [facility] ER WEAKNESS/FEVER [id number] 07/27/2015 07:12:00 07/27/2015 11:15:00 DIS Outpatient OLI CRAVEN MD [facility] SCREENING,HX POLYPS [id number] 07/22/2015 05:38:00 07/22/2015 23:59:59 CLS Outpatient OLI CRAVEN MD [facility] PREOP HX POLYPS [id number] 02/23/2014 07:44:00 04/27/2014 00:01:00 DIS Outpatient CHANTAL STEPHENSON MD [facility] LAB CHRONIC ANEMIA, KIDNEY DISEASE [id number] 01/27/2014 07:48:00 04/27/2014 00:01:00 DIS Outpatient CHANTAL STEPHENSON MD [facility] SURG RCR CKD,ANEMIA [id number] 03/23/2014 06:54:00 03/23/2014 23:59:59 CLS Outpatient CHANTAL STEPHENSON MD [facility] LAB HYPERLIPIDEMIA, ACIDOSIS,ANEMIA ,CRONIC KIDNEY DI [id number] 12/28/2013 12:43:00 01/10/2014 00:01:00 DIS Outpatient CHANTAL STEPHENSON MD [facility] SURG RCR CKD,ANEMIA [id number] 12/15/2013 12:31:00 01/10/2014 00:01:00 DIS Outpatient CHANTAL STEPHENSON MD [facility] LAB CHRONIC ANEMIA, KIDNEY DISEASE [id number] 08/31/2013 17:18:00 10/11/2013 00:01:00 DIS Outpatient CHANTAL STEPHENSON MD [facility] SURG RCR CKD,ANEMIA [id number] 08/17/2013 14:10:00 10/11/2013 00:01:00 DIS Outpatient CHANTAL STEPHENSON MD [facility] LAB CHRONIC ANEMIA, KIDNEY DISEASE [id number] 06/09/2013 13:15:00 06/21/2013 00:01:00 DIS Outpatient CHANTAL STEPHENSON MD [facility] SURG RCR CKD,ANEMIA [id number] 05/25/2013 07:45:00 06/21/2013 00:01:00 DIS Outpatient CHANTAL STEPHENSON MD [facility] LAB CHRONIC ANEMIA, KIDNEY DISEASE [id number] 06/17/2013 07:12:00 06/17/2013 23:59:59 CLS Outpatient SEEMA SLOAN, CHANTAL Velasquez [facility] LAB CHRONIC KIDNEY DISEASE,IRON DEFFIENCY [id number] 03/24/2013 12:57:00 03/24/2013 23:59:59 CLS Outpatient CONI SLOAN, WELLINGTON Rapp [facility] ONC [id number] 10/21/2018 15:45:00 ACT Emergency CHIOMA SLOAN, JESUS Green [facility] ER DIARRHEA [id number] 01/28/2018 21:33:00 Document Registration [id number] 04/28/2014 00:00:00 Document Registration [id number] 04/28/2014 00:00:00 Document Registration [id number] 12/30/2012 07:39:00 Document Registration [id number] 12/25/2012 14:18:00 Document Registration [id number] 12/09/2012 07:51:00 Document Registration [id number] 09/23/2012 13:00:00 Document Registration [id number] 09/02/2012 14:36:00 Document Registration [id number] 08/18/2012 07:38:00 Document Registration [id number] 01/27/2010 05:46:00 Document Registration
[2018-10-21] MEDS ORDERED: LACTATED RINGERS 1,000 ML IV SCH (16:00)
[2018-10-21] MEDS ORDERED: ONDANSETRON 4 MG/2 ML (SDV) Z0FRAN IVP ONE (16:00)
[2018-10-21 16:22] LABS: BASOPHILS % (AUTO) 0 % (0-10); EOSINOPHILS % (AUTO) 0 % (0-10); HEMATOCRIT 41 % (40-54); HEMOGLOBIN 13.2 G/DL (13.3-17.7); LYMPHOCYTES # (AUTO) 1.4 X 10^3 (1.0-4.0); LYMPHOCYTES % (AUTO) 23 % (12-44); MEAN CORPUSCULAR HEMOGLOBIN 32 PG (25-34); MEAN CORPUSCULAR HGB CONC 32 G/DL (32-36); MEAN CORPUSCULAR VOLUME 100 FL (80-99); MEAN PLATELET VOLUME 10.2 FL (7.4-10.4); MONOCYTES % (AUTO) 16 % (0-12); NEUTROPHILS # (AUTO) 3.5 X 10^3 (1.8-7.8); NEUTROPHILS % (AUTO) 60 % (42-75); PLATELET COUNT 155 10^3/uL (130-400); RED BLOOD COUNT 4.12 10^6/uL (4.35-5.85); WHITE BLOOD COUNT 5.9 10^3/uL (4.3-11.0)
[2018-10-21 16:46] LABS: ALBUMIN 4.3 GM/DL (3.2-4.5); BILIRUBIN,TOTAL 0.8 MG/DL (0.1-1.0); CALCIUM 10.6 MG/DL (8.5-10.1); CREATININE SERUM 5.78 MG/DL (0.60-1.30); TOTAL PROTEIN 7.1 GM/DL (6.4-8.2)
[2018-10-21] MEDS ORDERED: fentaNYL INJECTION 100 MCG/2 ML AMP ONE (17:54)
[2018-10-21] MEDS ORDERED: fentaNYL INJECTION 100 MCG/2 ML AMP IVP ONE (18:00)
--- NOTE | 2018-10-21 18:03 | ED GI ---
General Chief Complaint: Abdominal/GI Problems Stated Complaint: DIARRHEA Nursing Triage Note: PT REPORTS ABDOMINAL CRAMPING AND DIAHRREA X 7 DAYS. REPORTS HE WAS SUPPOSED TO BE A DIRECT ADMIT FROM [facility] BUT WAS TOLD TO COME TO ED BECAUSE OF DIVERSION. Sepsis Screen: No Definite Risk Source of Information: Patient, Spouse Exam Limitations: No Limitations History of Present Illness Date Seen by Provider: Oct 21, 2018 Time Seen by Provider: 17:39 Initial Comments Patient presents to ER by private conveyance with chief complaint he was at Dr. Cheema's office looking for some relief for his 6 days of diarrhea. His grandson and everybody in his 's daycare have been having diarrhea for about a week and a half. Patient's had no fevers but he has had some chills. He' s had no nausea or vomiting. He's had some cramping abdominal pain. He has not taken any Imodium for it. He is on dialysis Saturday. He got about an hour through his dialysis and had to discontinue because the diarrhea. He feels very dehydrated. Allergies and Home Medications Allergies Coded Allergies: tamsulosin (Verified Allergy, Unknown, 10/21/18) Patient Home Medication List Home Medication List Reviewed: Yes Review of Systems Review of Systems Constitutional: No chills EENTM: No Blurred Vision, No Double Vision Respiratory: Denies Cough Cardiovascular: Denies Chest Pain, Denies Edema Gastrointestinal: Denies Abdomen Distended; Abdominal Pain (intermittent cramping); Denies Constipated; Diarrhea; Denies Nausea Genitourinary: Denies Burning, Denies Discharge Musculoskeletal: No back pain, No joint pain Skin: No pruritus, No rash Past Xfklthy-Gbsaez-Codchh Hx Patient Social History Alcohol Use: Rarely Uses Recreational Drug Use: No Smoking Status: Never a Smoker 2nd Hand Smoke Exposure: No Recent Foreign Travel: No Contact w/Someone Who Travel: No Recent Infectious Disease Expo: No Recent Hopitalizations: No Immunizations Up To Date PED Vaccines UTD: Yes Seasonal Allergies Seasonal Allergies: No Past Medical History Surgeries: Yes (HEART VALVE REPLACEMENT, CATARACT, R THIGH STENT, COLOSTOMY AND REVERSAL) Abdominal, Orthopedic Respiratory: No Cardiac: Yes (valve replaced) Deep Vein Thrombosis Neurological: Yes (NERVE DAMAGE LEGS) Reproductive Disorders: No Sexually Transmitted Disease: No 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) Renal Failure, Dialysis, UTI-Chronic Gastrointestinal: No (BOWEL PERFORATION-COLOSTOMY AND REVERSAL) Obstructive Bowel Musculoskeletal: Yes (gout in the past) Gout Endocrine: No Cancer: No Psychosocial: No Integumentary: No Blood Disorders: No Family Medical History No Pertinent Family Hx Physical Exam Vital Signs Vital Signs - First Documented 10/21/18 15:52 Temp 98.3 Pulse 95 Resp 20 B/P (MAP) 134/60 (84) Pulse Ox 97 Capillary Refill : Less Than 3 Seconds Height/Weight/BMI Height: 6'3.00" Weight: 195lbs. 0.0oz. 88.287776fn; 25.0 BMI Method:Stated General Appearance: WD/WN, mild distress HEENT: PERRL/EOMI, pharynx normal (oropharynx is dry) Respiratory: lungs clear, no respiratory distress, no accessory muscle use Cardiovascular: normal peripheral pulses, regular rate, rhythm Gastrointestinal: normal bowel sounds (active), non tender, soft Neurologic/Psychiatric: alert, normal mood/affect, oriented x 3 Progress/Results/Core Measures Results/Orders Lab Results Laboratory Tests Test 10/21/18 16:14 Range/Units White Blood Count 5.9 4.3-11.0 10^3/uL Red Blood Count 4.12 L 4.35-5.85 10^6/uL Hemoglobin 13.2 L 13.3-17.7 G/DL Hematocrit 41 40-54 % Mean Corpuscular Volume 100 H 80-99 FL Mean Corpuscular Hemoglobin 32 25-34 PG Mean Corpuscular Hemoglobin Concent 32 32-36 G/DL Red Cell Distribution Width 18.0 H 10.0-14.5 % Platelet Count 155 130-400 10^3/uL Mean Platelet Volume 10.2 7.4-10.4 FL Neutrophils (%) (Auto) 60 42-75 % Lymphocytes (%) (Auto) 23 12-44 % Monocytes (%) (Auto) 16 H 0-12 % Eosinophils (%) (Auto) 0 0-10 % Basophils (%) (Auto) 0 0-10 % Neutrophils # (Auto) 3.5 1.8-7.8 X 10^3 Lymphocytes # (Auto) 1.4 1.0-4.0 X 10^3 Monocytes # (Auto) 1.0 0.0-1.0 X 10^3 Eosinophils # (Auto) 0.0 0.0-0.3 10^3/uL Basophils # (Auto) 0.0 0.0-0.1 10^3/uL Sodium Level 139 135-145 MMOL/L Potassium Level 3.0 L 3.6-5.0 MMOL/L Chloride Level 94 L 98-107 MMOL/L Carbon Dioxide Level 27 21-32 MMOL/L Anion Gap 18 H 5-14 MMOL/L Blood Urea Nitrogen 30 H 7-18 MG/DL Creatinine 5.78 H 0.60-1.30 MG/DL Estimat Glomerular Filtration Rate 10 BUN/Creatinine Ratio 5 Glucose Level 94 70-105 MG/DL Calcium Level 10.6 H 8.5-10.1 MG/DL Corrected Calcium 10.4 H 8.5-10.1 MG/DL Total Bilirubin 0.8 0.1-1.0 MG/DL Aspartate Amino Transf (AST/SGOT) 39 H 5-34 U/L Alanine Aminotransferase (ALT/SGPT) 36 0-55 U/L Alkaline Phosphatase 103 40-136 U/L Total Protein 7.1 6.4-8.2 GM/DL Albumin 4.3 3.2-4.5 GM/DL My Orders Orders - JESUS BEDOLLA Fentanyl Injection (Sublimaze Injection (10/21/18 18:00) Fentanyl Injection (Sublimaze Injection (10/21/18 17:54) Saline Lock/Iv-Start (10/21/18 18:08) Ns Iv 500 Ml (Sodium Chloride 0.9%) (10/21/18 18:08) Ns Iv 500 Ml (Sodium Chloride 0.9%) (10/21/18 18:07) Medications Given in ED Current Medications Medications Dose Ordered Sig/Cody Route Start Time Stop Time Status Last Admin Dose Admin Fentanyl Citrate 50 mcg ONCE ONCE IVP 10/21/18 18:00 10/21/18 18:01 DC 10/21/18 18:00 50 MCG Ondansetron HCl 4 mg ONCE ONCE IVP 10/21/18 16:00 10/21/18 16:01 DC 10/21/18 16:10 4 MG Sodium Chloride 500 ml @ 0 mls/hr Q0M ONCE IV 10/21/18 18:08 10/21/18 18:09 DC 10/21/18 18:16 500 MLS/HR Vital Signs/I&O 10/21/18 15:52 Temp 98.3 Pulse 95 Resp 20 B/P (MAP) 134/60 (84) Pulse Ox 97 Blood Pressure Mean: 84 Progress Progress Note #1: Time: 18:04 Progress Note Start with a liter saline and get some labs that were unremarkable. 50 macro grams of fentanyl for his abdominal cramping. He's feeling more comfortable now sorted go ahead and give him another 500 cc which we just under 20 mL/kg. I don't believe he is at any risk for fluid overload. We'll go ahead and let him follow-up outpatient if he is feeling better after this. Progress Note #2: Time: 18:38 Progress Note After 1500 cc of fluids which is just under 20 cc/kg the patient is feeling much better. His lips are no longer part. His pain is much improved after the fentanyl. We've offered him some other things including observation stay and he would like to go home. He has Zofran at home and his going to get some Imodium. Departure Impression Primary Impression: Gastroenteritis and colitis, viral Additional Impressions: Dehydration, mild End stage renal disease on dialysis Disposition: 01 HOME, SELF-CARE Condition: Improved Departure-Patient Inst. Decision time for Depature: 18:39 Referrals: ALYCE CHEEMA MD (PCP/Family) Primary Care Physician Patient Instructions: Diarrhea in Adolescents and Adults Add. Discharge Instructions: Encourage fluids and a bland diet of bananas, rice, applesauce toast etc. If you have diarrhea continue. You can take 2 tablets of Imodium followed by one tablet every 4 hours afterwards if you have another watery stool. All discharge instructions reviewed with patient and/or family. Voiced understanding. JESUS BEDOLLA Oct 21, 2018 18:03
[2018-10-21] MEDS ORDERED: NS IV 500 ML 500 ML ONE (18:07)
[2018-10-21] MEDS ORDERED: NS IV 500 ML 500 ML IV ONE (18:08)
[2018-10-21 19:06] VITALS: BP 114/58
== END 2018-10-21 19:05 | disposition home or self-care (01) ==
LOC: EDUNIT# 15:44 → ER 15:45
DX: A08.4 Viral intestinal infection, unspecified (principal); N18.6 End stage renal disease; E86.0 Dehydration; M10.9 Gout, unspecified; M31.30 Wegener's granulomatosis without renal involvement; Z87.440 Personal history of urinary (tract) infections; Z87.19 Personal history of other diseases of the digestive system; Z95.0 Presence of cardiac pacemaker; Z93.3 Colostomy status; Z95.820 Peripheral vascular angioplasty status with implants and grafts; Z86.718 Personal history of other venous thrombosis and embolism; Z88.8 Allergy status to other drugs, medicaments and biological substances; Z99.2 Dependence on renal dialysis
CPT/HCPCS: 36415; 80053; 85025

== ENCOUNTER → 2019-03-10 | Outpatient (CLI) | payer MEDICARE ==
[~2019-03-10] MED LIST changes: -AMLO10TA6; +AMLO10TA7
--- NOTE | 2019-03-10 15:13 | Diagnostic Imaging Report ---
PROCEDURE: MRI left joint lower extremity without contrast. TECHNIQUE: Multiplanar, multisequence non contrast-enhanced MRI of the left lower extremity was accomplished. INDICATION: Left ankle pain. COMPARISONS: None available. FINDINGS: TENDONS: There is a complete tear of the Achilles tendon located approximately 4-5 cm above its distal insertion. The tendon gap measures approximately 5-6 cm and is filled with fluid and hemorrhage. There is approximately 1-2 cm of normal tendon at the insertion site on the calcaneus. The peroneus longus and brevis are intact. Posterior tibialis, flexor digitorum longus and flexor hallucis longus are intact. Anterior tibialis, extensor hallucis longus and extensor digitorum longus are also normal. LIGAMENTS: The anterior and posterior distal tibiofibular ligaments are intact. The anterior talofibular ligament is absent compatible with old injury. The calcaneofibular ligament has abnormal increased signal and thickening compatible with a partial thickness tear. Posterior talofibular ligaments intact. Medial deltoid ligamentous complex is normal. Spring ligament remains intact. BONES AND CARTILAGE: No osteochondral lesion of the talar dome. No fracture or stress fracture. The articular cartilage of the tibiotalar and posterior subtalar joints are normal. SOFT TISSUES: No evidence of plantar fasciitis. No abnormal soft tissue scar/fibrosis within the tarsal canal/sinus tarsi or tarsal tunnel. No ankle joint effusion. Increased T2 hyperintense signal within the intrinsic musculature of the foot can be seen with long-standing diabetes. IMPRESSION: 1. Complete tear of the Achilles tendon is located approximately 2-3 cm above the Achilles insertion. The tendon gap measures approximately 5-6 cm and is filled with fluid and hemorrhage. 2. Old injuries of the anterior talofibular and calcaneofibular ligaments. Dictated by: Dictated on workstation # [id number]
== END ==
LOC: RAD 12:08
PROVIDERS: ATTEND Podiatrist Foot & Ankle Surgery
DX: S86.012A Strain of left Achilles tendon, initial encounter (principal); M76.62 Achilles tendinitis, left leg
CPT/HCPCS: 73721

== ENCOUNTER 2019-06-10 18:37 | Emergency (ER) | payer MEDICARE ==
[~2019-06-10] VITALS: Ht 190.5 cm; Wt 95.3 kg
[2019-06-10] MEDS ORDERED: LIDOCAINE/EPI 2% 1:100,00 (XYLOCAINE) 20 ML VIAL ONE (18:47)
--- NOTE | 2019-06-10 18:50 | NUR ---
Bandage removed from nose and area cleaned with surgical cleanse and 4x4's. Direct pressure held with 4x4.
[2019-06-10] MEDS ORDERED: LIDOCAINE/EPI 1%-1:100,000 (XYLOCAINE) 20ML INJ ONE (19:00)
--- NOTE | 2019-06-10 19:02 | ED EENT ---
History of Present Illness General Chief Complaint: Nasal Problems Stated Complaint: WOUND ON NOSE WON'T STOP BLEEDING Nursing Triage Note: AREA ON NOSE CUT OUT TODAY WILL NOT STOP BLEEDING. Source: patient Exam Limitations: no limitations History of Present Illness Date Seen by Provider: Jun 10, 2019 Time Seen by Provider: 18:48 Initial Comments The patient presents to ER by private conveyance with chief complaint that about 12:00 today he had a biopsy by dermatology on the left side of the bridge of his nose for a tumor. He is not sure of the results yet. He is on warfarin and his last INR was 2.5. He does unfortunately continue to bleed today despite ice, direct pressure and Neosporin ointment. He is having no pain. Allergies and Home Medications Allergies Coded Allergies: tamsulosin (Verified Allergy, Unknown, 10/21/18) Patient Home Medication List Home Medication List Reviewed: Yes Review of Systems Review of Systems Constitutional: No chills, No malaise Eyes: Denies Blindness, Denies Blurred Vision Nose: see HPI Past Jmzntrp-Scwsvv-Hwqemq Hx Patient Social History Alcohol Use: Denies Use Recreational Drug Use: No Smoking Status: Never a Smoker 2nd Hand Smoke Exposure: No Recent Foreign Travel: No Contact w/Someone Who Travel: No Recent Infectious Disease Expo: No Recent Hopitalizations: No Immunizations Up To Date PED Vaccines UTD: Yes Seasonal Allergies Seasonal Allergies: No Past Medical History Surgeries: Yes (HEART VALVE REPLACEMENT, CATARACT, R THIGH STENT, COLOSTOMY AND REVERSAL) Abdominal, Orthopedic Respiratory: No Cardiac: Yes (valve replaced) Deep Vein Thrombosis Neurological: Yes (NERVE DAMAGE LEGS) Reproductive Disorders: No Sexually Transmitted Disease: No 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 0.0oz. [id number]; 25.0 BMI Method:Stated General Appearance: WD/WN, no apparent distress Eyes: bilateral eye normal inspection, bilateral eye PERRL, bilateral eye EOMI Ears: bilateral ear auricle normal, bilateral ear canal normal Nose: other (left side of the bridge of nose is a 3-4 mm round surgical shave biopsy with small amount of bleeding.) Procedures/Interventions Progress Silver cautery applied directly to the wound which caused hemostasis. Progress/Results/Core Measures Results/Orders My Orders Orders - JESUS BEDOLLA Lidocaine/Epi 1% 1:100,000 (Xylocaine /E (06/10/19 19:00) Lidocaine/Epi 2% 1:100,000 (Xylocaine/Ep (06/10/19 18:47) Vital Signs/I&O 06/10/19 18:41 Temp 98.3 Pulse 84 Resp 16 B/P (MAP) 139/79 (99) Pulse Ox 95 O2 Delivery Room Air 2 Blood Pressure Mean: 99 Progress Progress Note : Time: 18:59 Progress Note We'll observe briefly. If it fails to stop bleeding and we can put a little lidocaine with epinephrine at the base. Departure Impression Primary Impression: Bleeding from wound Disposition: HOME, SELF-CARE Condition: Improved Departure-Patient Inst. Decision time for Depature: 19:00 Referrals: ALYCE JAIN MD (PCP/Family) Primary Care Physician Patient Instructions: Bleeding After Surgery Add. Discharge Instructions: Do not disturb or touch the wound. You may wash your face tomorrow. If the bleeding starts again applied direct pressure for 20 minutes. If you cannot get it stop bleeding then you may return to your doctor or the ER. All discharge instructions reviewed with patient and/or family. Voiced understanding. JESUS BEDOLLA Jun 10, 2019 19:01
[2019-06-10] MEDS ORDERED: WARF7.5T PO (19:04)
[2019-06-10 19:12] VITALS: BP 139/79
--- NOTE | 2019-06-10 19:13 | NUR ---
No bleeding present. Small bandage applied to nose.
== END 2019-06-10 19:13 | disposition home or self-care (01) ==
LOC: EDUNIT# 18:37 → ER 18:39
DX: L76.21 Postprocedural hemorrhage of skin and subcutaneous tissue following a dermatologic procedure (principal); Z86.718 Personal history of other venous thrombosis and embolism; Z86.018 Personal history of other benign neoplasm; Z79.01 Long term (current) use of anticoagulants; Z88.8 Allergy status to other drugs, medicaments and biological substances; Z95.2 Presence of prosthetic heart valve; Z93.3 Colostomy status; Z99.2 Dependence on renal dialysis; Z87.440 Personal history of urinary (tract) infections
CPT/HCPCS: 99282

== ENCOUNTER 2019-10-04 16:44 | Emergency (ER) | payer MEDICARE, OTHER ==
[~2019-10-04] VITALS: Ht 190 cm; Wt 102.4 kg
[~2019-10-04 16:44] MED LIST changes: +WARF7.5T PO
--- NOTE | 2019-10-04 16:58 | ED General ---
General Chief Complaint: Altered Mental Status Stated Complaint: FEVER,ALT MENTAL STATUS, SEPTIC Source of Information: Patient, EMS Exam Limitations: Other (delirium) (JESUS SOFIA) History of Present Illness Date Seen by Provider: Oct 04, 2019 Time Seen by Provider: 16:38 Initial Comments Patient presents to ER by EMS from [facility] where he was finishing up his dialysis. They took off 4 L. He had noted to have a metal status, confusion, emotional labile and fever 102.6. EMS said that his blood pressure was low 89/50 when he arrived heart rate in the 1 teens and they started an IV and started a liter fluids on him. He is 2 days status post left hip replacement. He has a history of Allyssa's granulomatosis and has a right sided upper extremity dialysis fistula. He has pain in his right lower quadrant abdomen and his left hip. He has a dry mouth. He denies cough. He's been constipated due to the opiates and did take some laxatives today. He said he had a feeling like he needed to have a bowel movement but has not yet. He has a history of warfarin use. (JESUS SOFIA) Allergies and Home Medications Allergies Coded Allergies: levofloxacin (Verified Allergy, Severe, 06/10/19) tamsulosin (Verified Allergy, Unknown, 10/21/18) Home Medications Warfarin Sodium 7.5 Mg Tablet, 7.5 MG PO DAILY, (Reported) Patient Home Medication List Home Medication List Reviewed: Yes (JESUS SOFIA) Review of Systems Review of Systems Constitutional: see HPI, chills, fever, malaise EENTM: No ear discharge, No hearing loss, No ear pain Respiratory: No cough, No phlegm, No short of breath Cardiovascular: No chest pain, No edema Gastrointestinal: No abdominal pain; constipation; No diarrhea, No nausea, No vomiting Genitourinary: No dysuria, No frequency Musculoskeletal: No back pain, No joint pain Skin: No pruritus, No rash Psychiatric/Neurological: Denies Headache, Denies Numbness (JESUS SOFIA) All Other Systems Reviewed Negative Unless Noted: Yes (JESUS SOFIA) Past Biijrjp-Ogovfj-Baamnc Hx Patient Social History Alcohol Use: Denies Use Recreational Drug Use: No Smoking Status: Never a Smoker 2nd Hand Smoke Exposure: No Recent Foreign Travel: No Contact w/Someone Who Travel: No Recent Hopitalizations: No (JESUS SOFIA) Immunizations Up To Date PED Vaccines UTD: Yes (JESUS SOFIA) Seasonal Allergies Seasonal Allergies: No (JESUS SOFIA) Past Medical History Surgeries: Yes (HEART VALVE REPLACEMENT, CATARACT, R THIGH STENT, COLOSTOMY AND REVERSAL, ) Abdominal, Cardiac, Dialysis, Orthopedic Respiratory: No Cardiac: Yes (valve replaced) Deep Vein Thrombosis Neurological: Yes (NERVE DAMAGE LEGS) Reproductive Disorders: No Sexually Transmitted Disease: No 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) Renal Failure, Dialysis, UTI-Chronic Gastrointestinal: No (BOWEL PERFORATION-COLOSTOMY AND REVERSAL) Obstructive Bowel Musculoskeletal: Yes (gout in the past) Gout Endocrine: No Cancer: Yes (melanoma right ear) What Type of Treatment Did You: Surgical Intervention Psychosocial: No Integumentary: No Blood Disorders: No (JESUS SOFIA) Family Medical History No Pertinent Family Hx (JESUS SOFIA) Physical Exam-Suspected Sepsis Physical Exam Vital Signs Vital Signs - First Documented 10/04/19 10/04/19 16:44 17:11 Temp 37.8 Pulse 120 Resp 18 B/P (MAP) 89/57 (68) Pulse Ox 94 O2 Delivery Room Air O2 Flow Rate 2.00 (ELSA MENDEZ MD) Vital Signs Capillary Refill : (JESUS SOFIA) Height, Weight, BMI Height: 6'3.00" Weight: 210lbs. 0.0oz. 95.168808fu; 25.0 BMI Method:Stated General Appearance: Anxious, Moderate Distress Eyes: Bilateral Eye Normal Inspection, Bilateral Eye PERRL, Bilateral Eye EOMI HEENT: PERRL/EOMI, TMs Normal, Normal ENT Inspection; No Pharynx Normal, No Moist Mucous Membranes Neck: Full Range of Motion, Normal Inspection, Non Tender, Supple Respiratory: Lungs Clear, Normal Breath Sounds, No Accessory Muscle Use, No Respiratory Distress Cardiovascular: Regular Rate, Rhythm, No Edema Gastrointestinal: Normal Bowel Sounds, No Organomegaly, Soft, Tenderness (right lower quadrant) Extremity: Normal Capillary Refill, Normal Inspection, No Pedal Edema, Other (site of his left hip wound is dressed with a clear, occlusive dressing and without erythema, induration, fluctuance or significant edema) Neurologic/Psychiatric: Alert; No Normal Mood/Affect (emotionally labile); Other (oriented to person and place but not time or situation) Skin: normal color, warm/dry (JESUS SOFIA) Focused Exam Lactate Level 10/04/19 17:26: Lactic Acid Level 2.14*H 10/04/19 19:45: (ELSA MENDEZ MD) Lactic Acid Level Laboratory Tests Test 10/04/19 17:26 10/04/19 19:45 Lactic Acid Level 2.14 MMOL/L (0.50-2.00) *H (ELSA MENDEZ MD) Progress/Results/Core Measures Suspected Sepsis SIRS Temperature: Pulse: Respiratory Rate: Laboratory Tests 10/04/19 17:02: White Blood Count 9.3 Blood Pressure / Mean: 10/04/19 17:26: Lactic Acid Level 2.14*H Laboratory Tests 10/04/19 17:02: Creatinine 4.25H, INR Comment 1.4, Platelet Count 166, Total Bilirubin 0.8 (JESUS SOFIA) Results/Orders Lab Results Laboratory Tests Test 10/04/19 17:02 10/04/19 17:26 10/04/19 19:45 Range/Units White Blood Count 9.3 4.3-11.0 10^3/uL Red Blood Count 2.67 L 4.35-5.85 10^6/uL Hemoglobin 9.4 L 13.3-17.7 G/DL Hematocrit 29 L 40-54 % Mean Corpuscular Volume 107 H 80-99 FL Mean Corpuscular Hemoglobin 35 H 25-34 PG Mean Corpuscular Hemoglobin Concent 33 32-36 G/DL Red Cell Distribution Width 17.0 H 10.0-14.5 % Platelet Count 166 130-400 10^3/uL Mean Platelet Volume 10.1 7.4-10.4 FL Neutrophils (%) (Auto) 84 H 42-75 % Lymphocytes (%) (Auto) 6 L 12-44 % Monocytes (%) (Auto) 10 0-12 % Eosinophils (%) (Auto) 0 0-10 % Basophils (%) (Auto) 0 0-10 % Neutrophils # (Auto) 7.8 1.8-7.8 X 10^3 Lymphocytes # (Auto) 0.5 L 1.0-4.0 X 10^3 Monocytes # (Auto) 0.9 0.0-1.0 X 10^3 Eosinophils # (Auto) 0.0 0.0-0.3 10^3/uL Basophils # (Auto) 0.0 0.0-0.1 10^3/uL Neutrophils % (Manual) 57 % Lymphocytes % (Manual) 9 % Monocytes % (Manual) 5 % Eosinophils % (Manual) 1 % Basophils % (Manual) 0 % Band Neutrophils 28 % Toxic Granulation 1+ Anisocytosis SLIGHT Macrocytosis SLIGHT Prothrombin Time 17.5 H 12.2-14.7 SEC INR Comment 1.4 0.8-1.4 Activated Partial Thromboplast Time 45 H 24-35 SEC Sodium Level 134 L 135-145 MMOL/L Potassium Level 4.1 3.6-5.0 MMOL/L Chloride Level 92 L 98-107 MMOL/L Carbon Dioxide Level 25 21-32 MMOL/L Anion Gap 17 H 5-14 MMOL/L Blood Urea Nitrogen 28 H 7-18 MG/DL Creatinine 4.25 H 0.60-1.30 MG/DL Estimat Glomerular Filtration Rate 14 BUN/Creatinine Ratio 7 Glucose Level 87 70-105 MG/DL Calcium Level 8.5 8.5-10.1 MG/DL Corrected Calcium 9.1 8.5-10.1 MG/DL Total Bilirubin 0.8 0.1-1.0 MG/DL Aspartate Amino Transf (AST/SGOT) 50 H 5-34 U/L Alanine Aminotransferase (ALT/SGPT) < 6 0-55 U/L Alkaline Phosphatase 137 H 40-136 U/L Total Protein 5.5 L 6.4-8.2 GM/DL Albumin 3.3 3.2-4.5 GM/DL Lactic Acid Level 2.14 *H 0.50-2.00 MMOL/L (ELSA MENDEZ MD) Micro Results Microbiology 10/04/19 Influenza Types A,B Antigen (CLAIRE) - Final, Complete (ELSA MENDEZ MD) My Orders Orders - ELSA MENDEZ MD Lactated Ringers (Lr 1000 Ml Iv Solution (10/04/19 19:53) (ELSA MENDEZ MD) Medications Given in ED Current Medications Medications Dose Ordered Sig/Cody Route Start Time Stop Time Status Last Admin Dose Admin Cefepime HCl 1000 mg/Sterile Water 10 ml @ 200 mls/hr ONCE ONCE IV 10/04/19 17:00 10/04/19 17:02 DC 10/04/19 17:38 200 MLS/HR Vancomycin HCl 1000 mg/Sodium Chloride 250 ml @ 250 mls/hr ONCE ONCE IV 10/04/19 17:00 10/04/19 17:59 DC 10/04/19 17:39 250 MLS/HR (ELSA MENDEZ MD) Vital Signs/I&O 10/04/19 10/04/19 10/04/19 16:44 17:11 17:59 Temp 37.8 Pulse 120 100 Resp 18 18 B/P (MAP) 89/57 (68) 99/59 (72) Pulse Ox 94 98 O2 Delivery Room Air Nasal Cannula O2 Flow Rate 2.00 (ELSA MENDEZ MD) Vital Signs/I&O Capillary Refill : (JESUS SOFIA) Progress Note : Time: 18:42 Progress Note Turned over the patient at shift change to Dr. Mendez. Patient's getting a CT for right lower quadrant tenderness of his abdomen as well as a chest x-ray looking for source of his fever. Suspect with 4 L being removed from dialysis this may also contribute to his hypertension. We've given him 2 L and that is improved his blood pressure significantly however he is still soft with a blood pressure 94/64 presently. His heart rate is improved down to 110. Still in A. fib. (JESUS SOFIA) Progress Note : Progress Note 1906: Patient is overall doing better. I have assumed care of the patient from Dr. Sofia pending CT and chest x-ray. I have reexamined the patient. Blood pressure now low 100s and that appears to be typical for him. He is on 2 L of ox ygen via nasal cannula to keep his sats greater than 92%. He is mentating better by report. Daughter is at bedside. Patient is very complicated due to his history of Allyssa's disease and end-stage renal disease requiring dialysis. He did receive cefepime IV as well as vancomycin IV for suspected infection. This appears to be bilateral lower lobe pneumonia noted on CT scan. Patient will require transfer. He typically goes to [facility] in [facility]. We will initiate transfer proceedings. Patient and family agree with plan. 1936: Initiated transfer proceedings with [facility] in [facility]. Current vital signs blood pressure 100/56 with heart rate of 104 and atrial fibrillation, O2 saturation 95% on 2 L via nasal cannula and temperature is 100.2 Fahrenheit. He did have large bowel movement. He is sitting up and doing better currently. He seems to have responded nicely to the fluid bolus. Patient has had long history of steroid dependence and we did give hydrocortisone 125 mg IV. We will continue fluids of LR 125 mL an hour. Pending transfer. (ELSA MENDEZ MD) Diagnostic Imaging Diagonstic Imaging: Xray Plain Films/CT/US/NM/MRI: chest Diagonstic Imaging: CT Plain Films/CT/US/NM/MRI: abdomen, pelvis (JESUS SOFIA) Comments [facility], [place] NAME: [facility] REC#: [id number] PT STATUS: REG ER : 1955 PHYSICIAN: JESUS SOFIA MD ADMIT DATE: 10/04/19/ER Draft Date of Exam:10/04/19 CHEST 1 VIEW, AP/PA ONLY INDICATION: Chest pain COMPARISON: 02/04/2018 FINDINGS: Single view of the chest demonstrates stable cardiac enlargement. There is atelectasis in both lung bases. There is no pneumothorax or effusion. Dialysis catheter is no longer present. Osseous structures are stable. IMPRESSION: 1. Stable cardiac enlargement without pulmonary edema. 2. Bibasilar atelectasis. Dictated on workstation # [id number] Dict: 10/04/[id number] Trans: 10/04/19 185 KAVYA [id number] Interpreted by: DAJA MERCEDES Electronically signed by: Comments [facility] [place] [place] NAME: [facility] REC#: [id number] PT STATUS: REG ER : 1955 PHYSICIAN: JESUS SOFIA MD ADMIT DATE: 10/04/19/ER Draft Date of Exam:10/04/19 CT ABDOMEN/PELVIS WO PROCEDURE: CT abdomen and pelvis without contrast. TECHNIQUE: Multiple contiguous axial images were obtained through the abdomen and pelvis without the use of intravenous contrast. Auto Exposure Controls were utilized during the CT exam to meet ALARA standards for radiation dose reduction. INDICATION: Fever, abdominal pain COMPARISON: None FINDINGS: There is dependent atelectasis and infiltrate in both lung bases, left greater than right. Cholelithiasis is present without cholecystitis. Solid organs are otherwise intact. There is chronic renal atrophy. Atherosclerotic disease seen throughout the abdominal aorta and visceral branch vessels. There is some nonspecific gaseous distention of multiple small bowel loops. There is a anterior abdominal wall hernia containing a nondilated and a dilated loop of bowel entering and exiting the hernia. This may be associated with partial small bowel obstruction. Although, postoperative ileus is not excluded. There is some mild constipation. There is no free air, free fluid or abscess. Hematoma is seen involving the soft tissues around the left hip. The prosthetic device appears intact. No osseous compression fracture seen. Focal sclerotic changes are seen involving the right hip which may be secondary to avascular necrosis IMPRESSION: 1. Basilar atelectasis with infiltrate 2. Anterior abdominal wall hernia containing a loop of small bowel with minimal to mild small bowel distention representing postoperative ileus versus a partial obstruction. 3. Chronic renal atrophy. 4. Cholelithiasis. 5. Not mentioned above, mild prostate enlargement. Dictated on workstation # [id number] Dict: 10/04/19 1844 Trans: 10/04/19 18[facility] [id number] Interpreted by: DAJA MERCEDES Electronically signed by: (ELSA MENDEZ MD) Departure Impression Primary Impression: Pneumonia of both lower lobes Qualified Codes: J18.1 - Lobar pneumonia, unspecified organism Disposition: XF SHT-TRM HOSP Condition: Stable Transfer Transfer Reason: Exceeds level of care Time Spoke to Accepting Phy: 19:52 Transfer Facility: [place], [place], Dr. Rubio accepting Method of Transfer: EMS (ELSA MENDEZ MD) Departure-Patient Inst. Referrals: ALYCE JAIN MD (PCP/Family) Primary Care Physician JESUS SOFIA Oct 04, 2019 16:58 ELSA MENDEZ MD Oct 04, 2019 19:09
[2019-10-04] MEDS ORDERED: NS IV 1000 ML 1,000 ML IV SCH (16:59)
[2019-10-04] MEDS ORDERED: VANCOMYCIN INJECTION 1,000 MG in NS (IVPB) 250 ML IV ONE (17:00)
[2019-10-04] MEDS ORDERED: CEFEPIME INJECTION 1,000 MG in WATER (STERILE) FOR INJECTION 10 ML IV ONE (17:00)
[2019-10-04] MEDS ORDERED: fentaNYL INJECTION 100 MCG/2 ML AMP IVP ONE (17:00)
[2019-10-04 17:09] LABS: BASOPHILS % (AUTO) 0 % (0-10); EOSINOPHILS % (AUTO) 0 % (0-10); HEMATOCRIT 29 % (40-54); HEMOGLOBIN 9.4 G/DL (13.3-17.7); LYMPHOCYTES # (AUTO) 0.5 X 10^3 (1.0-4.0); LYMPHOCYTES % (AUTO) 6 % (12-44); MEAN CORPUSCULAR HEMOGLOBIN 35 PG (25-34); MEAN CORPUSCULAR HGB CONC 33 G/DL (32-36); MEAN CORPUSCULAR VOLUME 107 FL (80-99); MEAN PLATELET VOLUME 10.1 FL (7.4-10.4); MONOCYTES # (AUTO) 0.9 X 10^3 (0.0-1.0); MONOCYTES % (AUTO) 10 % (0-12); NEUTROPHILS # (AUTO) 7.8 X 10^3 (1.8-7.8); NEUTROPHILS % (AUTO) 84 % (42-75); PLATELET COUNT 166 10^3/uL (130-400); WHITE BLOOD COUNT 9.3 10^3/uL (4.3-11.0)
[2019-10-04 17:21] LABS: INR 1.4 (0.8-1.4); PROTHROMBIN TIME PATIENT 17.5 SEC (12.2-14.7)
--- NOTE | 2019-10-04 17:21 | NUR ---
LAB HERE TO DRAW 2ND BLOOD CULTUE.
[2019-10-04 17:28] LABS: ALANINE AMINOTRANSFERASE < 6 U/L (0-55); ALBUMIN 3.3 GM/DL (3.2-4.5); ALKALINE PHOSPHATASE 137 U/L (40-136); BILIRUBIN,TOTAL 0.8 MG/DL (0.1-1.0); BUN/CREATININE RATIO 7; CALCIUM 8.5 MG/DL (8.5-10.1); CARBON DIOXIDE 25 MMOL/L (21-32); CHLORIDE 92 MMOL/L (98-107); CREATININE SERUM 4.25 MG/DL (0.60-1.30); GFR ESTIMATED 14; GLUCOSE 87 MG/DL (70-105); POTASSIUM 4.1 MMOL/L (3.6-5.0); SODIUM 134 MMOL/L (135-145); TOTAL PROTEIN 5.5 GM/DL (6.4-8.2)
[2019-10-04 17:32] LABS: BAND NEUTROPHILS 28 %; BASOPHILS % (MANUAL) 0 %; EOSINOPHILS % (MANUAL) 1 %; LYMPHOCYTES % (MANUAL) 9 %; MONOCYTES % (MANUAL) 5 %; NEUTROPHILS % (MANUAL) 57 %
[2019-10-04 17:33] LABS: ANISOCYTOSIS SLIGHT; TOXIC GRANULATION/VACUOLAZATIO 1+
[2019-10-04 17:59] VITALS: BP 99/59
--- NOTE | 2019-10-04 18:30 | NUR ---
BACK FROM CT.
--- NOTE | 2019-10-04 18:54 | Diagnostic Imaging Report ---
PROCEDURE: CT abdomen and pelvis without contrast. TECHNIQUE: Multiple contiguous axial images were obtained through the abdomen and pelvis without the use of intravenous contrast. Auto Exposure Controls were utilized during the CT exam to meet ALARA standards for radiation dose reduction. INDICATION: Fever, abdominal pain COMPARISON: None FINDINGS: There is dependent atelectasis and infiltrate in both lung bases, left greater than right. Cholelithiasis is present without cholecystitis. Solid organs are otherwise intact. There is chronic renal atrophy. Atherosclerotic disease seen throughout the abdominal aorta and visceral branch vessels. There is some nonspecific gaseous distention of multiple small bowel loops. There is a anterior abdominal wall hernia containing a nondilated and a dilated loop of bowel entering and exiting the hernia. This may be associated with partial small bowel obstruction. Although, postoperative ileus is not excluded. There is some mild constipation. There is no free air, free fluid or abscess. Hematoma is seen involving the soft tissues around the left hip. The prosthetic device appears intact. No osseous compression fracture seen. Focal sclerotic changes are seen involving the right hip which may be secondary to avascular necrosis IMPRESSION: 1. Basilar atelectasis with infiltrate 2. Anterior abdominal wall hernia containing a loop of small bowel with minimal to mild small bowel distention representing postoperative ileus versus a partial obstruction. 3. Chronic renal atrophy. 4. Cholelithiasis. 5. Not mentioned above, mild prostate enlargement. Dictated by: Dictated on workstation # [id number]
--- NOTE | 2019-10-04 18:59 | Diagnostic Imaging Report ---
INDICATION: Chest pain COMPARISON: 02/04/2018 FINDINGS: Single view of the chest demonstrates stable cardiac enlargement. There is atelectasis in both lung bases. There is no pneumothorax or effusion. Dialysis catheter is no longer present. Osseous structures are stable. IMPRESSION: 1. Stable cardiac enlargement without pulmonary edema. 2. Bibasilar atelectasis. Dictated by: Dictated on workstation # [id number]
--- NOTE | 2019-10-04 19:00 | NUR ---
REPORT TO KURT MARINELLI,
--- NOTE | 2019-10-04 19:00 | NUR ---
Patient care report taken from Kristal Gee RN.
[2019-10-04] MEDS ORDERED: LACTATED RINGERS 1,000 ML IV ONE (19:53)
[2019-10-04] MEDS ORDERED: LACTATED RINGERS 1,000 ML IV STA (19:58)
[2019-10-04] MEDS ORDERED: HYDROCORTISONE 100 MG/2 ML (Solu-CORTEF) VIAL IV ONE (20:00)
--- NOTE | 2019-10-04 20:20 | NUR ---
[facility] contacted at 2018
[2019-10-04] MEDS ORDERED: fentaNYL INJECTION 100 MCG/2 ML AMP ONE (20:53)
[2019-10-04] MEDS ORDERED: ENOXAPARIN 100 MG/1 ML (LOVENOX) SYR ONE (20:59)
[2019-10-04 21:26] VITALS: BP 96/54
== END 2019-10-04 21:30 | disposition short-term general hospital (02) ==
LOC: EDUNIT# 16:44 → ER 16:46
DX: J18.9 Pneumonia, unspecified organism (principal); M10.9 Gout, unspecified; Z85.820 Personal history of malignant melanoma of skin; Z86.718 Personal history of other venous thrombosis and embolism; Z88.1 Allergy status to other antibiotic agents; Z87.440 Personal history of urinary (tract) infections; Z88.8 Allergy status to other drugs, medicaments and biological substances; Z96.642 Presence of left artificial hip joint; Z79.01 Long term (current) use of anticoagulants; Z99.2 Dependence on renal dialysis; Z95.4 Presence of other heart-valve replacement
CPT/HCPCS: 36415; 71045; 74176; 80053; 83605; 85007; 85027; 85610; 85730; 87040; 87804; 96365; 96372; 96375

== ENCOUNTER 2020-03-14 06:45 | Outpatient (CLI) | payer MEDICARE, OTHER ==
[~2020-03-14] VITALS: Ht 190.5 cm; Wt 96.4 kg
[~2020-03-14 06:45] MED LIST changes: -PANT40TA3; +PANT40TA3 PO; -PRAV40TA2; +PRAV40TA2 PO
[2020-03-14] MEDS ORDERED: FOLI1TAB24 PO (12:09)
[2020-03-14] MEDS ORDERED: WARF5TAB8 PO ×2 (12:09)
[2020-03-14] MEDS ORDERED: FOLI1TAB40 PO (12:09)
[2020-03-14] MEDS ORDERED: PRD10T PO (12:09)
== END 2020-03-14 12:14 ==
LOC: PREOP 06:45
PROVIDERS: ATTEND Internal Medicine
DX: Z01.818 Encounter for other preprocedural examination (principal); Z20.828 Contact with and (suspected) exposure to other viral communicable diseases
CPT/HCPCS: 87635

== ENCOUNTER 2020-10-26 11:23 | Outpatient (RCR) | payer MEDICARE, OTHER ==
[~2020-10-26 11:23] MED LIST changes: -AMIO200T4; +AMIO200T6; +AMLO-251; -AMLO10TA7; -ENAL10TA PO; +ENAL10TA16 PO; +FOLI1TAB33 PO; +FOLI1TAB40 PO; -PANT40TA3 PO; +PANT40TA52 PO; +WRF5T PO
[2020-10-26 11:47] LABS: HEMOGLOBIN 12.7 g/dL (13.3-17.7); MEAN PLATELET VOLUME 10.3 fL (9.0-12.2); WHITE BLOOD COUNT 9.7 10^3/uL (4.3-11.0)
[2020-10-26 12:05] LABS: ALANINE AMINOTRANSFERASE 47 U/L (0-55); ALBUMIN 3.6 GM/DL (3.2-4.5); ALKALINE PHOSPHATASE 345 U/L (40-136); BILIRUBIN,TOTAL 0.5 MG/DL (0.1-1.0); BUN/CREATININE RATIO 17; CALCIUM 9.4 MG/DL (8.5-10.1); CARBON DIOXIDE 22 MMOL/L (21-32); CHLORIDE 108 MMOL/L (98-107); CREATININE SERUM 1.04 MG/DL (0.60-1.30); GFR ESTIMATED > 60; GLUCOSE 125 MG/DL (70-105); POTASSIUM 4.8 MMOL/L (3.6-5.0); SODIUM 140 MMOL/L (135-145); TOTAL PROTEIN 5.9 GM/DL (6.4-8.2)
[2020-10-26 13:10] LABS: INR 10.3 (0.8-1.4); PROTHROMBIN TIME PATIENT 80.7 SEC (12.2-14.7)
== END 2021-01-24 | disposition home or self-care (01) ==
LOC: LAB 11:23
DX: R79.1 Abnormal coagulation profile (principal)
CPT/HCPCS: 36415; 80053; 84443; 84597; 85027; 85610

== ENCOUNTER 2020-10-26 13:31 | Outpatient (CLI) | payer MEDICARE, OTHER ==
[~2020-10-26] VITALS: Ht 182 cm; Wt 96.4 kg
[2020-10-26 13:35] VITALS: BP 133/73
[2020-10-26] MEDS ORDERED: PHYTONADIONE (VIT. K) NEONATAL 1 MG/0.5 ML AMP IM NR (14:45)
--- NOTE | 2020-10-26 15:57 | NUR ---
The pt et this RN spoke with Dr Majano at [facility] in [place] via telephone. reported to dr majano plan of care to given 10mg iv here today. reported that pt had large hematoma right shoulder. Dr Majano was not aware that pt had active bleeding. Advises that pt be admitted for observation for possible ffp et vitamin k. pt reports that he prefers to be admitted at [facility] to be close to Dr Majano. Dr Majano agrees to coordinate treatment, advises pt to go to admissions at [facility]. Pt voiced understanding. Ice pack applied to right shoulder with PAU wrap. Pt advised to use right arm minimally. Pt voiced understanding. 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 No further questions at this time. Pt assisted to dc via w/c.
== END 2020-10-26 15:57 ==
LOC: SDC 13:31
DX: I48.91 Unspecified atrial fibrillation (principal); M25.011 Hemarthrosis, right shoulder; D68.9 Coagulation defect, unspecified

== ENCOUNTER 2020-11-26 16:46 | Emergency (ER) | payer MEDICARE, OTHER ==
[~2020-11-26] VITALS: Ht 190.5 cm; Wt 81.8 kg
--- NOTE | 2020-11-26 18:47 | ED Abdominal Pain ---
General Chief Complaint: Abdominal/GI Problems Stated Complaint: DIARRHEA, WANTS TO GET TESTED FOR CDAD Nursing Triage Note: AMB TO ROOM REPORTS HAS BEEN TAKING CEFDINIR SINCE 11/18 HAVING DIARRHEA ON SAT. TOOK IMODIUM ON SAT WAS GETTING BETTER ATE WELSH. ON SATURDAY HAS HAD KIDNEY TRANSPLANT AND ON IMMUNOSUPRESSANTS, CALLED AT [facility] AND WAS TOLD TO COME TO ED. HAD COVID IN SEP. Sepsis Screen: No Definite Risk Source of Information: Patient Exam Limitations: No Limitations History of Present Illness Date Seen by Provider: Nov 26, 2020 Time Seen by Provider: 18:20 Initial Comments Patient is a 65-year-old male who presents to the emergency department today with a chief complaint of diarrhea for the last 4 days. Patient states he has been on antibiotics (cefdinir) for an ear infection until last . Patient states his diarrheal symptoms started on the Saturday previous. Patient states that he had been having episodes of up to 15 times a day. He describes the stool is nonblack nonbloody and very watery. Patient states that he was suspicious of some sour cream that he may have eaten on Saturday evening. His had the same food and she is well. Patient denies any fevers or chills. He denies abdominal pain but is having some cramping when he has to have a bowel movement. Patient states that he has had at least 4 or 5 episodes of diarrhea since waking up this morning but did have diarrhea throughout the night last night. He had been trying to take some Imodium to alleviate the symptoms but it was only partially helpful. Patient is status post kidney transplant for Allyssa's disease approximately 9 months ago. He is followed at [facility]. 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 No urinary complaints today other than he is having a little bit of decreased frequency. Patient states that he drank about 60 ounces of water last night before bed. Denies drinking well water has city water at home or bottled water. No sick contacts. Patient is on Eliquis with a history of intermittent atrial fibrillation and a history of DVT. All other review of systems reviewed and negative except as stated. Timing/Duration: 3-4 Days Severity/Quality: Moderate Activities at Onset: None Associated Symptoms: Denies Symptoms Allergies and Home Medications Allergies Coded Allergies: levofloxacin (Verified Allergy, Severe, 06/10/19) tamsulosin (Verified Allergy, Unknown, 10/21/18) Home Medications Folic Acid 1 Mg Tablet, 1 MG PO DAILY, (Reported) Folic Acid/Vitamin B Comp W-C 1 Each Tablet, 1 EACH PO DAILY, (Reported) Pantoprazole Sodium 40 Mg Tablet.dr, 40 MG PO DAILY, (Reported) Pravastatin Sodium 40 Mg Tablet, 40 MG PO HS, (Reported) Prednisone 10 Mg Tab, 10 MG PE PO DAILY, (Reported) Warfarin Sodium 5 Mg Tablet, 10 MG PO TuSa, (Reported) Warfarin Sodium 5 Mg Tablet, 7.5 MG PO SuMoWeThFr, (Reported) Patient Home Medication List Home Medication List Reviewed: Yes Review of Systems Review of Systems Constitutional: see HPI EENTM: No Symptoms Reported Respiratory: No Symptoms Reported Cardiovascular: No Symptoms Reported Gastrointestinal: Diarrhea Genitourinary: No Symptoms Reported Musculoskeletal: no symptoms reported Skin: no symptoms reported Psychiatric/Neurological: No Symptoms Reported Endocrine: No Symptoms Reported All Other Systems Reviewed Negative Unless Noted: Yes Past Zxaevah-Znvexq-Oyonhr Hx Patient Social History Alcohol Use: Denies Use Former Smoker, Quit: Mar 14, 2017 2nd Hand Smoke Exposure: No Recent Infectious Disease Expo: No Recent Hopitalizations: No Immunizations Up To Date PED Vaccines UTD: Yes Seasonal Allergies Seasonal Allergies: No Past Medical History Surgeries: Yes (HEART VALVE REPLACEMENT, CATARACT, R THIGH STENT, COLOSTOMY AND REVERSAL, ) Abdominal, Cardiac, Dialysis, Orthopedic Respiratory: No Cardiac: Yes (valve replaced) Deep Vein Thrombosis Neurological: Yes (NERVE DAMAGE LEGS) Neuropathy Reproductive Disorders: No Sexually Transmitted Disease: No 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 0.0oz. 95.847786lf; 22.00 BMI Method:Stated General Appearance: WD/WN, no apparent distress HEENT: PERRL/EOMI, other (dry oral mucosa) Neck: full range of motion Respiratory: lungs clear, normal breath sounds, no respiratory distress, no accessory muscle use Cardiovascular: regular rate, rhythm Gastrointestinal: normal bowel sounds, non tender, soft Extremities: non-tender, normal inspection, no pedal edema Neurologic/Psychiatric: alert, normal mood/affect, oriented x 3 Skin: normal color, warm/dry Progress/Results/Core Measures Results/Orders Lab Results Laboratory Tests Test 11/26/20 18:47 Range/Units White Blood Count 5.5 4.3-11.0 10^3/uL Red Blood Count 4.44 4.30-5.52 10^6/uL Hemoglobin 13.4 13.3-17.7 g/dL Hematocrit 42 40-54 % Mean Corpuscular Volume 94 80-99 fL Mean Corpuscular Hemoglobin 30 25-34 pg Mean Corpuscular Hemoglobin Concent 32 32-36 g/dL Red Cell Distribution Width 15.5 H 10.0-14.5 % Platelet Count 145 130-400 10^3/uL Mean Platelet Volume 10.4 9.0-12.2 fL Immature Granulocyte % (Auto) 0 % Neutrophils (%) (Auto) 66 42-75 % Lymphocytes (%) (Auto) 19 12-44 % Monocytes (%) (Auto) 14 H 0-12 % Eosinophils (%) (Auto) 0 0-10 % Basophils (%) (Auto) 0 0-10 % Neutrophils # (Auto) 3.6 1.8-7.8 10^3/uL Lymphocytes # (Auto) 1.1 1.0-4.0 10^3/uL Monocytes # (Auto) 0.8 0.0-1.0 10^3/uL Eosinophils # (Auto) 0.0 0.0-0.3 10^3/uL Basophils # (Auto) 0.0 0.0-0.1 10^3/uL Immature Granulocyte # (Auto) 0.0 0.0-0.1 10^3/uL Sodium Level 129 L 135-145 MMOL/L Potassium Level 4.3 3.6-5.0 MMOL/L Chloride Level 104 98-107 MMOL/L Carbon Dioxide Level 13 L 21-32 MMOL/L Anion Gap 12 5-14 MMOL/L Blood Urea Nitrogen 18 7-18 MG/DL Creatinine 1.21 0.60-1.30 MG/DL Estimat Glomerular Filtration Rate 60 BUN/Creatinine Ratio 15 Glucose Level 112 H 70-105 MG/DL Calcium Level 10.0 8.5-10.1 MG/DL My Orders Orders - MENG MATHIS MD Cbc With Automated Diff (11/26/20 18:30) Basic Metabolic Panel (11/26/20 18:30) Stool Culture (11/26/20 18:30) Parasite Scrn Stool Giard Cryp (11/26/20 18:30) C Difficile Ag + Toxin A/B. (11/26/20 18:30) Vital Signs/I&O 11/26/20 17:08 Temp 35.7 Pulse 77 Resp 18 B/P (MAP) 129/88 (102) Blood Pressure Mean: 102 Progress Progress Note : Time: 18:46 Progress Note 65-year-old male presents with a chief complaint of diarrhea. Evaluation today includes a physical exam, CBC, BMP, stool studies for ova and parasites, culture, Cryptosporidium, C. difficile. 193 Screening labs obtained and reviewed, CBC is within normal limits, chemistry shows a mildly low sodium. Renal function is within normal range. The patient is comfortable with the findings that we have had today. It will take a good 48 hours for the C. difficile to come back. I have reassured the patient that we will let him know if he has any abnormal stool findings. His vital signs are stable. His exam is unremarkable. Patient has no clinical or objective findings to warrant further studies from the emergency department at this time. All questions are sought and answered. Patient is agreeable with discharge. Departure Impression Primary Impression: Diarrhea Qualified Codes: R19.7 - Diarrhea, unspecified Disposition: 01 HOME, SELF-CARE Condition: Stable Departure-Patient Inst. Decision time for Depature: 19:39 Referrals: ONOFRE HUMPHRIES MD (PCP/Family) Primary Care Physician Patient Instructions: Diarrhea, Adult ED Add. Discharge Instructions: Drink plenty of fluids to stay well-hydrated. You can continue to take Imodium as directed on the bottle for your diarrhea. If you develop a fever or bloody stools please discontinue the Imodium and come back to the emergency room for reevaluation. Please follow-up with your primary care doctor early next week. Your lab results as far as your stool studies should be back on Saturday. Copy Copies To 1: ONOFRE HUMPHRIES MD, KATHRYN M MD Nov 26, 2020 18:47
[2020-11-26 19:07] LABS: POTASSIUM 4.3 MMOL/L (3.6-5.0)
[2020-11-26 19:13] LABS: BASOPHILS % (AUTO) 0 % (0-10); CREATININE SERUM 1.21 MG/DL (0.60-1.30); EOSINOPHILS % (AUTO) 0 % (0-10); HEMATOCRIT 42 % (40-54); HEMOGLOBIN 13.4 g/dL (13.3-17.7); LYMPHOCYTES # (AUTO) 1.1 10^3/uL (1.0-4.0); LYMPHOCYTES % (AUTO) 19 % (12-44); MEAN CORPUSCULAR HEMOGLOBIN 30 pg (25-34); MEAN CORPUSCULAR HGB CONC 32 g/dL (32-36); MEAN CORPUSCULAR VOLUME 94 fL (80-99); MEAN PLATELET VOLUME 10.4 fL (9.0-12.2); MONOCYTES # (AUTO) 0.8 10^3/uL (0.0-1.0); MONOCYTES % (AUTO) 14 % (0-12); NEUTROPHILS # (AUTO) 3.6 10^3/uL (1.8-7.8); NEUTROPHILS % (AUTO) 66 % (42-75); PLATELET COUNT 145 10^3/uL (130-400); WHITE BLOOD COUNT 5.5 10^3/uL (4.3-11.0)
[2020-11-26 19:42] VITALS: BP 132/78
== END 2020-11-26 19:42 | disposition home or self-care (01) ==
LOC: EDUNIT# 16:46 → ER 16:49
DX: R19.7 Diarrhea, unspecified (principal); Z88.1 Allergy status to other antibiotic agents; Z88.8 Allergy status to other drugs, medicaments and biological substances; Z87.891 Personal history of nicotine dependence; Z86.718 Personal history of other venous thrombosis and embolism; Z85.828 Personal history of other malignant neoplasm of skin; Z79.01 Long term (current) use of anticoagulants; Z79.52 Long term (current) use of systemic steroids
CPT/HCPCS: 36415; 80048; 85025; 87015; 87045; 87046; 87324; 87328; 87329; 87449; 87899

== ENCOUNTER 2021-05-09 05:35 | Outpatient (CLI) | payer MEDICARE, OTHER ==
[~2021-05-09] VITALS: Ht 190.5 cm; Wt 88.9 kg
[2021-05-09] MEDS ORDERED: FINA5TAB6 PO (09:08)
[2021-05-09] MEDS ORDERED: SILD25TA9 PO (09:08)
[2021-05-09] MEDS ORDERED: TACROLIMUS PO (09:08)
[2021-05-09] MEDS ORDERED: NF-SODBICA PO (09:08)
[2021-05-09] MEDS ORDERED: APIX5TAB PO (09:08)
[2021-05-09] MEDS ORDERED: CHOL50005 PO (09:08)
[2021-05-09] MEDS ORDERED: NF-MAG64T PO (09:08)
[2021-05-09] MEDS ORDERED: PRED5TAB PO (09:08)
[2021-05-09] MEDS ORDERED: NF-MYC250C PO (09:08)
[2021-05-09] MEDS ORDERED: CINA30TA6 PO (09:08)
[2021-05-10] MEDS ORDERED: ACHD5005 PO (17:14)
== END 2021-05-09 09:30 | disposition home or self-care (01) ==
LOC: PREOP 05:35
PROVIDERS: ATTEND Surgery
DX: Z01.818 Encounter for other preprocedural examination (principal)

== ENCOUNTER 2021-05-10 07:07 | Day surgery (SDC) | payer MEDICARE, OTHER ==
[~2021-05-10] VITALS: Ht 190.5 cm; Wt 88.9 kg
[2021-05-10] VITALS (12 sets, daily range): BP systolic 138–160; BP diastolic 55–95
[~2021-05-10 07:07] MED LIST changes: +APIX5TAB PO; +CHOL50005 PO; +CINA30TA6 PO; +FINA5TAB6 PO; +NF-MAG64T PO; +NF-MYC250C PO; +NF-SODBICA PO; +PRED5TAB PO; +SILD25TA9 PO; +TACROLIMUS PO
[2021-05-10] MEDS ORDERED: LACTATED RINGERS 1,000 ML IV PRN (08:00)
[2021-05-10] MEDS ORDERED: ceFAZolin 2 GM IV Premixed 50 ML IV ONE (08:15)
--- NOTE | 2021-05-10 11:55 | Diagnostic Imaging Report ---
INDICATION: Melanoma. Total of 1.0 mCi technetium 99m filtered sulfur colloid was injected in 4 separate aliquots around the skin lesion in the upper left chest. Imaging was performed to evaluate sentinel node. Migration of activity into the left axilla is noted. This was marked on the patient's skin and patient was sent to surgery. IMPRESSION: Lymphoscintigraphy for identification of sentinel node, as described. Dictated by: Dictated on workstation # [id number]
[2021-05-10] MEDS ORDERED: LIDOCAINE/EPI 1%-1:100,000 (XYLOCAINE) 20ML ONE (13:10)
[2021-05-10] MEDS ORDERED: fentaNYL INJ 100 MCG/2 ML AMP ONE ×2 (13:15→14:20)
[2021-05-10] MEDS ORDERED: ONDANSETRON 4 MG/2 ML (SDV) Z0FRAN ONE (13:15)
[2021-05-10] MEDS ORDERED: proPOfol 200 MG/20 ML (DIPRIVAN) VIAL IV ONE (13:15)
[2021-05-10] MEDS ORDERED: LIDOCAINE PF 2% 5 ML (XYLOCAINE) VIAL ONE (13:15)
--- NOTE | 2021-05-10 13:25 | Progress Note-Pre Operative ---
Pre-Operative Progress Note H&P Reviewed The H&P was reviewed, patient examined and no changes noted. Date Seen by Provider: May 10, 2021 Time Seen by Provider: 12:40 Date H&P Reviewed: May 10, 2021 Time H&P Reviewed: 12:40 Pre-Operative Diagnosis: melanoma left chest YAZAN JIMÉNEZ DO May 10, 2021 13:25
[2021-05-10] MEDS ORDERED: METHYLENE BLUE 0.5% (PROVAYBLUE) 50 mg/10 ml vial IV ONE (13:27)
[2021-05-10] MEDS ORDERED: SEVOFLURANE (ULTANE) 15 ML INHAL SOLN ONE (14:45)
[2021-05-10] MEDS ORDERED: ONDANSETRON 4 MG/2 ML (SDV) Z0FRAN IVP PRN (15:15)
[2021-05-10] MEDS ORDERED: fentaNYL INJ 100 MCG/2 ML AMP IVP ONE (15:15)
--- NOTE | 2021-05-10 15:15 | Anesthesia-General Post-Op ---
General Patient Condition Mental Status/LOC: Same as Preop Cardiovascular: Satisfactory Nausea/Vomiting: Absent Respiratory: Satisfactory Pain: Controlled Complications: Absent Post Op Complications Complications None Follow Up Care/Instructions Patient Instructions None needed. Anesthesia/Patient Condition Patient Condition Patient is doing well, no complaints, stable vital signs, no apparent adverse anesthesia problems. LEOPOLDO CHANG DO May 10, 2021 15:15
[2021-05-10] MEDS ORDERED: ACHD5005 PO (17:14)
--- NOTE | 2021-05-10 17:17 | Discharge Inst-Simple/Standard ---
Discharge Inst-Standard Discharge Medications New, Converted or Re-Newed RX: Transmitted to Pharmacy Patient Instructions/Follow Up Plan of Care/Instructions/FU: 12-14 days Activity as Tolerated: No Discharge Diet: Regular Diet Other Inst to Patient Follow up Appt: Make appointment for 12-14 days for suture removal. Instructions: No lifting greater than 10 pounds. No strenuous activity. May shower in 24 hours, no tub bath or soaking. Use incentive spirometer at home as directed. No Smoking Skin/Wound Care: You have special glue over your incision that will fall off on it's own. Symptoms to Report: Appetite Changes, Extremity Discoloration, Numbness/Tingling, Swelling Increased, Bleeding Excessive, Eyesight Changes, Pain Increased, Urine Color Change, Constipation(Persistent), Fever over 101 degree F, Pain/Pressure in chest, Urinating Difficulty, Cough Up/Vomit Blood, Heart Beat Irreg/Pounding, Pain/Pressure in jaw, Vaginal Bleeding Increase, Cramps in feet or legs, Lightheadedness, Pain/Pressure in shoulder, Diarrhea(Persistent), Memory Changes Suddenly, Questions/Concerns, Weight gain consecutive days, Dizziness/Fainting, Nausea/Vomiting, Shortness of Breath, Weight gain over 2 pounds If questions or concerns contact your physician Or seek help at emergency department. YAZAN JIMÉNEZ DO May 10, 2021 17:17
--- NOTE | 2021-05-11 04:57 | OPERATIVE REPORT ---
DATE OF SERVICE: 05/10/2021 PREOPERATIVE DIAGNOSIS: Melanoma, left chest. POSTOPERATIVE DIAGNOSIS: Melanoma, left chest. PROCEDURE: Left axillary sentinel node biopsy with reexcision of left chest, 12.4 x 4.3 cm. SURGEON: Yazan Chiu DO ANESTHESIA: General. ESTIMATED BLOOD LOSS: Minimal. COMPLICATIONS: None. INDICATIONS: The patient is a 65-year-old male with recent excision of the left chest, which demonstrated to be a melanoma, which requires sentinel node biopsy and reexcision for margins. The patient understands risks and benefits of procedure and wished to proceed with procedure. Consent was signed in the chart. DESCRIPTION OF PROCEDURE: The patient was taken to the operating suite, was prepped and draped in sterile fashion. Timeout was performed. Lecompte was used to find the sentinel node in the left axilla just posterior to the pectoralis major muscle. Incision was made and cautery used to dissect down through the subcutaneous tissues. A hot node was located, was able to be grasped and dissected around both bluntly and then with cautery, excising the node. The count on the node was 297. No other nodes were able to be isolated using the Yudy counter. The wound was then irrigated with copious amounts of irrigation. The subcutaneous tissues were then reapproximated using 3-0 Vicryl. The skin was then closed with Skin Affix. Attention was then placed on to the left chest for reexcision of lesion. An elliptical incision around the area was made measuring 12.4 x 4.3 cm. Skin and subcutaneous tissue were then removed, and cautery was used to achieve hemostasis. The skin was then closed using 2-0 Prolene in simple interrupted and vertical mattress fashion. The area was then washed and dried, and a sterile bandage was applied. The patient tolerated the procedure well without any complications, taken to recovery room in stable condition. RECOMMENDATIONS: The patient to follow up in the office in 12 to 14 days for suture removal. Job ID: [id number] DocumentID: [id number] Dictated Date: 05/10/2021 16:59:32 Stna Date: 05/10/2021 23:10:31 Dictated By: YAZAN CHIU DO
== END 2021-05-10 16:45 ==
LOC: CARD 07:07
PROVIDERS: ATTEND Surgery
DX: C43.59 Malignant melanoma of other part of trunk (principal); L92.8 Other granulomatous disorders of the skin and subcutaneous tissue; I89.8 Other specified noninfective disorders of lymphatic vessels and lymph nodes; I25.10 Atherosclerotic heart disease of native coronary artery without angina pectoris; I48.91 Unspecified atrial fibrillation; Z20.822 Contact with and (suspected) exposure to COVID-19; Z79.01 Long term (current) use of anticoagulants; Z79.899 Other long term (current) drug therapy; Z79.82 Long term (current) use of aspirin
CPT/HCPCS: 11606; 38500; 78195; 88305; 88307; 88344; A9541

== ENCOUNTER → 2021-05-17 | Outpatient (CLI) | payer MEDICARE, OTHER ==
[2021-05-17] VITALS (7 sets, daily range): BP systolic 127–135; BP diastolic 70–82
[~2021-05-17] VITALS: Ht 190.5 cm; Wt 86.4 kg
[~2021-05-17] MED LIST changes: +ACHD5005 PO; +IMMUNE GLOBULIN IV SCH
== END ==
LOC: SDC 10:05
PROVIDERS: ATTEND Physician Assistant
DX: T86.10 Unspecified complication of kidney transplant (principal); D80.1 Nonfamilial hypogammaglobulinemia; D84.821 Immunodeficiency due to drugs
CPT/HCPCS: 96365; 96366

== ENCOUNTER → 2021-05-17 | Outpatient (CLI) | payer MEDICARE, OTHER ==
[~2021-05-17] MED LIST changes: -IMMUNE GLOBULIN IV SCH
--- NOTE | 2021-05-17 15:50 | Diagnostic Imaging Report ---
INDICATION: Abnormal x-ray of the chest. EXAMINATION: PA and lateral views of the chest were obtained. COMPARISON: Study of 10/04/2019. Heart size and pulmonary vascularity are within normal limits. There are surgical findings with cardiac valve prosthesis. There is slight linear atelectasis in the right midlung. Surgical clips are seen in the right supraclavicular region with subcutaneous gas in the left axilla. IMPRESSION: No definite acute abnormality is identified although there is mild right perihilar atelectasis. Subcutaneous gas in the left axilla may be related to recent instrumentation and clinical correlation would be of use. Dictated by: Dictated on workstation # [id number]
== END ==
LOC: RAD 15:13
DX: R91.8 Other nonspecific abnormal finding of lung field (principal); J98.11 Atelectasis; Z98.890 Other specified postprocedural states
CPT/HCPCS: 71046

== ENCOUNTER → 2021-08-21 | Outpatient (CLI) | payer MEDICARE, OTHER ==
[~2021-08-21] VITALS: Ht 190 cm; Wt 88.6 kg
[~2021-08-21] MED LIST changes: +IMMU GLOBULIN GAMMA IV SCH; +[UNRECOGNIZED DRUG - OTHER] IV SCH
[2021-08-21 10:16] VITALS: BP 140/74
== END ==
LOC: SDC 09:50
PROVIDERS: ATTEND Physician Assistant
DX: T86.10 Unspecified complication of kidney transplant (principal); D80.1 Nonfamilial hypogammaglobulinemia; D84.821 Immunodeficiency due to drugs; Z94.0 Kidney transplant status
CPT/HCPCS: 96365; 96366

== ENCOUNTER → 2021-10-17 | Outpatient (CLI) | payer MEDICARE, OTHER ==
[~2021-10-17] MED LIST changes: -AMIO200T6; +AMIO200T65; -IMMU GLOBULIN GAMMA IV SCH; -[UNRECOGNIZED DRUG - OTHER] IV SCH
--- NOTE | 2021-10-17 08:59 | Diagnostic Imaging Report ---
INDICATION: Pneumonia. Shortness of breath. Comparison with 05/17/2021. FINDINGS: PA and lateral views. Lungs are well-aerated and clear. There does appear to be mild air trapping bilaterally. Heart upper limits of normal. There is a prosthetic aortic valve present. No evidence of pulmonary edema. No hilar adenopathy. No pneumothorax or pleural effusion. No bony abnormalities. IMPRESSION: Mild air trapping bilaterally with no infiltrates demonstrated. Dictated by: Dictated on workstation # [id number]
== END ==
LOC: RAD 07:59
DX: J18.9 Pneumonia, unspecified organism (principal)
CPT/HCPCS: 71046

== ENCOUNTER 2021-11-21 10:24 | Outpatient (CLI) | payer MEDICARE, OTHER ==
[2021-11-21] VITALS (7 sets, daily range): BP systolic 102–148; BP diastolic 53–82
[~2021-11-21] VITALS: Ht 188.2 cm; Wt 88.6 kg
[2021-11-21] MEDS ORDERED: [UNRECOGNIZED DRUG - OTHER] IV SCH ×3 (10:43)
[2021-11-21] MEDS ORDERED: IMMU GLOBULIN GAMMA IV SCH ×3 (10:43)
[2021-11-21] MEDS ORDERED: [UNRECOGNIZED DRUG - MIXTURE] IV SCH ×2 (11:15)
== END 2021-11-21 13:20 | disposition home or self-care (01) ==
LOC: SDC 10:24
PROVIDERS: ATTEND Physician Assistant
DX: D80.1 Nonfamilial hypogammaglobulinemia (principal); D84.821 Immunodeficiency due to drugs; T86.10 Unspecified complication of kidney transplant; Z94.0 Kidney transplant status
CPT/HCPCS: 96365; 96366; J1569

== ENCOUNTER → 2022-02-21 | Outpatient (CLI) | payer MEDICARE, OTHER ==
[~2022-02-21] MED LIST changes: +IMMU GLOBULIN GAMMA IV SCH; +[UNRECOGNIZED DRUG - MIXTURE] IV SCH
[2022-02-21 10:37] VITALS: BP 139/69
== END ==
LOC: SDC 10:26
PROVIDERS: ATTEND Physician Assistant
DX: T86.10 Unspecified complication of kidney transplant (principal); D80.1 Nonfamilial hypogammaglobulinemia; D84.821 Immunodeficiency due to drugs; Z94.0 Kidney transplant status
CPT/HCPCS: 96365; 96366; J1569

== ENCOUNTER → 2022-09-13 | Outpatient (CLI) | payer MEDICARE, OTHER ==
[~2022-09-13] VITALS: Ht 190.5 cm; Wt 85.0 kg
[~2022-09-13] MED LIST changes: +ACETAMINOPHEN 325 MG TABLET PO ONE; -IMMU GLOBULIN GAMMA IV SCH; +diphenhydrAMINE 25 MG TAB (BENADRYL) PO ONE
[2022-09-13 08:31] VITALS: BP 141/82
[2022-09-13 09:36] VITALS: BP 134/73
[2022-09-13 09:57] VITALS: BP 135/76
[2022-09-13 10:22] VITALS: BP 141/78
[2022-09-13 10:49] VITALS: BP 141/76
== END ==
LOC: SDC 07:56
PROVIDERS: ATTEND Physician Assistant
DX: T86.10 Unspecified complication of kidney transplant (principal); D80.1 Nonfamilial hypogammaglobulinemia; D84.821 Immunodeficiency due to drugs
CPT/HCPCS: 96365; 96366; J1569

== ENCOUNTER → 2022-12-13 | Outpatient (CLI) | payer MEDICARE, OTHER ==
[~2022-12-13] VITALS: Ht 188 cm; Wt 85.0 kg
[2022-12-13 08:28] VITALS: BP 118/74
== END ==
LOC: SDC 08:00
PROVIDERS: ATTEND Physician Assistant
DX: T86.10 Unspecified complication of kidney transplant (principal); D80.1 Nonfamilial hypogammaglobulinemia; D84.821 Immunodeficiency due to drugs; Z94.0 Kidney transplant status
CPT/HCPCS: 96365; 96366; J1569

== ENCOUNTER → 2023-03-14 | Outpatient (CLI) | payer MEDICARE, OTHER ==
[~2023-03-14] VITALS: Wt 84.9 kg
[~2023-03-14] MED LIST changes: -ENAL10TA16 PO; +ENLP10T PO; +IMMU GLOBULIN GAMMA IV SCH
[2023-03-14 10:27] VITALS: BP 153/80
[2023-03-14 11:00] VITALS: BP 164/81
[2023-03-14 11:40] VITALS: BP 152/86
[2023-03-14 12:30] VITALS: BP 159/79
[2023-03-14 12:40] VITALS: BP 166/91
[2023-03-14 13:00] VITALS: BP 149/92
== END ==
LOC: SDC 08:06
PROVIDERS: ATTEND Physician Assistant
DX: D80.1 Nonfamilial hypogammaglobulinemia (principal); D84.821 Immunodeficiency due to drugs; T86.10 Unspecified complication of kidney transplant
CPT/HCPCS: 96365; 96366; J1569

== ENCOUNTER → 2023-06-13 | Outpatient (CLI) | payer MEDICARE, OTHER ==
[~2023-06-13] MED LIST changes: -IMMU GLOBULIN GAMMA IV SCH; +IMMUNE GLOBULIN GAMMA IV ONE; -[UNRECOGNIZED DRUG - MIXTURE] IV SCH; -diphenhydrAMINE 25 MG TAB (BENADRYL) PO ONE; +diphenhydrAMINE 25 MG TABLET PO ONE
[2023-06-13 09:00] VITALS: BP 147/93
== END ==
LOC: SDC 08:45
PROVIDERS: ATTEND Physician Assistant
DX: D84.821 Immunodeficiency due to drugs (principal); T86.10 Unspecified complication of kidney transplant; D80.1 Nonfamilial hypogammaglobulinemia
CPT/HCPCS: 96365; 96366; J1569

== ENCOUNTER → 2023-07-22 | Outpatient (CLI) | payer MEDICARE, OTHER ==
[~2023-07-22] VITALS: Ht 190.5 cm; Wt 77.2 kg
[2023-07-22] VITALS (10 sets, daily range): BP systolic 120–149; BP diastolic 63–93
[~2023-07-22] MED LIST changes: -ACETAMINOPHEN 325 MG TABLET PO ONE; +CATHETER FLUSH 10 ML SYR IVP PRN; +HYDROcodone/ACETAMINOPHEN 5 MG/325 MG TABLET PO PRN; +IMMU20VI IJ; -IMMUNE GLOBULIN GAMMA IV ONE; +LIDOCAINE 1% INJ 10 ML VIAL INJ ONE; +MIDAZOLAM INJ 2 MG/2 ML VIAL IVP ONE; +NS IV 1000 ML 1,000 ML IV STA; +PHENERGAN/CODEINE PO; -diphenhydrAMINE 25 MG TABLET PO ONE; +fentaNYL INJECTION 100 MCG/2 ML VIAL IVP ONE
[2023-07-22 07:48] LABS: HEMATOCRIT 40 % (40-54); HEMOGLOBIN 12.7 g/dL (13.3-17.7); MEAN CORPUSCULAR HEMOGLOBIN 30 pg (25-34); MEAN CORPUSCULAR HGB CONC 32 g/dL (32-36); MEAN CORPUSCULAR VOLUME 94 fL (80-99); MEAN PLATELET VOLUME 10.1 fL (9.0-12.2); PLATELET COUNT 144 10^3/uL (130-400); WHITE BLOOD COUNT 7.1 10^3/uL (4.3-11.0)
[2023-07-22 08:06] LABS: INR 1.1 (0.8-1.4); PROTHROMBIN TIME PATIENT 14.4 SEC (12.2-14.7)
--- NOTE | 2023-07-22 10:41 | Pre-Op Note & Conscious Sedat ---
Pre-Operative Progress Note Date of Available H&P: Jul 22, 2023 Date H&P Reviewed: Jul 22, 2023 Time H&P Reviewed: 08:00 Pre-Op Diagnosis: liver mass Moderate Sedation PreProcedure Time 08:00 ASA Score 2 Airway Lungs Heart ASA score ASA 1: a normal healthy patient ASA 2: a patient with a mild systemic disease (mid diabetes, controlled hypertension, obesity ASA 3: a patient with a severe systemic disease that limits activity (angina, COPD, prior Myocardial infarction) ASA 4: a patient with an incapacitating disease that is a constant threat to life (CHF, renal failure) ASA 5: a moribund patient not expected to survive 24 hrs. (ruptured aneurysm) ASA 6: a declared brain- patient whose organs are being harvested. For emergent operations, add the letter E after the classification Mallampati Classification Grade 2 Sedation Plan Analgesia, Amnesia, Plan communicated to team members, Discussed options with patient/fam, Discussed risks with patient/fam The patient is an appropriate candidate to undergo the planned procedure, sedation, and anesthesia. The patient immediately re-assessed prior to indication. CALLIE ALACNTARA MD Jul 22, 2023 10:41
--- NOTE | 2023-07-22 10:53 | Diagnostic Imaging Report ---
INDICATION: Liver mass. Patient presents for CT-guided biopsy. DETAILS OF THE PROCEDURE: The patient was brought to the CT suite and placed on the table in the supine position. Axial imaging through the abdomen was performed to evaluate for an appropriate entry site. The right abdomen was then prepped and draped in the usual sterile fashion. A small amount of 1% lidocaine was utilized for local anesthesia. Conscious sedation was utilized with Radiology nursing and constant patient monitoring. The patient was given a total of 50 mg of fentanyl intravenously and 1 mg of Versed intravenously. The total procedure time was approximately 4 minutes. An 18-gauge coaxial Temno needle was advanced from the right midaxillary line and placed into the dominant mass in the posterior right lobe of the liver. Five core biopsies were obtained. A blood patch was injected during needle removal. Hemostasis was obtained using manual compression. Followup imaging shows no complicating features. IMPRESSION: Successful CT-guided core biopsy of the dominant solid mass in the posterior right lobe of the liver utilizing conscious sedation. Pathology results are currently pending. Dictated by: Dictated on workstation # [id number]
== END ==
LOC: RAD 07:18
PROVIDERS: ATTEND Pediatrics
DX: K76.9 Liver disease, unspecified (principal)
CPT/HCPCS: 36415; 77012; 85027; 85610; 85730; 99156

== ENCOUNTER 2023-09-16 08:05 | Outpatient (CLI) | payer MEDICARE, OTHER ==
[2023-09-16] VITALS (7 sets, daily range): BP systolic 125–171; BP diastolic 72–108
[~2023-09-16] VITALS: Ht 190.5 cm; Wt 77.2 kg
[~2023-09-16 08:05] MED LIST changes: -CATHETER FLUSH 10 ML SYR IVP PRN; -HYDROcodone/ACETAMINOPHEN 5 MG/325 MG TABLET PO PRN; -LIDOCAINE 1% INJ 10 ML VIAL INJ ONE; -MIDAZOLAM INJ 2 MG/2 ML VIAL IVP ONE; -NS IV 1000 ML 1,000 ML IV STA; -fentaNYL INJECTION 100 MCG/2 ML VIAL IVP ONE
[2023-09-16] MEDS ORDERED: ACETAMINOPHEN 325 MG TABLET ONE (08:16)
[2023-09-16] MEDS ORDERED: diphenhydrAMINE 25 MG TABLET PO ONE ×2 (08:17→08:30)
[2023-09-16] MEDS ORDERED: ACETAMINOPHEN 325 MG TABLET PO ONE (08:30)
[2023-09-16] MEDS: IMMUNE GLOBULIN GAMMA IV SCH ×4 (09:02→09:54)
[2023-09-16] MEDS ORDERED: SIROLIMUS (15:15)
== END 2023-09-16 13:30 | disposition home or self-care (01) ==
LOC: SDC 08:05
PROVIDERS: ATTEND Internal Medicine Nephrology
DX: Z94.0 Kidney transplant status (principal); T86.10 Unspecified complication of kidney transplant; D80.1 Nonfamilial hypogammaglobulinemia; D84.821 Immunodeficiency due to drugs
CPT/HCPCS: 96365; 96366; J1569